=== PATIENT | female | born 1960 | race Caucasian/White ===

== ENCOUNTER 2017-05-04 01:34 | Emergency (ER) | payer BC ==
[2017-05-04 01:55] VITALS: BP 158/101
[2017-05-04] MEDS ORDERED: Ondansetron 4 MG/2 ML SDV IVPUSH ONE (02:07)
[2017-05-04] MEDS ORDERED: methylPREDNISolone Sodium Succinate 125 MG/2 ML SDV IVPUSH ONE (02:07)
--- NOTE | 2017-05-04 02:07 | EDM.PDOC ---
ED HPI GENERAL MEDICAL PROBLEM - General Chief Complaint: Neuro Symptoms/Deficits Stated Complaint: DIZZY/NAUSEATED Time Seen by Provider: 05/04/17 01:59 Source of Information: Reports: Patient, RN Notes Reviewed - History of Present Illness INITIAL COMMENTS - FREE TEXT/NARRATIVE: 56-year-old female comes in private vehicle with vertigo type dizziness. She had been in bed sleeping. She states she rolled from her left side to her right with sudden onset of severe rotational vertigo. She did try to take a couple of nausea meds at home, draw morning but states that hasn't helped much. She's had nausea and vomiting with this. The vertigo is worse with any type of motion. Better to sit or lie still with her eyes closed. She has had some vertigo-type problems in the past. Of note the draw morning that she took an hour or so ago had an expiration date of December 2009. She has no headache with this. She states she does have chronic nasal and sinus congestion but no worse than usual. No recent fever or chills. 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 [Unable to Verify Home Med List] 05/04/17 [History] Past Medical History Cardiovascular History: Reports: Hypertension Social & Family History - Tobacco Use Smoking Status *Q: Current Every Day Smoker Years of Tobacco use: 45 Packs/Tins Daily: 0.5 - Caffeine Use Caffeine Use: Reports: Coffee - Recreational Drug Use Recreational Drug Use: No ED ROS GENERAL - Review of Systems Review Of Systems: See Below Constitutional: Denies: Fever, Chills HEENT: Reports: Vertigo. Denies: Ear Discharge, Ear Pain, Sinus Problem, Vision Change Respiratory: Denies: Shortness of Breath Cardiovascular: Denies: Chest Pain GI/Abdominal: Reports: Nausea, Vomiting. Denies: Abdominal Pain, Diarrhea Musculoskeletal: Reports: No Symptoms Skin: Reports: No Symptoms Neurological: Reports: Dizziness. Denies: Headache, Numbness, Tingling, Trouble Speaking ED EXAM, NEURO - Physical Exam Exam: See Below General Appearance: Alert, Moderate Distress Eye Exam: Bilateral Eye: PERRL Ears: Normal External Exam, Normal Canal, Normal TMs Nose: Normal Inspection Throat/Mouth: Normal Inspection, Normal Oropharynx Head Exam: Atraumatic. No: Facial Swelling Neck: Supple, Full Range of Motion Respiratory/Chest: No Respiratory Distress, Lungs Clear, Normal Breath Sounds Cardiovascular: Regular Rate, Rhythm GI/Abdominal: Non-Tender Neurological: Alert, No Motor/Sensory Deficits Extremities: Normal Inspection. No: Pedal Edema, Leg Pain Skin Exam: Warm, Dry, Normal Color Course - Vital Signs Last Recorded V/S: Last Vital Signs Temp 98.3 F 05/04/17 01:52 Pulse 71 05/04/17 01:52 Resp 18 05/04/17 01:52 BP 158/101 H 05/04/17 01:52 Pulse Ox 95 05/04/17 01:52 - Orders/Labs/Meds Orders: Active Orders 24 hr Category Date Time Status Peripheral IV Care [RC] . DIRECTED Care 05/04/17 02:08 Active Sodium Chloride 0.9% [Saline Flush] Med 05/04/17 02:08 Active 10 ml FLUSH ASDIRECTED PRN Peripheral IV Insertion Adult [OM.PC] Stat Oth 05/04/17 02:07 Ordered Medication Orders Sodium Chloride (Saline Flush) 10 ml FLUSH ASDIRECTED PRN PRN Reason: Keep Vein Open Last Admin: 05/04/17 02:33 Dose: 10 ml Meds: Medications Generic Name Dose Route Start Last Admin Trade Name Freq PRN Reason Stop Dose Admin Sodium Chloride 10 ml 05/04/17 02:08 05/04/17 02:33 Saline Flush FLUSH 10 ml ASDIRECTED PRN Administration Keep Vein Open Discontinued Medications Generic Name Dose Route Start Last Admin Trade Name Freq PRN Reason Stop Dose Admin Diazepam 2 mg 05/04/17 02:08 05/04/17 02:27 Valium IVPUSH 05/04/17 02:09 2 mg ONETIME ONE Administration Sodium Chloride 500 mls @ 999 mls/hr 05/04/17 02:08 05/04/17 02:20 Normal Saline IV 05/04/17 02:38 999 mls/hr .BOLUS ONE Administration Meclizine HCl 12.5 mg 05/04/17 02:38 05/04/17 02:44 Antivert PO 05/04/17 02:39 12.5 mg ONETIME ONE Administration Methylprednisolone Sodium Succinate 125 mg 05/04/17 02:07 05/04/17 02:24 Solu-Medrol IVPUSH 05/04/17 02:08 125 mg ONETIME ONE Administration Ondansetron HCl 4 mg 05/04/17 02:07 05/04/17 02:21 Zofran IVPUSH 05/04/17 02:08 4 mg ONETIME ONE Administration - Re-Assessments/Exams Free Text/Narrative Re-Assessment/Exam: 05/04/17 03:45. Have treated with IV Zofran, Solu-Medrol and Valium 2 mg IV. With that the nausea is much better. She still feels dizzy with motion so will allow her to rest for a while longer until symptoms hopefully get better. 05/04/17 04:52. Feeling much better. She now can move carefully without recurrence of severe vertigo. SHe feels up to going home at this time. Discharge instructions as documented Departure - Departure Time of Disposition: 04:53 Disposition: Home, Self-Care 01 Condition: fair Clinical Impression: Labyrinthitis Qualifiers: Laterality: unspecified laterality Qualified Code(s): H83.09 - Labyrinthitis, unspecified ear - Discharge Information Instructions: Labyrinthitis, [id number] Referrals: Alicia Shaw MD [Primary Care Provider] - Forms: ED Department Discharge Additional Instructions: Rest, moves slowly and carefully, Antivert, meclizine 12.5 mg 2 to 3 times daily for the next 3 days or until sx of vertigo have completely resolved. This is available OTC, you will need to ask your Pharmacist for it. Follow up clinic as needed if symptoms not resolving as expected or return to ED as needed if symptoms worsening in any way. - My Orders Last 24 Hours: My Active Orders 05/04/17 02:07 Peripheral IV Insertion Adult [OM.PC] Stat 05/04/17 02:08 Peripheral IV Care [RC] . DIRECTED Sodium Chloride 0.9% [Saline Flush] 10 ml FLUSH ASDIRECTED PRN - Assessment/Plan Last 24 Hours: My Active Orders 05/04/17 02:07 Peripheral IV Insertion Adult [OM.PC] Stat 05/04/17 02:08 Peripheral IV Care [RC] . DIRECTED Sodium Chloride 0.9% [Saline Flush] 10 ml FLUSH ASDIRECTED PRN
[2017-05-04] MEDS ORDERED: Sodium Chloride 0.9% 500 ML IV ONE (02:08)
[2017-05-04] MEDS ORDERED: Sodium Chloride 0.9% 10 ML Syringe FLUSH PRN (02:08)
[2017-05-04] MEDS ORDERED: Meclizine 12.5 MG Tab PO ONE (02:38)
== END 2017-05-04 04:55 | disposition home or self-care (01) ==
LOC: JD.ED 01:34
DX: H83.09 Labyrinthitis, unspecified ear (principal); F17.210 Nicotine dependence, cigarettes, uncomplicated; I10 Essential (primary) hypertension; Z88.0 Allergy status to penicillin
CPT/HCPCS: 96361; 96374; 96375; 99284; A9270; J2405; J2930; J3360; J7040; J7050

== ENCOUNTER 2018-02-13 07:00 | Day surgery (SDC) | payer BC ==
[~2018-02-13 07:00] MED LIST: Lactated Ringers 1,000 ML IV SCH; Lidocaine 1%/Sod Bicarbonate in NS 8.4% 1 ML Syringe IDERM PRN; Sodium Chloride 0.9% 10 ML Syringe FLUSH PRN
--- NOTE | 2018-02-13 07:31 | PCM.PREANE ---
Preanesthetic Assessment - Procedure Proposed Procedure: dig egd and diag colon - Anesthesia/Transfusion/Family Hx Anesthesia History: Prior Anesthesia Without Reaction Family History of Anesthesia Reaction: No Transfusion History: No Prior Transfusion(s) - Review of Systems General: No Symptoms Pulmonary: No Symptoms Cardiovascular: Palpitations (occasionally depending on stress) Gastrointestinal: No Symptoms Neurological: No Symptoms - Physical Assessment NPO Status Date: 02/12/18 (pills with sip this am) NPO Status Time: 23:15 Pulse: 78 O2 Sat by Pulse Oximetry: 94 Respiratory Rate: 16 Blood Pressure: 129/97 Temperature: 97.5 F Height: 5 ft 6 in Weight: 125.963 kg ASA Class: 2 Mental Status: Alert & Oriented x3 Airway Class: Mallampati = 1 Dentition: Reports: Dentures (partial top) Thyro-Mental Finger Breadths: 3 Mouth Opening Finger Breadths: 3 ROM/Head Extension: Full Lungs: Clear to Auscultation, Normal Respiratory Effort Cardiovascular: Regular Rate, Regular Rhythm - Allergies Allergies/Adverse Reactions: Allergies Allergy/AdvReac Type Severity Reaction Status Date / Time broccoli Allergy Cannot Verified 02/09/18 15:38 Remember Penicillins Allergy Cannot Verified 02/09/18 15:38 Remember - Blood Blood Available: No - Acknowledgements Anesthesia Type Planned: MAC Pt an Appropriate Candidate for the Planned Anesthesia: Yes Alternatives and Risks of Anesthesia Discussed w Pt/Guardian: Yes Pt/Guardian Understands and Agrees with Anesthesia Plan: Yes PreAnesthesia Questionnaire HEENT History: Reports: Impaired Vision, Other (See Below) Other HEENT History: wears glasses, has partial Cardiovascular History: Reports: High Cholesterol, Hypertension Respiratory History: Reports: None Gastrointestinal History: Reports: None Genitourinary History: Reports: None 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 Musculoskeletal History: Reports: Gout, Osteoarthritis Neurological History: Reports: Vertigo, Other (See Below) Other Neuro History: trigeminal neuralgia Psychiatric History: Reports: Other (See Below) Other Psychiatric History: dyslexia, depression Endocrine/Metabolic History: Reports: Obesity/BMI 30+ Hematologic History: Reports: None Immunologic History: Reports: None Oncologic (Cancer) History: Reports: None Dermatologic History: Reports: None - Past Surgical History Head Surgeries/Procedures: Reports: None Cardiovascular Surgical History: Reports: None Respiratory Surgical History: Reports: None GI Surgical History: Reports: None Female Surgical History: Reports: Tubal Ligation, Other (See Below) Other Female Surgeries/Procedures: breast lumpectomy Endocrine Surgical History: Reports: None Neurological Surgical History: Reports: None Musculoskeletal Surgical History: Reports: Arthroscopic Knee Oncologic Surgical History: Reports: None Dermatological Surgical History: Reports: None - SUBSTANCE USE Smoking Status *Q: Current Every Day Smoker Tobacco Use Within Last Twelve Months: Cigarettes Second Hand Smoke Exposure: Yes Days Per Week of Alcohol Use: 1 (very little) Recreational Drug Use History: No - HOME MEDS Home Medications: Home Meds Acetaminophen [Tylenol Arthritis] 1 tab PO QID PRN 02/09/18 [History] Acetaminophen/Chlorpheniramine [Coricidin HBP Cold & Flu] 1 tab PO Q6H PRN 02/09 [History] Acetaminophen/HYDROcodone [[place] 325-5 MG] 1 - 2 tab PO Q6H PRN 02/09/18 [ History] Aspirin 81 mg PO DAILY 02/09/18 [History] Aspirin/Acetaminophen/Caffeine [Migraine Relief Caplet] 1 - 2 tab PO Q6H PRN [History] Benzonatate [Tessalon Perle] 1 - 2 cap PO Q6H PRN 02/09/18 [History] Cyclobenzaprine [Flexeril] 10 mg PO TID PRN 02/09/18 [History] Fish Oil/[place]-3 Fatty Acids [Fish Oil 1,000 MG] 1 gm PO DAILY 02/09/18 [History ] Hydrochlorothiazide [Hydrochlorothiazide] 12.5 mg PO DAILY 02/09/18 [History] Hydrochlorothiazide/Losartan [Hyzaar 50-12.5 MG] 1 tab PO DAILY 02/09/18 [ History] Multivitamin [Flintstones] 1 tab PO DAILY 02/09/18 [History] Naproxen Sodium [Aleve] 1 - 2 tab PO BID PRN 02/09/18 [History] atorvaSTATin [Lipitor] 20 mg PO DAILY 02/09/18 [History] traMADol HCl [Tramadol HCl] 50 mg PO Q6H PRN 02/09/18 [History] - CURRENT (IN HOUSE) MEDS Current Meds: Current Medications Lactated Ringer's (Ringers, Lactated) 1,000 mls @ 125 mls/hr IV ASDIRECTED [facility]ANCHES[facility] Stop: 02/13/18 23:00 Lidocaine/Sodium Bicarbonate (Buffered Lidocaine 1% In Ns 8.4%) 0.25 ml IDERM ONETIME PRN PRN Reason: Prior to IV Start Stop: 02/13/18 18:00 Sodium Chloride (Saline Flush) 10 ml FLUSH ASDIRECTED PRN PRN Reason: Keep Vein Open Stop: 02/13/18 18:00
[2018-02-13] MEDS ORDERED: Lidocaine 1% 4 ML ONE (07:38)
[2018-02-13] MEDS ORDERED: Propofol 200 MG/20 ML SDV ONE (07:38)
[2018-02-13] MEDS ORDERED: fentaNYL 100 MCG/2 ML SDV ONE (07:39)
[2018-02-13] MEDS ORDERED: Midazolam 1 MG/ML 2 ML SDV ONE (07:39)
--- NOTE | 2018-02-13 08:53 | PCM.OPNOTE ---
- General Post-Op/Procedure Note Date of Surgery/Procedure: 02/13/18 Operative Procedure(s): EGD/colonosocopy Pre Op Diagnosis: positive fit test Post-Op Diagnosis: Same Anesthesia Technique: MAC Primary Surgeon: Thomas Augustine EBL in mLs: 0 Complications: None Condition: Good
[2018-02-13 08:58] VITALS: BP 111/91
--- NOTE | 2018-02-13 08:58 | PCM48HPAN ---
Post Anesthesia Note - EVALUATION WITHIN 48HRS OF ANESTHETIC Vital Signs in Normal Range: Yes Patient Participated in Evaluation: Yes Respiratory Function Stable: Yes Airway Patent: Yes Cardiovascular Function Stable: Yes Hydration Status Stable: Yes Pain Control Satisfactory: Yes Nausea and Vomiting Control Satisfactory: Yes Mental Status Recovered: Yes Pulse Rate: 72 SaO2: 92 Resp Rate: 16 Temperature: 97.1 F Blood Pressure: 111/91
--- NOTE | 2018-02-13 11:08 | OR ---
DATE OF OPERATION: 02/13/2018 SURGEON: Thomas Auugstine MD PREOPERATIVE DIAGNOSIS: Positive FIT test. POSTOPERATIVE DIAGNOSIS: Positive FIT test. OPERATION PERFORMED: Esophagogastroduodenoscopy done under IV sedation. FINDINGS: Normal exam outside of a small patch of Jules's that is located just below the cricopharyngeus. DESCRIPTION OF PROCEDURE: The patient was taken to the endoscopy room, placed in a supine position, connected to monitoring equipment, given IV sedation. The patient was placed in left lateral position. Bite block was inserted and video Olympus gastroscope placed in the posterior oropharynx, under direct vision, threaded past the cricopharyngeus, down the esophagus into the stomach. The stomach was insufflated, and the scope passed through the pylorus to the second portion of the duodenum. It was slowly withdrawn showing the normal 2nd portion of the duodenum, duodenal bulb, pyloric channel. Antrum, body, cardia, and fundus of stomach were reviewed. J-maneuver was performed and a small sliding hiatal hernia was noted, otherwise normal. Scope was withdrawn at the GE junction, located at 38 cm, and was normal. Z-line was straight. Rest of the esophagus was viewed, the scope withdrawn and just below the cricopharyngeus, a small patch of Jules's mucosa was noted. The patient tolerated the procedure and IV sedation will be continued for colonoscopy. ANESTHESIA: ESTIMATED BLOOD LOSS: MMODAL /[id number]
--- NOTE | 2018-02-14 06:41 | OR ---
DATE OF OPERATION: 02/13/2018 SURGEON: Thomas Augustine MD PREOPERATIVE DIAGNOSIS: Positive fit test. POSTOPERATIVE DIAGNOSIS: Positive fit test. OPERATION PERFORMED: Colonoscopy to cecum. FINDINGS: Normal study. ANESTHESIA: Done under IV sedation. DESCRIPTION OF PROCEDURE: The patient having been brought to the endoscopy room for upper GI endoscopy, where IV sedation was given and the patient was connected to monitoring equipment. The IV sedation was continued along with the monitoring. She was placed in the left lateral position for a colonoscopy. The perianal area inspected was normal. Rectal exam showed good sphincter tone. A video Olympus colonoscope was then introduced into the rectum and threaded up without problem to the cecum, where the cecal anatomy and the ileocecal valve and appendicular orifice were noted. Prep was excellent throughout the colon, [place] cleansing score grade A and the scope was slowly withdrawn showing the cecum, ascending colon, transverse colon, descending colon, sigmoid colon, and rectum. Retroflexed view was done. Normal study was found. The patient tolerated the procedure and sent to recovery room in a stable condition and will be followed up as needed. ESTIMATED BLOOD LOSS: MMODAL /[id number]
== END 2018-02-13 09:40 | disposition home or self-care (01) ==
LOC: JD.SDS 07:00
PROVIDERS: ATTEND Surgery
DX: K44.9 Diaphragmatic hernia without obstruction or gangrene (principal); I10 Essential (primary) hypertension; F32.9 Major depressive disorder, single episode, unspecified; E66.01 Morbid (severe) obesity due to excess calories; E78.00 Pure hypercholesterolemia, unspecified; Z88.0 Allergy status to penicillin; Z68.41 Body mass index [BMI] 40.0-44.9, adult; Z91.018 Allergy to other foods; Z79.82 Long term (current) use of aspirin; Z79.899 Other long term (current) drug therapy; F17.210 Nicotine dependence, cigarettes, uncomplicated
CPT/HCPCS: 43235; 45378; J2250; J3010; J7120; 00813; J2001; J2704

== ENCOUNTER 2018-05-29 06:01 | Inpatient (IN) | payer BC ==
[~2018-05-29 06:01] MED LIST changes: +Acetaminophen 325 MG Tab PO SCH; +Pregabalin 25 MG Cap PO SCH; +oxyCODONE ER 10 MG TAB.ER PO SCH
[2018-05-29] MEDS ORDERED: Propofol 200 MG/20 ML SDV ONE (06:28)
[2018-05-29] MEDS ORDERED: fentaNYL 100 MCG/2 ML SDV ONE (06:28)
[2018-05-29] MEDS ORDERED: Midazolam 1 MG/ML 2 ML SDV ONE (06:28)
[2018-05-29] MEDS ORDERED: Lidocaine 1% 4 ML ONE (06:34)
[2018-05-29] MEDS ORDERED: Bupivacaine 0.75% 30 ML SDV ONE (06:36)
[2018-05-29] MEDS ORDERED: ceFAZolin 1 GM Vial ONE ×2 (06:36→09:25)
[2018-05-29] MEDS ORDERED: Cyclobenzaprine 10 MG Tab PO PRN (06:36)
[2018-05-29] MEDS ORDERED: Magnesium Hydroxide 400 MG/5 ML Susp 30 ML Cup PO PRN (06:37)
[2018-05-29] MEDS ORDERED: Naloxone 0.4 MG/ML SDV IVPUSH PRN (06:37)
[2018-05-29] MEDS ORDERED: Sennosides 8.6 MG Tab PO PRN (06:37)
[2018-05-29] MEDS ORDERED: Bisacodyl 5 MG Tab PO PRN (06:37)
[2018-05-29] MEDS ORDERED: Morphine 2 MG/ML Syringe IVPUSH PRN (06:37)
[2018-05-29] MEDS ORDERED: Ketamine 500 mg/10 ML MDV ONE (07:56)
[2018-05-29] MEDS: Iodine/Sodium Iodide 2% Tincture 30 ML Bottle ONE ×2 (08:00→08:03)
[2018-05-29] MEDS: ceFAZolin 1 GM Vial ONE ×2 (08:00→08:04)
[2018-05-29] MEDS: Morphine 8 MG, EPINEPHrine 0.3 MG, Cefuroxime 750 MG, Ketorolac 30 MG, Sodium Chloride ... ONE ×10 (08:01→08:11)
[2018-05-29] MEDS: Bupivacaine 0.25% 30 ML SDV ONE ×2 (08:01→08:11)
[2018-05-29] MEDS: Vancomycin 1 GM SDV ONE ×2 (08:02→08:12)
[2018-05-29] MEDS ORDERED: CAFFEINE PO PRN ×2 (08:41→09:45)
[2018-05-29] MEDS ORDERED: ASPIRIN PO PRN ×2 (08:41→09:45)
[2018-05-29] MEDS ORDERED: Benzonatate 100 MG Cap PO PRN (08:41)
[2018-05-29] MEDS ORDERED: ACETAMINOPHEN PO PRN ×3 (08:41→09:45)
[2018-05-29] MEDS ORDERED: Loratadine 10 MG Tab PO PRN (08:41)
[2018-05-29] MEDS ORDERED: CHLORPHENIRAMINE PO PRN (08:41)
[2018-05-29] MEDS ORDERED: Ropivacaine 0.5% 5 MG/ML 30 ML SDV ONE (08:47)
[2018-05-29] MEDS ORDERED: EPINEPHrine 1 MG/ML SDV ONE (08:47)
--- NOTE | 2018-05-29 09:05 | PCM.POSTAN ---
POST ANESTHESIA ASSESSMENT - MENTAL STATUS Mental Status: Alert, Oriented - VITAL SIGNS Pulse Rate: 78 SaO2: 90 Resp Rate: 12 Blood Pressure: 91/61 Temperature: 36.3 C - RESPIRATORY Respiratory Status: Respiratory Rate WNL, Airway Patent, O2 Saturation Stable, Supplemental Oxygen - CARDIOVASCULAR CV Status: Pulse Rate WNL, Blood Pressure Stable - GASTROINTESTINAL GI Status: No Symptoms - PAIN Pain Score: 0 - POST OP HYDRATION Hydration Status: Adequate & Stable
[2018-05-29] MEDS ORDERED: Ondansetron 4 MG/2 ML SDV IVPUSH PRN (09:06)
[2018-05-29] MEDS ORDERED: fentaNYL 100 MCG/2 ML SDV IVPUSH PRN (09:06)
[2018-05-29] MEDS ORDERED: diphenhydrAMINE 50 MG/ML SDV IVPUSH PRN (09:06)
[2018-05-29] MEDS ORDERED: Meperidine PF 50 MG/ML Syringe IVPUSH PRN (09:06)
--- NOTE | 2018-05-29 09:22 | PCM.PREANE ---
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[place], horners syndrome, gout, - Review of Systems General: No Symptoms Pulmonary: No Symptoms Cardiovascular: Other (HTN, hyperlipidemia) Neurological: No Symptoms Other: Reports: None - Physical Assessment NPO Status Date: 05/28/18 NPO Status Time: 20:30 Pulse: 78 O2 Sat by Pulse Oximetry: 90 Respiratory Rate: 12 Blood Pressure: 91/61 Temperature: 36.3 C Vital Signs: Last Vital Signs Temp 36.3 C 05/29/18 09:06 Pulse 78 05/29/18 09:06 Resp 12 05/29/18 09:06 BP 91/61 05/29/18 09:06 Pulse Ox 90 L 05/29/18 09:06 Height: 1.73 m Weight: 125.645 kg ASA Class: 2 Mental Status: Alert & Oriented x3 Airway Class: Mallampati = 1 Dentition: Reports: Missing Tooth/Teeth (multiple missing teeth ) Thyro-Mental Finger Breadths: 3 Mouth Opening Finger Breadths: 3 ROM/Head Extension: Full Lungs: Clear to Auscultation, Normal Respiratory Effort Cardiovascular: Regular Rate, Regular Rhythm - Lab Values: Laboratory Last Values MRSA (PCR) Negative 05/10/18 15:01 - Allergies Allergies/Adverse Reactions: Allergies Allergy/AdvReac Type Severity Reaction Status Date / Time broccoli Allergy Cannot Verified 05/29/18 08:29 Remember Penicillins Allergy Cannot Verified 05/29/18 08:29 Remember - Blood Blood Available: No Product(s) Available: None - Anesthesia Plan Pre-Op Medication Ordered: None - Acknowledgements Anesthesia Type Planned: Spinal, Regional Block (Adductor canal block in PACU) Pt an Appropriate Candidate for the Planned Anesthesia: Yes Alternatives and Risks of Anesthesia Discussed w Pt/Guardian: Yes Pt/Guardian Understands and Agrees with Anesthesia Plan: Yes PreAnesthesia Questionnaire HEENT History: Reports: Impaired Vision, Other (See Below) Other HEENT History: wears glasses, has partial Cardiovascular History: Reports: High Cholesterol, Hypertension Respiratory History: Reports: None Gastrointestinal History: Reports: None Genitourinary History: Reports: None 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 Musculoskeletal History: Reports: Gout, Osteoarthritis Neurological History: Reports: Vertigo, Other (See Below) Other Neuro History: trigeminal neuralgia, aquilino's syndrome Psychiatric History: Reports: Developmental Delay, Other (See Below) Other Psychiatric History: dyslexia, depression Endocrine/Metabolic History: Reports: Obesity/BMI 30+, Osteopenia Hematologic History: Reports: None Immunologic History: Reports: None Oncologic (Cancer) History: Reports: None Dermatologic History: Reports: None - Past Surgical History Head Surgeries/Procedures: Reports: None Cardiovascular Surgical History: Reports: None Respiratory Surgical History: Reports: None GI Surgical History: Reports: Colonoscopy, EGD Female Surgical History: Reports: None, Tubal Ligation, Other (See Below) Other Female Surgeries/Procedures: breast lumpectomy Endocrine Surgical History: Reports: None Neurological Surgical History: Reports: None Musculoskeletal Surgical History: Reports: Arthroscopic Knee Oncologic Surgical History: Reports: None Dermatological Surgical History: Reports: None - SUBSTANCE USE Smoking Status *Q: Current Every Day Smoker (0.5ppd for 40 years) Second Hand Smoke Exposure: No Recreational Drug Use History: No - HOME MEDS Home Medications: Home Meds Acetaminophen [Tylenol Arthritis] 1 tab PO QID PRN 02/09/18 [History] Acetaminophen/Chlorpheniramine [Coricidin HBP Cold & Flu] 1 tab PO Q6H PRN 02/09 [History] Aspirin 81 mg PO DAILY 02/09/18 [History] Aspirin/Acetaminophen/Caffeine [Migraine Relief Caplet] 1 - 2 tab PO Q6H PRN [History] Benzonatate [Tessalon Perle] 1 - 2 cap PO Q6H PRN 02/09/18 [History] Cyclobenzaprine [Flexeril] 10 mg PO TID PRN 02/09/18 [History] Fish Oil/[place]-3 Fatty Acids [Fish Oil 1,000 MG] 2 gm PO DAILY 02/09/18 [History ] Hydrochlorothiazide 12.5 mg PO DAILY 02/09/18 [History] Hydrochlorothiazide/Losartan [Hyzaar 50-12.5 MG] 1 tab PO DAILY 02/09/18 [ History] Multivitamin [Flintstones] 1 tab PO DAILY 02/09/18 [History] Naproxen Sodium [Aleve] 1 - 2 tab PO BID PRN 02/09/18 [History] atorvaSTATin [Lipitor] 20 mg PO DAILY 02/09/18 [History] traMADol HCl [Tramadol HCl] 50 mg PO Q6H PRN 02/09/18 [History] Cetirizine [ZyrTEC] 10 mg PO DAILY PRN 05/26/18 [History] Hydrocort/Neomycin/Polymyxin B [Cortisporin Otic Soln] 4 drop EARBOTH QID [History] Multivitamin W/Iron, Minerals [Life-Pack] 1 dose PO DAILY 05/26/18 [History] - CURRENT (IN HOUSE) MEDS Current Meds: Current Medications Acetaminophen (Tylenol) 975 mg PO ONETIME FR[facility]CHESCA Aspirin (Aspirin) 81 mg PO DAILY [facility] Benzonatate (Tessalon Perles) 100 - 200 mg PO Q6H PRN PRN Reason: Cough Bisacodyl (Dulcolax) 5 mg PO DAILY PRN PRN Reason: Constipation Cyclobenzaprine HCl (Flexeril) 10 mg PO TID PRN PRN Reason: Spasms Diphenhydramine HCl (Benadryl) 25 mg IVPUSH Q6H PRN PRN Reason: Pruritis Stop: 05/29/18 11:00 Docusate Sodium (Colace) 100 mg PO BID [facility] Famotidine (Pepcid) 20 mg PO Q12H [facility] Fentanyl (Sublimaze) 50 mcg IVPUSH Q5M PRN PRN Reason: Pain Stop: 05/29/18 11:00 Hydrochlorothiazide (Hydrochlorothiazide) 12.5 mg PO DAILY [facility] Lactated Ringer's (Ringers, Lactated) 1,000 mls @ 125 mls/hr IV ASDIRECTED [facility] Last Admin: 05/29/18 06:20 Dose: 125 mls/hr Cefazolin Sodium/Dextrose 2 gm (/ Premix) 50 mls @ 100 mls/hr IV Q8H [facility] Stop: 05/30/18 07:29 Cefazolin Sodium/Dextrose 1 gm (/ Premix) 50 mls @ 100 mls/hr IV Q8H [facility] Stop: 05/30/18 07:29 Ketorolac Tromethamine (Toradol) 15 mg IVPUSH Q6H PRN PRN Reason: Pain Lidocaine/Sodium Bicarbonate (Buffered Lidocaine 1% In Ns 8.4%) 0.25 ml IDERM ONETIME PRN PRN Reason: Prior to IV Start Last Admin: 05/29/18 06:19 Dose: 0.25 ml Loratadine (Claritin) 10 mg PO DAILY PRN PRN Reason: Allergies Magnesium Hydroxide (Milk Of Magnesia) 30 ml PO BID PRN PRN Reason: Constipation Meperidine HCl (Demerol) 12.5 mg IVPUSH ONETIME PRN PRN Reason: Shivering Stop: 05/29/18 11:00 Morphine Sulfate (Morphine) 2 mg IVPUSH Q2H PRN PRN Reason: Breakthrough Pain Multivitamins (Thera) 1 each PO DAILY [facility] Naloxone HCl (Narcan) 0.1 mg IVPUSH Q5M PRN PRN Reason: Oversedation Aspirin/Acetaminophen/Caffeine (Migraine Relief) 1 - 2 tab PO Q6H PRN PRN Reason: migraine Ondansetron HCl (Zofran) 4 mg IVPUSH Q6H PRN PRN Reason: Nausea/Vomiting Ondansetron HCl (Zofran) 4 mg IVPUSH ONETIME PRN PRN Reason: Nausea/Vomiting Stop: 05/29/18 11:00 Oxycodone HCl (Oxycontin) 10 mg PO ONETIME [facility] Last Admin: 05/29/18 06:40 Dose: 10 mg Oxycodone/Acetaminophen (Percocet 325-5 Mg) 1 - 2 tab PO Q4H PRN PRN Reason: Pain Acetaminophen/Chlorpheniramine [ Coricidin Hbp Cold & Flu] 0 each PO Q6H PRN PRN Reason: cold symptoms Hydrocort/Neomycin/Polymyxin B Otic Solution 0 each EARBOTH QID [facility] Pregabalin (Lyrica) 50 mg PO ONETIME [facility] Last Admin: 05/29/18 06:40 Dose: 50 mg Rivaroxaban (Xarelto) 10 mg PO DAILY [facility] Senna (Senna) 8.6 mg PO BID PRN PRN Reason: Constipation Simvastatin (Zocor) 20 mg PO BEDTIME [facility] Sodium Chloride (Saline Flush) 10 ml FLUSH ASDIRECTED PRN PRN Reason: Keep Vein Open Discontinued Medications Bupivacaine HCl (Marcaine 0.25%) Confirm Administered Dose 30 ml .ROUTE .STK- MED ONE Stop: 05/29/18 06:10 Last Admin: 05/29/18 08:01 Dose: 30 ml Bupivacaine HCl (Sensorcaine-Mpf 0.75%) Confirm Administered Dose 30 ml .ROUTE .STK-MED ONE Stop: 05/29/18 06:37 Cefazolin Sodium (Ancef) Confirm Administered Dose 2 gm .ROUTE .STK-MED ONE Stop: 05/29/18 06:10 Last Admin: 05/29/18 08:00 Dose: 2 gm Cefazolin Sodium (Ancef) Confirm Administered Dose 2 gm .ROUTE .STK-MED ONE Stop: 05/29/18 06:37 Morphine Sulfate 8 mg/Epinephrine HCl 0.3 mg/Cefuroxime Sodium 750 mg/Ketorolac Tromethamine 30 mg/Sodium Chloride 27.9 ml 0 mg .XX ONETIME ONE Stop: 05/29/18 07:31 Last Admin: 05/29/18 08:01 Dose: 788.3 mg Epinephrine HCl (Adrenalin) Confirm Administered Dose 1 mg .ROUTE .ST-MED ONE Stop: 05/29/18 08:48 Fentanyl (Sublimaze) Confirm Administered Dose 100 mcg .ROUTE .STK-MED ONE Stop: 05/29/18 06:29 Lidocaine HCl (Xylocaine-Mpf 1%) Confirm Administered Dose 4 mls @ as directed .ROUTE .ST-MED ONE Stop: 05/29/18 06:35 Iodine (Iodine 2% Mild Tincture) Confirm Administered Dose 30 ml .ROUTE .STK- MED ONE Stop: 05/29/18 06:10 Last Admin: 05/29/18 08:03 Dose: 18 ml Ketamine HCl (Ketalar) Confirm Administered Dose 500 mg .ROUTE .STK-MED ONE Stop: 05/29/18 07:57 Midazolam HCl (Versed 1 Mg/Ml) Confirm Administered Dose 2 mg .ROUTE .STK-MED ONE Stop: 05/29/18 06:29 Propofol (Diprivan 20 Ml) Confirm Administered Dose 600 mg .ROUTE .STK-MED ONE Stop: 05/29/18 06:29 Ropivacaine (Naropin 0.5%) Confirm Administered Dose 30 ml .ROUTE .STK-MED ONE Stop: 05/29/18 08:48 Tranexamic Acid (Cyklokapron) Confirm Administered Dose 1,000 mg .ROUTE .STK- MED ONE Stop: 05/29/18 06:10 Last Admin: 05/29/18 08:02 Dose: 1,000 mg Vancomycin HCl (Vancomycin) Confirm Administered Dose 1 gm .ROUTE .[facility] ONE Stop: 05/29/18 06:10 Last Admin: 05/29/18 08:02 Dose: 1 gm
[2018-05-29] MEDS ORDERED: Ondansetron 4 MG/2 ML SDV ONE (09:25)
--- NOTE | 2018-05-29 09:31 | CR ---
Right knee: AP and crosstable lateral views of the right knee were obtained. Comparison: No prior knee exam. Knee prosthesis is seen. Components are aligned. Underlying bony structures are intact. Soft tissue air is noted from the surgical procedure. Impression: 1. Satisfactory radiographic appearance of recently placed right knee prosthesis. Diagnostic code #2
--- NOTE | 2018-05-29 09:51 | PCM.CONS ---
H&P History of Present Illness - General Date of Service: 05/29/18 Admit Problem/Dx: Admission Diagnosis/Problem Admission Diagnosis/Problem Osteoarthritis of knee Source of Information: Patient, Old Records, Provider, RN, RN Notes Reviewed History Limitations: Reports: No Limitations - History of Present Illness Initial Comments - Free Text/Narative: Odette Wiggins is a 57 yo female patient of Dr. Dawson who is post-operative day 0 of right TKA. Hospital medicine was consulted for post-operative medical care. At this time she is resting comfortably in bed. Pain is controlled at 0/ 10. She denies any chest pain, shortness of breath, palpitations, nausea, or vomiting. She carries a history of: HTN, HLD, depression, osteopenia, dyslexia, gout, danitza syndorme, obesity, vertigo, and a history of west nile infection. She is a current half pack per day smoker. She is a full code. Her primary care provider is Dr. Dominguez. - Related Data Allergies/Adverse Reactions: Allergies Allergy/AdvReac Type Severity Reaction Status Date / Time broccoli Allergy Cannot Verified 05/29/18 08:29 Remember Penicillins Allergy Cannot Verified 05/29/18 08:29 Remember Home Medications: Home Meds Acetaminophen/Chlorpheniramine [Coricidin HBP Cold & Flu] 1 tab PO Q6H PRN 02/09 [History] Aspirin 81 mg PO DAILY 02/09/18 [History] Aspirin/Acetaminophen/Caffeine [Migraine Relief Caplet] 1 - 2 tab PO Q6H PRN [History] Benzonatate [Tessalon Perle] 1 - 2 cap PO Q6H PRN 02/09/18 [History] Cyclobenzaprine [Flexeril] 10 mg PO TID PRN 02/09/18 [History] Hydrochlorothiazide 12.5 mg PO DAILY 02/09/18 [History] atorvaSTATin [Lipitor] 20 mg PO BEDTIME 02/09/18 [History] traMADol HCl [Tramadol HCl] 50 mg PO Q6H PRN 02/09/18 [History] Cetirizine [ZyrTEC] 10 mg PO DAILY PRN 05/26/18 [History] Acetaminophen [Tylenol Arthritis] 1 tab PO QID PRN #0 05/29/18 [Rx] Acetaminophen/oxyCODONE [Percocet 325-5 MG] 1 - 2 tab PO Q6H PRN #60 tablet 01/15 [Rx] Bisacodyl [Dulcolax] 5 mg PO DAILY PRN tablet 05/29/18 [Rx] Calcium Carbonate/Vitamin D3 [Calcium 600 + Vit D Tablet] 600 mg PO BID [History] Docusate Sodium [Colace] 100 mg PO BID cap 05/29/18 [Rx] Famotidine [Pepcid] 20 mg PO Q12H tablet 05/29/18 [Rx] Losartan/Hydrochlorothiazide [Losartan-HCTZ 50-12.5 MG] 1 tab PO DAILY 05/29/18 [History] Magnesium Hydroxide [Milk of Magnesia] 30 ml PO BID PRN cup 05/29/18 [Rx] Multivitamin [Multi-Day Vitamins] 1 each PO DAILY 05/29/18 [History] Rivaroxaban [Xarelto] 10 mg PO DAILY #40 tablet 05/29/18 [Rx] Sennosides [Senna] 8.6 mg PO BID PRN tablet 05/29/18 [Rx] Past Medical History HEENT History: Reports: Impaired Vision, Other (See Below) Other HEENT History: wears glasses, has partial Cardiovascular History: Reports: High Cholesterol, Hypertension Respiratory History: Reports: None Gastrointestinal History: Reports: None Genitourinary History: Reports: None REAL ESTATE ASSOCIATE History: Reports: None Musculoskeletal History: Reports: Gout, Osteoarthritis Neurological History: Reports: Vertigo, Other (See Below) Other Neuro History: trigeminal neuralgia, danitza's syndrome Psychiatric History: Reports: Developmental Delay, Other (See Below) Other Psychiatric History: dyslexia, depression Endocrine/Metabolic History: Reports: Obesity/BMI 30+, Osteopenia Hematologic History: Reports: None Immunologic History: Reports: None Oncologic (Cancer) History: Reports: None Dermatologic History: Reports: None - Past Surgical History Head Surgeries/Procedures: Reports: None Cardiovascular Surgical History: Reports: None Respiratory Surgical History: Reports: None GI Surgical History: Reports: Colonoscopy, EGD Female Surgical History: Reports: None, Tubal Ligation, Other (See Below) Other Female Surgeries/Procedures: breast lumpectomy Endocrine Surgical History: Reports: None Neurological Surgical History: Reports: None Musculoskeletal Surgical History: Reports: Arthroscopic Knee Oncologic Surgical History: Reports: None Dermatological Surgical History: Reports: None Social & Family History - Tobacco Use Smoking Status *Q: Current Every Day Smoker (0.5ppd for 40 years) Years of Tobacco use: 40 Packs/Tins Daily: 0.5 Used Tobacco, but Quit: No Second Hand Smoke Exposure: No - Caffeine Use Caffeine Use: Reports: Coffee - Recreational Drug Use Recreational Drug Use: No H&P Review of Systems - Review of Systems: Review Of Systems: See Below General: Reports: No Symptoms HEENT: Reports: No Symptoms Pulmonary: Reports: No Symptoms Cardiovascular: Reports: No Symptoms Gastrointestinal: Reports: No Symptoms Genitourinary: Reports: No Symptoms Musculoskeletal: Reports: Leg Pain, Muscle Stiffness (left leg ) Skin: Reports: No Symptoms Psychiatric: Reports: No Symptoms Neurological: Reports: No Symptoms Hematologic/Lymphatic: Reports: No Symptoms Immunologic: Reports: No Symptoms Exam - Exam Exam: See Below - Vital Signs Vital Signs: Last Vital Signs Temp 97.5 F 05/29/18 09:45 Pulse 66 05/29/18 09:45 Resp 13 05/29/18 09:45 BP 113/84 05/29/18 09:45 Pulse Ox 96 05/29/18 09:45 Weight: 277 lb - Exam Quality Assessment: Supplemental Oxygen, Urinary Catheter, DVT Prophylaxis General: Alert, Oriented, Cooperative. No: Mild Distress HEENT: Conjunctiva Clear, EACs Clear, EOMI, Hearing Intact, Mucosa Moist & [place] , PERRLA Neck: Supple, Trachea Midline Lungs: Clear to Auscultation, Normal Respiratory Effort Cardiovascular: Regular Rate, Regular Rhythm GI/Abdominal Exam: Normal Bowel Sounds, Soft, Non-Tender, No Distention (Female) Exam: Deferred Rectal (Female) Exam: Deferred Back Exam: Normal Inspection, Full Range of Motion Extremities: No Pedal Edema, Normal Capillary Refill, Leg Pain, Limited Range of Motion, Other (AUSTEN bandage on right leg. Cooling pack in place. ) Peripheral Pulses: 1+: Posterior Tibial (L), Posterior Tibial (R), Dorsalis Pedis (L), Dorsalis Pedis (R), 2+: Radial (L), Radial (R) Skin: Warm, Dry, Intact Neurological: Cranial Nerves Intact (grossly ) Neuro Extensive - Mental Status: Alert, Oriented x3, Normal Mood/Affect, Normal Cognition Psychiatric: Alert, Normal Affect, Normal Mood Consult PN Assessment/Plan POD#: 0 Procedures: Procedures DIAGNOSTIC COLONOSCOPY (02/13/18) EGD DIAGNOSTIC BRUSH WASH (02/13/18) EMERGENCY DEPT VISIT (05/04/17) HYDRATE IV INFUSION ADD-ON (05/04/17) THER/PROPH/DIAG INJ IV PUSH (05/04/17) TX/PRO/DX INJ NEW DRUG ADDON (05/04/17) (1) S/P total knee arthroplasty SNOMED Code(s): 2005937758580, 865048181, 9997687039487 Code(s): Z96.659 - PRESENCE OF UNSPECIFIED ARTIFICIAL KNEE JOINT Priority: High Current Visit: Yes Qualifiers: Laterality: right Qualified Code(s): Z96.651 - Presence of right artificial knee joint (2) Osteoarthritis SNOMED Code(s): 391103383 Code(s): M19.90 - UNSPECIFIED OSTEOARTHRITIS, UNSPECIFIED SITE Priority: High Current Visit: Yes Qualifiers: Osteoarthritis location: knee Osteoarthritis type: primary Laterality: bilateral Qualified Code(s): M17.0 - Bilateral primary osteoarthritis of knee (3) HTN (hypertension) SNOMED Code(s): 31429789 Code(s): I10 - ESSENTIAL (PRIMARY) HYPERTENSION Priority: Medium Current Visit: No Qualifiers: Hypertension type: unspecified Qualified Code(s): I10 - Essential (primary ) hypertension (4) HLD (hyperlipidemia) SNOMED Code(s): 70100445 Code(s): E78.5 - HYPERLIPIDEMIA, UNSPECIFIED Priority: Low Current Visit : No Qualifiers: Hyperlipidemia type: unspecified Qualified Code(s): E78.5 - Hyperlipidemia , unspecified (5) Danitza's syndrome SNOMED Code(s): 37075314 Code(s): G90.2 - DANITZA'S SYNDROME Priority: Medium Current Visit: No (6) Other specified depressive episodes SNOMED Code(s): 37191873 Code(s): F32.89 - OTHER SPECIFIED DEPRESSIVE EPISODES Priority: Low Current Visit: No (7) Morbid obesity with BMI of 40.0-44.9, adult SNOMED Code(s): 470115968 Code(s): E66.01 - MORBID (SEVERE) OBESITY DUE TO EXCESS CALORIES; Z68.41 - BODY MASS INDEX (BMI) 40.0-44.9, ADULT Priority: Medium Current Visit: Yes (8) History of West Nile virus (WNV) infection SNOMED Code(s): 418452253 Code(s): Z86.19 - PERSONAL HISTORY OF OTHER INFECTIOUS AND PARASITIC DISEASES Priority: Medium Current Visit: No (9) Dyslexia SNOMED Code(s): 51993561 Code(s): R48.0 - DYSLEXIA AND ALEXIA Priority: Low Current Visit: No Problem List Initiated/Reviewed/Updated: Yes Plan: I/P: Acute: S/P right total knee arthroplasty - post-operative day 0 -DVT prophylaxis and pain management per primary care team -PT/OT -IS/RT -Monitor oxygen saturation -Titrate oxygen as needed -Vital signs stable -Monitor labs -Pre-operative Hgb was 14.6 -Pre-operative eGFR was >60 Osteoarthritis of bilateral knees -Pain management per primary care team Chronic: HTN HLD depression osteopenia dyslexia gout danitza syndorme obesity vertigo history of [place] infection Plan: CM for discharge planning GI prophylaxis Home medications as indicated Other orders as listed above Routine AM labs She is a full code. Her PCP is Dr. Dominguez Thank you for allowing us to participate in the care of this patient!! Requesting Provider: Dr. Dawson Date Consult Requested: 05/29/18 Reason for Consult: Post-operative medical care Patient History Reviewed: Yes Admission H&P Reviewed: Yes Time Spent (in minutes): 40
--- NOTE | 2018-05-29 10:04 | PCM.SN ---
- Free Text/Narrative Note: Right selective femoral nerve block at the adductor canal for post-procedure pain control Time Out: 933 Start: 934 End: 941 Chart reviewed. Consent signed. Questions answered. Appropriate monitors applied. Time out performed. Right mid-shaft femur evaluated with ultrasound. Scanning medially femur, I was able to identify the femoral artery in the adductor canal. The saphenous nerve was lateral to the artery. The skin was prepped lateral to the ultrasound probe with chlorahexadine. Skin localized with 3mL of 1% lidocaine. The 21ga 4 insulated block needle was inserted under direct ultrasound guidance into the adductor canal. 20mL of 0.5% ropivacaine with 1:200,000 epinephrine was injected cirmcumferentially about the nerve with intermittent negative aspiration every 5mL. Patient tolerated the procedure well. See pictures on progress note and vital signs on nurses notes. Block completed postoperatively. Reinier Gandara METAL FABRICATING SUPERVISOR
[2018-05-29] MEDS: Ondansetron 4 MG/2 ML SDV IVPUSH PRN (10:06)
[2018-05-29] MEDS: Multivitamins,Therapeutic Tab PO SCH (12:22)
[2018-05-29] MEDS: Hydrochlorothiazide 12.5 MG Cap PO SCH (12:22)
[2018-05-29] MEDS: ceFAZolin 1 GM in Premix Bag 1 BAG IV SCH ×2 (14:17→23:56)
[2018-05-29] MEDS: ceFAZolin 2 GM in Premix Bag 1 BAG IV SCH ×2 (14:17→23:55)
[2018-05-29] MEDS: Acetaminophen/oxyCODONE 325-5 MG Tab PO PRN ×3 (14:22→23:54)
[2018-05-29] MEDS ORDERED: DIMENHYDRINATE 50 MG PO PRN (16:53)
[2018-05-29] MEDS ORDERED: POLYMYXIN B EARBOTH SCH (17:00)
[2018-05-29] MEDS ORDERED: NEOMYCIN EARBOTH SCH (17:00)
[2018-05-29] MEDS ORDERED: HYDROCORTISONE EARBOTH SCH (17:00)
[2018-05-29] MEDS: Ketorolac 15 MG/ML SDV IVPUSH PRN (17:54)
[2018-05-29] MEDS: Docusate Sodium 100 MG Cap PO SCH (20:07)
[2018-05-29] MEDS: Famotidine 20 MG Tab PO SCH (20:08)
[2018-05-29] MEDS ORDERED: Simvastatin 20 MG Tab PO SCH (21:00)
[2018-05-30] MEDS: Acetaminophen/oxyCODONE 325-5 MG Tab PO PRN ×3 (00:43→09:54)
[2018-05-30] MEDS: Ketorolac 15 MG/ML SDV IVPUSH PRN ×2 (00:44→09:55)
[2018-05-30] MEDS: Ondansetron 4 MG/2 ML SDV IVPUSH PRN ×2 (00:49→09:26)
[2018-05-30] MEDS: ceFAZolin 1 GM in Premix Bag 1 BAG IV SCH (06:00)
[2018-05-30] MEDS: ceFAZolin 2 GM in Premix Bag 1 BAG IV SCH (06:01)
[2018-05-30 06:14] VITALS: BP 118/73
--- NOTE | 2018-05-30 06:36 | PCM.CONSN ---
- General Info Date of Service: 05/30/18 Admission Dx/Problem (Free Text): Admission Diagnosis/Problem Admission Diagnosis/Problem Osteoarthritis of knee Subjective Update: In to see Odette. She is lying in bed. She is doing very well. Her HR is WNL. Labs look good. No nursing or patient concerns. Functional Status: Reports: Pain Controlled, Tolerating Diet, Ambulating, Urinating, Incentive Spirometry. Denies: New Symptoms - Review of Systems General: Reports: No Symptoms HEENT: Reports: No Symptoms Pulmonary: Reports: No Symptoms Cardiovascular: Reports: No Symptoms Gastrointestinal: Reports: No Symptoms Genitourinary: Reports: No Symptoms Musculoskeletal: Reports: Leg Pain Skin: Reports: No Symptoms Neurological: Reports: No Symptoms Psychiatric: Reports: No Symptoms - Patient Data Vitals - Most Recent: Last Vital Signs Temp 98.1 F 05/30/18 06:08 Pulse 62 05/30/18 06:08 Resp 18 05/30/18 06:08 BP 118/73 05/30/18 06:08 Pulse Ox 92 L 05/30/18 06:08 Weight - Most Recent: 283 lb 9 oz I&O - Last 24 Hours: Intake & Output 05/29/18 05/29/18 05/30/18 14:59 22:59 06:59 Intake Total 420 1050 600 Output Total 225 150 600 Balance 195 900 0 Med Orders - Current: Current Medications Aspirin (Aspirin) 81 mg PO DAILY [facility] Benzonatate (Tessalon Perles) 100 - 200 mg PO Q6H PRN PRN Reason: Cough Bisacodyl (Dulcolax) 5 mg PO DAILY PRN PRN Reason: Constipation Cyclobenzaprine HCl (Flexeril) 10 mg PO TID PRN PRN Reason: Spasms Last Admin: 05/29/18 15:11 Dose: 2.5 mg Docusate Sodium (Colace) 100 mg PO BID [facility] Last Admin: 05/29/18 20:07 Dose: 100 mg Famotidine (Pepcid) 20 mg PO Q12H [facility] Last Admin: 05/29/18 20:08 Dose: Not Given Hydrochlorothiazide (Hydrochlorothiazide) 12.5 mg PO DAILY [facility] Last Admin: 05/29/18 12:22 Dose: Not Given Cefazolin Sodium/Dextrose 2 gm (/ Premix) 50 mls @ 100 mls/hr IV Q8H [facility] Stop: 05/30/18 07:29 Last Admin: 05/30/18 06:01 Dose: 100 mls/hr Cefazolin Sodium/Dextrose 1 gm (/ Premix) 50 mls @ 100 mls/hr IV Q8H [facility] Stop: 05/30/18 07:29 Last Admin: 05/30/18 06:00 Dose: 100 mls/hr Ketorolac Tromethamine (Toradol) 15 mg IVPUSH Q6H PRN PRN Reason: Pain Last Admin: 05/30/18 00:44 Dose: 15 mg Loratadine (Claritin) 10 mg PO DAILY PRN PRN Reason: Allergies Magnesium Hydroxide (Milk Of Magnesia) 30 ml PO BID PRN PRN Reason: Constipation Morphine Sulfate (Morphine) 2 mg IVPUSH Q2H PRN PRN Reason: Breakthrough Pain Multivitamins (Thera) 1 each PO DAILY [facility] Last Admin: 05/29/18 12:22 Dose: Not Given Naloxone HCl (Narcan) 0.1 mg IVPUSH Q5M PRN PRN Reason: Oversedation Dimenhydrinate 50mg ( Own Med ) 50 mg PO Q4H PRN PRN Reason: Nausea Last Admin: 05/29/18 17:04 Dose: 50 mg Ondansetron HCl (Zofran) 4 mg IVPUSH Q6H PRN PRN Reason: Nausea/Vomiting Last Admin: 05/30/18 00:49 Dose: 4 mg Oxycodone/Acetaminophen (Percocet 325-5 Mg) 1 - 2 tab PO Q4H PRN PRN Reason: Pain Last Admin: 05/30/18 05:59 Dose: 2 tab Acetaminophen/Chlorpheniramine [ Coricidin Hbp Cold & Flu] 0 each PO Q6H PRN PRN Reason: cold symptoms Aspirin/Acetaminophen/Caffeine (Migraine Relief) 1 - 2 each PO Q6H PRN PRN Reason: migraine Rivaroxaban (Xarelto) 10 mg PO DAILY [facility] Senna (Senna) 8.6 mg PO BID PRN PRN Reason: Constipation Simvastatin (Zocor) 20 mg PO BEDTIME [facility] Last Admin: 05/29/18 20:07 Dose: 20 mg Sodium Chloride (Saline Flush) 10 ml FLUSH ASDIRECTED PRN PRN Reason: Keep Vein Open Discontinued Medications Acetaminophen (Tylenol) 975 mg PO ONETIME [facility] Bupivacaine HCl (Marcaine 0.25%) Confirm Administered Dose 30 ml .ROUTE .STK- MED ONE Stop: 05/29/18 06:10 Last Admin: 05/29/18 08:11 Dose: 30 ml Bupivacaine HCl (Sensorcaine-Mpf 0.75%) Confirm Administered Dose 30 ml .ROUTE .STK-MED ONE Stop: 05/29/18 06:37 Cefazolin Sodium (Ancef) Confirm Administered Dose 2 gm .ROUTE .STK-MED ONE Stop: 05/29/18 06:10 Last Admin: 05/29/18 08:04 Dose: 2 gm Cefazolin Sodium (Ancef) Confirm Administered Dose 2 gm .ROUTE .STK-MED ONE Stop: 05/29/18 06:37 Cefazolin Sodium (Ancef) Confirm Administered Dose 1 gm .ROUTE .STK-MED ONE Stop: 05/29/18 09:26 Morphine Sulfate 8 mg/Epinephrine HCl 0.3 mg/Cefuroxime Sodium 750 mg/Ketorolac Tromethamine 30 mg/Sodium Chloride 27.9 ml 0 mg .XX ONETIME ONE Stop: 05/29/18 07:31 Last Admin: 05/29/18 08:11 Dose: 788.3 mg Diphenhydramine HCl (Benadryl) 25 mg IVPUSH Q6H PRN PRN Reason: Pruritis Stop: 05/29/18 11:00 Epinephrine HCl (Adrenalin) Confirm Administered Dose 1 mg .ROUTE .STK-MED ONE Stop: 05/29/18 08:48 Fentanyl (Sublimaze) Confirm Administered Dose 100 mcg .ROUTE .STK-MED ONE Stop: 05/29/18 06:29 Fentanyl (Sublimaze) 50 mcg IVPUSH Q5M PRN PRN Reason: Pain Stop: 05/29/18 11:00 Lactated Ringer's (Ringers, Lactated) 1,000 mls @ 125 mls/hr IV ASDIRECTED [facility] Last Admin: 05/29/18 06:20 Dose: 125 mls/hr Lidocaine HCl (Xylocaine-Mpf 1%) Confirm Administered Dose 4 mls @ as directed .ROUTE .STK-MED ONE Stop: 05/29/18 06:35 Iodine (Iodine 2% Mild Tincture) Confirm Administered Dose 30 ml .ROUTE .STK- MED ONE Stop: 05/29/18 06:10 Last Admin: 05/29/18 08:03 Dose: 18 ml Ketamine HCl (Ketalar) Confirm Administered Dose 500 mg .ROUTE .STK-MED ONE Stop: 05/29/18 07:57 Lidocaine/Sodium Bicarbonate (Buffered Lidocaine 1% In Ns 8.4%) 0.25 ml IDERM ONETIME PRN PRN Reason: Prior to IV Start Last Admin: 05/29/18 06:19 Dose: 0.25 ml Meperidine HCl (Demerol) 12.5 mg IVPUSH ONETIME PRN PRN Reason: Shivering Stop: 05/29/18 11:00 Midazolam HCl (Versed 1 Mg/Ml) Confirm Administered Dose 2 mg .ROUTE .STK-MED ONE Stop: 05/29/18 06:29 Aspirin/Acetaminophen/Caffeine (Migraine Relief) 1 - 2 tab PO Q6H PRN PRN Reason: migraine Non-Formulary Medication (Multivitamins) 1 each PO DAILY [facility] Ondansetron HCl (Zofran) 4 mg IVPUSH ONETIME PRN PRN Reason: Nausea/Vomiting Stop: 05/29/18 11:00 Ondansetron HCl (Zofran) Confirm Administered Dose 4 mg .ROUTE .STK-MED ONE Stop: 05/29/18 09:26 Oxycodone HCl (Oxycontin) 10 mg PO ONETIME [facility] Last Admin: 05/29/18 06:40 Dose: 10 mg Hydrocort/Neomycin/Polymyxin B Otic Solution 0 each EARBOTH QID [facility] Last Admin: 05/29/18 17:02 Dose: Not Given Pregabalin (Lyrica) 50 mg PO ONETIME [facility] Last Admin: 05/29/18 06:40 Dose: 50 mg Propofol (Diprivan 20 Ml) Confirm Administered Dose 600 mg .ROUTE .STK-MED ONE Stop: 05/29/18 06:29 Ropivacaine (Naropin 0.5%) Confirm Administered Dose 30 ml .ROUTE .STK-MED ONE Stop: 05/29/18 08:48 Tranexamic Acid (Cyklokapron) Confirm Administered Dose 1,000 mg .ROUTE .STK- MED ONE Stop: 05/29/18 06:10 Last Admin: 05/29/18 08:19 Dose: 1,000 mg Vancomycin HCl (Vancomycin) Confirm Administered Dose 1 gm .ROUTE .STK-MED ONE Stop: 05/29/18 06:10 Last Admin: 05/29/18 08:12 Dose: 1 gm - Exam Quality Assessment: DVT Prophylaxis General: Alert, Oriented, Cooperative, No Acute Distress HEENT: Pupils Equal, Pupils Reactive, EOMI, Mucous Membr. Moist/[place] Neck: Supple, Trachea Midline, No JVD Lungs: Clear to Auscultation, Normal Respiratory Effort Cardiovascular: Regular Rate, Regular Rhythm GI/Abdominal Exam: Normal Bowel Sounds, Soft, Non-Tender, No Distention (Female) Exam: Deferred Back Exam: Normal Inspection, Full Range of Motion Extremities: No Pedal Edema, Normal Capillary Refill, Leg Pain, Limited Range of Motion, Other (AUSTEN bandage in place on right leg. Cooling pack in place. ) Peripheral Pulses: 2+: Radial (L), Radial (R), Posterior Tibial (L), Posterior Tibial (R), Dorsalis Pedis (L), Dorsalis Pedis (R) Skin: Warm, Dry, Intact Wound/Incisions: Dressing Dry and Intact, No Drainage Neurological: No New Focal Deficit Psy/Mental Status: Alert, Normal Affect, Normal Mood Consult PN Assessment/Plan POD#: 1 Procedures: Procedures DIAGNOSTIC COLONOSCOPY (02/13/18) EGD DIAGNOSTIC BRUSH WASH (02/13/18) EMERGENCY DEPT VISIT (05/04/17) HYDRATE IV INFUSION ADD-ON (05/04/17) THER/PROPH/DIAG INJ IV PUSH (05/04/17) TX/PRO/DX INJ NEW DRUG ADDON (05/04/17) (1) S/P total knee arthroplasty SNOMED Code(s): 0094206415866, 368926723, 4964840233423 Code(s): Z96.659 - PRESENCE OF UNSPECIFIED ARTIFICIAL KNEE JOINT Priority: High Current Visit: Yes Qualifiers: Laterality: right Qualified Code(s): Z96.651 - Presence of right artificial knee joint (2) Osteoarthritis SNOMED Code(s): 751376112 Code(s): M19.90 - UNSPECIFIED OSTEOARTHRITIS, UNSPECIFIED SITE Priority: High Current Visit: Yes Qualifiers: Osteoarthritis location: knee Osteoarthritis type: primary Laterality: bilateral Qualified Code(s): M17.0 - Bilateral primary osteoarthritis of knee (3) HTN (hypertension) SNOMED Code(s): 16661093 Code(s): I10 - ESSENTIAL (PRIMARY) HYPERTENSION Priority: Medium Current Visit: No Qualifiers: Hypertension type: unspecified Qualified Code(s): I10 - Essential (primary ) hypertension (4) HLD (hyperlipidemia) SNOMED Code(s): 89067855 Code(s): E78.5 - HYPERLIPIDEMIA, UNSPECIFIED Priority: Low Current Visit : No Qualifiers: Hyperlipidemia type: unspecified Qualified Code(s): E78.5 - Hyperlipidemia , unspecified (5) Danitza's syndrome SNOMED Code(s): 60052975 Code(s): G90.2 - DANITZA'S SYNDROME Priority: Medium Current Visit: No (6) Other specified depressive episodes SNOMED Code(s): 83197085 Code(s): F32.89 - OTHER SPECIFIED DEPRESSIVE EPISODES Priority: Low Current Visit: No (7) Morbid obesity with BMI of 40.0-44.9, adult SNOMED Code(s): 919438392 Code(s): E66.01 - MORBID (SEVERE) OBESITY DUE TO EXCESS CALORIES; Z68.41 - BODY MASS INDEX (BMI) 40.0-44.9, ADULT Priority: Medium Current Visit: Yes (8) History of West Nile virus (WNV) infection SNOMED Code(s): 287002195 Code(s): Z86.19 - PERSONAL HISTORY OF OTHER INFECTIOUS AND PARASITIC DISEASES Priority: Medium Current Visit: No (9) Dyslexia SNOMED Code(s): 61075096 Code(s): R48.0 - DYSLEXIA AND ALEXIA Priority: Low Current Visit: No Problem List Initiated/Reviewed/Updated: Yes My Orders Last 24 Hours: My Active Orders 05/29/18 15:01 Patient Status [ADT] Routine Cardiac Monitoring [RC] . DIRECTED Plan: I/P: Acute: S/P right total knee arthroplasty - post-operative day 1 -DVT prophylaxis and pain management per primary care team -PT/OT -IS/RT -Monitor oxygen saturation -Titrate oxygen as needed -Vital signs stable -Monitor labs -Pre-operative Hgb was 14.6; Today 12.9 -Pre-operative eGFR was >60; Today >60 Osteoarthritis of bilateral knees -Pain management per primary care team Chronic: HTN HLD depression osteopenia dyslexia gout danitza syndorme obesity vertigo history of west nile infection Plan: CM for discharge planning GI prophylaxis Home medications as indicated Other orders as listed above Routine AM labs She is a full code. Her PCP is Dr. Dominguez From a hospitalist standpoint Odette is doing well. She has been ambulating with nursing and therapies are going to see her shortly. Nursing has no concerns. Labs and vital signs look good. She has urinated. She is cleared for discharge today pending primary team approval. Thank you for allowing us to participate in the care of this patient!!
--- NOTE | 2018-05-30 08:02 | PCM.SURGPN ---
- General Info Date of Service: 05/30/18 POD#: 1 Functional Status: Reports: Pain Controlled, Tolerating Diet, Ambulating, Urinating, Incentive Spirometry - Review of Systems Musculoskeletal: Reports: Other (The pt feels prepared for discharge to home.) - Patient Data Vitals - Most Recent: Last Vital Signs Temp 98.1 F 05/30/18 06:08 Pulse 62 05/30/18 06:08 Resp 18 05/30/18 06:08 BP 118/73 05/30/18 06:08 Pulse Ox 92 L 05/30/18 06:08 Weight - Most Recent: 283 lb 9 oz I&O - Last 24 Hours: Intake & Output 05/29/18 05/30/18 05/30/18 22:59 06:59 14:59 Intake Total 1050 600 Output Total 150 600 Balance 900 0 Lab Results Last 24 Hrs: Laboratory Results - last 24 hr 05/30/18 05/30/18 Range/Units 06:15 06:15 WBC 6.84 (3.98-10.04) K/mm3 RBC 4.31 (3.98-5.22) M/mm3 Hgb 12.9 (11.2-15.7) gm/L Hct 38.7 (34.1-44.9) % MCV 89.8 (79.4-94.8) fl MCH 29.9 (25.6-32.2) pg MCHC 33.3 (32.2-35.5) g/dl RDW Std Deviation 41.9 (36.4-46.3) fL Plt Count 227 (182-369) K/mm3 MPV 9.9 (9.4-12.3) fl Sodium 138 (136-145) mEq/L Potassium 4.1 (3.5-5.1) mEq/L Chloride 103 (98-107) mEq/L Carbon Dioxide 30 (21-32) mEq/L Anion Gap 9.1 (5-15) BUN 17 (7-18) mg/dL Creatinine 0.9 (0.55-1.02) mg/dL Est Cr Clr Drug Dosing 69.57 mL/min Estimated GFR (MDRD) > 60 (>60) mL/min BUN/Creatinine Ratio 18.9 H (14-18) Glucose 107 H (74-106) mg/dL Calcium 8.3 L (8.5-10.1) mg/dL Total Bilirubin 0.9 (0.2-1.0) mg/dL AST 18 (15-37) U/L ALT 25 (14-59) U/L Alkaline Phosphatase 86 (46-116) U/L Total Protein 5.8 L (6.4-8.2) g/dl Albumin 3.0 L (3.4-5.0) g/dl Globulin 2.8 gm/dL Albumin/Globulin Ratio 1.1 (1-2) Med Orders - Current: Current Medications Aspirin (Aspirin) 81 mg PO DAILY [facility] Benzonatate (Tessalon Perles) 100 - 200 mg PO Q6H PRN PRN Reason: Cough Bisacodyl (Dulcolax) 5 mg PO DAILY PRN PRN Reason: Constipation Cyclobenzaprine HCl (Flexeril) 10 mg PO TID PRN PRN Reason: Spasms Last Admin: 05/29/18 15:11 Dose: 2.5 mg Docusate Sodium (Colace) 100 mg PO BID [facility] Last Admin: 05/29/18 20:07 Dose: 100 mg Famotidine (Pepcid) 20 mg PO Q12H [facility] Last Admin: 05/29/18 20:08 Dose: Not Given Hydrochlorothiazide (Hydrochlorothiazide) 12.5 mg PO DAILY [facility] Last Admin: 05/29/18 12:22 Dose: Not Given Ketorolac Tromethamine (Toradol) 15 mg IVPUSH Q6H PRN PRN Reason: Pain Last Admin: 05/30/18 00:44 Dose: 15 mg Loratadine (Claritin) 10 mg PO DAILY PRN PRN Reason: Allergies Magnesium Hydroxide (Milk Of Magnesia) 30 ml PO BID PRN PRN Reason: Constipation Morphine Sulfate (Morphine) 2 mg IVPUSH Q2H PRN PRN Reason: Breakthrough Pain Multivitamins (Thera) 1 each PO DAILY [facility] Last Admin: 05/29/18 12:22 Dose: Not Given Naloxone HCl (Narcan) 0.1 mg IVPUSH Q5M PRN PRN Reason: Oversedation Dimenhydrinate 50mg ( Own Med ) 50 mg PO Q4H PRN PRN Reason: Nausea Last Admin: 05/29/18 17:04 Dose: 50 mg Ondansetron HCl (Zofran) 4 mg IVPUSH Q6H PRN PRN Reason: Nausea/Vomiting Last Admin: 05/30/18 00:49 Dose: 4 mg Oxycodone/Acetaminophen (Percocet 325-5 Mg) 1 - 2 tab PO Q4H PRN PRN Reason: Pain Last Admin: 05/30/18 05:59 Dose: 2 tab Acetaminophen/Chlorpheniramine [ Coricidin Hbp Cold & Flu] 0 each PO Q6H PRN PRN Reason: cold symptoms Aspirin/Acetaminophen/Caffeine (Migraine Relief) 1 - 2 each PO Q6H PRN PRN Reason: migraine Rivaroxaban (Xarelto) 10 mg PO DAILY [facility] Senna (Senna) 8.6 mg PO BID PRN PRN Reason: Constipation Simvastatin (Zocor) 20 mg PO BEDTIME [facility] Last Admin: 05/29/18 20:07 Dose: 20 mg Sodium Chloride (Saline Flush) 10 ml FLUSH ASDIRECTED PRN PRN Reason: Keep Vein Open Discontinued Medications Acetaminophen (Tylenol) 975 mg PO ONETIME [facility] Bupivacaine HCl (Marcaine 0.25%) Confirm Administered Dose 30 ml .ROUTE .STK- MED ONE Stop: 05/29/18 06:10 Last Admin: 05/29/18 08:11 Dose: 30 ml Bupivacaine HCl (Sensorcaine-Mpf 0.75%) Confirm Administered Dose 30 ml .ROUTE .STK-MED ONE Stop: 05/29/18 06:37 Cefazolin Sodium (Ancef) Confirm Administered Dose 2 gm .ROUTE .STK-MED ONE Stop: 05/29/18 06:10 Last Admin: 05/29/18 08:04 Dose: 2 gm Cefazolin Sodium (Ancef) Confirm Administered Dose 2 gm .ROUTE .STK-MED ONE Stop: 05/29/18 06:37 Cefazolin Sodium (Ancef) Confirm Administered Dose 1 gm .ROUTE .STK-MED ONE Stop: 05/29/18 09:26 Morphine Sulfate 8 mg/Epinephrine HCl 0.3 mg/Cefuroxime Sodium 750 mg/Ketorolac Tromethamine 30 mg/Sodium Chloride 27.9 ml 0 mg .XX ONETIME ONE Stop: 05/29/18 07:31 Last Admin: 05/29/18 08:11 Dose: 788.3 mg Diphenhydramine HCl (Benadryl) 25 mg IVPUSH Q6H PRN PRN Reason: Pruritis Stop: 05/29/18 11:00 Epinephrine HCl (Adrenalin) Confirm Administered Dose 1 mg .ROUTE .STK-MED ONE Stop: 05/29/18 08:48 Fentanyl (Sublimaze) Confirm Administered Dose 100 mcg .ROUTE .STK-MED ONE Stop: 05/29/18 06:29 Fentanyl (Sublimaze) 50 mcg IVPUSH Q5M PRN PRN Reason: Pain Stop: 05/29/18 11:00 Lactated Ringer's (Ringers, Lactated) 1,000 mls @ 125 mls/hr IV ASDIRECTED [facility], [facility] Last Admin: 05/29/18 06:20 Dose: 125 mls/hr Lidocaine HCl (Xylocaine-Mpf 1%) Confirm Administered Dose 4 mls @ as directed .ROUTE .STK-MED ONE Stop: 05/29/18 06:35 Cefazolin Sodium/Dextrose 2 gm (/ Premix) 50 mls @ 100 mls/hr IV Q8H [facility] Stop: 05/30/18 07:29 Last Admin: 05/30/18 06:01 Dose: 100 mls/hr Cefazolin Sodium/Dextrose 1 gm (/ Premix) 50 mls @ 100 mls/hr IV Q8H [facility] Stop: 05/30/18 07:29 Last Admin: 05/30/18 06:00 Dose: 100 mls/hr Iodine (Iodine 2% Mild Tincture) Confirm Administered Dose 30 ml .ROUTE .STK- MED ONE Stop: 05/29/18 06:10 Last Admin: 05/29/18 08:03 Dose: 18 ml Ketamine HCl (Ketalar) Confirm Administered Dose 500 mg .ROUTE .STK-MED ONE Stop: 05/29/18 07:57 Lidocaine/Sodium Bicarbonate (Buffered Lidocaine 1% In Ns 8.4%) 0.25 ml IDERM ONETIME PRN PRN Reason: Prior to IV Start Last Admin: 05/29/18 06:19 Dose: 0.25 ml Meperidine HCl (Demerol) 12.5 mg IVPUSH ONETIME PRN PRN Reason: Shivering Stop: 05/29/18 11:00 Midazolam HCl (Versed 1 Mg/Ml) Confirm Administered Dose 2 mg .ROUTE .STK-MED ONE Stop: 05/29/18 06:29 Aspirin/Acetaminophen/Caffeine (Migraine Relief) 1 - 2 tab PO Q6H PRN PRN Reason: migraine Non-Formulary Medication (Multivitamins) 1 each PO DAILY [facility] Ondansetron HCl (Zofran) 4 mg IVPUSH ONETIME PRN PRN Reason: Nausea/Vomiting Stop: 05/29/18 11:00 Ondansetron HCl (Zofran) Confirm Administered Dose 4 mg .ROUTE .STK-MED ONE Stop: 05/29/18 09:26 Oxycodone HCl (Oxycontin) 10 mg PO ONETIME [facility] Last Admin: 05/29/18 06:40 Dose: 10 mg Hydrocort/Neomycin/Polymyxin B Otic Solution 0 each EARBOTH QID [facility], [facility] Last Admin: 05/29/18 17:02 Dose: Not Given Pregabalin (Lyrica) 50 mg PO ONETIME [facility] Last Admin: 05/29/18 06:40 Dose: 50 mg Propofol (Diprivan 20 Ml) Confirm Administered Dose 600 mg .ROUTE .STK-MED ONE Stop: 05/29/18 06:29 Ropivacaine (Naropin 0.5%) Confirm Administered Dose 30 ml .ROUTE .STK-MED ONE Stop: 05/29/18 08:48 Tranexamic Acid (Cyklokapron) Confirm Administered Dose 1,000 mg .ROUTE .STK- MED ONE Stop: 05/29/18 06:10 Last Admin: 05/29/18 08:19 Dose: 1,000 mg Vancomycin HCl (Vancomycin) Confirm Administered Dose 1 gm .ROUTE .STK-MED ONE Stop: 05/29/18 06:10 Last Admin: 05/29/18 08:12 Dose: 1 gm - Exam Wound/Incisions: Dressing Dry and Intact General: Alert, Cooperative, No Acute Distress Lungs: Normal Respiratory Effort Extremities: Other (NVS intact for RLE. Ronn's negative.) - Problem List Review Problem List Initiated/Reviewed/Updated: Yes - My Orders Last 24 Hours: Active Orders 24 hr Category Date Time Status Patient Status [ADT] Routine ADT 05/29/18 15:01 Active Ambulate [RC] ASDIRECTED Care 05/29/18 23:09 Active Cardiac Monitoring [RC] . DIRECTED Care 05/29/18 15:01 Active Notify Provider [RC] 09,21 Care 05/29/18 09:06 Active Ready for Discharge [RC] PER UNIT ROUTINE Care 05/30/18 08:00 Ordered Up to Chair [RC] ASDIRECTED Care 05/29/18 23:09 Active Regular Diet [DIET] Diet 05/29/18 Lunch Active Aspirin Med 05/30/18 09:00 Active 81 mg PO DAILY Benzonatate [Tessalon Perles] Med 05/29/18 08:41 Active 100 - 200 mg PO Q6H PRN Dimenhydrinate Med 05/29/18 16:53 Active 50 mg PO Q4H PRN Docusate Sodium [Colace] Med 05/29/18 21:00 Active 100 mg PO BID Famotidine [Pepcid] Med 05/29/18 21:00 Active 20 mg PO Q12H Hydrochlorothiazide Med 05/29/18 09:00 Active 12.5 mg PO DAILY Loratadine [Claritin] Med 05/29/18 08:41 Active 10 mg PO DAILY PRN Multivitamins,Therapeutic [Thera] Med 05/29/18 09:00 Active 1 each PO DAILY Patient's Own Medication [Ptom] Med 05/29/18 08:41 Active 0 each PO Q6H PRN Patient's Own Medication [Ptom] Med 05/29/18 09:45 Active 1 - 2 each PO Q6H PRN Rivaroxaban [Xarelto] Med 05/30/18 09:00 Pending 10 mg PO DAILY Simvastatin [Zocor] Med 05/29/18 21:00 Active 20 mg PO BEDTIME Medication Orders Aspirin (Aspirin) 81 mg PO DAILY [facility] Benzonatate (Tessalon Perles) 100 - 200 mg PO Q6H PRN PRN Reason: Cough Bisacodyl (Dulcolax) 5 mg PO DAILY PRN PRN Reason: Constipation Cyclobenzaprine HCl (Flexeril) 10 mg PO TID PRN PRN Reason: Spasms Last Admin: 05/29/18 15:11 Dose: 2.5 mg Docusate Sodium (Colace) 100 mg PO BID [facility] Last Admin: 05/29/18 20:07 Dose: 100 mg Famotidine (Pepcid) 20 mg PO Q12H [facility] Last Admin: 05/29/18 20:08 Dose: Not Given Hydrochlorothiazide (Hydrochlorothiazide) 12.5 mg PO DAILY [facility] Last Admin: 05/29/18 12:22 Dose: Ketorolac Tromethamine (Toradol) 15 mg IVPUSH Q6H PRN PRN Reason: Pain Last Admin: 05/30/18 00:44 Dose: 15 mg Admin: 05/29/18 17:54 Dose: 15 mg Loratadine (Claritin) 10 mg PO DAILY PRN PRN Reason: Allergies Magnesium Hydroxide (Milk Of Magnesia) 30 ml PO BID PRN PRN Reason: Constipation Morphine Sulfate (Morphine) 2 mg IVPUSH Q2H PRN PRN Reason: Breakthrough Pain Multivitamins (Thera) 1 each PO DAILY [facility] Last Admin: 05/29/18 12:22 Dose: Naloxone HCl (Narcan) 0.1 mg IVPUSH Q5M PRN PRN Reason: Oversedation Dimenhydrinate 50mg ( Own Med ) 50 mg PO Q4H PRN PRN Reason: Nausea Last Admin: 05/29/18 17:04 Dose: 50 mg Ondansetron HCl (Zofran) 4 mg IVPUSH Q6H PRN PRN Reason: Nausea/Vomiting Last Admin: 05/30/18 00:49 Dose: 4 mg Admin: 05/29/18 10:06 Dose: 4 mg Oxycodone/Acetaminophen (Percocet 325-5 Mg) 1 - 2 tab PO Q4H PRN PRN Reason: Pain Last Admin: 05/30/18 05:59 Dose: 2 tab Admin: 05/30/18 00:43 Dose: 1 tab Admin: 05/29/18 23:54 Dose: 1 tab Admin: 05/29/18 20:07 Dose: 1 tab Admin: 05/29/18 14:22 Dose: 2 tab Acetaminophen/Chlorpheniramine [ Coricidin Hbp Cold & Flu] 0 each PO Q6H PRN PRN Reason: cold symptoms Aspirin/Acetaminophen/Caffeine (Migraine Relief) 1 - 2 each PO Q6H PRN PRN Reason: migraine Rivaroxaban (Xarelto) 10 mg PO DAILY [facility] Senna (Senna) 8.6 mg PO BID PRN PRN Reason: Constipation Simvastatin (Zocor) 20 mg PO BEDTIME [facility] Last Admin: 05/29/18 20:07 Dose: 20 mg Sodium Chloride (Saline Flush) 10 ml FLUSH ASDIRECTED PRN PRN Reason: Keep Vein Open - Assessment Assessment (Free Text/Narrative):: POD#1 - right TKA - Plan Plan (Free Text/Narrative):: 1. Hgb 12.9. 2. Xarelto (family hx VTE), frequent mobility, TEDs. 3. Discharge to home today. 4. Outpatient P.T. The pt's case was discussed with Dr. Dawson.
--- NOTE | 2018-05-30 08:04 | PCM.DCSUM1 ---
Discharge Summary - Hospital Course Brief History: Odette is a 57 yo female who underwent right TKA with Dr. Dawson on 05-28-2018. The procedure was completed under spinal anesthesia. The pt tolerated the procedure well and was admitted to the Medical-Surgical Unit. Medical management was provided by the Hospitalist service. The pt's Hospital course was uneventful. The pt's Hgb on POD#1 was 12.9. On POD#1, Xarelto 10mg PO daily was initiated for VTE prophylaxis. SCDs and TEDs were also ordered. A Mepilex dressing was placed at the incision site at the time of surgery and remained clean and dry. The pt participated in P.T. and O.T. and progressed well. The pt was allowed to WBAT. On POD#1, the pt was deemed appropriate to discharge to home with family and friend. - Discharge Data Discharge Date: 05/30/18 Discharge Disposition: Home, Self-Care 01 Condition: Good - Patient Summary/Data Consults: Consultations 05/29/18 06:36 OT Evaluation and Treatment [CONS] Routine PT Evaluation and Treatment [CONS] Routine 05/29/18 06:37 Consult to Physician [CONS] Routine - Patient Instructions Diet: Usual Diet as Tolerated Activity: Apply Ice, As Tolerated, Elevate Extremity, Full Weight Bearing Driving: Do Not Drive Showering/Bathing: May Shower Wound/Incision Care: Keep Operative Site/Wound Site Clean and Dry, Do NOT Change Dressing Notify Provider of: Fever, Increased Pain, Swelling and Redness, Drainage, Nausea and/or Vomiting Other/Special Instructions: Please get up and moving around every hour while awake. This helps to prevent blood clots. Please use your walker and have help with mobility as needed. Please use the Xarelto blood thinner medication daily. At home, please complete the exercises that you learned during the Hospital stay. Schedule for physical therapy. Use the pain medication as needed. The medication may cause drowsiness and constipation. Contact your primary care provider for instructions if you are constipated. You may use a stool softener like docusate sodium or Colace 100mg twice daily and/or a laxative like Miralax daily for constipation. Increase your water and fiber intake while you are using the pain medication. Please try to WEAN from use of the pain medication as soon as able. Wear the MIKAL hose during the day and you may remove these at night. Elevate the limb to decrease swelling. Place ice to the area often. Place a towel between your skin and the blue pad. Use the incentive spirometer often. Take deep breaths throughout the day. Increase your protein intake while you are healing. Call the Clinic with questions or concerns - [phone]. - Discharge Plan Prescriptions/Med Rec: Acetaminophen/oxyCODONE [Percocet 325-5 MG] 1 - 2 tab PO Q6H PRN #60 tablet PRN Reason: Pain Rivaroxaban [Xarelto] 10 mg PO DAILY #40 tablet Home Medications: Home Meds Acetaminophen/Chlorpheniramine [Coricidin HBP Cold & Flu] 1 tab PO Q6H PRN 02/09 [History] Aspirin 81 mg PO DAILY 02/09/18 [History] Aspirin/Acetaminophen/Caffeine [Migraine Relief Caplet] 1 - 2 tab PO Q6H PRN [History] Benzonatate [Tessalon Perle] 1 - 2 cap PO Q6H PRN 02/09/18 [History] Cyclobenzaprine [Flexeril] 10 mg PO TID PRN 02/09/18 [History] Hydrochlorothiazide 12.5 mg PO DAILY 02/09/18 [History] atorvaSTATin [Lipitor] 20 mg PO BEDTIME 02/09/18 [History] traMADol HCl [Tramadol HCl] 50 mg PO Q6H PRN 02/09/18 [History] Cetirizine [ZyrTEC] 10 mg PO DAILY PRN 05/26/18 [History] Acetaminophen [Tylenol Arthritis] 1 tab PO QID PRN #0 05/29/18 [Rx] Acetaminophen/oxyCODONE [Percocet 325-5 MG] 1 - 2 tab PO Q6H PRN #60 tablet 01/15 [Rx] Bisacodyl [Dulcolax] 5 mg PO DAILY PRN tablet 05/29/18 [Rx] Calcium Carbonate/Vitamin D3 [Calcium 600 + Vit D Tablet] 600 mg PO BID [History] Docusate Sodium [Colace] 100 mg PO BID cap 05/29/18 [Rx] Famotidine [Pepcid] 20 mg PO Q12H tablet 05/29/18 [Rx] Losartan/Hydrochlorothiazide [Losartan-HCTZ 50-12.5 MG] 1 tab PO DAILY 05/29/18 [History] Magnesium Hydroxide [Milk of Magnesia] 30 ml PO BID PRN cup 05/29/18 [Rx] Multivitamin [Multi-Day Vitamins] 1 each PO DAILY 05/29/18 [History] Rivaroxaban [Xarelto] 10 mg PO DAILY #40 tablet 05/29/18 [Rx] Sennosides [Senna] 8.6 mg PO BID PRN tablet 05/29/18 [Rx] Patient Handouts: Steps to Quit Smoking Referrals: Samaria Damian PA-C [Physician Electric Motor Analyst] - - Patient Data Vitals - Most Recent: Last Vital Signs Temp 98.1 F 05/30/18 06:08 Pulse 62 05/30/18 06:08 Resp 18 05/30/18 06:08 BP 118/73 05/30/18 06:08 Pulse Ox 92 L 05/30/18 06:08 Weight - Most Recent: 283 lb 9 oz I&O - Last 24 hours: Intake & Output 05/29/18 05/30/18 05/30/18 22:59 06:59 14:59 Intake Total 1050 600 Output Total 150 600 Balance 900 0 Lab Results - Last 24 hrs: Laboratory Results - last 24 hr 05/30/18 05/30/18 Range/Units 06:15 06:15 WBC 6.84 (3.98-10.04) K/mm3 RBC 4.31 (3.98-5.22) M/mm3 Hgb 12.9 (11.2-15.7) gm/L Hct 38.7 (34.1-44.9) % MCV 89.8 (79.4-94.8) fl MCH 29.9 (25.6-32.2) pg MCHC 33.3 (32.2-35.5) g/dl RDW Std Deviation 41.9 (36.4-46.3) fL Plt Count 227 (182-369) K/mm3 MPV 9.9 (9.4-12.3) fl Sodium 138 (136-145) mEq/L Potassium 4.1 (3.5-5.1) mEq/L Chloride 103 (98-107) mEq/L Carbon Dioxide 30 (21-32) mEq/L Anion Gap 9.1 (5-15) BUN 17 (7-18) mg/dL Creatinine 0.9 (0.55-1.02) mg/dL Est Cr Clr Drug Dosing 69.57 mL/min Estimated GFR (MDRD) > 60 (>60) mL/min BUN/Creatinine Ratio 18.9 H (14-18) Glucose 107 H (74-106) mg/dL Calcium 8.3 L (8.5-10.1) mg/dL Total Bilirubin 0.9 (0.2-1.0) mg/dL AST 18 (15-37) U/L ALT 25 (14-59) U/L Alkaline Phosphatase 86 (46-116) U/L Total Protein 5.8 L (6.4-8.2) g/dl Albumin 3.0 L (3.4-5.0) g/dl Globulin 2.8 gm/dL Albumin/Globulin Ratio 1.1 (1-2) Med Orders - Current: Current Medications Aspirin (Aspirin) 81 mg PO DAILY [facility] Benzonatate (Tessalon Perles) 100 - 200 mg PO Q6H PRN PRN Reason: Cough Bisacodyl (Dulcolax) 5 mg PO DAILY PRN PRN Reason: Constipation Cyclobenzaprine HCl (Flexeril) 10 mg PO TID PRN PRN Reason: Spasms Last Admin: 05/29/18 15:11 Dose: 2.5 mg Docusate Sodium (Colace) 100 mg PO BID [facility] Last Admin: 05/29/18 20:07 Dose: 100 mg Famotidine (Pepcid) 20 mg PO Q12H [facility] Last Admin: 05/29/18 20:08 Dose: Not Given Hydrochlorothiazide (Hydrochlorothiazide) 12.5 mg PO DAILY [facility] Last Admin: 05/29/18 12:22 Dose: Not Given Ketorolac Tromethamine (Toradol) 15 mg IVPUSH Q6H PRN PRN Reason: Pain Last Admin: 05/30/18 00:44 Dose: 15 mg Loratadine (Claritin) 10 mg PO DAILY PRN PRN Reason: Allergies Magnesium Hydroxide (Milk Of Magnesia) 30 ml PO BID PRN PRN Reason: Constipation Morphine Sulfate (Morphine) 2 mg IVPUSH Q2H PRN PRN Reason: Breakthrough Pain Multivitamins (Thera) 1 each PO DAILY [facility] Last Admin: 05/29/18 12:22 Dose: Not Given Naloxone HCl (Narcan) 0.1 mg IVPUSH Q5M PRN PRN Reason: Oversedation Dimenhydrinate 50mg ( Own Med ) 50 mg PO Q4H PRN PRN Reason: Nausea Last Admin: 05/29/18 17:04 Dose: 50 mg Ondansetron HCl (Zofran) 4 mg IVPUSH Q6H PRN PRN Reason: Nausea/Vomiting Last Admin: 05/30/18 00:49 Dose: 4 mg Oxycodone/Acetaminophen (Percocet 325-5 Mg) 1 - 2 tab PO Q4H PRN PRN Reason: Pain Last Admin: 05/30/18 05:59 Dose: 2 tab Acetaminophen/Chlorpheniramine [ Coricidin Hbp Cold & Flu] 0 each PO Q6H PRN PRN Reason: cold symptoms Aspirin/Acetaminophen/Caffeine (Migraine Relief) 1 - 2 each PO Q6H PRN PRN Reason: migraine Rivaroxaban (Xarelto) 10 mg PO DAILY [facility] Senna (Senna) 8.6 mg PO BID PRN PRN Reason: Constipation Simvastatin (Zocor) 20 mg PO BEDTIME [facility] Last Admin: 05/29/18 20:07 Dose: 20 mg Sodium Chloride (Saline Flush) 10 ml FLUSH ASDIRECTED PRN PRN Reason: Keep Vein Open Discontinued Medications Acetaminophen (Tylenol) 975 mg PO ONETIME [facility] Bupivacaine HCl (Marcaine 0.25%) Confirm Administered Dose 30 ml .ROUTE .STK- MED ONE Stop: 05/29/18 06:10 Last Admin: 05/29/18 08:11 Dose: 30 ml Bupivacaine HCl (Sensorcaine-Mpf 0.75%) Confirm Administered Dose 30 ml .ROUTE .STK-MED ONE Stop: 05/29/18 06:37 Cefazolin Sodium (Ancef) Confirm Administered Dose 2 gm .ROUTE .STK-MED ONE Stop: 05/29/18 06:10 Last Admin: 05/29/18 08:04 Dose: 2 gm Cefazolin Sodium (Ancef) Confirm Administered Dose 2 gm .ROUTE .STK-MED ONE Stop: 05/29/18 06:37 Cefazolin Sodium (Ancef) Confirm Administered Dose 1 gm .ROUTE .STK-MED ONE Stop: 05/29/18 09:26 Morphine Sulfate 8 mg/Epinephrine HCl 0.3 mg/Cefuroxime Sodium 750 mg/Ketorolac Tromethamine 30 mg/Sodium Chloride 27.9 ml 0 mg .XX ONETIME ONE Stop: 05/29/18 07:31 Last Admin: 05/29/18 08:11 Dose: 788.3 mg Diphenhydramine HCl (Benadryl) 25 mg IVPUSH Q6H PRN PRN Reason: Pruritis Stop: 05/29/18 11:00 Epinephrine HCl (Adrenalin) Confirm Administered Dose 1 mg .ROUTE .STK-MED ONE Stop: 05/29/18 08:48 Fentanyl (Sublimaze) Confirm Administered Dose 100 mcg .ROUTE .STK-MED ONE Stop: 05/29/18 06:29 Fentanyl (Sublimaze) 50 mcg IVPUSH Q5M PRN PRN Reason: Pain Stop: 05/29/18 11:00 Lactated Ringer's (Ringers, Lactated) 1,000 mls @ 125 mls/hr IV ASDIRECTED [facility] Last Admin: 05/29/18 06:20 Dose: 125 mls/hr Lidocaine HCl (Xylocaine-Mpf 1%) Confirm Administered Dose 4 mls @ as directed .ROUTE .STK-MED ONE Stop: 05/29/18 06:35 Cefazolin Sodium/Dextrose 2 gm (/ Premix) 50 mls @ 100 mls/hr IV Q8H [facility] Stop: 05/30/18 07:29 Last Admin: 05/30/18 06:01 Dose: 100 mls/hr Cefazolin Sodium/Dextrose 1 gm (/ Premix) 50 mls @ 100 mls/hr IV Q8H [facility] Stop: 05/30/18 07:29 Last Admin: 05/30/18 06:00 Dose: 100 mls/hr Iodine (Iodine 2% Mild Tincture) Confirm Administered Dose 30 ml .ROUTE .STK- MED ONE Stop: 05/29/18 06:10 Last Admin: 05/29/18 08:03 Dose: 18 ml Ketamine HCl (Ketalar) Confirm Administered Dose 500 mg .ROUTE .STK-MED ONE Stop: 05/29/18 07:57 Lidocaine/Sodium Bicarbonate (Buffered Lidocaine 1% In Ns 8.4%) 0.25 ml IDERM ONETIME PRN PRN Reason: Prior to IV Start Last Admin: 05/29/18 06:19 Dose: 0.25 ml Meperidine HCl (Demerol) 12.5 mg IVPUSH ONETIME PRN PRN Reason: Shivering Stop: 05/29/18 11:00 Midazolam HCl (Versed 1 Mg/Ml) Confirm Administered Dose 2 mg .ROUTE .STK-MED ONE Stop: 05/29/18 06:29 Aspirin/Acetaminophen/Caffeine (Migraine Relief) 1 - 2 tab PO Q6H PRN PRN Reason: migraine Non-Formulary Medication (Multivitamins) 1 each PO DAILY [facility] Ondansetron HCl (Zofran) 4 mg IVPUSH ONETIME PRN PRN Reason: Nausea/Vomiting Stop: 05/29/18 11:00 Ondansetron HCl (Zofran) Confirm Administered Dose 4 mg .ROUTE .STK-MED ONE Stop: 05/29/18 09:26 Oxycodone HCl (Oxycontin) 10 mg PO ONETIME [facility] Last Admin: 05/29/18 06:40 Dose: 10 mg Hydrocort/Neomycin/Polymyxin B Otic Solution 0 each EARBOTH QID [facility] Last Admin: 05/29/18 17:02 Dose: Not Given Pregabalin (Lyrica) 50 mg PO ONETIME [facility] Last Admin: 05/29/18 06:40 Dose: 50 mg Propofol (Diprivan 20 Ml) Confirm Administered Dose 600 mg .ROUTE .STK-MED ONE Stop: 05/29/18 06:29 Ropivacaine (Naropin 0.5%) Confirm Administered Dose 30 ml .ROUTE .STK-MED ONE Stop: 05/29/18 08:48 Tranexamic Acid (Cyklokapron) Confirm Administered Dose 1,000 mg .ROUTE .STK- MED ONE Stop: 05/29/18 06:10 Last Admin: 05/29/18 08:19 Dose: 1,000 mg Vancomycin HCl (Vancomycin) Confirm Administered Dose 1 gm .ROUTE .STK-MED ONE Stop: 05/29/18 06:10 Last Admin: 05/29/18 08:12 Dose: 1 gm
--- NOTE | 2018-05-30 08:18 | PCM48HPAN ---
Post Anesthesia Note - EVALUATION WITHIN 48HRS OF ANESTHETIC Vital Signs in Normal Range: Yes Patient Participated in Evaluation: Yes Respiratory Function Stable: Yes Airway Patent: Yes Cardiovascular Function Stable: Yes Hydration Status Stable: Yes Pain Control Satisfactory: Yes Nausea and Vomiting Control Satisfactory: Yes Mental Status Recovered: Yes (sitting up in bed with no complains) Pulse Rate: 62 Resp Rate: 18 Temperature: 98.1 F Blood Pressure: 118/73
[2018-05-30] MEDS ORDERED: Aspirin 81 MG Tab.Chew PO SCH (09:00)
[2018-05-30] MEDS ORDERED: Rivaroxaban 10 MG Tab PO SCH (09:00)
[2018-05-30] MEDS ORDERED: MULTIVITAMINS PO SCH (09:00)
[2018-05-30] MEDS: Hydrochlorothiazide 12.5 MG Cap PO SCH (09:55)
[2018-05-30] MEDS: Multivitamins,Therapeutic Tab PO SCH (09:55)
[2018-05-30] MEDS: Famotidine 20 MG Tab PO SCH (09:55)
[2018-05-30] MEDS: Docusate Sodium 100 MG Cap PO SCH (09:55)
--- NOTE | 2018-06-06 09:40 | PCM.OPNOTE ---
- General Post-Op/Procedure Note Date of Surgery/Procedure: 05/29/18 Operative Procedure(s): right total knee arthroplasty Pre Op Diagnosis: right knee osteoarhtrosis Post-Op Diagnosis: Same Anesthesia Technique: Local, MAC, Spinal Primary Surgeon: Sandro Dawson Anesthesia Provider: Reinier Gandara Sailor: Samaria Damian Sailor: Natividad Dickson EBChelle in mLs: 350 Complications: None Condition: Good
--- NOTE | 2018-06-06 10:08 | OR ---
DATE OF OPERATION: 05/29/2018 SURGEON: Sandro Dawson MD OPERATION PERFORMED: Right total knee arthroplasty. PREOPERATIVE DIAGNOSIS: Right knee osteoarthrosis. POSTOPERATIVE DIAGNOSIS: Right knee osteoarthrosis. ANESTHESIA: Local MAC with spinal. ANESTHESIA PROVIDER: Reinier Gandara. JACKSPOOLER: 1. Samaria Damian PA-C. 2. Natividad Dickson LPN. ESTIMATED BLOOD LOSS: 350 mL. COMPLICATIONS: None. CONDITION: Stable. IMPLANTS: 1. Bondurant size 5 press-fit CR femur. 2. Rey size 5 press-fit tibial base plate. 3. Rey size 5, 9 mm CS polyethylene insert. 4. Rey size 32 x 10 mm press-fit patella. DESCRIPTION OF PROCEDURE: The patient was identified in the preop holding area. Proper site was marked and identified by the surgeon. The patient was taken back to the operating theater. After adequate anesthesia, the patient's right lower extremity had a nonsterile tourniquet applied and it was then sterilely prepped and draped in the usual sterile fashion. OR timeout was performed. The patient received 2 g IV Ancef. At this time, right lower extremity was exsanguinated. Tourniquet was insufflated to 300 mmHg. Standard medial parapatellar incision was made. Medial parapatellar arthrotomy was created. Deep fibers of the MCL were raised and anterior fat pad was resected. At this time, attention was turned to the patella. Patella measured 24, it was resected to a 14 for 32 x 10 mm patella and an 8 mm resected off the distal femur. Drill holes were then drilled and found to be in adequate position. The drill was then drilled in the distal femur and the intramedullary distal femoral cutting guide was then placed. 8 mm was resected off the distal femur and was found to be an adequate resection. Sizing guide was placed. It was found to be a size 5 femur that was shown on the implant record at the beginning of this dictation. The drill holes were drilled for the epicondylar axis using Whitesides line and epicondyles as reference. At this time, the 4-in-1 cutting block was placed. An anterior posterior and anterior and posterior chamfer cuts were then completed. The correct size box cut was then placed and the box cut was completed and found to be an adequate resection. Attention was turned to the tibia. The posterior medial lateral retractors were placed. The extramedullary tibial guide was placed. It was placed in the old footprint of the ACL. It was aligned with the center of the ankle and 0 degrees of slope, 9 mm was then resected off the unaffected lateral side. There was found to be an acceptable reduction. At this time, posterior osteophytes were removed along with medial and lateral meniscus. A trial implant was placed with a correct sized tibia that was mentioned at the beginning of the dictation. A size 5, 9 mm trial CS polyethylene was then placed. The patient's knee was brought through range of motion. The patella was tracking centrally and was stable to varus and valgus stress. Alignment was found to be roughly at 0 degrees. The tibia was stamped and drilled in proper rotation. The universal tibial base plate was impacted in place. Next, the size 5 press-fit CR femur was impacted into place and the size 5, 9 mm CS polyethylene was placed. The patient's knee was brought into full extension. The patella was then press-fit in place at this time. Tourniquet was deflated. One liter dilute Betadine solution was irrigated through the knee along with 3 L of pulse lavage irrigation with Ancef. Periarticular injection was then completed. The patient's knee was brought through a range of motion. Knee was found to be stable to varus valgus stress, the patella was tracking centrally with full range of motion. At this time, a #2 barbed suture was used for closure of the medial parapatellar arthrotomy. Topical tranexamic acid was placed. 2-0 Vicryl was used subcutaneously, a running 3-0 Monocryl was used subcuticularly. The patient tolerated the procedure well and was sent to the PACU in stable condition. MMHENNA /[id number] RICHIE
== END 2018-05-30 12:20 | disposition home or self-care (01) | DRG 302 ==
LOC: JD.MS 06:01 → EEVIPCON 06:01 → JD.MS 06:02 → EDSTATUS 07:30
PROVIDERS: ADMIT Orthopaedic Surgery; ATTEND Orthopaedic Surgery
PROC: 0SRC0JA Replacement of Right Knee Joint with Synthetic Substitute, Uncemented, Open Approach (ICD-10-PCS; principal; 2018-05-29)
PROC: 3E0T3BZ Introduction of Anesthetic Agent into Peripheral Nerves and Plexi, Percutaneous Approach (ICD-10-PCS; 2018-05-29)
DX: M17.11 Unilateral primary osteoarthritis, right knee (principal); G90.2 Horner's syndrome; E66.01 Morbid (severe) obesity due to excess calories; Z68.41 Body mass index [BMI] 40.0-44.9, adult; M25.761 Osteophyte, right knee; F17.200 Nicotine dependence, unspecified, uncomplicated; I10 Essential (primary) hypertension; E78.00 Pure hypercholesterolemia, unspecified; F33.41 Major depressive disorder, recurrent, in partial remission; M85.89 Other specified disorders of bone density and structure, multiple sites; E78.5 Hyperlipidemia, unspecified; G50.0 Trigeminal neuralgia; F81.0 Specific reading disorder; R42 Dizziness and giddiness; H54.7 Unspecified visual loss; Z79.82 Long term (current) use of aspirin; Z79.899 Other long term (current) drug therapy; Z88.0 Allergy status to penicillin; Z91.018 Allergy to other foods
CPT/HCPCS: 01402; 36415; 64450; 73560-26-RT; 73560-RT; 80053; 85027; 87641; 94761; 97110-GP; 97116-GP; 97161-GP; 97165-GO; 97530-GP; 97535-GO; A9270-GY; C1776; J0171; J0690; J0697; J1885; J2001; J2250; J2270; J2405; J2704; J2795; J3010; J3370; J3490; J7120

== ENCOUNTER 2019-09-14 21:40 | Emergency (ER) | payer BC ==
[2019-09-14 22:08] VITALS: BP 131/87; PULSE 74
--- NOTE | 2019-09-14 23:47 | EDM.PDOC ---
ED HPI GENERAL MEDICAL PROBLEM - General Chief Complaint: Neurological Problem Stated Complaint: PAIN ON RIGHT SIDE OF FACE Time Seen by Provider: 09/14/19 23:47 - History of Present Illness INITIAL COMMENTS - FREE TEXT/NARRATIVE: 59-year-old female presents emergency room with a flareup of her trigeminal neuralgia on the right side. This started up early in the day but really got worse from 7:00 in the evening. Her flareups are getting more frequent. She's not on any prophylactic treatment for this. She's not had any associated fevers or chills. She uses a muscle relaxant at home but it's very strong it'll knock her out for a couple of days. Right Face/Facial Pain Score (Numeric/FACES): 8 - Related Data Allergies Allergy/AdvReac Type Severity Reaction Status Date / Time broccoli Allergy Cannot Verified 09/14/19 22:09 Remember Penicillins Allergy Cannot Verified 09/14/19 22:09 Remember Home Meds: Home Meds Acetaminophen/Chlorpheniramine [Coricidin HBP Cold & Flu] 1 tab PO Q6H PRN 02/09 [History] Aspirin 81 mg PO DAILY 02/09/18 [History] Aspirin/Acetaminophen/Caffeine [Migraine Relief Caplet] 1 - 2 tab PO Q6H PRN [History] Benzonatate [Tessalon Perle] 1 - 2 cap PO Q6H PRN 02/09/18 [History] Cyclobenzaprine [Flexeril] 10 mg PO TID PRN 02/09/18 [History] atorvaSTATin [Lipitor] 20 mg PO BEDTIME 02/09/18 [History] hydroCHLOROthiazide [Hydrochlorothiazide] 12.5 mg PO DAILY 02/09/18 [History] traMADol HCl [Tramadol HCl] 50 mg PO Q6H PRN 02/09/18 [History] Cetirizine [ZyrTEC] 10 mg PO DAILY PRN 05/26/18 [History] Acetaminophen [Tylenol Arthritis] 1 tab PO QID PRN #0 05/29/18 [Rx] Acetaminophen/oxyCODONE [Percocet 325-5 MG] 1 - 2 tab PO Q6H PRN #60 tablet 01/15 [Rx] Bisacodyl [Dulcolax] 5 mg PO DAILY PRN tablet 05/29/18 [Rx] Calcium Carbonate/Vitamin D3 [Calcium 600 + Vit D Tablet] 600 mg PO BID [History] Docusate Sodium [Colace] 100 mg PO BID cap 05/29/18 [Rx] Famotidine [Pepcid] 20 mg PO Q12H tablet 05/29/18 [Rx] Losartan/Hydrochlorothiazide [Losartan-HCTZ 50-12.5 MG] 1 tab PO DAILY 05/29/18 [History] Magnesium Hydroxide [Milk of Magnesia] 30 ml PO BID PRN cup 05/29/18 [Rx] Multivitamin [Multi-Day Vitamins] 1 each PO DAILY 05/29/18 [History] Rivaroxaban [Xarelto] 10 mg PO DAILY #40 tablet 05/29/18 [Rx] Sennosides [Senna] 8.6 mg PO BID PRN tablet 05/29/18 [Rx] Past Medical History HEENT History: Reports: Impaired Vision, Other (See Below) Other HEENT History: wears glasses, has partial Cardiovascular History: Reports: High Cholesterol, Hypertension Respiratory History: Reports: None Gastrointestinal History: Reports: None Genitourinary History: Reports: None 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 Musculoskeletal History: Reports: Gout, Osteoarthritis Neurological History: Reports: Vertigo, Other (See Below) Other Neuro History: trigeminal neuralgia, aquilino's syndrome Psychiatric History: Reports: Developmental Delay, Other (See Below) Other Psychiatric History: dyslexia, depression Endocrine/Metabolic History: Reports: Obesity/BMI 30+, Osteopenia Hematologic History: Reports: None Immunologic History: Reports: None Oncologic (Cancer) History: Reports: None Dermatologic History: Reports: None - Past Surgical History Head Surgeries/Procedures: Reports: None Cardiovascular Surgical History: Reports: None Respiratory Surgical History: Reports: None GI Surgical History: Reports: Colonoscopy, EGD Female Surgical History: Reports: None, Tubal Ligation, Other (See Below) Other Female Surgeries/Procedures: breast lumpectomy Endocrine Surgical History: Reports: None Neurological Surgical History: Reports: None Musculoskeletal Surgical History: Reports: Arthroscopic Knee Oncologic Surgical History: Reports: None Dermatological Surgical History: Reports: None Social & Family History - Family History Family Medical History: Noncontributory - Tobacco Use Smoking Status *Q: Current Every Day Smoker Years of Tobacco use: 30 Packs/Tins Daily: 0.5 - Caffeine Use Caffeine Use: Reports: Coffee Other Caffeine Use: 2 cups/ day of coffee. 1 cups/day soda - Recreational Drug Use Recreational Drug Use: No ED ROS GENERAL - Review of Systems Review Of Systems: See Below Constitutional: Reports: No Symptoms HEENT: Reports: No Symptoms Respiratory: Reports: No Symptoms Cardiovascular: Reports: No Symptoms Endocrine: Reports: No Symptoms GI/Abdominal: Reports: No Symptoms ED EXAM, GENERAL - Physical Exam Exam: See Below Exam Limited By: Uncooperative General Appearance: No Apparent Distress Eye Exam: Bilateral Eye: Normal Inspection, PERRL Ears: Normal External Exam, Normal Canal, Hearing Grossly Normal, Normal TMs Nose: Normal Inspection, Normal Mucosa, No Blood Throat/Mouth: Normal Inspection, Normal Lips, Normal Teeth, Normal Gums, Normal Oropharynx, Normal Voice, No Airway Compromise Head: Atraumatic, Normocephalic, Other (He has tenderness over the distribution of the trigeminal nerve especially along the right side of the nose and right cheek seems to be the worst at this point) Neck: Normal Inspection, Supple, Non-Tender, Full Range of Motion. No: Lymphadenopathy (L), Lymphadenopathy (R) Respiratory/Chest: No Respiratory Distress, Lungs Clear, Normal Breath Sounds Cardiovascular: Normal Peripheral Pulses, Regular Rate, Rhythm, No Edema Course - Vital Signs Last Recorded V/S: Last Vital Signs Temp 36.0 C 09/14/19 22:03 Pulse 74 09/14/19 22:03 Resp 16 09/14/19 22:03 BP 131/87 09/14/19 22:03 Pulse Ox 94 L 09/14/19 22:03 - Re-Assessments/Exams Free Text/Narrative Re-Assessment/Exam: 09/15/19 00:03 She does not appear to be on any prophylactic type treatment for this is might be some to consider such as carbamazepine, as is been the most studied we'll go with a short course of Percocet at this point #20 from the machine in the waiting room one or 2 every 6 hours Departure - Departure Time of Disposition: 00:04 Disposition: Home, Self-Care 01 Clinical Impression: Trigeminal neuralgia of right side of face - Discharge Information Referrals: Alicia Shaw MD [Primary Care Provider] - Forms: ED Department Discharge Additional Instructions: Return to the emergency room with any questions problems worsening symptoms. Follow-up with your regular doctor and discuss potential long-term treatment medications. Use the medication the got from the machine in the waiting room. This is a pain pill called Percocet take one or 2 every 6 hours as needed for pain. Allow 12 hours after using this medication before driving or returning to work. This medication can cause constipation so taking a stool softener with it is not necessarily a bad idea. Do not take this medication in combination with your muscle relaxants at home
== END 2019-09-15 00:25 | disposition home or self-care (01) ==
LOC: JD.ED 21:40
DX: G50.0 Trigeminal neuralgia (principal); I10 Essential (primary) hypertension; E66.9 Obesity, unspecified; Z68.41 Body mass index [BMI] 40.0-44.9, adult; M19.90 Unspecified osteoarthritis, unspecified site; E78.00 Pure hypercholesterolemia, unspecified; F17.210 Nicotine dependence, cigarettes, uncomplicated; Z88.0 Allergy status to penicillin; Z91.018 Allergy to other foods; Z79.82 Long term (current) use of aspirin; Z79.899 Other long term (current) drug therapy; Z79.01 Long term (current) use of anticoagulants
CPT/HCPCS: 99283

== ENCOUNTER 2019-10-26 17:33 | Inpatient (IN) | payer BC ==
[2019-10-26] MEDS ORDERED: Metoclopramide 10 MG/2 ML SDV IVPUSH ONE (17:51)
--- NOTE | 2019-10-26 17:52 | EDM.PDOC ---
<Kamran Ambriz - Last Filed: 10/26/19 22:58> ED HPI GENERAL MEDICAL PROBLEM - General Chief Complaint: Gastrointestinal Problem Stated Complaint: DRY HEAVES X 2 DAYS Time Seen by Provider: 10/26/19 17:52 - Related Data Allergies Allergy/AdvReac Type Severity Reaction Status Date / Time broccoli Allergy Cannot Verified 10/26/19 18:09 Remember Penicillins Allergy Cannot Verified 10/26/19 18:09 Remember Home Meds: Home Meds Acetaminophen/Chlorpheniramine [Coricidin HBP Cold & Flu] 1 tab PO Q6H PRN 02/09 [History] Aspirin 81 mg PO DAILY 02/09/18 [History] Aspirin/Acetaminophen/Caffeine [Migraine Relief Caplet] 1 - 2 tab PO Q6H PRN [History] Cyclobenzaprine [Flexeril] 10 mg PO TID PRN 02/09/18 [History] atorvaSTATin [Lipitor] 20 mg PO BEDTIME 02/09/18 [History] hydroCHLOROthiazide [Hydrochlorothiazide] 12.5 mg PO DAILY 02/09/18 [History] traMADol HCl [Tramadol HCl] 50 mg PO Q6H PRN 02/09/18 [History] Cetirizine [ZyrTEC] 10 mg PO DAILY PRN 05/26/18 [History] Bisacodyl [Dulcolax] 5 mg PO DAILY PRN tablet 05/29/18 [Rx] Calcium Carbonate/Vitamin D3 [Calcium 600 + Vit D Tablet] 600 mg PO BID [History] Docusate Sodium [Colace] 100 mg PO BID cap 05/29/18 [Rx] Losartan/Hydrochlorothiazide [Losartan-HCTZ 50-12.5 MG] 1 tab PO DAILY 05/29/18 [History] Multivitamin [Multi-Day Vitamins] 1 each PO DAILY 05/29/18 [History] Rivaroxaban [Xarelto] 10 mg PO DAILY #40 tablet 05/29/18 [Rx] Sennosides [Senna] 8.6 mg PO BID PRN tablet 05/29/18 [Rx] Escitalopram [Lexapro] 10 mg PO DAILY 10/26/19 [History] Gabapentin [Neurontin] 300 mg PO DAILY 10/26/19 [History] Hydrocodone/Acetaminophen [Hydrocodon-Acetaminophen 5-325] 5 - 325 mg PO Q6HR PRN 10/26/19 [History] carBAMazepine [Carbamazepine] 200 mg PO DAILY 10/26/19 [History] Course - Vital Signs Last Recorded V/S: Last Vital Signs Temp 37.4 C 10/26/19 23:56 Pulse 102 H 10/26/19 23:56 Resp 16 10/26/19 23:56 BP 136/95 H 10/26/19 23:56 Pulse Ox 95 10/26/19 23:56 Orthostatic Blood Pressure [ 131/82 Standing] Orthostatic Blood Pressure [ 120/79 Supine] - Orders/Labs/Meds Orders: Active Orders 24 hr Category Date Time Status Patient Status [ADT] Routine ADT 10/26/19 23:10 Active EKG Documentation Completion [RC] ASDIRECTED Care 10/26/19 22:56 Active Ketorolac [Toradol] Med 10/26/19 18:30 Active 30 mg IVPUSH ONETIME EKG 12 Lead [EK] Stat Ther 10/26/19 22:56 Ordered Medication Orders Hydromorphone HCl (Dilaudid) 0.5 mg IVPUSH Q2H PRN PRN Reason: Pain Last Admin: 10/27/19 06:10 Dose: 0.5 mg Admin: 10/27/19 04:09 Dose: 0.5 mg Lactated Ringer's (Ringers, Lactated) 1,000 mls @ 100 mls/hr IV ASDIRECTED FRANCHESCA Last Admin: 10/27/19 01:03 Dose: 100 mls/hr Ketorolac Tromethamine (Toradol) 30 mg IVPUSH ONETIME FRANCHESCA Last Admin: 10/26/19 18:35 Dose: 30 mg Ondansetron HCl (Zofran) 4 mg IVPUSH Q6HR PRN PRN Reason: Nausea/Vomiting Last Admin: 10/27/19 00:58 Dose: 4 mg Labs: Laboratory Tests 10/26/19 10/26/19 10/26/19 Range/Units 18:36 18:36 18:36 WBC 9.05 (3.98-10.04) K/mm3 RBC 4.87 (3.98-5.22) M/mm3 Hgb 14.4 D (11.2-15.7) gm/dl Hct 42.5 (34.1-44.9) % MCV 87.3 (79.4-94.8) fl MCH 29.6 (25.6-32.2) pg MCHC 33.9 (32.2-35.5) g/dl RDW Std Deviation 40.8 (36.4-46.3) fL Plt Count 168 L (182-369) K/mm3 MPV 9.2 L (9.4-12.3) fl Neut % (Auto) 83.9 H (34.0-71.1) % Lymph % (Auto) 5.5 L (19.3-51.7) % [place] % (Auto) 8.6 (4.7-12.5) % Eos % (Auto) 1.4 (0.7-5.8) Baso % (Auto) 0.4 (0.1-1.2) % Neut # (Auto) 7.58 H (1.56-6.13) K/mm3 Lymph # (Auto) 0.50 L (1.18-3.74) K/mm3 [place] # (Auto) 0.78 H (0.24-0.36) K/mm3 Eos # (Auto) 0.13 (0.04-0.36) K/mm3 Baso # (Auto) 0.04 (0.01-0.08) K/mm3 Manual Slide Review Abnormal smear PT 11.0 (9.7-12.0) SECONDS INR 1.01 APTT 27 (22-31) SECONDS Sodium (136-145) mEq/L Potassium (3.5-5.1) mEq/L Chloride (98-107) mEq/L Carbon Dioxide (21-32) mEq/L Anion Gap (5-15) BUN (7-18) mg/dL Creatinine (0.55-1.02) mg/dL Est Cr Clr Drug Dosing mL/min Estimated GFR (MDRD) (>60) mL/min BUN/Creatinine Ratio (14-18) Glucose (74-106) mg/dL Calcium (8.5-10.1) mg/dL Total Bilirubin (0.2-1.0) mg/dL GGT 1758 H (5-55) U/L AST (15-37) U/L ALT (14-59) U/L Alkaline Phosphatase (46-116) U/L C-Reactive Protein 11.5 H* (<1.0) mg/dL Total Protein (6.4-8.2) g/dl Albumin (3.4-5.0) g/dl Globulin gm/dL Albumin/Globulin Ratio (1-2) Lipase (73-393) U/L Carbamazepine (4.0-12.0) ug/mL 10/26/19 Range/Units 18:56 WBC (3.98-10.04) K/mm3 RBC (3.98-5.22) M/mm3 Hgb (11.2-15.7) gm/dl Hct (34.1-44.9) % MCV (79.4-94.8) fl MCH (25.6-32.2) pg MCHC (32.2-35.5) g/dl RDW Std Deviation (36.4-46.3) fL Plt Count (182-369) K/mm3 MPV (9.4-12.3) fl Neut % (Auto) (34.0-71.1) % Lymph % (Auto) (19.3-51.7) % [place] % (Auto) (4.7-12.5) % Eos % (Auto) (0.7-5.8) Baso % (Auto) (0.1-1.2) % Neut # (Auto) (1.56-6.13) K/mm3 Lymph # (Auto) (1.18-3.74) K/mm3 [place] # (Auto) (0.24-0.36) K/mm3 Eos # (Auto) (0.04-0.36) K/mm3 Baso # (Auto) (0.01-0.08) K/mm3 Manual Slide Review PT (9.7-12.0) SECONDS INR APTT (22-31) SECONDS Sodium 135 L (136-145) mEq/L Potassium 3.7 (3.5-5.1) mEq/L Chloride 100 (98-107) mEq/L Carbon Dioxide 26 (21-32) mEq/L Anion Gap 12.7 (5-15) BUN 15 (7-18) mg/dL Creatinine 0.9 (0.55-1.02) mg/dL Est Cr Clr Drug Dosing 63.01 mL/min Estimated GFR (MDRD) > 60 (>60) mL/min BUN/Creatinine Ratio 16.7 (14-18) Glucose 134 H (74-106) mg/dL Calcium 9.3 (8.5-10.1) mg/dL Total Bilirubin 1.6 H (0.2-1.0) mg/dL GGT (5-55) U/L AST 222 H (15-37) U/L ALT 556 H (14-59) U/L Alkaline Phosphatase 502 H (46-116) U/L C-Reactive Protein (<1.0) mg/dL Total Protein 7.2 (6.4-8.2) g/dl Albumin 3.6 (3.4-5.0) g/dl Globulin 3.6 gm/dL Albumin/Globulin Ratio 1.0 (1-2) Lipase 824 H (73-393) U/L Carbamazepine 3.8 L (4.0-12.0) ug/mL Meds: Medications Generic Name Dose Route Start Last Admin Trade Name Freq PRN Reason Stop Dose Admin Hydromorphone HCl 0.5 mg 10/27/19 03:53 10/27/19 06:10 Dilaudid IVPUSH 0.5 mg Q2H PRN Administration Pain Lactated Ringer's 1,000 mls @ 100 mls/hr 10/26/19 23:45 10/27/19 01:03 Ringers, Lactated IV 100 mls/hr ASDIRECTED FRANCHESCA Administration Ketorolac Tromethamine 30 mg 10/26/19 18:30 10/26/19 18:35 Toradol IVPUSH 30 mg ONETIME FRANCHESCA Administration Ondansetron HCl 4 mg 10/26/19 23:59 10/27/19 00:58 Zofran IVPUSH 4 mg Q6HR PRN Administration Nausea/Vomiting Discontinued Medications Generic Name Dose Route Start Last Admin Trade Name Freq PRN Reason Stop Dose Admin Hydromorphone HCl 0.5 mg 10/26/19 18:28 10/26/19 18:36 Dilaudid IVPUSH 10/26/19 18:29 0.5 mg ONETIME ONE Administration Hydromorphone HCl 0.5 mg 10/26/19 20:23 10/26/19 20:47 Dilaudid IVPUSH 10/26/19 20:24 0.5 mg ONETIME ONE Administration Hydromorphone HCl 1 mg 10/26/19 22:12 10/26/19 23:00 Dilaudid IVPUSH 10/26/19 22:13 1 mg ONETIME ONE Administration Hydromorphone HCl 0.5 mg 10/26/19 23:59 10/27/19 00:51 Dilaudid IVPUSH 0.5 mg Q4H PRN Administration Pain Dextrose/Lactated Ringer's 1,000 mls @ 999 mls/hr 10/26/19 18:00 10/26/19 18: 36 Dextrose 5%-Lactated Ringers IV 999 mls/hr ASDIRECTED FRANCHESCA Administration Meclizine HCl 25 mg 10/26/19 22:36 10/26/19 23:02 Antivert PO 10/26/19 22:37 25 mg ONETIME ONE Administration Metoclopramide HCl 7.5 mg 10/26/19 17:51 10/26/19 18:34 Reglan IVPUSH 10/26/19 17:52 7.5 mg ONETIME ONE Administration Ondansetron HCl 4 mg 10/26/19 22:31 10/26/19 22:57 Zofran IVPUSH 10/26/19 22:32 4 mg ONETIME ONE Administration - Re-Assessments/Exams Free Text/Narrative Re-Assessment/Exam: 10/26/19 22:[address] Virk. The patient's liver enzymes are elevated along with her GGT and lipase. She may have bile duct obstruction. I ordered an US and it shows cyst within the right lobe of the liver. Multiple gallstones measuring 1cm or slightly greater in size. No gallbladder wall thickening or biliary ductal dilatation is seen. No additional abnormality is seen on right upper quadrant abdominal US exam. She has more pain and nausea and vomiting. I ordered more dilaudid and zofran. She has has some vertigo. I gave her some antiver. I called Dr Augustine and he wanted her admitted and he will talk to her tomorrow about surgery. He wanted the xarelto held. I asked the patient why she is on it and she thinks it was after surgery last year and it was for irregular heart rhythm. I looked through old records here and I do not see if she a reason for he xarelto. I will get an EKG. 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) Intractability: not intractable Qualified Code(s): G44.099 - Other trigeminal autonomic cephalgias ( TAC), not intractable Nausea and vomiting Qualifiers: Vomiting type: unspecified Vomiting Intractability: non-intractable Qualified Code(s): R11.2 - Nausea with vomiting, unspecified Abdominal pain Qualifiers: Abdominal location: upper abdomen, unspecified Qualified Code(s): R10.10 - Upper abdominal pain, unspecified Cholelithiasis Qualifiers: Cholelithiasis location: gallbladder Cholecystitis presence: without cholecystitis Biliary obstruction: without biliary obstruction Qualified Code(s) : K80.20 - Calculus of gallbladder without cholecystitis without obstruction Pancreatitis Qualifiers: Chronicity: acute Pancreatitis type: other Acute pancreatitis complication: no infection or necrosis Qualified Code(s): K85.80 - Other acute pancreatitis without necrosis or infection - Discharge Information - My Orders Last 24 Hours: My Active Orders 10/26/19 18:30 Ketorolac [Toradol] 30 mg IVPUSH ONETIME - Assessment/Plan Last 24 Hours: My Active Orders 10/26/19 18:30 Ketorolac [Toradol] 30 mg IVPUSH ONETIME <Chin Virk - Last Filed: 10/27/19 07:06> ED HPI GENERAL MEDICAL PROBLEM - General Source of Information: Reports: Patient History Limitations: Reports: No Limitations - History of Present Illness INITIAL COMMENTS - FREE TEXT/NARRATIVE: 59-year-old female presents to the ED with severe right hemifacial pain secondary to trigeminal neuralgia. She reports dry heaves nausea and vomiting for the last 3 days. She is volume depleted. She recently restarted back on Tegretol in the dosage was increased from the first week to the second week. She is on multiple other medications including hydrocodone 5/325 mg which cause dryness of her mouth and she believes some of the nausea. She is scheduled to see neurology services in [place] 23 of November. She has associated vertigo motion sickness for many months. Can tell me that she's losing her hearing per se in the right ear which would be more suggestive of an acoustic neuroma. She is coming in with her eyes closed as she is very photophobic. Moist wet cloth on her right forehead and mateo-face. She is also on gabapentin 100 mg twice a day Onset: Other (Has been having off-and-on trigeminal neuralgia symptoms for many months.) Duration: Week(s):, Chronic Location: Reports: Head (Right mateo-face particularly the right forehead towards the right nose underneath her right eye and down along her right mandible in the distribution of the trigeminal nerve all 3 limbs of the nerve seemed to be involved), Face, Neck. Denies: Chest, Abdomen, Back, Pelvis, Upper Extremity, Left, Upper Extremity, Right, Lower Extremity, Left, Lower Extremity, Right, Generalized, Radiates to, Other Quality: Reports: Other Severity: Severe Improves with: Reports: None Worsens with: Reports: Other Context: Denies: Activity (Movement touch and bright light.), Exercise, Sick Contact, Trauma, Other Associated Symptoms: Reports: Headaches, Loss of Appetite, Malaise, Rash ( Vertigo), Other. 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: Reports: Other (see below) Past Medical History HEENT History: Reports: Impaired Vision, Other (See Below) Other HEENT History: wears glasses, has partial Cardiovascular History: Reports: High Cholesterol, Hypertension Respiratory History: Reports: None Gastrointestinal History: Reports: None Genitourinary History: Reports: None CLINICAL PROGRAMMER History: Reports: None Musculoskeletal History: Reports: Gout, Osteoarthritis Neurological History: Reports: Vertigo, Other (See Below) Other Neuro History: trigeminal neuralgia, aquilino's syndrome Psychiatric History: Reports: Developmental Delay, Other (See Below) Other Psychiatric History: dyslexia, depression Endocrine/Metabolic History: Reports: Obesity/BMI 30+, Osteopenia Hematologic History: Reports: None Immunologic History: Reports: None Oncologic (Cancer) History: Reports: None Dermatologic History: Reports: None - Past Surgical History Head Surgeries/Procedures: Reports: None Cardiovascular Surgical History: Reports: None Respiratory Surgical History: Reports: None GI Surgical History: Reports: Colonoscopy, EGD Female Surgical History: Reports: None, Tubal Ligation, Other (See Below) Other Female Surgeries/Procedures: breast lumpectomy Endocrine Surgical History: Reports: None Neurological Surgical History: Reports: None Musculoskeletal Surgical History: Reports: Arthroscopic Knee Oncologic Surgical History: Reports: None Dermatological Surgical History: Reports: None Social & Family History - Family History Family Medical History: Noncontributory - Caffeine Use Caffeine Use: Reports: Coffee Other Caffeine Use: 2 cups/ day of coffee. 1 cups/day soda - Living Situation & Occupation Living situation: Reports: Single Occupation: Unemployed ED ROS GENERAL - Review of Systems Review Of Systems: See Below Constitutional: Reports: Malaise, Weakness, Fatigue. Denies: Fever, Chills HEENT: Reports: Ear Pain (Right side), Vertigo. Denies: Contact Lenses, Dental Pain, Ear Discharge, Eye Discharge, Eye Pain, Glasses, Hearing Loss, Nosebleed, Nose Pain, Rhinitis, Sinus Problem, Throat Pain, Throat Swelling Respiratory: Reports: No Symptoms Cardiovascular: Reports: No Symptoms Endocrine: Reports: Fatigue GI/Abdominal: Reports: Decreased Appetite, Nausea, Vomiting (Mostly in the form of dry heaves.) : Reports: Frequency Musculoskeletal: Reports: No Symptoms, Back Pain, Joint Pain (Chronic low back pain) Skin: Reports: Other (Reports a rash on her right forehead.) Neurological: Reports: Other (Shooting lancinating pain in the distribution trigeminal nerve right side of her face. For many months) Psychiatric: Reports: Depression Hematologic/Lymphatic: Reports: No Symptoms Immunologic: Reports: No Symptoms ED EXAM, GI/ABD - Physical Exam Exam: See Below Exam Limited By: No Limitations General Appearance: Alert, WD/WN, Moderate Distress (Has a: Regular left face and covering her eyes as she is light sensitive) Eyes: Bilateral: Normal Appearance, Proptosis (Patient is photophobic.) Ears: Normal External Exam, Normal TMs Nose: Normal Inspection Throat/Mouth: Normal Inspection, Normal Oropharynx Head: Atraumatic, Normocephalic, Facial Tenderness. No: Facial Swelling Neck: Normal Inspection (Facial tenderness in the distribution of trigeminal nerve right side of the face) Respiratory/Chest: No Respiratory Distress, Lungs Clear, Normal Breath Sounds, No Accessory Muscle Use Cardiovascular: Normal Peripheral Pulses, Regular Rate, Rhythm, No Edema, No Gallop, No Murmur, No Rub GI/Abdominal Exam: Normal Bowel Sounds, Soft, Non-Tender, No Organomegaly, No Abnormal Bruit, No Mass, Pelvis Stable Extremities: Normal Inspection, Normal Range of Motion, Non-Tender, No Pedal Edema Neurological: Alert, Oriented, CN II-XII Intact, Normal Cognition Psychiatric: Normal Affect, Normal Mood, Anxious, Other Skin Exam: Warm, Dry (In pain), Intact, Normal Color Course - Vital Signs Last Recorded V/S: Last Vital Signs Temp 37.4 C 10/26/19 23:56 Pulse 102 H 10/26/19 23:56 Resp 16 10/26/19 23:56 BP 136/95 H 10/26/19 23:56 Pulse Ox 95 10/26/19 23:56 Orthostatic Blood Pressure [ 131/82 Standing] Orthostatic Blood Pressure [ 120/79 Supine] - Orders/Labs/Meds Labs: Laboratory Tests 10/26/19 10/26/19 10/26/19 Range/Units 18:36 18:36 18:36 WBC 9.05 (3.98-10.04) K/mm3 RBC 4.87 (3.98-5.22) M/mm3 Hgb 14.4 D (11.2-15.7) gm/dl Hct 42.5 (34.1-44.9) % MCV 87.3 (79.4-94.8) fl MCH 29.6 (25.6-32.2) pg MCHC 33.9 (32.2-35.5) g/dl RDW Std Deviation 40.8 (36.4-46.3) fL Plt Count 168 L (182-369) K/mm3 MPV 9.2 L (9.4-12.3) fl Neut % (Auto) 83.9 H (34.0-71.1) % Lymph % (Auto) 5.5 L (19.3-51.7) % [place] % (Auto) 8.6 (4.7-12.5) % Eos % (Auto) 1.4 (0.7-5.8) Baso % (Auto) 0.4 (0.1-1.2) % Neut # (Auto) 7.58 H (1.56-6.13) K/mm3 Lymph # (Auto) 0.50 L (1.18-3.74) K/mm3 [place] # (Auto) 0.78 H (0.24-0.36) K/mm3 Eos # (Auto) 0.13 (0.04-0.36) K/mm3 Baso # (Auto) 0.04 (0.01-0.08) K/mm3 Manual Slide Review Abnormal smear PT 11.0 (9.7-12.0) SECONDS INR 1.01 APTT 27 (22-31) SECONDS Sodium (136-145) mEq/L Potassium (3.5-5.1) mEq/L Chloride (98-107) mEq/L Carbon Dioxide (21-32) mEq/L Anion Gap (5-15) BUN (7-18) mg/dL Creatinine (0.55-1.02) mg/dL Est Cr Clr Drug Dosing mL/min Estimated GFR (MDRD) (>60) mL/min BUN/Creatinine Ratio (14-18) Glucose (74-106) mg/dL Calcium (8.5-10.1) mg/dL Total Bilirubin (0.2-1.0) mg/dL GGT 1758 H (5-55) U/L AST (15-37) U/L ALT (14-59) U/L Alkaline Phosphatase (46-116) U/L C-Reactive Protein 11.5 H* (<1.0) mg/dL Total Protein (6.4-8.2) g/dl Albumin (3.4-5.0) g/dl Globulin gm/dL Albumin/Globulin Ratio (1-2) Lipase (73-393) U/L Carbamazepine (4.0-12.0) ug/mL 10/26/19 Range/Units 18:56 WBC (3.98-10.04) K/mm3 RBC (3.98-5.22) M/mm3 Hgb (11.2-15.7) gm/dl Hct (34.1-44.9) % MCV (79.4-94.8) fl MCH (25.6-32.2) pg MCHC (32.2-35.5) g/dl RDW Std Deviation (36.4-46.3) fL Plt Count (182-369) K/mm3 MPV (9.4-12.3) fl Neut % (Auto) (34.0-71.1) % Lymph % (Auto) (19.3-51.7) % [place] % (Auto) (4.7-12.5) % Eos % (Auto) (0.7-5.8) Baso % (Auto) (0.1-1.2) % Neut # (Auto) (1.56-6.13) K/mm3 Lymph # (Auto) (1.18-3.74) K/mm3 [place] # (Auto) (0.24-0.36) K/mm3 Eos # (Auto) (0.04-0.36) K/mm3 Baso # (Auto) (0.01-0.08) K/mm3 Manual Slide Review PT (9.7-12.0) SECONDS INR APTT (22-31) SECONDS Sodium 135 L (136-145) mEq/L Potassium 3.7 (3.5-5.1) mEq/L Chloride 100 (98-107) mEq/L Carbon Dioxide 26 (21-32) mEq/L Anion Gap 12.7 (5-15) BUN 15 (7-18) mg/dL Creatinine 0.9 (0.55-1.02) mg/dL Est Cr Clr Drug Dosing 63.01 mL/min Estimated GFR (MDRD) > 60 (>60) mL/min BUN/Creatinine Ratio 16.7 (14-18) Glucose 134 H (74-106) mg/dL Calcium 9.3 (8.5-10.1) mg/dL Total Bilirubin 1.6 H (0.2-1.0) mg/dL GGT (5-55) U/L AST 222 H (15-37) U/L ALT 556 H (14-59) U/L Alkaline Phosphatase 502 H (46-116) U/L C-Reactive Protein (<1.0) mg/dL Total Protein 7.2 (6.4-8.2) g/dl Albumin 3.6 (3.4-5.0) g/dl Globulin 3.6 gm/dL Albumin/Globulin Ratio 1.0 (1-2) Lipase 824 H (73-393) U/L Carbamazepine 3.8 L (4.0-12.0) ug/mL Meds: Medications Generic Name Dose Route Start Last Admin Trade Name Freq PRN Reason Stop Dose Admin Hydromorphone HCl 0.5 mg 10/27/19 03:53 10/27/19 06:10 Dilaudid IVPUSH 0.5 mg Q2H PRN Administration Pain Lactated Ringer's 1,000 mls @ 100 mls/hr 10/26/19 23:45 10/27/19 01:03 Ringers, Lactated IV 100 mls/hr ASDIRECTED FRANCHESCA Administration Ketorolac Tromethamine 30 mg 10/26/19 18:30 10/26/19 18:35 Toradol IVPUSH 30 mg ONETIME FRANCHESCA Administration Ondansetron HCl 4 mg 10/26/19 23:59 10/27/19 00:58 Zofran IVPUSH 4 mg Q6HR PRN Administration Nausea/Vomiting Discontinued Medications Generic Name Dose Route Start Last Admin Trade Name Freq PRN Reason Stop Dose Admin Hydromorphone HCl 0.5 mg 10/26/19 18:28 10/26/19 18:36 Dilaudid IVPUSH 10/26/19 18:29 0.5 mg ONETIME ONE Administration Hydromorphone HCl 0.5 mg 10/26/19 20:23 10/26/19 20:47 Dilaudid IVPUSH 10/26/19 20:24 0.5 mg ONETIME ONE Administration Hydromorphone HCl 1 mg 10/26/19 22:12 10/26/19 23:00 Dilaudid IVPUSH 10/26/19 22:13 1 mg ONETIME ONE Administration Hydromorphone HCl 0.5 mg 10/26/19 23:59 10/27/19 00:51 Dilaudid IVPUSH 0.5 mg Q4H PRN Administration Pain Dextrose/Lactated Ringer's 1,000 mls @ 999 mls/hr 10/26/19 18:00 10/26/19 18: 36 Dextrose 5%-Lactated Ringers IV 999 mls/hr ASDIRECTED FRANCHESCA Administration Meclizine HCl 25 mg 10/26/19 22:36 10/26/19 23:02 Antivert PO 10/26/19 22:37 25 mg ONETIME ONE Administration Metoclopramide HCl 7.5 mg 10/26/19 17:51 10/26/19 18:34 Reglan IVPUSH 10/26/19 17:52 7.5 mg ONETIME ONE Administration Ondansetron HCl 4 mg 10/26/19 22:31 10/26/19 22:57 Zokobi IVPUSH 10/26/19 22:32 4 mg ONETIME ONE Administration - Radiology Interpretation Free Text/Narrative:: 59-year-old female presents the ED primarily due to recurrent nausea vomiting mostly in the 4 dry heaves last 3 days. She is able to keep down small quantities of water and small amount of crackers and perhaps other liquids but no solids. She has a severe flareup of her right-sided trigeminal neuralgia over the last 10-14 days. She's been started on Tegretol once again and dosages been increased incrementally every week. She's been taking more hydrocodone 5/ 325 mg tablets as well for pain relief. To follow-up of her trigeminal neuralgia. For it may be that her nausea vomiting secondary medication use. Tall plus gabapentin plus other medications might also be causing elevated liver enzymes. At present she appears to be moderately dehydrated. We'll proceed with IV fluids D5 LR at open. Given Dilaudid 0.5 mg IV for pain relief and Reglan 7.5 mg for nausea relief. Routine labs and CRP to be obtained. - Re-Assessments/Exams Free Text/Narrative Re-Assessment/Exam: 10/26/19 19:39 Labs reveal a white count of 9.05 auto differential shows 84% neutrophils. Hemoglobin is 14.4 and hematocrit of 42.5. Platelet count 168,000. Slight reveals a few talks ache appearing granulomatous cells and 1% bands. PT is 11.0 with an INR of 1.01. PTT is 27. Sodium 135 with a potassium of 3.7 chloride 100 with a bicarbonate of 26. And a gap is 12.7 BUN is 15. Creatinine is 0.9 EGFR is greater than 60. Glucose 134 with a calcium of 9.3 total bilirubin is elevated at 1.6 AST elevated at 222 ALT elevated at 556 alkaline phosphatase is elevated at 502. Protein is 7.2 with an albumin fraction of 3.6 lipase is elevated at 824. Serum Tegretol level is 3.8. Care will be turned over to Dr Ambriz as it is change os shift. It appears she is developing a biliary tree obstruction. Serumm GGT will be ordered. I will leave it up to Dr Ambriz to decide on what imaging needs to be pursued.
[2019-10-26] MEDS ORDERED: Dextrose 5%-Lactated Ringers 1,000 ML IV SCH (18:00)
[2019-10-26] MEDS ORDERED: HYDROmorphone 0.5 MG/0.5 ML Syringe IVPUSH ONE ×2 (18:28→20:23)
[2019-10-26] MEDS ORDERED: Ketorolac 30 MG/ML SDV IVPUSH SCH (18:30)
--- NOTE | 2019-10-26 21:40 | US ---
Limited abdominal ultrasound: Multiple real-time images of the upper right abdomen were obtained. Comparison: No prior abdominal ultrasound is available. Findings: Cyst is noted within the right lobe measuring 3.5 x 2.9 x 2.1 cm. No additional abnormality is seen within the liver. Numerous gallstones are seen without gallbladder wall thickening or biliary duct dilatation. Gallstones measure 1 cm or slightly greater in size. Right kidney shows no hydronephrosis or mass. Right kidney length is 10.6 cm. Visualized portions of the pancreas are within normal limits. Portal vein shows normal hepatopedal flow. Impression: 1. Cyst within the right lobe of liver with measurements as normal. 2. Multiple gallstones measuring 1 cm or slightly greater in size. No gallbladder wall thickening or biliary ductal dilatation is seen. 3. No additional abnormality is seen on right upper quadrant abdominal ultrasound exam. Diagnostic code #3 This report was dictated in [place] Standard Time
[2019-10-26] MEDS ORDERED: HYDROmorphone 1 MG/ML Syringe IVPUSH ONE (22:12)
[2019-10-26] MEDS ORDERED: Ondansetron 4 MG/2 ML SDV IVPUSH ONE (22:31)
[2019-10-26] MEDS ORDERED: Lactated Ringers 1,000 ML IV SCH (23:45)
[2019-10-26] MEDS ORDERED: HYDROmorphone 0.5 MG/0.5 ML Syringe IVPUSH PRN (23:59)
[2019-10-27] MEDS: Ondansetron 4 MG/2 ML SDV IVPUSH PRN ×3 (00:58→20:18)
[2019-10-27] MEDS: HYDROmorphone 0.5 MG/0.5 ML Syringe IVPUSH PRN ×5 (04:09→20:08)
--- NOTE | 2019-10-27 08:38 | PCM.SURGPN ---
- General Info Date of Service: 10/27/19 - Patient Data Vitals - Most Recent: Last Vital Signs Temp 99.1 F 10/27/19 07:50 Pulse 91 10/27/19 08:00 Resp 20 10/27/19 07:50 BP 134/81 10/27/19 07:50 Pulse Ox 90 L 10/27/19 08:00 Orthostatic Blood Pressure [ 131/82 Standing] Orthostatic Blood Pressure [ 120/79 Supine] Weight - Most Recent: 136.713 kg I&O - Last 24 Hours: Intake & Output 10/26/19 10/27/19 10/27/19 23:59 07:59 15:59 Output Total 200 Balance -200 Lab Results Last 24 Hrs: Laboratory Results - last 24 hr 10/26/19 10/26/19 10/26/19 Range/Units 18:36 18:36 18:36 WBC 9.05 (3.98-10.04) K/mm3 RBC 4.87 (3.98-5.22) M/mm3 Hgb 14.4 D (11.2-15.7) gm/dl Hct 42.5 (34.1-44.9) % MCV 87.3 (79.4-94.8) fl MCH 29.6 (25.6-32.2) pg MCHC 33.9 (32.2-35.5) g/dl RDW Std Deviation 40.8 (36.4-46.3) fL Plt Count 168 L (182-369) K/mm3 MPV 9.2 L (9.4-12.3) fl Neut % (Auto) 83.9 H (34.0-71.1) % Lymph % (Auto) 5.5 L (19.3-51.7) % [place] % (Auto) 8.6 (4.7-12.5) % Eos % (Auto) 1.4 (0.7-5.8) Baso % (Auto) 0.4 (0.1-1.2) % Neut # (Auto) 7.58 H (1.56-6.13) K/mm3 Lymph # (Auto) 0.50 L (1.18-3.74) K/mm3 [place] # (Auto) 0.78 H (0.24-0.36) K/mm3 Eos # (Auto) 0.13 (0.04-0.36) K/mm3 Baso # (Auto) 0.04 (0.01-0.08) K/mm3 Manual Slide Review Abnormal smear PT 11.0 (9.7-12.0) SECONDS INR 1.01 APTT 27 (22-31) SECONDS Sodium (136-145) mEq/L Potassium (3.5-5.1) mEq/L Chloride (98-107) mEq/L Carbon Dioxide (21-32) mEq/L Anion Gap (5-15) BUN (7-18) mg/dL Creatinine (0.55-1.02) mg/dL Est Cr Clr Drug Dosing mL/min Estimated GFR (MDRD) (>60) mL/min BUN/Creatinine Ratio (14-18) Glucose (74-106) mg/dL Calcium (8.5-10.1) mg/dL Total Bilirubin (0.2-1.0) mg/dL GGT 1758 H (5-55) U/L AST (15-37) U/L ALT (14-59) U/L Alkaline Phosphatase (46-116) U/L C-Reactive Protein 11.5 H* (<1.0) mg/dL Total Protein (6.4-8.2) g/dl Albumin (3.4-5.0) g/dl Globulin gm/dL Albumin/Globulin Ratio (1-2) Lipase (73-393) U/L Carbamazepine (4.0-12.0) ug/mL 10/26/19 10/27/19 10/27/19 Range/Units 18:56 05:20 05:20 WBC 9.06 (3.98-10.04) K/mm3 RBC 4.52 (3.98-5.22) M/mm3 Hgb 13.2 (11.2-15.7) gm/dl Hct 40.1 (34.1-44.9) % MCV 88.7 (79.4-94.8) fl MCH 29.2 (25.6-32.2) pg MCHC 32.9 (32.2-35.5) g/dl RDW Std Deviation 42.3 (36.4-46.3) fL Plt Count 170 L (182-369) K/mm3 MPV 9.5 (9.4-12.3) fl Neut % (Auto) (34.0-71.1) % Lymph % (Auto) (19.3-51.7) % [place] % (Auto) (4.7-12.5) % Eos % (Auto) (0.7-5.8) Baso % (Auto) (0.1-1.2) % Neut # (Auto) (1.56-6.13) K/mm3 Lymph # (Auto) (1.18-3.74) K/mm3 [place] # (Auto) (0.24-0.36) K/mm3 Eos # (Auto) (0.04-0.36) K/mm3 Baso # (Auto) (0.01-0.08) K/mm3 Manual Slide Review PT (9.7-12.0) SECONDS INR APTT (22-31) SECONDS Sodium 135 L 135 L (136-145) mEq/L Potassium 3.7 3.7 (3.5-5.1) mEq/L Chloride 100 99 (98-107) mEq/L Carbon Dioxide 26 28 (21-32) mEq/L Anion Gap 12.7 11.7 (5-15) BUN 15 13 (7-18) mg/dL Creatinine 0.9 0.8 (0.55-1.02) mg/dL Est Cr Clr Drug Dosing 63.01 70.88 mL/min Estimated GFR (MDRD) > 60 > 60 (>60) mL/min BUN/Creatinine Ratio 16.7 16.3 (14-18) Glucose 134 H 123 H (74-106) mg/dL Calcium 9.3 8.6 (8.5-10.1) mg/dL Total Bilirubin 1.6 H 1.2 H (0.2-1.0) mg/dL GGT (5-55) U/L AST 222 H 127 H (15-37) U/L ALT 556 H 416 H (14-59) U/L Alkaline Phosphatase 502 H 419 H (46-116) U/L C-Reactive Protein (<1.0) mg/dL Total Protein 7.2 6.7 (6.4-8.2) g/dl Albumin 3.6 3.1 L (3.4-5.0) g/dl Globulin 3.6 3.6 gm/dL Albumin/Globulin Ratio 1.0 0.9 L (1-2) Lipase 824 H 953 H (73-393) U/L Carbamazepine 3.8 L (4.0-12.0) ug/mL Med Orders - Current: Current Medications Hydromorphone HCl (Dilaudid) 0.5 mg IVPUSH Q2H PRN PRN Reason: Pain Last Admin: 10/27/19 06:10 Dose: 0.5 mg Lactated Ringer's (Ringers, Lactated) 1,000 mls @ 100 mls/hr IV ASDIRECTED [facility] Last Admin: 10/27/19 01:03 Dose: 100 mls/hr Ketorolac Tromethamine (Toradol) 30 mg IVPUSH ONETIME [facility] Last Admin: 10/26/19 18:35 Dose: 30 mg Ondansetron HCl (Zofran) 4 mg IVPUSH Q6HR PRN PRN Reason: Nausea/Vomiting Last Admin: 10/27/19 00:58 Dose: 4 mg Discontinued Medications Hydromorphone HCl (Dilaudid) 0.5 mg IVPUSH ONETIME ONE Stop: 10/26/19 18:29 Last Admin: 10/26/19 18:36 Dose: 0.5 mg Hydromorphone HCl (Dilaudid) 0.5 mg IVPUSH ONETIME ONE Stop: 10/26/19 20:24 Last Admin: 10/26/19 20:47 Dose: 0.5 mg Hydromorphone HCl (Dilaudid) 1 mg IVPUSH ONETIME ONE Stop: 10/26/19 22:13 Last Admin: 10/26/19 23:00 Dose: 1 mg Hydromorphone HCl (Dilaudid) 0.5 mg IVPUSH Q4H PRN PRN Reason: Pain Last Admin: 10/27/19 00:51 Dose: 0.5 mg Dextrose/Lactated Ringer's (Dextrose 5%-Lactated Ringers) 1,000 mls @ 999 mls/ hr IV ASDIRECTED [facility] Last Admin: 10/26/19 18:36 Dose: 999 mls/hr Meclizine HCl (Antivert) 25 mg PO ONETIME ONE Stop: 10/26/19 22:37 Last Admin: 10/26/19 23:02 Dose: 25 mg Metoclopramide HCl (Reglan) 7.5 mg IVPUSH ONETIME ONE Stop: 10/26/19 17:52 Last Admin: 10/26/19 18:34 Dose: 7.5 mg Ondansetron HCl (Zofran) 4 mg IVPUSH ONETIME ONE Stop: 10/26/19 22:32 Last Admin: 10/26/19 22:57 Dose: 4 mg - Problem List Review Problem List Initiated/Reviewed/Updated: Yes - My Orders Last 24 Hours: Active Orders 24 hr Category Date Time Status Patient Status [ADT] Routine ADT 10/26/19 23:10 Active Bedrest Bathroom Privileges [RC] ASDIRECTED Care 10/26/19 23:58 Active Communication Order [RC] QSHIFT Care 10/27/19 09:00 Active Communication Order [RC] QSAZFT Care 10/27/19 09:00 Active EKG Documentation Completion [RC] ASDIRECTED Care 10/26/19 22:56 Active NPO Now [Nothing per Oral Now Diet] [DIET] Diet 10/27/19 Breakfast Active HYDROmorphone [Dilaudid] Med 10/27/19 03:53 Active 0.5 mg IVPUSH Q2H PRN Ketorolac [Toradol] Med 10/26/19 18:30 Active 30 mg IVPUSH ONETIME Lactated Ringers [Ringers, Lactated] 1,000 ml Med 10/26/19 23:45 Active IV ASDIRECTED Ondansetron [Zofran] Med 10/26/19 23:59 Active 4 mg IVPUSH Q6HR PRN Code Status [Resuscitation Status] Routine Resus Stat 10/26/19 23:57 Ordered EKG 12 Lead [EK] Stat Ther 10/26/19 22:56 Ordered Medication Orders Hydromorphone HCl (Dilaudid) 0.5 mg IVPUSH Q2H PRN PRN Reason: Pain Last Admin: 10/27/19 06:10 Dose: 0.5 mg Admin: 10/27/19 04:09 Dose: 0.5 mg Lactated Ringer's (Ringers, Lactated) 1,000 mls @ 100 mls/hr IV ASDIRECTED [facility] Last Admin: 10/27/19 01:03 Dose: 100 mls/hr Ketorolac Tromethamine (Toradol) 30 mg IVPUSH ONETIME [facility] Last Admin: 10/26/19 18:35 Dose: 30 mg Ondansetron HCl (Zofran) 4 mg IVPUSH Q6HR PRN PRN Reason: Nausea/Vomiting Last Admin: 10/27/19 00:58 Dose: 4 mg - Plan Plan (Free Text/Narrative):: H&P dictated LEONCIO
--- NOTE | 2019-10-27 08:59 | PCM.PREANE ---
Preanesthetic Assessment - Procedure Proposed Procedure: Laparoscopic Cholecystectomy - Anesthesia/Transfusion/Family Hx Anesthesia History: Prior Anesthesia Without Reaction Family History of Anesthesia Reaction: No Transfusion History: No Prior Transfusion(s) Anesthesia/Transfusion Comment: No previous problems with anesthesia or with intubation per patient - Review of Systems General: No Symptoms Pulmonary: No Symptoms Cardiovascular: No Symptoms, Other (HTN well-controlled) Gastrointestinal: No Symptoms Neurological: Other (trigeminal neuralgia) Other: Reports: Depression - Physical Assessment NPO Status Date: 10/27/19 NPO Status Time: 20:00 Vital Signs: Last Vital Signs Temp 37.3 C 10/27/19 07:50 Pulse 91 10/27/19 08:00 Resp 20 10/27/19 07:50 BP 134/81 10/27/19 07:50 Pulse Ox 90 L 10/27/19 08:00 Orthostatic Blood Pressure [ 131/82 Standing] Orthostatic Blood Pressure [ 120/79 Supine] Height: 5 ft 6 in Weight: 136.713 kg ASA Class: 2E Mental Status: Alert & Oriented x3 Airway Class: Mallampati = 3 Dentition: Reports: Normal Dentition ROM/Head Extension: Full Lungs: Normal Respiratory Effort Cardiovascular: Regular Rate - Lab Values: Laboratory Last Values WBC 9.06 K/mm3 (3.98-10.04) 10/27/19 05:20 RBC 4.52 M/mm3 (3.98-5.22) 10/27/19 05:20 Hgb 13.2 gm/dl (11.2-15.7) 10/27/19 05:20 Hct 40.1 % (34.1-44.9) 10/27/19 05:20 MCV 88.7 fl (79.4-94.8) 10/27/19 05:20 MCH 29.2 pg (25.6-32.2) 10/27/19 05:20 MCHC 32.9 g/dl (32.2-35.5) 10/27/19 05:20 RDW Std Deviation 42.3 fL (36.4-46.3) 10/27/19 05:20 Plt Count 170 K/mm3 (182-369) L 10/27/19 05:20 MPV 9.5 fl (9.4-12.3) 10/27/19 05:20 Neut % (Auto) 83.9 % (34.0-71.1) H 10/26/19 18:36 Lymph % (Auto) 5.5 % (19.3-51.7) L 10/26/19 18:36 [place] % (Auto) 8.6 % (4.7-12.5) 10/26/19 18:36 Eos % (Auto) 1.4 (0.7-5.8) 10/26/19 18:36 Baso % (Auto) 0.4 % (0.1-1.2) 10/26/19 18:36 Neut # (Auto) 7.58 K/mm3 (1.56-6.13) H 10/26/19 18:36 Lymph # (Auto) 0.50 K/mm3 (1.18-3.74) L 10/26/19 18:36 [place] # (Auto) 0.78 K/mm3 (0.24-0.36) H 10/26/19 18:36 Eos # (Auto) 0.13 K/mm3 (0.04-0.36) 10/26/19 18:36 Baso # (Auto) 0.04 K/mm3 (0.01-0.08) 10/26/19 18:36 Manual Slide Review Abnormal smear 10/26/19 18:36 PT 11.0 SECONDS (9.7-12.0) 10/26/19 18:36 INR 1.01 10/26/19 18:36 APTT 27 SECONDS (22-31) 10/26/19 18:36 Sodium 135 mEq/L (136-145) L 10/27/19 05:20 Potassium 3.7 mEq/L (3.5-5.1) 10/27/19 05:20 Chloride 99 mEq/L (98-107) 10/27/19 05:20 Carbon Dioxide 28 mEq/L (21-32) 10/27/19 05:20 Anion Gap 11.7 (5-15) 10/27/19 05:20 BUN 13 mg/dL (7-18) 10/27/19 05:20 Creatinine 0.8 mg/dL (0.55-1.02) 10/27/19 05:20 Est Cr Clr Drug Dosing 70.88 mL/min 10/27/19 05:20 Estimated GFR (MDRD) > 60 mL/min (>60) 10/27/19 05:20 BUN/Creatinine Ratio 16.3 (14-18) 10/27/19 05:20 Glucose 123 mg/dL (74-106) H 10/27/19 05:20 Calcium 8.6 mg/dL (8.5-10.1) 10/27/19 05:20 Total Bilirubin 1.2 mg/dL (0.2-1.0) H 10/27/19 05:20 GGT 1758 U/L (5-55) H 10/26/19 18:36 AST 127 U/L (15-37) H 10/27/19 05:20 ALT 416 U/L (14-59) H 10/27/19 05:20 Alkaline Phosphatase 419 U/L (46-116) H 10/27/19 05:20 C-Reactive Protein 11.5 mg/dL (<1.0) H* 10/26/19 18:36 Total Protein 6.7 g/dl (6.4-8.2) 10/27/19 05:20 Albumin 3.1 g/dl (3.4-5.0) L 10/27/19 05:20 Globulin 3.6 gm/dL 10/27/19 05:20 Albumin/Globulin Ratio 0.9 (1-2) L 10/27/19 05:20 Lipase 953 U/L (73-393) H 10/27/19 05:20 Carbamazepine 3.8 ug/mL (4.0-12.0) L 10/26/19 18:56 - Allergies Allergies/Adverse Reactions: Allergies Allergy/AdvReac Type Severity Reaction Status Date / Time broccoli Allergy Cannot Verified 10/26/19 18:09 Remember Penicillins Allergy Cannot Verified 10/26/19 18:09 Remember PreAnesthesia Questionnaire HEENT History: Reports: Impaired Vision, Other (See Below) Other HEENT History: wears glasses, has partial Cardiovascular History: Reports: High Cholesterol, Hypertension Respiratory History: Reports: None Gastrointestinal History: Reports: None Genitourinary History: Reports: None PLATE SENSITIZER History: Reports: None Musculoskeletal History: Reports: Gout, Osteoarthritis Neurological History: Reports: Vertigo, Other (See Below) Other Neuro History: trigeminal neuralgia, aquilino's syndrome Psychiatric History: Reports: Developmental Delay, Other (See Below) Other Psychiatric History: dyslexia, depression Endocrine/Metabolic History: Reports: Obesity/BMI 30+, Osteopenia Hematologic History: Reports: None Immunologic History: Reports: None Oncologic (Cancer) History: Reports: None Dermatologic History: Reports: None - Infectious Disease History Infectious Disease History: Reports: Chicken Pox - Past Surgical History Head Surgeries/Procedures: Reports: None Cardiovascular Surgical History: Reports: None Respiratory Surgical History: Reports: None GI Surgical History: Reports: Colonoscopy, EGD Female Surgical History: Reports: None, Tubal Ligation, Other (See Below) Other Female Surgeries/Procedures: breast lumpectomy Endocrine Surgical History: Reports: None Neurological Surgical History: Reports: None Musculoskeletal Surgical History: Reports: Arthroscopic Knee Oncologic Surgical History: Reports: None Dermatological Surgical History: Reports: None - SUBSTANCE USE Smoking Status *Q: Former Smoker Tobacco Use Within Last Twelve Months: Cigarettes Second Hand Smoke Exposure: Yes Recreational Drug Use History: No - HOME MEDS Home Medications: Home Meds Acetaminophen/Chlorpheniramine [Coricidin HBP Cold & Flu] 1 tab PO Q6H PRN 02/09 [History] Aspirin 81 mg PO DAILY 02/09/18 [History] Aspirin/Acetaminophen/Caffeine [Migraine Relief Caplet] 1 - 2 tab PO Q6H PRN [History] Cyclobenzaprine [Flexeril] 10 mg PO TID PRN 02/09/18 [History] atorvaSTATin [Lipitor] 20 mg PO BEDTIME 02/09/18 [History] hydroCHLOROthiazide [Hydrochlorothiazide] 12.5 mg PO DAILY 02/09/18 [History] traMADol HCl [Tramadol HCl] 50 mg PO Q6H PRN 02/09/18 [History] Cetirizine [ZyrTEC] 10 mg PO DAILY PRN 05/26/18 [History] Bisacodyl [Dulcolax] 5 mg PO DAILY PRN tablet 05/29/18 [Rx] Calcium Carbonate/Vitamin D3 [Calcium 600 + Vit D Tablet] 600 mg PO BID [History] Docusate Sodium [Colace] 100 mg PO BID cap 05/29/18 [Rx] Losartan/Hydrochlorothiazide [Losartan-HCTZ 50-12.5 MG] 1 tab PO DAILY 05/29/18 [History] Multivitamin [Multi-Day Vitamins] 1 each PO DAILY 05/29/18 [History] Rivaroxaban [Xarelto] 10 mg PO DAILY #40 tablet 05/29/18 [Rx] Sennosides [Senna] 8.6 mg PO BID PRN tablet 05/29/18 [Rx] Escitalopram [Lexapro] 10 mg PO DAILY 10/26/19 [History] Gabapentin [Neurontin] 300 mg PO DAILY 10/26/19 [History] Hydrocodone/Acetaminophen [Hydrocodon-Acetaminophen 5-325] 5 - 325 mg PO Q6HR PRN 10/26/19 [History] carBAMazepine [Carbamazepine] 200 mg PO DAILY 10/26/19 [History] - CURRENT (IN HOUSE) MEDS Current Meds: Current Medications Hydromorphone HCl (Dilaudid) 0.5 mg IVPUSH Q2H PRN PRN Reason: Pain Last Admin: 10/27/19 06:10 Dose: 0.5 mg Lactated Ringer's (Ringers, Lactated) 1,000 mls @ 100 mls/hr IV ASDIRECTED [facility] Last Admin: 10/27/19 01:03 Dose: 100 mls/hr Ketorolac Tromethamine (Toradol) 30 mg IVPUSH ONETIME [facility] Last Admin: 10/26/19 18:35 Dose: 30 mg Ondansetron HCl (Zofran) 4 mg IVPUSH Q6HR PRN PRN Reason: Nausea/Vomiting Last Admin: 10/27/19 00:58 Dose: 4 mg Discontinued Medications Hydromorphone HCl (Dilaudid) 0.5 mg IVPUSH ONETIME ONE Stop: 10/26/19 18:29 Last Admin: 10/26/19 18:36 Dose: 0.5 mg Hydromorphone HCl (Dilaudid) 0.5 mg IVPUSH ONETIME ONE Stop: 10/26/19 20:24 Last Admin: 10/26/19 20:47 Dose: 0.5 mg Hydromorphone HCl (Dilaudid) 1 mg IVPUSH ONETIME ONE Stop: 10/26/19 22:13 Last Admin: 10/26/19 23:00 Dose: 1 mg Hydromorphone HCl (Dilaudid) 0.5 mg IVPUSH Q4H PRN PRN Reason: Pain Last Admin: 10/27/19 00:51 Dose: 0.5 mg Dextrose/Lactated Ringer's (Dextrose 5%-Lactated Ringers) 1,000 mls @ 999 mls/ hr IV ASDIRECTED [facility] Last Admin: 10/26/19 18:36 Dose: 999 mls/hr Meclizine HCl (Antivert) 25 mg PO ONETIME ONE Stop: 10/26/19 22:37 Last Admin: 10/26/19 23:02 Dose: 25 mg Metoclopramide HCl (Reglan) 7.5 mg IVPUSH ONETIME ONE Stop: 10/26/19 17:52 Last Admin: 10/26/19 18:34 Dose: 7.5 mg Ondansetron HCl (Zofran) 4 mg IVPUSH ONETIME ONE Stop: 10/26/19 22:32 Last Admin: 10/26/19 22:57 Dose: 4 mg
[2019-10-27] MEDS ORDERED: Rocuronium 50 MG/5 ML Vial ONE ×2 (09:08→11:05)
[2019-10-27] MEDS ORDERED: fentaNYL 250 MCG/5 ML SDV ONE (09:08)
[2019-10-27] MEDS ORDERED: Lidocaine 1% 4 ML ONE (09:08)
[2019-10-27] MEDS ORDERED: Propofol 200 MG/20 ML SDV ONE ×2 (09:08→13:26)
[2019-10-27] MEDS ORDERED: ceFAZolin 1 GM Vial ONE (10:38)
[2019-10-27] MEDS ORDERED: ePHEDrine/Normal Saline 25 MG/5 ML Syringe ONE (10:49)
[2019-10-27] MEDS ORDERED: Esmolol 100 MG/10 ML SDV ONE (10:59)
[2019-10-27] MEDS ORDERED: Ondansetron 4 MG/2 ML SDV ONE (11:00)
[2019-10-27] MEDS ORDERED: Iopamidol 612 MG/ML 50 ML SDV ONE (11:00)
[2019-10-27] MEDS ORDERED: Bupivacaine 0.5% 30 ML SDV ONE (11:00)
[2019-10-27] MEDS ORDERED: Sodium Chloride 0.9% 50 ML SDV ONE (11:00)
[2019-10-27] MEDS ORDERED: Dexamethasone 4 MG/ML 5 ML MDV ONE (11:01)
[2019-10-27] MEDS ORDERED: Morphine 10 MG/ML SDV ONE (11:36)
[2019-10-27] MEDS ORDERED: Neostigmine Methylsulfate 1 MG/ML 5 ML Syringe ONE (11:50)
[2019-10-27] MEDS ORDERED: fentaNYL 100 MCG/2 ML SDV ONE ×2 (12:24→13:26)
--- NOTE | 2019-10-27 13:49 | PCM.OPNOTE ---
- General Post-Op/Procedure Note Date of Surgery/Procedure: 10/27/19 Operative Procedure(s): lap lucille with IOC Pre Op Diagnosis: cholelithiasis Post-Op Diagnosis: Same Anesthesia Technique: General ET Tube Primary Surgeon: Thomas Augustine EBL in mLs: 100 Complications: None Condition: Good Free Text/Narrative:: Intake & Output 10/26/19 10/27/19 10/27/19 23:59 07:59 15:59 Output Total 200 Balance -200
--- NOTE | 2019-10-27 13:58 | PCM.POSTAN ---
POST ANESTHESIA ASSESSMENT - MENTAL STATUS Mental Status: Alert, Oriented - VITAL SIGNS Vital Signs: Last Vital Signs Temp 37.3 C 10/27/19 07:50 Pulse 91 10/27/19 08:00 Resp 20 10/27/19 07:50 BP 134/81 10/27/19 07:50 Pulse Ox 90 L 10/27/19 08:00 Orthostatic Blood Pressure [ 131/82 Standing] Orthostatic Blood Pressure [ 120/79 Supine] - RESPIRATORY Respiratory Status: Respiratory Rate WNL, Airway Patent, O2 Saturation Stable, Supplemental Oxygen - CARDIOVASCULAR CV Status: Pulse Rate WNL, Blood Pressure Stable - GASTROINTESTINAL GI Status: No Symptoms - PAIN Pain Score: 0 Free Text/Narrative:: Patient reporting that she is pain free at this time and that she is "on a hiatus" meaning that she's not having pain. She's also stated that's the best she's slept in months.
[2019-10-27] MEDS ORDERED: Acetaminophen/HYDROcodone 325-5 MG Tab PO PRN (14:54)
[2019-10-27] MEDS: Lactated Ringers 1,000 ML IV SCH (15:28)
[2019-10-27] MEDS: Simvastatin 20 MG Tab PO SCH (20:21)
[2019-10-27] MEDS: Acetaminophen/oxyCODONE 325-5 MG Tab PO PRN (21:25)
[2019-10-28] MEDS: HYDROmorphone 0.5 MG/0.5 ML Syringe IVPUSH PRN (01:11)
[2019-10-28] MEDS: Lactated Ringers 1,000 ML IV SCH ×2 (01:19→11:33)
[2019-10-28] MEDS: Acetaminophen/oxyCODONE 325-5 MG Tab PO PRN ×3 (03:21→12:53)
[2019-10-28] MEDS: Losartan 25 MG Tab PO SCH (08:10)
[2019-10-28] MEDS: Gabapentin 300 MG Cap PO SCH (08:10)
[2019-10-28] MEDS: Citalopram 20 MG Tab PO SCH (08:10)
[2019-10-28] MEDS: Hydrochlorothiazide 12.5 MG Cap PO SCH (08:10)
[2019-10-28] MEDS: carBAMazepine 200 MG Tab PO SCH (08:10)
[2019-10-28] MEDS ORDERED: Non-Formulary Medication 1 Each (Hydrochlorothiazide/Losartan 1 TAB) PO SCH (09:00)
[2019-10-28] MEDS ORDERED: Polyethylene Glycol 3350 Powder 17 GM Packet PO ONE (13:24)
--- NOTE | 2019-10-28 13:25 | PCM.SURGPN ---
- General Info Date of Service: 10/28/19 POD#: 1 - Review of Systems General: Reports: No Symptoms Pulmonary: Reports: No Symptoms Cardiovascular: Reports: No Symptoms Neurological: Reports: Other (trigeminal neuroalgia ) - Patient Data Vitals - Most Recent: Last Vital Signs Temp 100.2 F 10/28/19 12:34 Pulse 79 10/28/19 12:34 Resp 20 10/28/19 12:34 BP 113/74 10/28/19 12:34 Pulse Ox 95 10/28/19 12:34 Orthostatic Blood Pressure [ 131/82 Standing] Orthostatic Blood Pressure [ 120/79 Supine] Weight - Most Recent: 138.346 kg I&O - Last 24 Hours: Intake & Output 10/27/19 10/28/19 10/28/19 23:59 07:59 15:59 Intake Total 60 500 Output Total 200 1160 Balance -140 -660 Lab Results Last 24 Hrs: Laboratory Results - last 24 hr 10/28/19 10/28/19 Range/Units 05:19 05:19 WBC 8.88 (3.98-10.04) K/mm3 RBC 3.99 (3.98-5.22) M/mm3 Hgb 11.7 D (11.2-15.7) gm/dl Hct 36.1 (34.1-44.9) % MCV 90.5 (79.4-94.8) fl MCH 29.3 (25.6-32.2) pg MCHC 32.4 (32.2-35.5) g/dl RDW Std Deviation 43.2 (36.4-46.3) fL Plt Count 184 (182-369) K/mm3 MPV 9.4 (9.4-12.3) fl Neut % (Auto) 84.9 H (34.0-71.1) % Lymph % (Auto) 5.3 L (19.3-51.7) % Teller % (Auto) 8.6 (4.7-12.5) % Eos % (Auto) 0.7 (0.7-5.8) Baso % (Auto) 0.3 (0.1-1.2) % Neut # (Auto) 7.54 H (1.56-6.13) K/mm3 Lymph # (Auto) 0.47 L (1.18-3.74) K/mm3 Teller # (Auto) 0.76 H (0.24-0.36) K/mm3 Eos # (Auto) 0.06 (0.04-0.36) K/mm3 Baso # (Auto) 0.03 (0.01-0.08) K/mm3 Manual Slide Review Abnormal smear Sodium 135 L (136-145) mEq/L Potassium 3.8 (3.5-5.1) mEq/L Chloride 100 (98-107) mEq/L Carbon Dioxide 29 (21-32) mEq/L Anion Gap 9.8 (5-15) BUN 14 (7-18) mg/dL Creatinine 0.8 (0.55-1.02) mg/dL Est Cr Clr Drug Dosing 70.88 mL/min Estimated GFR (MDRD) > 60 (>60) mL/min BUN/Creatinine Ratio 17.5 (14-18) Glucose 122 H (74-106) mg/dL Calcium 8.5 (8.5-10.1) mg/dL Total Bilirubin 0.9 (0.2-1.0) mg/dL AST 122 H (15-37) U/L ALT 307 H (14-59) U/L Alkaline Phosphatase 363 H (46-116) U/L Total Protein 6.1 L (6.4-8.2) g/dl Albumin 2.7 L (3.4-5.0) g/dl Globulin 3.4 gm/dL Albumin/Globulin Ratio 0.8 L (1-2) Lipase 1052 H (73-393) U/L Med Orders - Current: Current Medications Carbamazepine (Tegretol Tab) 200 mg PO DAILY [facility] Last Admin: 10/28/19 08:10 Dose: 200 mg Citalopram Hydrobromide (Celexa) 20 mg PO DAILY [facility] Last Admin: 10/28/19 08:10 Dose: 20 mg Gabapentin (Neurontin) 300 mg PO DAILY [facility] Last Admin: 10/28/19 08:10 Dose: 300 mg Hydrochlorothiazide (Hydrochlorothiazide) 12.5 mg PO DAILY [facility] Last Admin: 10/28/19 08:10 Dose: 12.5 mg Hydromorphone HCl (Dilaudid) 0.5 mg IVPUSH Q2H PRN PRN Reason: Pain Last Admin: 10/28/19 01:11 Dose: 0.5 mg Lactated Ringer's (Ringers, Lactated) 1,000 mls @ 100 mls/hr IV ASDIRECTED [facility] Last Admin: 10/28/19 11:33 Dose: 100 mls/hr Ketorolac Tromethamine (Toradol) 30 mg IVPUSH ONETIME [facility] Last Admin: 10/26/19 18:35 Dose: 30 mg Losartan Potassium (Cozaar) 50 mg PO DAILY [facility] Last Admin: 10/28/19 08:10 Dose: 50 mg Ondansetron HCl (Zofran) 4 mg IVPUSH Q6HR PRN PRN Reason: Nausea/Vomiting Last Admin: 10/27/19 20:18 Dose: 4 mg Oxycodone/Acetaminophen (Percocet 325-5 Mg) 1 tab PO Q4H PRN PRN Reason: Pain (moderate 4-6) Last Admin: 10/28/19 12:53 Dose: 1 tab Simvastatin (Zocor) 20 mg PO BEDTIME [facility] Last Admin: 10/27/19 20:21 Dose: 20 mg Discontinued Medications Hydrocodone Bitart/Acetaminophen ([place] 325-5 Mg) 1 tab PO Q6H PRN PRN Reason: Pain Last Admin: 10/27/19 17:58 Dose: 1 tab Cefazolin Sodium (Ancef) Confirm Administered Dose 3 gm .ROUTE .STK-MED ONE Stop: 10/27/19 10:39 Dexamethasone (Dexamethasone) Confirm Administered Dose 20 mg .ROUTE .STK-MED ONE Stop: 10/27/19 11:02 Ephedrine Sulfate (Ephedrine In Ns) Confirm Administered Dose 25 mg .ROUTE .STK- MED ONE Stop: 10/27/19 10:50 Esmolol HCl (Esmolol) Confirm Administered Dose 100 mg .ROUTE .STK-MED ONE Stop: 10/27/19 11:00 Fentanyl (Sublimaze) Confirm Administered Dose 250 mcg .ROUTE .STK-MED ONE Stop: 10/27/19 09:09 Fentanyl (Sublimaze) Confirm Administered Dose 100 mcg .ROUTE .STK-MED ONE Stop: 10/27/19 12:25 Fentanyl (Sublimaze) Confirm Administered Dose 100 mcg .ROUTE .STK-MED ONE Stop: 10/27/19 13:27 Glycopyrrolate () Confirm Administered Dose 1 mg .ROUTE .STK-MED ONE Stop: 10/27/19 11:01 Hydromorphone HCl (Dilaudid) 0.5 mg IVPUSH ONETIME ONE Stop: 10/26/19 18:29 Last Admin: 10/26/19 18:36 Dose: 0.5 mg Hydromorphone HCl (Dilaudid) 0.5 mg IVPUSH ONETIME ONE Stop: 10/26/19 20:24 Last Admin: 10/26/19 20:47 Dose: 0.5 mg Hydromorphone HCl (Dilaudid) 1 mg IVPUSH ONETIME ONE Stop: 10/26/19 22:13 Last Admin: 10/26/19 23:00 Dose: 1 mg Hydromorphone HCl (Dilaudid) 0.5 mg IVPUSH Q4H PRN PRN Reason: Pain Last Admin: 10/27/19 00:51 Dose: 0.5 mg Dextrose/Lactated Ringer's (Dextrose 5%-Lactated Ringers) 1,000 mls @ 999 mls/ hr IV ASDIRECTED [facility] Last Admin: 10/26/19 18:36 Dose: 999 mls/hr Lactated Ringer's (Ringers, Lactated) 1,000 mls @ 100 mls/hr IV ASDIRECTED [facility] Last Admin: 10/27/19 01:03 Dose: 100 mls/hr Lidocaine HCl (Xylocaine-Mpf 1%) Confirm Administered Dose 4 mls @ as directed .ROUTE .STK-MED ONE Stop: 10/27/19 09:09 Meclizine HCl (Antivert) 25 mg PO ONETIME ONE Stop: 10/26/19 22:37 Last Admin: 10/26/19 23:02 Dose: 25 mg Metoclopramide HCl (Reglan) 7.5 mg IVPUSH ONETIME ONE Stop: 10/26/19 17:52 Last Admin: 10/26/19 18:34 Dose: 7.5 mg Morphine Sulfate (Morphine) Confirm Administered Dose 10 mg .ROUTE .STK-MED ONE Stop: 10/27/19 11:37 Neostigmine Methylsulfate (Neostigmine) Confirm Administered Dose 5 mg .ROUTE .STK-MED ONE Stop: 10/27/19 11:51 Ondansetron HCl (Zofran) 4 mg IVPUSH ONETIME ONE Stop: 10/26/19 22:32 Last Admin: 10/26/19 22:57 Dose: 4 mg Ondansetron HCl (Zofran) Confirm Administered Dose 4 mg .ROUTE .STK-MED ONE Stop: 10/27/19 11:01 Propofol (Diprivan 20 Ml) Confirm Administered Dose 200 mg .ROUTE .STK-MED ONE Stop: 10/27/19 09:09 Propofol (Diprivan 20 Ml) Confirm Administered Dose 200 mg .ROUTE .STK-MED ONE Stop: 10/27/19 13:27 Rocuronium [place] (Zemuron) Confirm Administered Dose 50 mg .ROUTE .STK-MED ONE Stop: 10/27/19 09:09 Rocuronium [place] (Zemuron) Confirm Administered Dose 50 mg .ROUTE .STK-MED ONE Stop: 10/27/19 11:06 - Exam General: Alert, Oriented Neck: Supple Lungs: Clear to Auscultation, Normal Respiratory Effort Cardiovascular: Regular Rate, Regular Rhythm GI/Abdominal Exam: Normal Bowel Sounds, Soft, Non-Tender, No Organomegaly, No Distention, No Abnormal Bruit, No Mass, Pelvis Stable - Problem List Review Problem List Initiated/Reviewed/Updated: Yes - My Orders Last 24 Hours: Active Orders 24 hr Category Date Time Status Patient Status [ADT] Routine ADT 10/28/19 12:15 Active IS (RT) [RT Incentive Spirometry] [RC] Q1HWA Care 10/27/19 14:01 Active Turn, Cough, Deep Breathe [RC] .PRN Care 10/27/19 14:47 Active Clear Liquid Diet [DIET] Diet 10/27/19 Dinner Active Regular Diet [DIET] Diet 10/28/19 Dinner Ordered Acetaminophen/oxyCODONE [Percocet 325-5 MG] Med 10/27/19 19:50 Active 1 tab PO Q4H PRN Citalopram [Celexa] Med 10/28/19 09:00 Active 20 mg PO DAILY Gabapentin [Neurontin] Med 10/28/19 09:00 Active 300 mg PO DAILY Lactated Ringers [Ringers, Lactated] 1,000 ml Med 10/27/19 14:47 Active IV ASDIRECTED Losartan [Cozaar] Med 10/28/19 09:00 Active 50 mg PO DAILY Simvastatin [Zocor] Med 10/27/19 21:00 Active 20 mg PO BEDTIME carBAMazepine [TEGretol Tab] Med 10/28/19 09:00 Active 200 mg PO DAILY hydroCHLOROthiazide Med 10/28/19 09:00 Active 12.5 mg PO DAILY Medication Orders Carbamazepine (Tegretol Tab) 200 mg PO DAILY [facility] Last Admin: 10/28/19 08:10 Dose: 200 mg Citalopram Hydrobromide (Celexa) 20 mg PO DAILY [facility] Last Admin: 10/28/19 08:10 Dose: 20 mg Gabapentin (Neurontin) 300 mg PO DAILY [facility] Last Admin: 10/28/19 08:10 Dose: 300 mg Hydrochlorothiazide (Hydrochlorothiazide) 12.5 mg PO DAILY [facility] Last Admin: 10/28/19 08:10 Dose: 12.5 mg Hydromorphone HCl (Dilaudid) 0.5 mg IVPUSH Q2H PRN PRN Reason: Pain Last Admin: 10/28/19 01:11 Dose: 0.5 mg Admin: 10/27/19 20:08 Dose: 0.5 mg Admin: 10/27/19 17:59 Dose: 0.5 mg Admin: 10/27/19 09:05 Dose: 0.5 mg Admin: 10/27/19 06:10 Dose: 0.5 mg Admin: 10/27/19 04:09 Dose: 0.5 mg Lactated Ringer's (Ringers, Lactated) 1,000 mls @ 100 mls/hr IV ASDIRECTED [facility] Last Admin: 10/28/19 11:33 Dose: 100 mls/hr Infusion: 10/28/19 11:19 Dose: 100 mls/hr Admin: 10/28/19 01:19 Dose: 100 mls/hr Infusion: 10/28/19 01:19 Dose: 100 mls/hr Admin: 10/27/19 15:28 Dose: 100 mls/hr Ketorolac Tromethamine (Toradol) 30 mg IVPUSH ONETIME [facility] Last Admin: 10/26/19 18:35 Dose: 30 mg Losartan Potassium (Cozaar) 50 mg PO DAILY [facility] Last Admin: 10/28/19 08:10 Dose: 50 mg Ondansetron HCl (Zofran) 4 mg IVPUSH Q6HR PRN PRN Reason: Nausea/Vomiting Last Admin: 10/27/19 20:18 Dose: 4 mg Admin: 10/27/19 09:06 Dose: 4 mg Admin: 10/27/19 00:58 Dose: 4 mg Oxycodone/Acetaminophen (Percocet 325-5 Mg) 1 tab PO Q4H PRN PRN Reason: Pain (moderate 4-6) Last Admin: 10/28/19 12:53 Dose: 1 tab Admin: 10/28/19 07:55 Dose: 1 tab Admin: 10/28/19 03:21 Dose: 1 tab Admin: 10/27/19 21:25 Dose: 1 tab Simvastatin (Zocor) 20 mg PO BEDTIME [facility] Last Admin: 10/27/19 20:21 Dose: 20 mg - Plan Plan (Free Text/Narrative):: pt having significant pain from her trigeminal neuralgia that is not controlled and need for O@ plan consult hospitalist and ambulate pt and use of incentive spirometer and scd start anticoagulation tomorrow am
[2019-10-28] MEDS ORDERED: Morphine 2 MG/ML Syringe IVPUSH PRN (13:57)
[2019-10-28] MEDS ORDERED: Acetaminophen 325 MG/10.15 ML ML PO PRN (14:01)
[2019-10-28 14:20] LABS: HEMOGLOBIN A1C 6.5 % (4.50-6.20)
[2019-10-28] MEDS: Acetaminophen/HYDROcodone 325-5 MG Tab PO PRN (16:46)
[2019-10-28] MEDS: Simvastatin 20 MG Tab PO SCH ×2 (19:57→21:14)
--- NOTE | 2019-10-28 20:09 | PCM48HPAN ---
Post Anesthesia Note - EVALUATION WITHIN 48HRS OF ANESTHETIC Vital Signs in Normal Range: Yes Patient Participated in Evaluation: Yes Respiratory Function Stable: Yes (patient requiring low flows of NC O2) Airway Patent: Yes Cardiovascular Function Stable: Yes Hydration Status Stable: Yes Pain Control Satisfactory: Yes Nausea and Vomiting Control Satisfactory: Yes Mental Status Recovered: Yes Vital Signs: Last Vital Signs Temp 36.8 C 10/28/19 16:03 Pulse 86 10/28/19 18:58 Resp 20 10/28/19 16:03 BP 122/53 L 10/28/19 16:03 Pulse Ox 94 L 10/28/19 18:58 Orthostatic Blood Pressure [ 131/82 Standing] Orthostatic Blood Pressure [ 120/79 Supine] - COMMENTS/OBSERVATIONS Free Text/Narrative:: Recommended to nursing and to patient to be more aggressive with ambulation and IS. Patient verbalizes understanding.
[2019-10-28] MEDS: Acetaminophen 325 MG Tab PO PRN (22:16)
[2019-10-29] MEDS: Acetaminophen/HYDROcodone 325-5 MG Tab PO PRN ×3 (01:34→13:00)
[2019-10-29] MEDS: Acetaminophen 325 MG Tab PO PRN ×2 (04:09→15:16)
[2019-10-29] MEDS: Gabapentin 300 MG Cap PO SCH (08:02)
[2019-10-29] MEDS: Hydrochlorothiazide 12.5 MG Cap PO SCH (08:02)
[2019-10-29] MEDS: Losartan 25 MG Tab PO SCH (08:02)
[2019-10-29] MEDS: carBAMazepine 200 MG Tab PO SCH (08:02)
[2019-10-29] MEDS: Citalopram 20 MG Tab PO SCH (08:02)
[2019-10-29 08:03] VITALS: BP 120/73
[2019-10-29] MEDS ORDERED: Rivaroxaban 10 MG Tab PO SCH (09:00)
--- NOTE | 2019-10-29 10:09 | PCM.CONS ---
H&P History of Present Illness - General Date of Service: 10/29/19 Admit Problem/Dx: Admission Diagnosis/Problem Admission Diagnosis/Problem Cholelithiasis - History of Present Illness Initial Comments - Free Text/Narative: 59-year-old female presents the ED primarily due to recurrent nausea vomiting mostly in the 4 dry heaves last 3 days. She is able to keep down small quantities of water and small amount of crackers and perhaps other liquids but no solids. She has a severe flareup of her right-sided trigeminal neuralgia over the last 10-14 days. She's been started on Tegretol once again and dosages been increased incrementally every week. She's been taking more hydrocodone 5/ 325 mg tablets as well for pain relief. To follow-up of her trigeminal neuralgia. For it may be that her nausea vomiting secondary medication use. Tall plus gabapentin plus other medications might also be causing elevated liver enzymes. At present she appears to be moderately dehydrated. We'll proceed with IV fluids D5 LR at open. Given Dilaudid 0.5 mg IV for pain relief and Reglan 7.5 mg for nausea relief. Routine labs and CRP to be obtained. Headache Pain Score (Numeric/FACES): 7 - Related Data Allergies/Adverse Reactions: Allergies Allergy/AdvReac Type Severity Reaction Status Date / Time broccoli Allergy Cannot Verified 10/26/19 18:09 Remember Penicillins Allergy Cannot Verified 10/26/19 18:09 Remember Home Medications: Home Meds Acetaminophen/Chlorpheniramine [Coricidin HBP Cold & Flu] 1 tab PO Q6H PRN 02/09 [History] Aspirin 81 mg PO DAILY 02/09/18 [History] Aspirin/Acetaminophen/Caffeine [Migraine Relief Caplet] 1 - 2 tab PO Q6H PRN [History] atorvaSTATin [Lipitor] 20 mg PO BEDTIME 02/09/18 [History] hydroCHLOROthiazide [Hydrochlorothiazide] 12.5 mg PO DAILY 02/09/18 [History] traMADol HCl [Tramadol HCl] 50 mg PO Q6H PRN 02/09/18 [History] Cetirizine [ZyrTEC] 10 mg PO DAILY PRN 05/26/18 [History] Bisacodyl [Dulcolax] 5 mg PO DAILY PRN tablet 05/29/18 [Rx] Calcium Carbonate/Vitamin D3 [Calcium 600 + Vit D Tablet] 600 mg PO BID [History] Docusate Sodium [Colace] 100 mg PO BID cap 05/29/18 [Rx] Losartan/Hydrochlorothiazide [Losartan-HCTZ 50-12.5 MG] 1 tab PO DAILY 05/29/18 [History] Multivitamin [Multi-Day Vitamins] 1 each PO DAILY 05/29/18 [History] Rivaroxaban [Xarelto] 10 mg PO DAILY #40 tablet 05/29/18 [Rx] Sennosides [Senna] 8.6 mg PO BID PRN tablet 05/29/18 [Rx] Escitalopram [Lexapro] 10 mg PO DAILY 10/26/19 [History] Gabapentin [Neurontin] 300 mg PO DAILY 10/26/19 [History] Hydrocodone/Acetaminophen [Hydrocodon-Acetaminophen 5-325] 5 - 325 mg PO Q6HR PRN 10/26/19 [History] carBAMazepine [Carbamazepine] 200 mg PO DAILY 10/26/19 [History] Acetaminophen/HYDROcodone [[place] 325-5 MG] 1 tab PO Q4H PRN #30 tablet 10/29/19 [Rx] Ondansetron [Zofran ODT] 4 mg PO TID PRN #30 tab.dis 10/29/19 [Rx] Past Medical History HEENT History: Reports: Impaired Vision, Other (See Below) Other HEENT History: wears glasses, has partial Cardiovascular History: Reports: High Cholesterol, Hypertension Respiratory History: Reports: None Gastrointestinal History: Reports: None Genitourinary History: Reports: None CUPOLA TENDER History: Reports: None Musculoskeletal History: Reports: Gout, Osteoarthritis Neurological History: Reports: Vertigo, Other (See Below) Other Neuro History: trigeminal neuralgia, aquilino's syndrome Psychiatric History: Reports: Developmental Delay, Other (See Below) Other Psychiatric History: dyslexia, depression Endocrine/Metabolic History: Reports: Obesity/BMI 30+, Osteopenia Hematologic History: Reports: None Immunologic History: Reports: None Oncologic (Cancer) History: Reports: None Dermatologic History: Reports: None - Infectious Disease History Infectious Disease History: Reports: Chicken Pox - Past Surgical History Head Surgeries/Procedures: Reports: None Cardiovascular Surgical History: Reports: None Respiratory Surgical History: Reports: None GI Surgical History: Reports: Colonoscopy, EGD Female Surgical History: Reports: None, Tubal Ligation, Other (See Below) Other Female Surgeries/Procedures: breast lumpectomy Endocrine Surgical History: Reports: None Neurological Surgical History: Reports: None Musculoskeletal Surgical History: Reports: Arthroscopic Knee Oncologic Surgical History: Reports: None Dermatological Surgical History: Reports: None Social & Family History - Family History Family Medical History: Noncontributory - Tobacco Use Smoking Status *Q: Former Smoker Years of Tobacco use: 50 Packs/Tins Daily: 0.5 Used Tobacco, but Quit: Yes Month/Year Tobacco Last Used: 09/2019 Second Hand Smoke Exposure: Yes - Caffeine Use Caffeine Use: Reports: Coffee Other Caffeine Use: 2 cups/ day of coffee. 1 cups/day soda - Recreational Drug Use Recreational Drug Use: No - Living Situation & Occupation Living situation: Reports: Single Occupation: Unemployed H&P Review of Systems - Review of Systems: Review Of Systems: See Below Free Text/Narrative: Constitutional: Reports: Malaise, Weakness, Fatigue. Denies: Fever, Chills HEENT: Reports: Ear Pain (Right side), Vertigo. Denies: Contact Lenses, Dental Pain, Ear Discharge, Eye Discharge, Eye Pain, Glasses, Hearing Loss, Nosebleed, Nose Pain, Rhinitis, Sinus Problem, Throat Pain, Throat Swelling Respiratory: Reports: No Symptoms Cardiovascular: Reports: No Symptoms Endocrine: Reports: Fatigue GI/Abdominal: Reports: Decreased Appetite, Nausea, Vomiting (Mostly in the form of dry heaves.) : Reports: Frequency Musculoskeletal: Reports: No Symptoms, Back Pain, Joint Pain (Chronic low back pain) Skin: Reports: Other (Reports a rash on her right forehead.) Neurological: Reports: Other (Shooting lancinating pain in the distribution trigeminal nerve right side of her face. For many months) Psychiatric: Reports: Depression Hematologic/Lymphatic: Reports: No Symptoms Immunologic: Reports: No Symptoms Exam - Exam Exam: See Below - Vital Signs Vital Signs: Last Vital Signs Temp 99.9 F 10/29/19 04:02 Pulse 83 10/29/19 04:02 Resp 13 10/29/19 04:02 BP 120/73 10/29/19 08:02 Pulse Ox 90 L 10/29/19 07:59 Orthostatic Blood Pressure [ 131/82 Standing] Orthostatic Blood Pressure [ 120/79 Supine] Weight: 138.074 kg - Exam Physical Exam Comments:: Exam Limited By: No Limitations General Appearance: Alert, WD/WN, Moderate Distress (Has a: Regular left face and covering her eyes as she is light sensitive) Eyes: Bilateral: Normal Appearance, Proptosis (Patient is photophobic.) Ears: Normal External Exam, Normal TMs Nose: Normal Inspection Throat/Mouth: Normal Inspection, Normal Oropharynx Head: Atraumatic, Normocephalic, Facial Tenderness. No: Facial Swelling Neck: Normal Inspection (Facial tenderness in the distribution of trigeminal nerve right side of the face) Respiratory/Chest: No Respiratory Distress, Lungs Clear, Normal Breath Sounds, No Accessory Muscle Use Cardiovascular: Normal Peripheral Pulses, Regular Rate, Rhythm, No Edema, No Gallop, No Murmur, No Rub GI/Abdominal Exam: Normal Bowel Sounds, Soft, Non-Tender, No Organomegaly, No Abnormal Bruit, No Mass, Pelvis Stable Extremities: Normal Inspection, Normal Range of Motion, Non-Tender, No Pedal Edema Neurological: Alert, Oriented, CN II-XII Intact, Normal Cognition Psychiatric: Normal Affect, Normal Mood, Anxious, Other Skin Exam: Warm, Dry (In pain), Intact, Normal Color - Patient Data Lab Results Last 24 hrs: Laboratory Results - last 24 hr 10/28/19 Range/Units 05:19 Hemoglobin A1c 6.50 H (4.50-6.20) % Result Diagrams: 10/29/19 09:53 10/29/19 09:53 Consult PN Assessment/Plan POD#: 2 Procedures: Procedures DIAGNOSTIC COLONOSCOPY (02/13/18) EGD DIAGNOSTIC BRUSH WASH (02/13/18) EMERGENCY DEPT VISIT (09/14/19) EMERGENCY DEPT VISIT (05/04/17) GAIT TRAINING THERAPY (06/23/18) HYDRATE IV INFUSION ADD-ON (05/04/17) NEUROMUSCULAR REEDUCATION (07/25/18) PT EVAL MOD COMPLEX 30 MIN (06/23/18) THER/PROPH/DIAG INJ IV PUSH (05/04/17) THERAPEUTIC ACTIVITIES (07/25/18) THERAPEUTIC EXERCISES (07/25/18) TX/PRO/DX INJ NEW DRUG ADDON (05/04/17) (1) Hyponatremia SNOMED Code(s): 31521688 Code(s): E87.1 - HYPO-OSMOLALITY AND HYPONATREMIA Current Visit: Yes (2) Hypokalemia SNOMED Code(s): 85483841 Code(s): E87.6 - HYPOKALEMIA Current Visit: Yes (3) Hyperbilirubinemia SNOMED Code(s): 38910200 Code(s): E80.6 - OTHER DISORDERS OF BILIRUBIN METABOLISM Current Visit: Yes (4) Hypoproteinemia SNOMED Code(s): 5498879 Code(s): E77.8 - OTHER DISORDERS OF GLYCOPROTEIN METABOLISM Current Visit: Yes (5) Hypoalbuminemia SNOMED Code(s): 902650887 Code(s): E88.09 - OTH DISORDERS OF PLASMA-PROTEIN METABOLISM, NEC Current Visit: Yes (6) Abdominal pain SNOMED Code(s): 66363167 Code(s): R10.9 - UNSPECIFIED ABDOMINAL PAIN Current Visit: Yes Qualifiers: Abdominal location: upper abdomen, unspecified Qualified Code(s): R10.10 - Upper abdominal pain, unspecified (7) Cholelithiasis SNOMED Code(s): 981581353 Code(s): K80.20 - CALCULUS OF GALLBLADDER W/O CHOLECYSTITIS W/O OBSTRUCTION Current Visit: Yes Qualifiers: Cholelithiasis location: gallbladder Cholecystitis presence: without cholecystitis Biliary obstruction: without biliary obstruction Qualified Code(s): K80.20 - Calculus of gallbladder without cholecystitis without obstruction (8) Elevated liver enzymes SNOMED Code(s): 843220144 Code(s): R74.8 - ABNORMAL LEVELS OF OTHER SERUM ENZYMES Current Visit: Yes (9) Headache SNOMED Code(s): 21721620 Code(s): R51 - HEADACHE Current Visit: Yes Qualifiers: Headache type: other trigeminal autonomic cephalgia (TAC) Intractability: not intractable Qualified Code(s): G44.099 - Other trigeminal autonomic cephalgias (TAC), not intractable (10) Nausea and vomiting SNOMED Code(s): 72523595 Code(s): R11.2 - NAUSEA WITH VOMITING, UNSPECIFIED Current Visit: Yes Qualifiers: Vomiting type: unspecified Vomiting Intractability: non-intractable Qualified Code(s): R11.2 - Nausea with vomiting, unspecified (11) Pancreatitis SNOMED Code(s): 27457141 Code(s): K85.90 - ACUTE PANCREATITIS WITHOUT NECROSIS OR INFECTION, UNSP Current Visit: Yes Qualifiers: Chronicity: acute Pancreatitis type: other Acute pancreatitis complication: no infection or necrosis Qualified Code(s): K85.80 - Other acute pancreatitis without necrosis or infection (12) Trigeminal neuralgia of right side of face SNOMED Code(s): 40784406 Code(s): G50.0 - TRIGEMINAL NEURALGIA Current Visit: Yes (13) HTN (hypertension) SNOMED Code(s): 52553757 Code(s): I10 - ESSENTIAL (PRIMARY) HYPERTENSION Priority: Medium Current Visit: No Qualifiers: Hypertension type: unspecified Qualified Code(s): I10 - Essential (primary ) hypertension (14) Morbid obesity with BMI of 40.0-44.9, adult SNOMED Code(s): 560139402, 57890904833064 Code(s): E66.01 - MORBID (SEVERE) OBESITY DUE TO EXCESS CALORIES; Z68.41 - BODY MASS INDEX (BMI) 40.0-44.9, ADULT Priority: Medium Current Visit: No Problem List Initiated/Reviewed/Updated: Yes Plan: Abdominal pain 2/2 calculus cholecystitis Pancreatitis Elevated LFT's + Hyperbilirubinemia Nausea and vomiting Tolerating diet Pain controlled PLAN - F/U surgery recommendations - Pain control - Incentive spirometry Trigeminal neuralgia of right side of face Chronic problem PLAN - Pain control Hypertension, controlled BP trend 112-144/50-95 PLAN - Continue home meds Morbid obesity with BMI of 40.0-44.9, adult Increased caloric intake PLAN - Dietary consult - F/U with PCP PROPHYLAXIS DVT- SCDs GI- not indicated CODE STATUS: FULL CODE DISPOSITION: Patient admitted by surgery for cholecystectomy, no perioperative complications. Tolerating diet, ambulating and had a BM.
[2019-10-29] MEDS: Ondansetron 4 MG/2 ML SDV IVPUSH PRN (11:51)
--- NOTE | 2019-10-29 12:26 | PCM.SURGPN ---
- General Info Date of Service: 10/29/19 - Patient Data Vitals - Most Recent: Last Vital Signs Temp 99.9 F 10/29/19 04:02 Pulse 83 10/29/19 04:02 Resp 13 10/29/19 04:02 BP 120/73 10/29/19 08:02 Pulse Ox 90 L 10/29/19 07:59 Orthostatic Blood Pressure [ 131/82 Standing] Orthostatic Blood Pressure [ 120/79 Supine] Weight - Most Recent: 138.074 kg I&O - Last 24 Hours: Intake & Output 10/28/19 10/29/19 10/29/19 23:59 07:59 15:59 Intake Total 1120 750 0 Output Total 900 1600 Balance 220 -850 0 Lab Results Last 24 Hrs: Laboratory Results - last 24 hr 10/28/19 10/29/19 10/29/19 Range/Units 05:19 09:53 09:53 WBC 9.24 (3.98-10.04) K/mm3 RBC 3.92 L (3.98-5.22) M/mm3 Hgb 11.5 (11.2-15.7) gm/dl Hct 35.1 (34.1-44.9) % MCV 89.5 (79.4-94.8) fl MCH 29.3 (25.6-32.2) pg MCHC 32.8 (32.2-35.5) g/dl RDW Std Deviation 42.1 (36.4-46.3) fL Plt Count 208 (182-369) K/mm3 MPV 8.8 L (9.4-12.3) fl Neut % (Auto) 84.3 H (34.0-71.1) % Lymph % (Auto) 7.3 L (19.3-51.7) % [place] % (Auto) 7.1 (4.7-12.5) % Eos % (Auto) 0.5 L (0.7-5.8) Baso % (Auto) 0.3 (0.1-1.2) % Neut # (Auto) 7.78 H (1.56-6.13) K/mm3 Lymph # (Auto) 0.67 L (1.18-3.74) K/mm3 [place] # (Auto) 0.66 H (0.24-0.36) K/mm3 Eos # (Auto) 0.05 (0.04-0.36) K/mm3 Baso # (Auto) 0.03 (0.01-0.08) K/mm3 Manual Slide Review Abnormal smear Sodium 134 L (136-145) mEq/L Potassium 3.4 L (3.5-5.1) mEq/L Chloride 99 (98-107) mEq/L Carbon Dioxide 31 (21-32) mEq/L Anion Gap 7.4 (5-15) BUN 13 (7-18) mg/dL Creatinine 0.8 (0.55-1.02) mg/dL Est Cr Clr Drug Dosing 70.88 mL/min Estimated GFR (MDRD) > 60 (>60) mL/min BUN/Creatinine Ratio 16.3 (14-18) Glucose 152 H (74-106) mg/dL Hemoglobin A1c 6.50 H (4.50-6.20) % Calcium 8.8 (8.5-10.1) mg/dL Total Bilirubin 1.3 H (0.2-1.0) mg/dL AST 114 H (15-37) U/L ALT 257 H (14-59) U/L Alkaline Phosphatase 428 H (46-116) U/L Total Protein 6.1 L (6.4-8.2) g/dl Albumin 2.4 L (3.4-5.0) g/dl Globulin 3.7 gm/dL Albumin/Globulin Ratio 0.7 L (1-2) Lipase 426 H (73-393) U/L Med Orders - Current: Current Medications Acetaminophen (Tylenol) 650 mg PO Q6HR PRN PRN Reason: mild pain Last Admin: 10/29/19 04:09 Dose: 650 mg Hydrocodone Bitart/Acetaminophen ([place] 325-5 Mg) 1 tab PO Q4HR PRN PRN Reason: moderate pain Last Admin: 10/29/19 05:38 Dose: 1 tab Carbamazepine (Tegretol Tab) 200 mg PO DAILY [facility] Last Admin: 10/29/19 08:02 Dose: 200 mg Citalopram Hydrobromide (Celexa) 20 mg PO DAILY [facility] Last Admin: 10/29/19 08:02 Dose: 20 mg Gabapentin (Neurontin) 300 mg PO DAILY [facility] Last Admin: 10/29/19 08:02 Dose: 300 mg Hydrochlorothiazide (Hydrochlorothiazide) 12.5 mg PO DAILY [facility] Last Admin: 10/29/19 08:02 Dose: 12.5 mg Losartan Potassium (Cozaar) 50 mg PO DAILY [facility] Last Admin: 10/29/19 08:02 Dose: 50 mg Morphine Sulfate (Morphine) 2 mg IVPUSH Q4HR PRN PRN Reason: severe pain Ondansetron HCl (Zofran) 4 mg IVPUSH Q6HR PRN PRN Reason: Nausea/Vomiting Last Admin: 10/29/19 11:51 Dose: 4 mg Rivaroxaban (Xarelto) 10 mg PO DAILY [facility] Last Admin: 10/29/19 08:02 Dose: 10 mg Simvastatin (Zocor) 20 mg PO BEDTIME [facility] Last Admin: 10/28/19 21:14 Dose: Not Given Discontinued Medications Acetaminophen (Tylenol) 650 mg PO Q6HR PRN PRN Reason: mild pain Hydrocodone Bitart/Acetaminophen ([place] 325-5 Mg) 1 tab PO Q6H PRN PRN Reason: Pain Last Admin: 10/27/19 17:58 Dose: 1 tab Cefazolin Sodium (Ancef) Confirm Administered Dose 3 gm .ROUTE .STK-MED ONE Stop: 10/27/19 10:39 Dexamethasone (Dexamethasone) Confirm Administered Dose 20 mg .ROUTE .STK-MED ONE Stop: 10/27/19 11:02 Ephedrine Sulfate (Ephedrine In Ns) Confirm Administered Dose 25 mg .ROUTE .STK- MED ONE Stop: 10/27/19 10:50 Esmolol HCl (Esmolol) Confirm Administered Dose 100 mg .ROUTE .STK-MED ONE Stop: 10/27/19 11:00 Fentanyl (Sublimaze) Confirm Administered Dose 250 mcg .ROUTE .STK-MED ONE Stop: 10/27/19 09:09 Fentanyl (Sublimaze) Confirm Administered Dose 100 mcg .ROUTE .STK-MED ONE Stop: 10/27/19 12:25 Fentanyl (Sublimaze) Confirm Administered Dose 100 mcg .ROUTE .STK-MED ONE Stop: 10/27/19 13:27 Glycopyrrolate () Confirm Administered Dose 1 mg .ROUTE .STK-MED ONE Stop: 10/27/19 11:01 Hydromorphone HCl (Dilaudid) 0.5 mg IVPUSH ONETIME ONE Stop: 10/26/19 18:29 Last Admin: 10/26/19 18:36 Dose: 0.5 mg Hydromorphone HCl (Dilaudid) 0.5 mg IVPUSH ONETIME ONE Stop: 10/26/19 20:24 Last Admin: 10/26/19 20:47 Dose: 0.5 mg Hydromorphone HCl (Dilaudid) 1 mg IVPUSH ONETIME ONE Stop: 10/26/19 22:13 Last Admin: 10/26/19 23:00 Dose: 1 mg Hydromorphone HCl (Dilaudid) 0.5 mg IVPUSH Q4H PRN PRN Reason: Pain Last Admin: 10/27/19 00:51 Dose: 0.5 mg Hydromorphone HCl (Dilaudid) 0.5 mg IVPUSH Q2H PRN PRN Reason: Pain Last Admin: 10/28/19 01:11 Dose: 0.5 mg Dextrose/Lactated Ringer's (Dextrose 5%-Lactated Ringers) 1,000 mls @ 999 mls/ hr IV ASDIRECTED [facility] Last Admin: 10/26/19 18:36 Dose: 999 mls/hr Lactated Ringer's (Ringers, Lactated) 1,000 mls @ 100 mls/hr IV ASDIRECTED [facility] Last Admin: 10/27/19 01:03 Dose: 100 mls/hr Lidocaine HCl (Xylocaine-Mpf 1%) Confirm Administered Dose 4 mls @ as directed .ROUTE .STK-MED ONE Stop: 10/27/19 09:09 Lactated Ringer's (Ringers, Lactated) 1,000 mls @ 100 mls/hr IV ASDIRECTED [facility] Last Admin: 10/28/19 11:33 Dose: 100 mls/hr Ketorolac Tromethamine (Toradol) 30 mg IVPUSH ONETIME [facility] Last Admin: 10/26/19 18:35 Dose: 30 mg Meclizine HCl (Antivert) 25 mg PO ONETIME ONE Stop: 10/26/19 22:37 Last Admin: 10/26/19 23:02 Dose: 25 mg Metoclopramide HCl (Reglan) 7.5 mg IVPUSH ONETIME ONE Stop: 10/26/19 17:52 Last Admin: 10/26/19 18:34 Dose: 7.5 mg Morphine Sulfate (Morphine) Confirm Administered Dose 10 mg .ROUTE .STK-MED ONE Stop: 10/27/19 11:37 Neostigmine Methylsulfate (Neostigmine) Confirm Administered Dose 5 mg .ROUTE .STK-MED ONE Stop: 10/27/19 11:51 Ondansetron HCl (Zofran) 4 mg IVPUSH ONETIME ONE Stop: 10/26/19 22:32 Last Admin: 10/26/19 22:57 Dose: 4 mg Ondansetron HCl (Zofran) Confirm Administered Dose 4 mg .ROUTE .STK-MED ONE Stop: 10/27/19 11:01 Oxycodone/Acetaminophen (Percocet 325-5 Mg) 1 tab PO Q4H PRN PRN Reason: Pain (moderate 4-6) Last Admin: 10/28/19 12:53 Dose: 1 tab Polyethylene Glycol (Miralax) 17 gm PO ONETIME ONE Stop: 10/28/19 13:25 Last Admin: 10/28/19 15:00 Dose: 17 gm Propofol (Diprivan 20 Ml) Confirm Administered Dose 200 mg .ROUTE .STK-MED ONE Stop: 10/27/19 09:09 Propofol (Diprivan 20 Ml) Confirm Administered Dose 200 mg .ROUTE .STK-MED ONE Stop: 10/27/19 13:27 Rocuronium [place] (Zemuron) Confirm Administered Dose 50 mg .ROUTE .STK-MED ONE Stop: 10/27/19 09:09 Rocuronium [place] (Zemuron) Confirm Administered Dose 50 mg .ROUTE .STK-MED ONE Stop: 10/27/19 11:06 - Problem List Review Problem List Initiated/Reviewed/Updated: Yes - My Orders Last 24 Hours: Active Orders 24 hr Category Date Time Status Patient Status [ADT] Routine ADT 10/28/19 12:15 Active Antiembolic Devices [RC] PER UNIT ROUTINE Care 10/29/19 09:54 Active Notify Provider Consults [RC] ASDIRECTED Care 10/28/19 13:27 Active Ready for Discharge [RC] PER UNIT ROUTINE Care 10/29/19 12:23 Ordered Consult to Physician [CONS] Routine Cons 10/28/19 13:25 Active Regular Diet [DIET] Diet 10/28/19 Dinner Active Acetaminophen [Tylenol] Med 10/28/19 14:12 Active 650 mg PO Q6HR PRN Acetaminophen/HYDROcodone [Temple 325-5 MG] Med 10/28/19 13:59 Active 1 tab PO Q4HR PRN Morphine Med 10/28/19 13:57 Active 2 mg IVPUSH Q4HR PRN Rivaroxaban [Xarelto] Med 10/29/19 09:00 Active 10 mg PO DAILY SCD [Sequential Compression Device] [OM.PC] Routine Oth 10/29/19 09:54 Ordered Medication Orders Acetaminophen (Tylenol) 650 mg PO Q6HR PRN PRN Reason: mild pain Last Admin: 10/29/19 04:09 Dose: 650 mg Admin: 10/28/19 22:16 Dose: 650 mg Hydrocodone Bitart/Acetaminophen ([place] 325-5 Mg) 1 tab PO Q4HR PRN PRN Reason: moderate pain Last Admin: 10/29/19 05:38 Dose: 1 tab Admin: 10/29/19 01:34 Dose: 1 tab Admin: 10/28/19 16:46 Dose: 1 tab Carbamazepine (Tegretol Tab) 200 mg PO DAILY [facility] Last Admin: 10/29/19 08:02 Dose: 200 mg Admin: 10/28/19 08:10 Dose: 200 mg Citalopram Hydrobromide (Celexa) 20 mg PO DAILY [facility] Last Admin: 10/29/19 08:02 Dose: 20 mg Admin: 10/28/19 08:10 Dose: 20 mg Gabapentin (Neurontin) 300 mg PO DAILY [facility] Last Admin: 10/29/19 08:02 Dose: 300 mg Admin: 10/28/19 08:10 Dose: 300 mg Hydrochlorothiazide (Hydrochlorothiazide) 12.5 mg PO DAILY [facility] Last Admin: 10/29/19 08:02 Dose: 12.5 mg Admin: 10/28/19 08:10 Dose: 12.5 mg Losartan Potassium (Cozaar) 50 mg PO DAILY [facility] Last Admin: 10/29/19 08:02 Dose: 50 mg Admin: 10/28/19 08:10 Dose: 50 mg Morphine Sulfate (Morphine) 2 mg IVPUSH Q4HR PRN PRN Reason: severe pain Ondansetron HCl (Zofran) 4 mg IVPUSH Q6HR PRN PRN Reason: Nausea/Vomiting Last Admin: 10/29/19 11:51 Dose: 4 mg Admin: 10/27/19 20:18 Dose: 4 mg Admin: 10/27/19 09:06 Dose: 4 mg Admin: 10/27/19 00:58 Dose: 4 mg Rivaroxaban (Xarelto) 10 mg PO DAILY [facility] Last Admin: 10/29/19 08:02 Dose: 10 mg Simvastatin (Zocor) 20 mg PO BEDTIME [facility] Last Admin: 10/28/19 21:14 Dose: Admin: 10/28/19 19:57 Dose: 20 mg Admin: 10/27/19 20:21 Dose: 20 mg - Plan Plan (Free Text/Narrative):: discharge dictated LEONCIO
--- NOTE | 2019-10-29 13:40 | OR ---
DATE OF OPERATION: 10/27/2019 SURGEON: Thomas Augustine MD PREOPERATIVE DIAGNOSIS: Cholelithiasis. POSTOPERATIVE DIAGNOSIS: Cholelithiasis. FINDINGS: Multiple stones in the gallbladder, lot of encasement of the gallbladder and fat, free flow of dye into the duodenum without dilatation of the common duct, right and left hepatic ducts were seen. OPERATION PERFORMED: Laparoscopic cholecystectomy and intraoperative cholangiogram. ANESTHESIA: General anesthetic. ESTIMATED BLOOD LOSS: 100 mL. DESCRIPTION OF PROCEDURE: The patient was taken to the operating room, placed in supine position, given a general anesthetic and intubated. SCDs were placed, antibiotics were given, and the abdomen was prepped with chlorhexidine and alcohol prep and draped off in a sterile fashion. An incision was made just above the umbilicus. Using a 5 mm Opti port and a 5 mm 0-degree camera, the abdominal cavity was entered and pneumoperitoneum established. Abdominal cavity was scanned showing gallbladder, right upper quadrants, and a lot of fat around Calot triangle. A 10 mm trocar was placed in the epigastric position and a 5 mm trocar was placed in right upper quadrant and 1 in the right lower quadrant. The patient placed in reverse Trendelenburg with leftward tilt. The fundus of the gallbladder retracted in its caudal position and the Reese pouch encased with fat was slowly dissected out. This was then carried down to its junction with the cystic duct and this was dissected out. The cystic artery at this point was noted ramifying on the undersurface of the gallbladder near the cystic duct. The cystic plate was identified. A clip was placed proximal to the cystic duct and Reese pouch junction and the cholangiogram was then obtained using contrast material diluted with equal parts of saline and the C-arm demonstrated the above findings. A clip was placed on the distal portion of the cystic duct and the cystic duct was cut and Reese pouch and cystic duct were lifted up but was unable to dissect out the cystic artery, the gallbladder was pretty adherent at this point. At this point, the gallbladder was entered and the stones were removed crushing them and this allowed more flexibility in the gallbladder and was able to then see the plane and the cystic artery, which was then dissected out, secured proximal and distal with a clip and cut and then the remaining portion of the gallbladder was removed. There was some separation of the peritoneum at the junction of the gallbladder, getting into the liver. This caused some bleeding and was treated with electrocautery and Surgicel. There was also some bleeding along the mesentery of the omentum from retraction and this was treated by first putting another port to get access to this source of bleeding and securing them with clips. The area was irrigated out thoroughly due to all the smaller particles of stone and the gallbladder itself was placed in the endobag and removed through the epigastric port. After watching for a period of time, excellent hemostasis was secured and this completed the procedure. The ports and pneumoperitoneum were removed and skin of each port was closed with subdermal 4-0 Dexon suture, Steri-Strips, and sterile dressing. The patient tolerated the procedure and sent to recovery room in a stable condition. PEDRO /[id number]
--- NOTE | 2019-10-29 13:40 | HP ---
DATE OF ADMISSION: 10/26/2019 HISTORY OF PRESENT ILLNESS: This is a 59-year-old, who for the last 3 days has been having increasing pain in her right hemiface secondary to trigeminal neuralgia associated with nausea and some vomiting. She was a little bit volume depleted when she came in according to the emergency room notes. She has been scheduled to see a neurologist in October. She also has some motion sickness. She also has had increased her doses of Tegretol, gabapentin 100 mg twice a day. Her evaluation here in the emergency room demonstrated elevation of her liver enzymes with AST 222, ALT 556, and alkaline phosphatase 502 with a bilirubin slightly elevated at 1.6 and her lipase at 824 units/L. Ultrasound was done showing multiple gallstones, no thickening of the gallbladder wall or dilatation of the common duct. The patient was called and was admitted as pancreatitis secondary to gallstones and trigeminal neuralgia. MEDICAL PROBLEMS: Hypertension, trigeminal neuralgia, and elevated cholesterol, and has irregular heartbeat, is on Xarelto. EKG was ordered. REVIEW OF SYSTEMS: No chest pain, shortness of breath, cough, hoarseness, wheezing, fainting, weakness, numbness, or convulsions. Minimal abdominal pain. No back pain. Upper and lower extremities are having no problems. Does have some nausea and vomiting and pain in her face. SOCIAL HISTORY: No smoking history. No use of street drugs. FAMILY HISTORY: Noncontributory. ALLERGIES: PHYSICAL EXAMINATION: GENERAL: Reveals alert, cooperative female, in acute distress related to her trigeminal neuralgia. VITAL SIGNS: Temperature , pulse 102, respirations 16, blood pressure 136/95. HEENT: Eyes: Unremarkable. Sclerae white. Oral cavity: Healthy. NECK: Supple. No nodes. No thyromegaly. LUNGS: Clear. No rales, rhonchi, fremitus, dullness. HEART: Tones, regular rate. No S3, S4, jugular venous distention or murmurs. ABDOMEN: Soft. No tenderness, guarding, rebound in upper and lower extremities. No angulation deformities. GENERAL BODY HABITUS: Alert. NEUROLOGIC: Alert and oriented. Moves all 4 extremities. PSYCHIATRIC: Normal. SKIN: Warm and dry. ASSESSMENT: Trigeminal neuralgia, severe pain, pancreatitis with elevated lipase, elevated liver functions, and multiple stones in the gallbladder. Discussed this with the patient. Recommend we proceed with laparoscopic cholecystectomy with intraoperative cholangiogram. Risk of finding a stone, need to transport to [place] was discussed for an ERCP. Risk of bleeding, risk of infection discussed, duct injury, need for open, and note that I informed the patient that the pain and her trigeminal neuralgia probably will not be changed by this operation. Also, possibility of shoulder pain can cause nausea and diarrhea. The patient understands and has consented to surgery. MMODAL /[id number]
[2019-10-29 16:16] VITALS: PULSE 86
--- NOTE | 2019-10-30 07:07 | DISCH ---
ADMISSION DATE: 10/26/2019 DISCHARGE DATE: 10/29/2019 This is a 59-year-old female, who came in to the emergency room on 10/26/2019. The patient's reason for coming in is severe trigeminal pain from her trigeminal neuralgia. This led to laboratory data showing elevation of her enzymes, slight elevation of the bilirubin and lipase, and ultrasound was then performed showing cholelithiasis. Surgical consultation was obtained. PAST MEDICAL HISTORY: Hypertension, high cholesterol, gout, osteoarthritis, the trigeminal neuralgia. Her BMI was greater than 30. PHYSICAL EXAMINATION: GENERAL: At that time demonstrated an alert and cooperative female. She was obese. HEENT: Eyes are unremarkable. NECK: Supple. LUNGS: Clear. HEART: Tones regular rate. ABDOMEN: Soft. No tenderness, guarding, or rebound. EXTREMITIES: Upper and lower extremities, no angulation deformities. SKIN: Warm and dry. DATA: Assessment at that time was that of elevated lipase indicating pancreatitis with cholelithiasis and trigeminal neuralgia and elevated liver enzymes. It was elected to proceed with laparoscopic cholecystectomy that day. This was done without incident. Cholangiogram was normal. There are multiple stones in the gallbladder. HOSPITAL COURSE: Was marked by continued pain from trigeminal neuralgia and Hospitalist consult was obtained to help with that. She was given more pain medication. Her enzymes remained elevated postoperatively with a lipase going from 824 up to 1000, and then at the time of her discharge was coming down to 429. Her liver enzymes remained and began to slowly decrease with bilirubin going down from 1.6 to 0.9 to 1.3. Her white count remained stable, and her hemoglobin was 14 and drifted down to 11.9. Her preoperative Xarelto had been stopped 24 hours and was started the day of her discharge. The patient's Tegretol was tested and was 3.8, range of 4 to 12 was considered good range. The patient's surgical site was healing without problem. She was up and ambulating and eating, did have some nausea. She had reached maximum hospital benefit, would be discharged for followup in the clinic to follow her liver enzymes. Continue with the Tegretol at its present dose, and continue her Xarelto, and I gave Vicodin 5/325, 1 p.o. q.i.d. p.r.n. pain; her gabapentin, Lexapro, and her other preoperative medications. The patient has reached maximum hospital benefit. DISCHARGE DIAGNOSES: 1. Cholelithiasis, status post laparoscopic cholecystectomy. 2. Pancreatitis secondary to gallstones. 3. Elevated liver enzymes, stabilized. 4. Problems with trigeminal neuralgia, stable, continues to be a problem. CONDITION ON DISCHARGE: Stabilized and improved. DIET: Regular. ACTIVITY: None. No work. DISCHARGE MEDICATIONS: Per medication reconciliation form. CONDITION ON DISCHARGE: Improved. FOLLOW-UP: PEDRO /[id number]
--- NOTE | 2019-10-30 10:19 | CR ---
Operative cholangiogram: Multiple fluoroscopic spot views were obtained utilizing C-arm device in the operating room. Findings: No discrete filling defects are seen within the CHD or CBD to indicate retained stone. Contrast is noted within the duodenum. Impression: 1. Nothing is seen to indicate retained stone. Diagnostic code #1 This report was dictated in [place] Standard Time
== END 2019-10-29 16:33 | disposition home or self-care (01) | DRG 263 ==
LOC: JD.ED 17:33 → JD.MS 23:14
PROVIDERS: ADMIT Surgery; ATTEND Surgery
PROC: BF131ZZ Fluoroscopy of Gallbladder and Bile Ducts using Low Osmolar Contrast (ICD-10-PCS; principal; 2019-10-27)
PROC: 0FT44ZZ Resection of Gallbladder, Percutaneous Endoscopic Approach (ICD-10-PCS; 2019-10-27)
DX: K80.20 Calculus of gallbladder without cholecystitis without obstruction (principal); K85.80 Other acute pancreatitis without necrosis or infection; I10 Essential (primary) hypertension; M19.90 Unspecified osteoarthritis, unspecified site; H54.7 Unspecified visual loss; M10.9 Gout, unspecified; R62.50 Unspecified lack of expected normal physiological development in childhood; F32.9 Major depressive disorder, single episode, unspecified; M85.80 Other specified disorders of bone density and structure, unspecified site; R48.0 Dyslexia and alexia; Z98.51 Tubal ligation status; Z87.891 Personal history of nicotine dependence; E87.1 Hypo-osmolality and hyponatremia; E87.6 Hypokalemia; E80.6 Other disorders of bilirubin metabolism; E77.8 Other disorders of glycoprotein metabolism; E88.09 Other disorders of plasma-protein metabolism, not elsewhere classified; G44.099 Other trigeminal autonomic cephalgias (TAC), not intractable; G50.0 Trigeminal neuralgia; E66.01 Morbid (severe) obesity due to excess calories; Z68.41 Body mass index [BMI] 40.0-44.9, adult; Z88.0 Allergy status to penicillin; Z91.018 Allergy to other foods; Z79.82 Long term (current) use of aspirin; Z79.899 Other long term (current) drug therapy
CPT/HCPCS: 00790; 36415; 76000; 76000-26; 76705; 76705-26; 80053; 80156; 82977; 83036; 83690; 85025; 85027; 85610; 85730; 86140; 93005; 96361; 96374; 96375; 96376; 99285; 99285-25; A9270-GY; J0690; J1100; J1170; J1885; J2001; J2270; J2405; J2704; J2710; J2765; J3010; J3490; J7042; J7050; J7120; Q9967

== ENCOUNTER 2019-10-31 09:22 | Inpatient (IN) | payer BC ==
[2019-10-31] MEDS ORDERED: Furosemide 40 MG/4 ML VIAL IVPUSH ONE ×2 (09:49→13:00)
[2019-10-31] MEDS ORDERED: Sodium Chloride 0.9% 10 ML Syringe FLUSH PRN (09:49)
--- NOTE | 2019-10-31 09:52 | EDM.PDOC ---
ED HPI GENERAL MEDICAL PROBLEM - General Chief Complaint: Respiratory Problem Stated Complaint: CHEST PAIN Time Seen by Provider: 10/31/19 09:45 Source of Information: Reports: Patient History Limitations: Reports: No Limitations - History of Present Illness INITIAL COMMENTS - FREE TEXT/NARRATIVE: 59-year-old female presents the clinic at the request of her primary care physician Dr. Alicia Villareal. She was at the clinic today due to increased dyspnea and shortness of breath on minimal exertion since discharge from the hospital. Patient was omitted to the hospital on TuesdayOctober 27 with an acute cholecystitis and had laparoscopic cholecystectomy carried out by Dr. Chin Flanagan. She recovered well from this surgery and was discharged home the following day to my knowledge. Patient came in with severe right-sided trigeminal neuralgia and she reports this is somewhat better after having her gallbladder removed. She reports sitting up on 3 different pillows last night to sleep. Denies cough or sputum production. O2 sats were reported to be as low as 73% on arrival in our ED and 74% at the clinic. She has some discomfort behind her knees bilaterally. No obvious swelling of either lower extremity. Has no history of DVT. Denies any pleuritic chest pain. Placed on 4 L of oxygen by nasal cannula to maintain O2 sats of 94%. Has no known history of congestive heart failure. Onset: Gradual Onset Date: 10/29/19 (Gradually increased dyspnea over the last 3 days.) Duration: Day(s):, Getting Worse Location: Reports: Chest (Shortness of breath on minimal exertion even at rest.) Quality: Reports: Other (Dyspnea.) Severity: Moderate (At rest) Improves with: Reports: Rest Worsens with: Reports: Other Context: Reports: Other (She is 5 days post laparoscopic cholecystectomy.). Denies: Activity (Walking or exertion.), Exercise, Lifting, Sick Contact, Trauma Associated Symptoms: Reports: Malaise, Shortness of Breath, Weakness (Due to dyspnea.), Other. Denies: Headaches (Perhaps some chills at times. 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 Back Pain Score (Numeric/FACES): 2 Bilateral Hip Pain Score (Numeric/FACES): 9 - Related Data Allergies Allergy/AdvReac Type Severity Reaction Status Date / Time broccoli Allergy Cannot Verified 10/31/19 09:34 Remember Penicillins Allergy Cannot Verified 10/31/19 09:34 Remember Home Meds: Home Meds Aspirin 81 mg PO BEDTIME 02/09/18 [History] atorvaSTATin [Lipitor] 20 mg PO BEDTIME 02/09/18 [History] hydroCHLOROthiazide [Hydrochlorothiazide] 12.5 mg PO BEDTIME 02/09/18 [History] traMADol HCl [Tramadol HCl] 50 mg PO Q6H PRN 02/09/18 [History] Cetirizine [ZyrTEC] 10 mg PO BEDTIME 05/26/18 [History] Bisacodyl [Dulcolax] 5 mg PO DAILY PRN tablet 05/29/18 [Rx] Calcium Carbonate/Vitamin D3 [Calcium 600 + Vit D Tablet] 600 mg PO BID [History] Losartan/Hydrochlorothiazide [Losartan-HCTZ 50-12.5 MG] 1 tab PO DAILY 05/29/18 [History] Multivitamin [Multi-Day Vitamins] 1 each PO BEDTIME 05/29/18 [History] Sennosides [Senna] 8.6 mg PO BID PRN tablet 05/29/18 [Rx] Escitalopram [Lexapro] 10 mg PO BEDTIME 10/26/19 [History] Gabapentin [Neurontin] 300 mg PO DAILY 10/26/19 [History] carBAMazepine [Carbamazepine] 200 mg PO BEDTIME 10/26/19 [History] Ondansetron [Zofran ODT] 4 mg PO TID PRN #30 tab.dis 10/29/19 [Rx] Docusate Sodium [Colace] 100 mg PO BID PRN 10/31/19 [History] Rivaroxaban [Xarelto] 10 mg PO BEDTIME 10/31/19 [History] Past Medical History HEENT History: Reports: Impaired Vision, Other (See Below) Other HEENT History: wears glasses, has partial Cardiovascular History: Reports: High Cholesterol, Hypertension Respiratory History: Reports: None Gastrointestinal History: Reports: None Genitourinary History: Reports: None [employer]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 Musculoskeletal History: Reports: Gout, Osteoarthritis Neurological History: Reports: Vertigo, Other (See Below) Other Neuro History: trigeminal neuralgia, aquilino's syndrome Psychiatric History: Reports: Developmental Delay, Other (See Below) Other Psychiatric History: dyslexia, depression Endocrine/Metabolic History: Reports: Obesity/BMI 30+, Osteopenia Hematologic History: Reports: None Immunologic History: Reports: None Oncologic (Cancer) History: Reports: None Dermatologic History: Reports: None - Infectious Disease History Infectious Disease History: Reports: Chicken Pox - Past Surgical History Head Surgeries/Procedures: Reports: None Cardiovascular Surgical History: Reports: None Respiratory Surgical History: Reports: None GI Surgical History: Reports: Colonoscopy, EGD Female Surgical History: Reports: None, Tubal Ligation, Other (See Below) Other Female Surgeries/Procedures: breast lumpectomy Endocrine Surgical History: Reports: None Neurological Surgical History: Reports: None Musculoskeletal Surgical History: Reports: Arthroscopic Knee Oncologic Surgical History: Reports: None Dermatological Surgical History: Reports: None Social & Family History - Family History Family Medical History: Noncontributory - Tobacco Use Smoking Status *Q: Former Smoker Years of Tobacco use: 45 Packs/Tins Daily: 0.5 Used Tobacco, but Quit: Yes Month/Year Tobacco Last Used: 2 weeks ago - Caffeine Use Caffeine Use: Reports: Coffee Other Caffeine Use: 2 cups/ day of coffee. 1 cups/day soda - Recreational Drug Use Recreational Drug Use: No - Living Situation & Occupation Living situation: Reports: Single Occupation: Unemployed ED ROS GENERAL - Review of Systems Review Of Systems: See Below Constitutional: Reports: Chills, Malaise, Weakness, Fatigue, Decreased Appetite. Denies: Fever HEENT: Reports: Glasses Respiratory: Reports: Shortness of Breath. Denies: Wheezing, Pleuritic Chest Pain, Cough, Sputum Cardiovascular: Reports: Blood Pressure Problem, Dyspnea on Exertion, Lightheadedness. Denies: Chest Pain, Claudication, Edema, Orthopnea, Palpitations Endocrine: Reports: Fatigue GI/Abdominal: Reports: Abdominal Pain (Just at the sites of her recent laparoscopic wounds.), Decreased Appetite. Denies: Constipation ( She states these are minor discomforts.), Diarrhea, Difficulty Swallowing, Distension, Flatus, Hematemesis, Hematochezia, Melena, Mucous in Stool, Nausea, Stool Incontinence, Vomiting : Reports: No Symptoms Musculoskeletal: Reports: Back Pain Skin: Reports: No Symptoms Neurological: Reports: Other (Had severe trigeminal neuralgia right mateo-face last week better since having surgery. She was started on Tegretol preoperatively.) Psychiatric: Reports: Anxiety, Depression Hematologic/Lymphatic: Reports: No Symptoms Immunologic: Reports: No Symptoms ED EXAM, GENERAL - Physical Exam Exam: See Below Exam Limited By: Respiratory Distress General Appearance: Alert, WD/WN, Moderate Distress, Other (Temperature 37.2. Heart rate 134 at the bedside. Respiratory rate is 28 with O2 sats of 73% on room air. BP is 127/86.) Eye Exam: Bilateral Eye: Normal Inspection (No scleral icterus.) Ear Exam: Right Ear: Swelling ( No peripheral pallor.) Throat/Mouth: Other Head: Atraumatic, Normocephalic (Tongue is moist) Neck: Normal Inspection, Supple, Non-Tender, Full Range of Motion. No: Carotid Bruit, Lymphadenopathy (L), Lymphadenopathy (R) Respiratory/Chest: No Accessory Muscle Use (to both lower lung scruggs. ), Chest Non-Tender, Respiratory Distress (Tachypnea at rest with hypoxia.), Decreased Breath Sounds ( approximate 10%), Rales (Both lower lung scruggs). No: Lungs Clear, Normal Breath Sounds Cardiovascular: Normal Peripheral Pulses, Regular Rate, Rhythm, No Edema, No Murmur, No Rub Peripheral Pulses: 2+: Posterior Tibial (L), Posterior Tibial (R), Dorsalis Pedis (L), Dorsalis Pedis (R) GI/Abdominal: Normal Bowel Sounds, Soft, Tender (She is tender around her laparoscopic wounds. There is a normal amount of postoperative bruising no signs of infection.), Other (Abdominal girth limits ability to palpate solid organs. No peritoneal signs.). No: Guarding, Rigid, Rebound Back Exam: Normal Inspection, Full Range of Motion. No: CVA Tenderness (L), CVA Tenderness (R) Extremities: Normal Inspection, Normal Range of Motion, Non-Tender, Other Neurological: Alert (No clinical evidence of DVT in either leg on exam.), Oriented, CN II-XII Intact, Normal Cognition Psychiatric: Normal Affect, Normal Mood Skin Exam: Warm, Intact, Normal Color, No Rash EKG INTERPRETATION EKG Date: 10/31/19 Time: 10:00 Rhythm: Other (Sinus tachycardia) Rate (Beats/Min): 107 [place]: LAD-Left [place] Deviation (Mild left axis deviation of -14) P-Wave: Present QRS: Other (There are Q waves V1 and V2 consider old anteroseptal myocardial infarction. Also Q waves leads 3 and aVF consider old inferior wall myocardial infarction. There is decreased voltage in the precordial leads.) ST-T: Other (T-wave flattening in aVL nonspecific finding diffuse early repolarization pattern.) QT: Prolonged (Mildly prolonged) EKG Interpretation Comments: Abnormal ECG Course - Vital Signs Last Recorded V/S: Last Vital Signs Temp 36.4 C 11/03/19 07:55 Pulse 101 H 11/03/19 07:55 Resp 20 11/03/19 07:55 BP 108/62 11/03/19 07:55 Pulse Ox 97 11/03/19 08:29 - Orders/Labs/Meds Orders: Medication Orders Acetaminophen (Tylenol) 650 mg PO Q4H PRN PRN Reason: Pain (Mild 1-3)/fever Last Admin: 11/02/19 15:07 Dose: 650 mg Admin: 11/02/19 01:42 Dose: 650 mg Admin: 11/01/19 18:14 Dose: 650 mg Hydrocodone Bitart/Acetaminophen (Haiku 325-5 Mg) 1 tab PO Q4H PRN PRN Reason: Pain Last Admin: 11/03/19 08:57 Dose: 1 tab Admin: 11/03/19 02:32 Dose: 1 tab Admin: 11/02/19 22:12 Dose: 1 tab Admin: 11/02/19 08:10 Dose: 1 tab Admin: 11/01/19 08:22 Dose: 1 tab Admin: 11/01/19 04:04 Dose: 1 tab Admin: 10/31/19 21:16 Dose: 1 tab Albuterol/Ipratropium (Duoneb 3.0-0.5 Mg/3 Ml) 3 ml NEB Q6HRRT [facility] Last Admin: 11/03/19 08:27 Dose: 3 ml Admin: 11/03/19 03:06 Dose: 3 ml Admin: 11/02/19 20:39 Dose: 3 ml Admin: 11/02/19 14:31 Dose: 3 ml Aspirin (Aspirin) 81 mg PO BEDTIME [facility] Last Admin: 11/02/19 22:15 Dose: 81 mg Admin: 11/01/19 20:25 Dose: 81 mg Admin: 10/31/19 21:17 Dose: 81 mg Bisacodyl (Dulcolax) 5 mg PO DAILY PRN PRN Reason: Constipation Last Admin: 11/03/19 03:43 Dose: 5 mg Admin: 11/01/19 04:11 Dose: 5 mg Calcium Carbonate (Calcium Carbonate/Vitamin D 600 Mg-200 Unit) 1 tab PO BID [facility] Last Admin: 11/03/19 08:54 Dose: 1 tab Admin: 11/02/19 22:15 Dose: 1 tab Admin: 11/02/19 08:24 Dose: 1 tab Admin: 11/01/19 20:25 Dose: 1 tab Admin: 11/01/19 08:22 Dose: 1 tab Admin: 10/31/19 21:16 Dose: 1 tab Carbamazepine (Tegretol Tab) 200 mg PO BEDTIME [facility] Last Admin: 11/02/19 22:14 Dose: 200 mg Admin: 11/01/19 20:25 Dose: 200 mg Admin: 10/31/19 21:16 Dose: 200 mg Citalopram Hydrobromide (Celexa) 20 mg PO BEDTIME [facility] Last Admin: 11/02/19 22:14 Dose: 20 mg Admin: 11/01/19 20:25 Dose: 20 mg Admin: 10/31/19 21:16 Dose: 20 mg Docusate Sodium (Colace) 100 mg PO BID PRN PRN Reason: constipation Last Admin: 11/02/19 12:04 Dose: 100 mg Furosemide (Lasix) 40 mg IVPUSH DAILY [facility] Last Admin: 11/03/19 08:52 Dose: 40 mg Gabapentin (Neurontin) 300 mg PO DAILY [facility] Last Admin: 11/03/19 08:57 Dose: 300 mg Admin: 11/02/19 08:24 Dose: 300 mg Admin: 11/01/19 08:24 Dose: 300 mg Ceftriaxone Sodium 2 gm/ (Sodium Chloride) 100 mls @ 200 mls/hr IV Q24H [facility] Last Admin: 11/02/19 12:03 Dose: 200 mls/hr Metronidazole 500 mg/ Premix 100 mls @ 100 mls/hr IV Q8H [facility] Last Admin: 11/03/19 03:43 Dose: 100 mls/hr Infusion: 11/02/19 23:11 Dose: 100 mls/hr Admin: 11/02/19 22:11 Dose: 100 mls/hr Infusion: 11/02/19 13:40 Dose: 100 mls/hr Admin: 11/02/19 12:40 Dose: 100 mls/hr Loratadine (Claritin) 10 mg PO BEDTIME [facility] Last Admin: 11/02/19 22:15 Dose: 10 mg Admin: 11/01/19 20:25 Dose: 10 mg Admin: 10/31/19 21:16 Dose: 10 mg Ondansetron HCl (Zofran) 4 mg IV Q6H PRN PRN Reason: Nausea/Vomiting Potassium Chloride (Klor-Con M20) 40 meq PO BID [facility] Last Admin: 11/03/19 08:54 Dose: 40 meq Admin: 11/02/19 22:14 Dose: 40 meq Rivaroxaban (Xarelto) 10 mg PO BEDTIME [facility] Last Admin: 11/02/19 22:12 Dose: 10 mg Admin: 11/01/19 20:25 Dose: 10 mg Admin: 10/31/19 21:17 Dose: 10 mg Senna (Senna) 8.6 mg PO BID PRN PRN Reason: Constipation Last Admin: 11/03/19 03:43 Dose: 8.6 mg Admin: 11/01/19 15:32 Dose: 8.6 mg Simvastatin (Zocor) 20 mg PO BEDTIME [facility] Last Admin: 11/02/19 22:15 Dose: 20 mg Admin: 11/01/19 20:25 Dose: 20 mg Admin: 10/31/19 21:16 Dose: 20 mg Sodium Chloride (Saline Flush) 10 ml FLUSH ASDIRECTED PRN PRN Reason: Keep Vein Open Last Admin: 10/31/19 09:58 Dose: 10 ml Tramadol HCl (Ultram) 50 mg PO Q6H PRN PRN Reason: Pain Last Admin: 10/31/19 18:52 Dose: 50 mg Labs: Laboratory Tests 10/31/19 10/31/19 10/31/19 Range/Units 09:35 09:35 09:35 WBC 14.09 H (3.98-10.04) K/mm3 RBC 4.14 (3.98-5.22) M/mm3 Hgb 12.3 (11.2-15.7) gm/dl Hct 35.9 (34.1-44.9) % MCV 86.7 (79.4-94.8) fl MCH 29.7 (25.6-32.2) pg MCHC 34.3 (32.2-35.5) g/dl RDW Std Deviation 40.0 (36.4-46.3) fL Plt Count 311 D (182-369) K/mm3 MPV 9.3 L (9.4-12.3) fl Neutrophils % (Manual) 86 H (40-60) % Band Neutrophils % 0 (0-10) % Lymphocytes % (Manual) 8 L (20-40) % Atypical Lymphs % 0 % Monocytes % (Manual) 5 (2-10) % Eosinophils % (Manual) 1 (0.7-5.8) % Basophils % (Manual) 0 L (0.1-1.2) Platelet Estimate Adequate RBC Morph Comment Normal PT 11.9 (9.7-12.0) SECONDS INR 1.10 APTT 30 D (22-31) SECONDS D-Dimer, Quantitative (0.19-0.50) mg/L Puncture Site ABG pH (7.35-7.45) ABG pCO2 (35.0-45.0) mmHg ABG pO2 (80.0-100.0) mmHg ABG HCO3 (22.0-26.0) meq/L ABG O2 Saturation (96.0-97.0) % ABG Base Excess (-2-2.0) Kurt Test O2 Delivery Device Oxygen Flow Rate FiO2 (21.00-100.00) % Sodium 134 L (136-145) mEq/L Potassium 2.8 L (3.5-5.1) mEq/L Chloride 95 L (98-107) mEq/L Carbon Dioxide 31 (21-32) mEq/L Anion Gap 10.8 (5-15) BUN 15 (7-18) mg/dL Creatinine 1.0 (0.55-1.02) mg/dL Est Cr Clr Drug Dosing 61.10 mL/min Estimated GFR (MDRD) 57 (>60) mL/min BUN/Creatinine Ratio 15.0 (14-18) Glucose 127 H (74-106) mg/dL Lactic Acid (0.4-2.0) mmol/L Calcium 9.1 (8.5-10.1) mg/dL Magnesium 2.1 (1.8-2.4) mg/dl Total Bilirubin 1.3 H (0.2-1.0) mg/dL AST 64 H (15-37) U/L ALT 178 H (14-59) U/L Alkaline Phosphatase 438 H (46-116) U/L CK-MB (CK-2) 0.6 (0-3.6) ng/ml Troponin I 0.034 (0.00-0.056) ng/mL C-Reactive Protein 27.0 H* (<1.0) mg/dL NT-Pro-B Natriuret Pep (0-125) pg/mL Total Protein 6.5 (6.4-8.2) g/dl Albumin 2.5 L (3.4-5.0) g/dl Globulin 4.0 gm/dL Albumin/Globulin Ratio 0.6 L (1-2) Lipase (73-393) U/L Carbamazepine (4.0-12.0) ug/mL 10/31/19 10/31/19 10/31/19 Range/Units 09:35 09:35 09:35 WBC (3.98-10.04) K/mm3 RBC (3.98-5.22) M/mm3 Hgb (11.2-15.7) gm/dl Hct (34.1-44.9) % MCV (79.4-94.8) fl MCH (25.6-32.2) pg MCHC (32.2-35.5) g/dl RDW Std Deviation (36.4-46.3) fL Plt Count (182-369) K/mm3 MPV (9.4-12.3) fl Neutrophils % (Manual) (40-60) % Band Neutrophils % (0-10) % Lymphocytes % (Manual) (20-40) % Atypical Lymphs % % Monocytes % (Manual) (2-10) % Eosinophils % (Manual) (0.7-5.8) % Basophils % (Manual) (0.1-1.2) Platelet Estimate RBC Morph Comment PT (9.7-12.0) SECONDS INR APTT (22-31) SECONDS D-Dimer, Quantitative (0.19-0.50) mg/L Puncture Site ABG pH (7.35-7.45) ABG pCO2 (35.0-45.0) mmHg ABG pO2 (80.0-100.0) mmHg ABG HCO3 (22.0-26.0) meq/L ABG O2 Saturation (96.0-97.0) % ABG Base Excess (-2-2.0) Kurt Test O2 Delivery Device Oxygen Flow Rate FiO2 (21.00-100.00) % Sodium (136-145) mEq/L Potassium (3.5-5.1) mEq/L Chloride (98-107) mEq/L Carbon Dioxide (21-32) mEq/L Anion Gap (5-15) BUN (7-18) mg/dL Creatinine (0.55-1.02) mg/dL Est Cr Clr Drug Dosing mL/min Estimated GFR (MDRD) (>60) mL/min BUN/Creatinine Ratio (14-18) Glucose (74-106) mg/dL Lactic Acid 1.3 (0.4-2.0) mmol/L Calcium (8.5-10.1) mg/dL Magnesium (1.8-2.4) mg/dl Total Bilirubin (0.2-1.0) mg/dL AST (15-37) U/L ALT (14-59) U/L Alkaline Phosphatase (46-116) U/L CK-MB (CK-2) (0-3.6) ng/ml Troponin I (0.00-0.056) ng/mL C-Reactive Protein (<1.0) mg/dL NT-Pro-B Natriuret Pep 82015 H (0-125) pg/mL Total Protein (6.4-8.2) g/dl Albumin (3.4-5.0) g/dl Globulin gm/dL Albumin/Globulin Ratio (1-2) Lipase (73-393) U/L Carbamazepine 4.5 (4.0-12.0) ug/mL 10/31/19 10/31/19 10/31/19 Range/Units 09:35 09:45 09:47 WBC (3.98-10.04) K/mm3 RBC (3.98-5.22) M/mm3 Hgb (11.2-15.7) gm/dl Hct (34.1-44.9) % MCV (79.4-94.8) fl MCH (25.6-32.2) pg MCHC (32.2-35.5) g/dl RDW Std Deviation (36.4-46.3) fL Plt Count (182-369) K/mm3 MPV (9.4-12.3) fl Neutrophils % (Manual) (40-60) % Band Neutrophils % (0-10) % Lymphocytes % (Manual) (20-40) % Atypical Lymphs % % Monocytes % (Manual) (2-10) % Eosinophils % (Manual) (0.7-5.8) % Basophils % (Manual) (0.1-1.2) Platelet Estimate RBC Morph Comment PT (9.7-12.0) SECONDS INR APTT (22-31) SECONDS D-Dimer, Quantitative 2.06 H (0.19-0.50) mg/L Puncture Site Rt radial ABG pH 7.50 H (7.35-7.45) ABG pCO2 39.4 (35.0-45.0) mmHg ABG pO2 71.0 L (80.0-100.0) mmHg ABG HCO3 30.1 H (22.0-26.0) meq/L ABG O2 Saturation 94.4 L (96.0-97.0) % ABG Base Excess 6.6 H (-2-2.0) Kurt Test Positive O2 Delivery Device Nasal cannula Oxygen Flow Rate 4.0 FiO2 0.00 L (21.00-100.00) % Sodium (136-145) mEq/L Potassium (3.5-5.1) mEq/L Chloride (98-107) mEq/L Carbon Dioxide (21-32) mEq/L Anion Gap (5-15) BUN (7-18) mg/dL Creatinine (0.55-1.02) mg/dL Est Cr Clr Drug Dosing mL/min Estimated GFR (MDRD) (>60) mL/min BUN/Creatinine Ratio (14-18) Glucose (74-106) mg/dL Lactic Acid (0.4-2.0) mmol/L Calcium (8.5-10.1) mg/dL Magnesium (1.8-2.4) mg/dl Total Bilirubin (0.2-1.0) mg/dL AST (15-37) U/L ALT (14-59) U/L Alkaline Phosphatase (46-116) U/L CK-MB (CK-2) (0-3.6) ng/ml Troponin I (0.00-0.056) ng/mL C-Reactive Protein (<1.0) mg/dL NT-Pro-B Natriuret Pep (0-125) pg/mL Total Protein (6.4-8.2) g/dl Albumin (3.4-5.0) g/dl Globulin gm/dL Albumin/Globulin Ratio (1-2) Lipase 251 (73-393) U/L Carbamazepine (4.0-12.0) ug/mL Meds: Medications Generic Name Dose Route Start Last Admin Trade Name Freq PRN Reason Stop Dose Admin Acetaminophen 650 mg 10/31/19 15:59 11/02/19 15:07 Tylenol PO 650 mg Q4H PRN Administration Pain (Mild 1-3)/fever Hydrocodone Bitart/Acetaminophen 1 tab 10/31/19 16:48 11/03/19 08:57 Haiku 325-5 Mg PO 1 tab Q4H PRN Administration Pain Albuterol/Ipratropium 3 ml 11/02/19 15:00 11/03/19 08:27 Duoneb 3.0-0.5 Mg/3 Ml NEB 3 ml Q6HRRT [facility] Administration Aspirin 81 mg 10/31/19 21:00 11/02/19 22:15 Aspirin PO 81 mg BEDTIME [facility] Administration Bisacodyl 5 mg 10/31/19 16:48 11/03/19 03:43 Dulcolax PO 5 mg DAILY PRN Administration Constipation Calcium Carbonate 1 tab 10/31/19 21:00 11/03/19 08:54 Calcium Carbonate/Vitamin D 600 Mg-200 Unit PO 1 tab BID [facility] Administration Carbamazepine 200 mg 10/31/19 21:00 11/02/19 22:14 Tegretol Tab PO 200 mg BEDTIME [facility] Administration Citalopram Hydrobromide 20 mg 10/31/19 21:00 11/02/19 22:14 Celexa PO 20 mg BEDTIME [facility] Administration Docusate Sodium 100 mg 10/31/19 16:48 11/02/19 12:04 Colace PO 100 mg BID PRN Administration constipation Furosemide 40 mg 11/03/19 09:00 11/03/19 08:52 Lasix IVPUSH 40 mg DAILY [facility] Administration Gabapentin 300 mg 11/01/19 09:00 11/03/19 08:57 Neurontin PO 300 mg DAILY [facility] Administration Ceftriaxone Sodium 2 gm/ 100 mls @ 200 mls/hr 11/02/19 12:00 11/02/19 12:03 Sodium Chloride IV 200 mls/hr Q24H [facility] Administration Metronidazole 500 mg/ Premix 100 mls @ 100 mls/hr 11/02/19 12:00 11/03/19 03: 43 IV 100 mls/hr Q8H [facility] Administration Loratadine 10 mg 10/31/19 21:00 11/02/19 22:15 Claritin PO 10 mg BEDTIME [facility] Administration Ondansetron HCl 4 mg 10/31/19 15:59 Zofran IV Q6H PRN Nausea/Vomiting Potassium Chloride 40 meq 11/02/19 21:00 11/03/19 08:54 Klor-Con M20 PO 40 meq BID [facility] Administration Rivaroxaban 10 mg 10/31/19 21:00 11/02/19 22:12 Xarelto PO 10 mg BEDTIME [facility] Administration Senna 8.6 mg 10/31/19 16:48 11/03/19 03:43 Senna PO 8.6 mg BID PRN Administration Constipation Simvastatin 20 mg 10/31/19 21:00 11/02/19 22:15 Zocor PO 20 mg BEDTIME [facility] Administration Sodium Chloride 10 ml 10/31/19 09:49 10/31/19 09:58 Saline Flush FLUSH 10 ml ASDIRECTED PRN Administration Keep Vein Open Tramadol HCl 50 mg 10/31/19 16:48 10/31/19 18:52 Ultram PO 50 mg Q6H PRN Administration Pain Discontinued Medications Generic Name Dose Route Start Last Admin Trade Name Poolq PRN Reason Stop Dose Admin Albuterol/Ipratropium 3 ml 11/02/19 11:28 Duoneb 3.0-0.5 Mg/3 Ml NEB Q6H PRN SOB/wheezing Albuterol/Ipratropium 3 ml 11/02/19 13:30 11/02/19 14:46 Duoneb 3.0-0.5 Mg/3 Ml NEB Not Given Q6H [facility] Furosemide 40 mg 10/31/19 09:49 10/31/19 09:58 Lasix IVPUSH 10/31/19 09:50 40 mg NOW ONE Administration Furosemide 40 mg 10/31/19 13:00 10/31/19 13:56 Lasix IVPUSH 10/31/19 13:01 40 mg NOW ONE Administration Furosemide 40 mg 11/01/19 06:00 11/02/19 06:16 Lasix IVPUSH 40 mg BIDDIURETIC [facility] Administration Potassium Chloride 10 meq/ 100 mls @ 100 mls/hr 10/31/19 12:30 10/31/19 21:22 Premix IV 10/31/19 16:29 100 mls/hr Q1H [facility] Administration Sodium Chloride 1,000 mls @ 50 mls/hr 10/31/19 12:30 10/31/19 14:07 Normal Saline IV 50 mls/hr ASDIRECTED [facility] Administration Potassium Chloride 10 meq/ 100 mls @ 100 mls/hr 11/01/19 07:45 Premix IV 11/01/19 11:44 Q1H [facility] Iopamidol 100 ml 10/31/19 11:06 10/31/19 16:10 Isovue Multipack-370 (76%) IVPUSH 10/31/19 11:07 Not Given ONETIME ONE Iopamidol 100 ml 10/31/19 11:26 10/31/19 11:27 Isovue-370 (76%) IVPUSH 10/31/19 11:27 100 ml ONETIME ONE Administration Potassium Chloride 40 meq 11/01/19 09:00 11/02/19 08:24 Klor-Con M20 PO 40 meq TID [facility] Administration Sodium Chloride 10 ml 10/31/19 11:10 10/31/19 16:10 Saline Flush FLUSH 10/31/19 11:11 Not Given ONETIME ONE - Radiology Interpretation Free Text/Narrative:: 59-year-old female presents the ED with gradually worsening shortness of breath since discharge from the hospital 3 days ago post laparoscopic cholecystectomy. Apparently the surgery went well. She is on a host of medications but has no history of congestive failure. O2 sats on arrival in the ED were only 73%. She was on 4 L/m by nasal cannula. She has rales in both lung bases clinically. She also has mild JVD. Plan saline lock. Lasix 40 mg IV. One view chest x-ray to be obtained with routine labs to include a BNP and cardiac markers. She complaining of some chills and has a temperature 37.2. Splinting as if she would have a subhepatic abscess etc. - Re-Assessments/Exams Free Text/Narrative Re-Assessment/Exam: 10/31/19 10:25 chest x-ray reveals mild cardiomegaly. There is a diffuse vascular congestion pattern with increased haziness both lower lobes. No definitive pleural effusion evident. 10/31/19 10:57 White count shows a slightly elevated white count of 14.09. 86% neutrophils no bands cells reported. Hemoglobin 12.3 with hematocrit of 35.9. MCV is 86.7. Platelet count 311,000. PT is 11.9 with an INR 1.10 slightly elevated. PTT is 30 d-dimer is elevated at 2.06. Of note the patient is 5 days postop.. ABGs revealed a pH of 7.50 with PCO2 of 39.4 and a PaO2 of 71.0. Bicarbonate is 30.1 saturations 94.4% on 4 L. Sodium slightly low at 134 potassium low at 2.8. Chloride is 95 with a bicarbonate of 31. Anion gap is 10.8. BUN is 15 with a creatinine of 1.0. GFR is 57. Glucose is 127. Lactic acid is 1.3. Calcium is 9.1. Magnesium is 2.1. Bilirubin is slightly elevated at 1.3. AST is 64 with an ALT of 178 phosphatase elevated at 438. CK-MB fraction is 0.6 troponin I is 0.034. C-reactive protein is elevated at 27.0 BNP is 11,746. Total protein is 6.5 with an albumin fraction of 2.5. Serum Tegretol level is 4.5 which is therapeutic. We'll proceed with CT pulmonary angiogram of her chest to rule out PE although I think this is highly unlikely. For acute cardiac decompensation is unclear. It appears that she likely has underlying ischemic cardiomyopathy. She is voiding well since she received Lasix 40 mg IV. O2 sats remained 95% on 4 L. 10/31/19 12:16 discussed the case with Dr. Santamaria who is on-call still for hospitalist care. We'll see the patient in the ED. After heart up the phone with her the CT of the chest done per PE protocol report has returned from Dr. Kaminski. He agrees with minimal right-sided pleural effusion mild atelectasis noted posteriorly within both lungs. No findings of pulmonary embolism. Incidental cyst within the right lobe of the liver. 10/31/19 12:31 I noted from her last admission that she had an elevated serum lipase. I will therefore repeat this. She will need potassium supplementation and I wrote a order for 10 mEq of potassium intravenously every hourly 4. Departure - Departure Time of Disposition: 15:30 Disposition: Admitted As Inpatient 66 Condition: Fair Clinical Impression: Acute exacerbation of congestive heart failure, Hypoxia, Hyponatremia, Hypokalemia - Discharge Information *PRESCRIPTION DRUG MONITORING PROGRAM REVIEWED*: Not Applicable *COPY OF PRESCRIPTION DRUG MONITORING REPORT IN PATIENT REJI: Not Applicable
[2019-10-31] MEDS ORDERED: Iopamidol 755 MG/ML 500 ML Multipack Bottle IVPUSH ONE (11:06)
[2019-10-31] MEDS ORDERED: Sodium Chloride 0.9% 10 ML Syringe FLUSH ONE (11:10)
[2019-10-31] MEDS ORDERED: Iopamidol 755 Mg/ML 100 ML Bottle IVPUSH ONE (11:26)
--- NOTE | 2019-10-31 12:14 | CT ---
CT chest Technique: Multiple axial sections were obtained from above the lung apices inferiorly through the lung bases. Intravenous contrast was utilized. Study performed as a pulmonary angiogram protocol. Findings: Pulmonary arteries are fairly well-opacified. No filling defects are seen to indicate pulmonary embolism. Very minimal right-sided pleural effusion is seen. Aorta shows no aneurysm. No mediastinal adenopathy or mass is seen. Minimal coronary artery calcification is noted. No pericardial thickening is seen. Cyst is noted within the right lobe of the liver measuring approximately 3.5 cm. Mild bibasilar atelectasis is seen posteriorly. No acute parenchymal change is appreciated. Impression: 1. Minimal right-sided pleural effusion. Mild atelectasis is noted posteriorly within both lung bases. 2. No findings of pulmonary embolism. 3. Incidental cyst within the right lobe of the liver. 4. Other incidental findings. Nothing acute is appreciated. Diagnostic code #2 This report was dictated in [place] Standard Time
[2019-10-31] MEDS ORDERED: Sodium Chloride 0.9% 1,000 ML IV SCH (12:30)
--- NOTE | 2019-10-31 13:27 | PCM.HP.2 ---
H&P History of Present Illness - General Date of Service: 10/31/19 Source of Information: Patient, Old Records, Provider, RN, RN Notes Reviewed History Limitations: Reports: No Limitations - History of Present Illness Initial Comments - Free Text/Narative: Odette Wiggins is a 59yo female who presents to our ED on 10/31/19 with shortness of breath. She was sent over to the ED after being seen in the clinic by her primary care provider, Dr. Dominguez. She had been hospitalized from 10/26-10/29/19 with acute cholecystitis. She had a laparoscopic cholecystectomy performed by Dr. Flanagan, general surgeon. During that hospital edition she also suffers from severe right sided trigeminal neuralgia. Patient reports since then this is greatly improved. Since discharge she reports needing up to 3 pillows to sleep due to orthopnea. Denies cough or sputum production. O2 saturations were 73% on arrival to the ED and noted to be 74% of the clinic. Reports bilateral knee pain but no signs of swelling to lower extremities. No history of DVT. She's to 4 L oxygen via nasal cannula which brought her saturations above 94%. Denies any known history of heart failure. In the ED twelve-lead EKG was obtained showing sinus tachycardia 107 with left axis deviation. Q waves are noted in V1 and V2 along with 3 and aVF. QT is mildly prolonged. She is afebrile. Labs are obtained and FVC is elevated at 14.09. This may be due to her recent surgery. Sodium is low 134, potassium was very low at 2.8, chloride low at 95, EGFR is 57, creatinine 1.0. Bilirubin is elevated at 1.3. AST is 64, ALT 178, alkaline phosphatase 438. Troponin 0.034. CRP is high at 27.0. Lactic acid is 1.3. ProBNP is very high at 11, 746. Temazepam pain is on the low end of normal at 4.5. D-dimer is high at 2.06. ABGs obtained the right radial showing a pH of 7.50, PCO2 39.4, PO2 of 71.0, bicarbonate of 30.1, O2 saturation 94.4. This is obtained while on 4 L. Due to the elevated d-dimer CT is performed showing "1. Minimal right-sided pleural effusion. Mild atelectasis is noted posteriorly within both lung bases. 2. No findings of pulmonary embolism. 3. Incidental cysts within the right lobe of the liver. 4. Other incidental findings. Nothing acute is appreciated." Chest x-ray is obtained showing minimal bright basilar atelectasis and nothing acute. She was given 40 mg IV push Lasix along with 40 mg and of IV potassium 4 doses. She carries a history of impaired vision, HLD, hypertension, gout, osteoarthritis, vertigo, trigeminal neuralgia, Danitza's syndrome, developmental delay, dyslexia, depression, obesity, osteopenia. She is a former smoker. Her PCP is Dr. Villareal. She subsequent admitted to the floor for suspected CHF workup. Back Pain Score (Numeric/FACES): 2 Bilateral Hip Pain Score (Numeric/FACES): 9 - Related Data Allergies/Adverse Reactions: Allergies Allergy/AdvReac Type Severity Reaction Status Date / Time broccoli Allergy Cannot Verified 10/31/19 09:34 Remember Penicillins Allergy Cannot Verified 10/31/19 09:34 Remember Home Medications: Home Meds Aspirin 81 mg PO BEDTIME 02/09/18 [History] atorvaSTATin [Lipitor] 20 mg PO BEDTIME 02/09/18 [History] hydroCHLOROthiazide [Hydrochlorothiazide] 12.5 mg PO BEDTIME 02/09/18 [History] traMADol HCl [Tramadol HCl] 50 mg PO Q6H PRN 02/09/18 [History] Cetirizine [ZyrTEC] 10 mg PO BEDTIME 05/26/18 [History] Bisacodyl [Dulcolax] 5 mg PO DAILY PRN tablet 05/29/18 [Rx] Calcium Carbonate/Vitamin D3 [Calcium 600 + Vit D Tablet] 600 mg PO BID [History] Losartan/Hydrochlorothiazide [Losartan-HCTZ 50-12.5 MG] 1 tab PO DAILY 05/29/18 [History] Multivitamin [Multi-Day Vitamins] 1 each PO BEDTIME 05/29/18 [History] Sennosides [Senna] 8.6 mg PO BID PRN tablet 05/29/18 [Rx] Escitalopram [Lexapro] 10 mg PO BEDTIME 10/26/19 [History] Gabapentin [Neurontin] 300 mg PO DAILY 10/26/19 [History] carBAMazepine [Carbamazepine] 200 mg PO BEDTIME 10/26/19 [History] Ondansetron [Zofran ODT] 4 mg PO TID PRN #30 tab.dis 10/29/19 [Rx] Docusate Sodium [Colace] 100 mg PO BID PRN 10/31/19 [History] Rivaroxaban [Xarelto] 10 mg PO BEDTIME 10/31/19 [History] Past Medical History HEENT History: Reports: Impaired Vision, Other (See Below) Other HEENT History: wears glasses, has partial Cardiovascular History: Reports: High Cholesterol, Hypertension Respiratory History: Reports: None Gastrointestinal History: Reports: None Genitourinary History: Reports: None 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 Musculoskeletal History: Reports: Gout, Osteoarthritis Neurological History: Reports: Vertigo, Other (See Below) Other Neuro History: trigeminal neuralgia, danitza's syndrome Psychiatric History: Reports: Developmental Delay, Other (See Below) Other Psychiatric History: dyslexia, depression Endocrine/Metabolic History: Reports: Obesity/BMI 30+, Osteopenia Hematologic History: Reports: None Immunologic History: Reports: None Oncologic (Cancer) History: Reports: None Dermatologic History: Reports: None - Infectious Disease History Infectious Disease History: Reports: Chicken Pox - Past Surgical History Head Surgeries/Procedures: Reports: None Cardiovascular Surgical History: Reports: None Respiratory Surgical History: Reports: None GI Surgical History: Reports: Colonoscopy, EGD Female Surgical History: Reports: None, Tubal Ligation, Other (See Below) Other Female Surgeries/Procedures: breast lumpectomy Endocrine Surgical History: Reports: None Neurological Surgical History: Reports: None Musculoskeletal Surgical History: Reports: Arthroscopic Knee Oncologic Surgical History: Reports: None Dermatological Surgical History: Reports: None Social & Family History - Family History Family Medical History: Noncontributory - Tobacco Use Smoking Status *Q: Former Smoker Years of Tobacco use: 45 Packs/Tins Daily: 0.5 Used Tobacco, but Quit: Yes Month/Year Tobacco Last Used: 2 weeks ago - Caffeine Use Caffeine Use: Reports: Coffee Other Caffeine Use: 2 cups/ day of coffee. 1 cups/day soda - Recreational Drug Use Recreational Drug Use: No - Living Situation & Occupation Living situation: Reports: Single Occupation: Unemployed H&P Review of Systems - Review of Systems: Review Of Systems: See Below General: Reports: Chills, Malaise, Weakness, Fatigue. Denies: Fever, Night Sweats HEENT: Reports: Headaches. Denies: Sore Throat Pulmonary: Reports: Shortness of Breath. Denies: Wheezing, Pleuritic Chest Pain , Cough, Sputum Cardiovascular: Reports: Orthopnea. Denies: Chest Pain, Palpitations, Edema, Blood Pressure Problem Gastrointestinal: Reports: Abdominal Pain (2/2 laproscopy wounds ). Denies: Constipation, Diarrhea, Nausea, Vomiting Genitourinary: Reports: No Symptoms Musculoskeletal: Reports: Back Pain (chronic ) Skin: Reports: No Symptoms. Denies: Cyanosis Psychiatric: Reports: No Symptoms. Denies: Confusion Exam - Exam Exam: See Below - Vital Signs Vital Signs: Last Vital Signs Temp 99.0 F 10/31/19 09:34 Pulse 134 H 10/31/19 09:34 Resp 28 H 10/31/19 09:34 BP 127/86 10/31/19 09:34 Pulse Ox 73 L 10/31/19 09:34 Weight: 304 lb - Exam Quality Assessment: Supplemental Oxygen (4L), DVT Prophylaxis General: Alert, Oriented, Cooperative. No: Mild Distress HEENT: Conjunctiva Clear, EACs Clear, Hearing Intact, Mucosa Moist & [place], Nares Patent, Posterior Pharynx Clear, PERRLA Neck: Supple, Trachea Midline Lungs: Normal Respiratory Effort, Decreased Breath Sounds, Rales. No: Wheezing Cardiovascular: Regular Rate, Regular Rhythm GI/Abdominal Exam: Normal Bowel Sounds, Soft, No Distention, No Abnormal Bruit, No Mass, Tender (At incison sites ) (Female) Exam: Deferred Rectal (Female) Exam: Deferred Back Exam: Normal Inspection, Full Range of Motion Extremities: Normal Inspection, Normal Range of Motion, Non-Tender, No Pedal Edema, Normal Capillary Refill Skin: Warm, Dry, Intact Neurological: Cranial Nerves Intact (Grossly ) Neuro Extensive - Mental Status: Alert, Oriented x3, Normal Mood/Affect - Patient Data Lab Results Last 24 hrs: Laboratory Results - last 24 hr 10/31/19 10/31/19 10/31/19 Range/Units 09:35 09:35 09:35 WBC 14.09 H (3.98-10.04) K/mm3 RBC 4.14 (3.98-5.22) M/mm3 Hgb 12.3 (11.2-15.7) gm/dl Hct 35.9 (34.1-44.9) % MCV 86.7 (79.4-94.8) fl MCH 29.7 (25.6-32.2) pg MCHC 34.3 (32.2-35.5) g/dl RDW Std Deviation 40.0 (36.4-46.3) fL Plt Count 311 D (182-369) K/mm3 MPV 9.3 L (9.4-12.3) fl Neutrophils % (Manual) 86 H (40-60) % Band Neutrophils % 0 (0-10) % Lymphocytes % (Manual) 8 L (20-40) % Atypical Lymphs % 0 % Monocytes % (Manual) 5 (2-10) % Eosinophils % (Manual) 1 (0.7-5.8) % Basophils % (Manual) 0 L (0.1-1.2) Platelet Estimate Adequate RBC Morph Comment Normal PT 11.9 (9.7-12.0) SECONDS INR 1.10 APTT 30 D (22-31) SECONDS D-Dimer, Quantitative (0.19-0.50) mg/L Puncture Site ABG pH (7.35-7.45) ABG pCO2 (35.0-45.0) mmHg ABG pO2 (80.0-100.0) mmHg ABG HCO3 (22.0-26.0) meq/L ABG O2 Saturation (96.0-97.0) % ABG Base Excess (-2-2.0) Kurt Test O2 Delivery Device Oxygen Flow Rate FiO2 (21.00-100.00) % Sodium 134 L (136-145) mEq/L Potassium 2.8 L (3.5-5.1) mEq/L Chloride 95 L (98-107) mEq/L Carbon Dioxide 31 (21-32) mEq/L Anion Gap 10.8 (5-15) BUN 15 (7-18) mg/dL Creatinine 1.0 (0.55-1.02) mg/dL Est Cr Clr Drug Dosing 61.10 mL/min Estimated GFR (MDRD) 57 (>60) mL/min BUN/Creatinine Ratio 15.0 (14-18) Glucose 127 H (74-106) mg/dL Lactic Acid (0.4-2.0) mmol/L Calcium 9.1 (8.5-10.1) mg/dL Magnesium 2.1 (1.8-2.4) mg/dl Total Bilirubin 1.3 H (0.2-1.0) mg/dL AST 64 H (15-37) U/L ALT 178 H (14-59) U/L Alkaline Phosphatase 438 H (46-116) U/L CK-MB (CK-2) 0.6 (0-3.6) ng/ml Troponin I 0.034 (0.00-0.056) ng/mL C-Reactive Protein 27.0 H* (<1.0) mg/dL NT-Pro-B Natriuret Pep (0-125) pg/mL Total Protein 6.5 (6.4-8.2) g/dl Albumin 2.5 L (3.4-5.0) g/dl Globulin 4.0 gm/dL Albumin/Globulin Ratio 0.6 L (1-2) Lipase (73-393) U/L Carbamazepine (4.0-12.0) ug/mL 10/31/19 10/31/19 10/31/19 Range/Units 09:35 09:35 09:35 WBC (3.98-10.04) K/mm3 RBC (3.98-5.22) M/mm3 Hgb (11.2-15.7) gm/dl Hct (34.1-44.9) % MCV (79.4-94.8) fl MCH (25.6-32.2) pg MCHC (32.2-35.5) g/dl RDW Std Deviation (36.4-46.3) fL Plt Count (182-369) K/mm3 MPV (9.4-12.3) fl Neutrophils % (Manual) (40-60) % Band Neutrophils % (0-10) % Lymphocytes % (Manual) (20-40) % Atypical Lymphs % % Monocytes % (Manual) (2-10) % Eosinophils % (Manual) (0.7-5.8) % Basophils % (Manual) (0.1-1.2) Platelet Estimate RBC Morph Comment PT (9.7-12.0) SECONDS INR APTT (22-31) SECONDS D-Dimer, Quantitative (0.19-0.50) mg/L Puncture Site ABG pH (7.35-7.45) ABG pCO2 (35.0-45.0) mmHg ABG pO2 (80.0-100.0) mmHg ABG HCO3 (22.0-26.0) meq/L ABG O2 Saturation (96.0-97.0) % ABG Base Excess (-2-2.0) Kurt Test O2 Delivery Device Oxygen Flow Rate FiO2 (21.00-100.00) % Sodium (136-145) mEq/L Potassium (3.5-5.1) mEq/L Chloride (98-107) mEq/L Carbon Dioxide (21-32) mEq/L Anion Gap (5-15) BUN (7-18) mg/dL Creatinine (0.55-1.02) mg/dL Est Cr Clr Drug Dosing mL/min Estimated GFR (MDRD) (>60) mL/min BUN/Creatinine Ratio (14-18) Glucose (74-106) mg/dL Lactic Acid 1.3 (0.4-2.0) mmol/L Calcium (8.5-10.1) mg/dL Magnesium (1.8-2.4) mg/dl Total Bilirubin (0.2-1.0) mg/dL AST (15-37) U/L ALT (14-59) U/L Alkaline Phosphatase (46-116) U/L CK-MB (CK-2) (0-3.6) ng/ml Troponin I (0.00-0.056) ng/mL C-Reactive Protein (<1.0) mg/dL NT-Pro-B Natriuret Pep 20070 H (0-125) pg/mL Total Protein (6.4-8.2) g/dl Albumin (3.4-5.0) g/dl Globulin gm/dL Albumin/Globulin Ratio (1-2) Lipase (73-393) U/L Carbamazepine 4.5 (4.0-12.0) ug/mL 10/31/19 10/31/19 10/31/19 Range/Units 09:35 09:45 09:47 WBC (3.98-10.04) K/mm3 RBC (3.98-5.22) M/mm3 Hgb (11.2-15.7) gm/dl Hct (34.1-44.9) % MCV (79.4-94.8) fl MCH (25.6-32.2) pg MCHC (32.2-35.5) g/dl RDW Std Deviation (36.4-46.3) fL Plt Count (182-369) K/mm3 MPV (9.4-12.3) fl Neutrophils % (Manual) (40-60) % Band Neutrophils % (0-10) % Lymphocytes % (Manual) (20-40) % Atypical Lymphs % % Monocytes % (Manual) (2-10) % Eosinophils % (Manual) (0.7-5.8) % Basophils % (Manual) (0.1-1.2) Platelet Estimate RBC Morph Comment PT (9.7-12.0) SECONDS INR APTT (22-31) SECONDS D-Dimer, Quantitative 2.06 H (0.19-0.50) mg/L Puncture Site Rt radial ABG pH 7.50 H (7.35-7.45) ABG pCO2 39.4 (35.0-45.0) mmHg ABG pO2 71.0 L (80.0-100.0) mmHg ABG HCO3 30.1 H (22.0-26.0) meq/L ABG O2 Saturation 94.4 L (96.0-97.0) % ABG Base Excess 6.6 H (-2-2.0) Kurt Test Positive O2 Delivery Device Nasal cannula Oxygen Flow Rate 4.0 FiO2 0.00 L (21.00-100.00) % Sodium (136-145) mEq/L Potassium (3.5-5.1) mEq/L Chloride (98-107) mEq/L Carbon Dioxide (21-32) mEq/L Anion Gap (5-15) BUN (7-18) mg/dL Creatinine (0.55-1.02) mg/dL Est Cr Clr Drug Dosing mL/min Estimated GFR (MDRD) (>60) mL/min BUN/Creatinine Ratio (14-18) Glucose (74-106) mg/dL Lactic Acid (0.4-2.0) mmol/L Calcium (8.5-10.1) mg/dL Magnesium (1.8-2.4) mg/dl Total Bilirubin (0.2-1.0) mg/dL AST (15-37) U/L ALT (14-59) U/L Alkaline Phosphatase (46-116) U/L CK-MB (CK-2) (0-3.6) ng/ml Troponin I (0.00-0.056) ng/mL C-Reactive Protein (<1.0) mg/dL NT-Pro-B Natriuret Pep (0-125) pg/mL Total Protein (6.4-8.2) g/dl Albumin (3.4-5.0) g/dl Globulin gm/dL Albumin/Globulin Ratio (1-2) Lipase 251 (73-393) U/L Carbamazepine (4.0-12.0) ug/mL Result Diagrams: 11/01/19 05:40 11/01/19 14:04 - Problem List (1) Acute exacerbation of congestive heart failure SNOMED Code(s): 633660545, 53842085075839 ICD Code: I50.9 - HEART FAILURE, UNSPECIFIED Status: Acute Current Visit : Yes Qualifiers: Heart failure type: unspecified Qualified Code(s): I50.9 - Heart failure, unspecified (2) Hypokalemia SNOMED Code(s): 13692229 ICD Code: E87.6 - HYPOKALEMIA Status: Acute Current Visit: Yes (3) Hyponatremia SNOMED Code(s): 75292030 ICD Code: E87.1 - HYPO-OSMOLALITY AND HYPONATREMIA Status: Acute Current Visit: Yes (4) Hypoxia SNOMED Code(s): 564085093 ICD Code: R09.02 - HYPOXEMIA Status: Acute Current Visit: Yes (5) Abdominal pain SNOMED Code(s): 19273418 ICD Code: R10.9 - UNSPECIFIED ABDOMINAL PAIN Status: Acute Current Visit : No Qualifiers: Abdominal location: upper abdomen, unspecified Qualified Code(s): R10.10 - Upper abdominal pain, unspecified (6) HLD (hyperlipidemia) SNOMED Code(s): 55668100 ICD Code: E78.5 - HYPERLIPIDEMIA, UNSPECIFIED Status: Acute Priority: Low Current Visit: No Qualifiers: Hyperlipidemia type: unspecified Qualified Code(s): E78.5 - Hyperlipidemia , unspecified (7) HTN (hypertension) SNOMED Code(s): 00799474 ICD Code: I10 - ESSENTIAL (PRIMARY) HYPERTENSION Status: Acute Priority: Medium Current Visit: No Qualifiers: Hypertension type: unspecified Qualified Code(s): I10 - Essential (primary ) hypertension (8) History of West Nile virus (WNV) infection SNOMED Code(s): 554999492 ICD Code: Z86.19 - PERSONAL HISTORY OF OTHER INFECTIOUS AND PARASITIC DISEASES Status: Acute Priority: Medium Current Visit: No (9) Danitza's syndrome SNOMED Code(s): 82966151 ICD Code: G90.2 - DANITZA'S SYNDROME Status: Acute Priority: Medium Current Visit: No (10) Morbid obesity with BMI of 40.0-44.9, adult SNOMED Code(s): 223693987, 87386392449760 ICD Code: E66.01 - MORBID (SEVERE) OBESITY DUE TO EXCESS CALORIES; Z68.41 - BODY MASS INDEX (BMI) 40.0-44.9, ADULT Status: Acute Priority: Medium Current Visit: No (11) Trigeminal neuralgia of right side of face SNOMED Code(s): 38042163 ICD Code: G50.0 - TRIGEMINAL NEURALGIA Status: Chronic Priority: Medium Current Visit: No (12) Transaminitis SNOMED Code(s): 884261799, 913769420 ICD Code: R74.0 - NONSPEC ELEV OF LEVELS OF TRANSAMNS & LACTIC ACID DEHYDRGNSE Status: Acute Priority: High Current Visit: Yes (13) Elevated d-dimer SNOMED Code(s): 956880480 ICD Code: R79.89 - OTHER SPECIFIED ABNORMAL FINDINGS OF BLOOD CHEMISTRY Status: Acute Priority: High Current Visit: Yes (14) Acute renal injury SNOMED Code(s): 34211945, 11855403 ICD Code: N17.9 - ACUTE KIDNEY FAILURE, UNSPECIFIED Status: Acute Priority: High Current Visit: Yes (15) Hyperbilirubinemia SNOMED Code(s): 87474342 ICD Code: E80.6 - OTHER DISORDERS OF BILIRUBIN METABOLISM Status: Chronic Priority: High Current Visit: Yes Problem List Initiated/Reviewed/Updated: Yes Orders Last 24hrs: Active Orders 24 hr Category Date Time Status EKG Documentation Completion [RC] STAT Care 10/31/19 09:46 Active Oxygen Therapy [RC] ASDIRECTED Care 10/31/19 09:46 Active Peripheral IV Care [RC] . DIRECTED Care 10/31/19 09:49 Active Chest 1V Frontal [CR] Stat Exams 10/31/19 09:46 Taken CULTURE BLOOD [BC] Stat Lab 10/31/19 10:10 Received CULTURE BLOOD [BC] Stat Lab 10/31/19 10:15 Received URINALYSIS W/MICROSCOPIC [UA W/MICROSCOPIC] [URIN] Stat Lab 10/31/19 08:50 Received Potassium Chloride [KCl 10 MEQ in Water 100 ML] 10 meq Med 10/31/19 12:30 Active Premix Bag 1 bag IV Q1H Sodium Chloride 0.9% [Normal Saline] 1,000 ml Med 10/31/19 12:30 Active IV ASDIRECTED Sodium Chloride 0.9% [Saline Flush] Med 10/31/19 09:49 Active 10 ml FLUSH ASDIRECTED PRN Blood Culture x2 Reflex Set [OM.PC] Stat Oth 10/31/19 09:47 Ordered Peripheral IV Insertion Adult [OM.PC] Stat Oth 10/31/19 09:49 Ordered Medication Orders Potassium Chloride 10 meq/ (Premix) 100 mls @ 100 mls/hr IV Q1H FRANCHESCA Stop: 10/31/19 16:29 Sodium Chloride (Normal Saline) 1,000 mls @ 50 mls/hr IV ASDIRECTED FRANCHESCA Sodium Chloride (Saline Flush) 10 ml FLUSH ASDIRECTED PRN PRN Reason: Keep Vein Open Last Admin: 10/31/19 09:58 Dose: 10 ml Assessment/Plan Comment:: I/P: Acute: Suspected CHF exacerbation -No known history of CHF -Shortness of breath and orthopnea since hospital discharge on 10/29 -Denies cough or sputum, edema -12-lead in ED shows Sinus Tachycardia at 107 BPM with Q-waves in V1-V2 and II and aVF. Prolonged QTc. -D-dimer 2.06 -Pro-BNP 15500 -CXR shows Bibasilar atelectasis and nothing acute -CTA shows minimal right pleural effusion and bilateral atelectasis. No signs of PE. Incidental cyst in right lobe of liver -Lasix given in ED - Continue BID -RT/IS -Sodium/Fluid restriction -Monitor daily weights, I&Os -BiPAP at night -O2 as needed -[employer]ide [employer]er consult Leukocytosis -WBC 14.09 -Likely stress reaction from prior surgery -Blood cultures obtained and pending -UA ordered -Denies any infectious symptoms Hyponatremia -Sodium 134-135 -Chronic Hypokalemia -Potassium 2.8 -Supplemented in ED -Will be exacerbated by diuresis -Supplement Transaminitis -AST 64 -ALT 178 -Alk Phos 438 -Chronic -Monitor Hyperbilirubinemia -Bilirubin 1.3 -Chronic -Monitor Chronic: impaired vision HLD hypertension gout osteoarthritis vertigo trigeminal neuralgia Danitza's syndrome developmental delay dyslexia depression obesity osteopenia Plan: Admit to medical floor on telemetry Routine AM labs Other orders as indicated above PT/OT CM/SW for discharge planning Home medications as ordered DVT prophylaxis: Home Xarelto; MIKAL hose per patient request Code status: Full Code; PCP: Dr. Dominguez - Mortality Measure Prognosis:: Good
[2019-10-31] MEDS: Potassium Chloride 10 MEQ in Premix Bag 1 BAG IV SCH ×4 (14:08→21:22)
--- NOTE | 2019-10-31 15:44 | CR ---
Chest: Portable view of the chest was obtained. Comparison: No previous chest x-ray. Heart size and mediastinum are normal. Minimal atelectasis within both lung bases. Lungs otherwise are clear. Bony structures are grossly intact. Impression: 1. Minimal bibasilar atelectasis. 2. Nothing acute is appreciated on portable chest x-ray. Diagnostic code #2 This report was dictated in [place] Standard Time
[2019-10-31] MEDS ORDERED: Ondansetron 4 MG/2 ML SDV IV PRN (15:59)
[2019-10-31] MEDS: traMADol 50 MG Tab PO PRN (18:52)
[2019-10-31] MEDS: Citalopram 20 MG Tab PO SCH (21:16)
[2019-10-31] MEDS: Calcium Carbonate/Vitamin D3 600 MG-200 Units Tab PO SCH (21:16)
[2019-10-31] MEDS: carBAMazepine 200 MG Tab PO SCH (21:16)
[2019-10-31] MEDS: Simvastatin 20 MG Tab PO SCH (21:16)
[2019-10-31] MEDS: Loratadine 10 MG Tab PO SCH (21:16)
[2019-10-31] MEDS: Acetaminophen/HYDROcodone 325-5 MG Tab PO PRN (21:16)
[2019-10-31] MEDS: Rivaroxaban 10 MG Tab PO SCH (21:17)
[2019-10-31] MEDS: Aspirin 81 MG Tab.Chew PO SCH (21:17)
[2019-11-01] MEDS: Acetaminophen/HYDROcodone 325-5 MG Tab PO PRN ×2 (04:04→08:22)
[2019-11-01] MEDS: Bisacodyl 5 MG Tab PO PRN (04:11)
[2019-11-01] MEDS: Furosemide 40 MG/4 ML VIAL IVPUSH SCH ×2 (05:55→14:25)
--- NOTE | 2019-11-01 07:32 | PCM.PN ---
- General Info Date of Service: 11/01/19 Subjective Update: Odette reports she feels about the same Will add PT/OT for evaluation and encourage ambulation Functional Status: Reports: Pain Controlled, Tolerating Diet, Ambulating, Urinating, Incentive Spirometry. Denies: New Symptoms - Review of Systems General: Reports: No Symptoms. Denies: Fever, Weakness, Fatigue, Malaise, Chills HEENT: Reports: No Symptoms. Denies: Headaches, Sore Throat Pulmonary: Reports: Shortness of Breath. Denies: Pleuritic Chest Pain, Cough, Sputum, Wheezing Cardiovascular: Reports: No Symptoms. Denies: Chest Pain, Palpitations, Dyspnea on Exertion, Edema Gastrointestinal: Reports: No Symptoms. Denies: Abdominal Pain, Constipation, Diarrhea, Nausea, Vomiting Genitourinary: Reports: No Symptoms. Denies: Pain Musculoskeletal: Reports: No Symptoms Skin: Reports: No Symptoms. Denies: Cyanosis Neurological: Reports: No Symptoms. Denies: Confusion Psychiatric: Reports: No Symptoms - Patient Data Vitals - Most Recent: Last Vital Signs Temp 99.1 F 11/01/19 04:04 Pulse 95 11/01/19 04:04 Resp 20 11/01/19 04:04 BP 123/60 11/01/19 04:04 Pulse Ox 90 L 11/01/19 04:04 Weight - Most Recent: 294 lb 4.8 oz I&O - Last 24 Hours: Intake & Output 10/31/19 11/01/19 11/01/19 22:59 06:59 14:59 Intake Total 400 300 Output Total 1720 Balance 400 -1420 Lab Results Last 24 Hours: Laboratory Results - last 24 hr 10/31/19 10/31/19 10/31/19 Range/Units 09:35 09:35 09:35 WBC 14.09 H (3.98-10.04) K/mm3 RBC 4.14 (3.98-5.22) M/mm3 Hgb 12.3 (11.2-15.7) gm/dl Hct 35.9 (34.1-44.9) % MCV 86.7 (79.4-94.8) fl MCH 29.7 (25.6-32.2) pg MCHC 34.3 (32.2-35.5) g/dl RDW Std Deviation 40.0 (36.4-46.3) fL Plt Count 311 D (182-369) K/mm3 MPV 9.3 L (9.4-12.3) fl Neut % (Auto) (34.0-71.1) % Lymph % (Auto) (19.3-51.7) % [place] % (Auto) (4.7-12.5) % Eos % (Auto) (0.7-5.8) Baso % (Auto) (0.1-1.2) % Neut # (Auto) (1.56-6.13) K/mm3 Lymph # (Auto) (1.18-3.74) K/mm3 [place] # (Auto) (0.24-0.36) K/mm3 Eos # (Auto) (0.04-0.36) K/mm3 Baso # (Auto) (0.01-0.08) K/mm3 Neutrophils % (Manual) 86 H (40-60) % Band Neutrophils % 0 (0-10) % Lymphocytes % (Manual) 8 L (20-40) % Atypical Lymphs % 0 % Monocytes % (Manual) 5 (2-10) % Eosinophils % (Manual) 1 (0.7-5.8) % Basophils % (Manual) 0 L (0.1-1.2) Manual Slide Review Platelet Estimate Adequate RBC Morph Comment Normal PT 11.9 (9.7-12.0) SECONDS INR 1.10 APTT 30 D (22-31) SECONDS D-Dimer, Quantitative (0.19-0.50) mg/L Puncture Site ABG pH (7.35-7.45) ABG pCO2 (35.0-45.0) mmHg ABG pO2 (80.0-100.0) mmHg ABG HCO3 (22.0-26.0) meq/L ABG O2 Saturation (96.0-97.0) % ABG Base Excess (-2-2.0) Kurt Test O2 Delivery Device Oxygen Flow Rate FiO2 (21.00-100.00) % Sodium 134 L (136-145) mEq/L Potassium 2.8 L (3.5-5.1) mEq/L Chloride 95 L (98-107) mEq/L Carbon Dioxide 31 (21-32) mEq/L Anion Gap 10.8 (5-15) BUN 15 (7-18) mg/dL Creatinine 1.0 (0.55-1.02) mg/dL Est Cr Clr Drug Dosing 61.10 mL/min Estimated GFR (MDRD) 57 (>60) mL/min BUN/Creatinine Ratio 15.0 (14-18) Glucose 127 H (74-106) mg/dL Lactic Acid (0.4-2.0) mmol/L Calcium 9.1 (8.5-10.1) mg/dL Magnesium 2.1 (1.8-2.4) mg/dl Total Bilirubin 1.3 H (0.2-1.0) mg/dL AST 64 H (15-37) U/L ALT 178 H (14-59) U/L Alkaline Phosphatase 438 H (46-116) U/L CK-MB (CK-2) 0.6 (0-3.6) ng/ml Troponin I 0.034 (0.00-0.056) ng/mL C-Reactive Protein 27.0 H* (<1.0) mg/dL NT-Pro-B Natriuret Pep (0-125) pg/mL Total Protein 6.5 (6.4-8.2) g/dl Albumin 2.5 L (3.4-5.0) g/dl Globulin 4.0 gm/dL Albumin/Globulin Ratio 0.6 L (1-2) Lipase (73-393) U/L Urine Color (Yellow) Urine Appearance (Clear) Urine pH (5.0-8.0) Ur Specific [place] (1.005-1.030) Urine Protein (Negative) Urine Glucose (UA) (Negative) Urine Ketones (Negative) Urine Occult Blood (Negative) Urine Nitrite (Negative) Urine Bilirubin (Negative) Urine Urobilinogen (0.2-1.0) Ur Leukocyte Esterase (Negative) Urine RBC (0-5) /hpf Urine WBC (0-5) /hpf Ur Squamous Epith Cells (0-5) /hpf Amorphous Sediment (NOT SEEN) /hpf Urine Bacteria (FEW) /hpf Hyaline Casts (0-5) /lpf Urine Mucus (FEW) /hpf Carbamazepine (4.0-12.0) ug/mL 10/31/19 10/31/19 10/31/19 Range/Units 09:35 09:35 09:35 WBC (3.98-10.04) K/mm3 RBC (3.98-5.22) M/mm3 Hgb (11.2-15.7) gm/dl Hct (34.1-44.9) % MCV (79.4-94.8) fl MCH (25.6-32.2) pg MCHC (32.2-35.5) g/dl RDW Std Deviation (36.4-46.3) fL Plt Count (182-369) K/mm3 MPV (9.4-12.3) fl Neut % (Auto) (34.0-71.1) % Lymph % (Auto) (19.3-51.7) % Stark % (Auto) (4.7-12.5) % Eos % (Auto) (0.7-5.8) Baso % (Auto) (0.1-1.2) % Neut # (Auto) (1.56-6.13) K/mm3 Lymph # (Auto) (1.18-3.74) K/mm3 [place] # (Auto) (0.24-0.36) K/mm3 Eos # (Auto) (0.04-0.36) K/mm3 Baso # (Auto) (0.01-0.08) K/mm3 Neutrophils % (Manual) (40-60) % Band Neutrophils % (0-10) % Lymphocytes % (Manual) (20-40) % Atypical Lymphs % % Monocytes % (Manual) (2-10) % Eosinophils % (Manual) (0.7-5.8) % Basophils % (Manual) (0.1-1.2) Manual Slide Review Platelet Estimate RBC Morph Comment PT (9.7-12.0) SECONDS INR APTT (22-31) SECONDS D-Dimer, Quantitative (0.19-0.50) mg/L Puncture Site ABG pH (7.35-7.45) ABG pCO2 (35.0-45.0) mmHg ABG pO2 (80.0-100.0) mmHg ABG HCO3 (22.0-26.0) meq/L ABG O2 Saturation (96.0-97.0) % ABG Base Excess (-2-2.0) Kurt Test O2 Delivery Device Oxygen Flow Rate FiO2 (21.00-100.00) % Sodium (136-145) mEq/L Potassium (3.5-5.1) mEq/L Chloride (98-107) mEq/L Carbon Dioxide (21-32) mEq/L Anion Gap (5-15) BUN (7-18) mg/dL Creatinine (0.55-1.02) mg/dL Est Cr Clr Drug Dosing mL/min Estimated GFR (MDRD) (>60) mL/min BUN/Creatinine Ratio (14-18) Glucose (74-106) mg/dL Lactic Acid 1.3 (0.4-2.0) mmol/L Calcium (8.5-10.1) mg/dL Magnesium (1.8-2.4) mg/dl Total Bilirubin (0.2-1.0) mg/dL AST (15-37) U/L ALT (14-59) U/L Alkaline Phosphatase (46-116) U/L CK-MB (CK-2) (0-3.6) ng/ml Troponin I (0.00-0.056) ng/mL C-Reactive Protein (<1.0) mg/dL NT-Pro-B Natriuret Pep 70729 H (0-125) pg/mL Total Protein (6.4-8.2) g/dl Albumin (3.4-5.0) g/dl Globulin gm/dL Albumin/Globulin Ratio (1-2) Lipase (73-393) U/L Urine Color (Yellow) Urine Appearance (Clear) Urine pH (5.0-8.0) Ur Specific [place] (1.005-1.030) Urine Protein (Negative) Urine Glucose (UA) (Negative) Urine Ketones (Negative) Urine Occult Blood (Negative) Urine Nitrite (Negative) Urine Bilirubin (Negative) Urine Urobilinogen (0.2-1.0) Ur Leukocyte Esterase (Negative) Urine RBC (0-5) /hpf Urine WBC (0-5) /hpf Ur Squamous Epith Cells (0-5) /hpf Amorphous Sediment (NOT SEEN) /hpf Urine Bacteria (FEW) /hpf Hyaline Casts (0-5) /lpf Urine Mucus (FEW) /hpf Carbamazepine 4.5 (4.0-12.0) ug/mL 10/31/19 10/31/19 10/31/19 Range/Units 09:35 09:45 09:47 WBC (3.98-10.04) K/mm3 RBC (3.98-5.22) M/mm3 Hgb (11.2-15.7) gm/dl Hct (34.1-44.9) % MCV (79.4-94.8) fl MCH (25.6-32.2) pg MCHC (32.2-35.5) g/dl RDW Std Deviation (36.4-46.3) fL Plt Count (182-369) K/mm3 MPV (9.4-12.3) fl Neut % (Auto) (34.0-71.1) % Lymph % (Auto) (19.3-51.7) % Stark % (Auto) (4.7-12.5) % Eos % (Auto) (0.7-5.8) Baso % (Auto) (0.1-1.2) % Neut # (Auto) (1.56-6.13) K/mm3 Lymph # (Auto) (1.18-3.74) K/mm3 [place] # (Auto) (0.24-0.36) K/mm3 Eos # (Auto) (0.04-0.36) K/mm3 Baso # (Auto) (0.01-0.08) K/mm3 Neutrophils % (Manual) (40-60) % Band Neutrophils % (0-10) % Lymphocytes % (Manual) (20-40) % Atypical Lymphs % % Monocytes % (Manual) (2-10) % Eosinophils % (Manual) (0.7-5.8) % Basophils % (Manual) (0.1-1.2) Manual Slide Review Platelet Estimate RBC Morph Comment PT (9.7-12.0) SECONDS INR APTT (22-31) SECONDS D-Dimer, Quantitative 2.06 H (0.19-0.50) mg/L Puncture Site Rt radial ABG pH 7.50 H (7.35-7.45) ABG pCO2 39.4 (35.0-45.0) mmHg ABG pO2 71.0 L (80.0-100.0) mmHg ABG HCO3 30.1 H (22.0-26.0) meq/L ABG O2 Saturation 94.4 L (96.0-97.0) % ABG Base Excess 6.6 H (-2-2.0) Kurt Test Positive O2 Delivery Device Nasal cannula Oxygen Flow Rate 4.0 FiO2 0.00 L (21.00-100.00) % Sodium (136-145) mEq/L Potassium (3.5-5.1) mEq/L Chloride (98-107) mEq/L Carbon Dioxide (21-32) mEq/L Anion Gap (5-15) BUN (7-18) mg/dL Creatinine (0.55-1.02) mg/dL Est Cr Clr Drug Dosing mL/min Estimated GFR (MDRD) (>60) mL/min BUN/Creatinine Ratio (14-18) Glucose (74-106) mg/dL Lactic Acid (0.4-2.0) mmol/L Calcium (8.5-10.1) mg/dL Magnesium (1.8-2.4) mg/dl Total Bilirubin (0.2-1.0) mg/dL AST (15-37) U/L ALT (14-59) U/L Alkaline Phosphatase (46-116) U/L CK-MB (CK-2) (0-3.6) ng/ml Troponin I (0.00-0.056) ng/mL C-Reactive Protein (<1.0) mg/dL NT-Pro-B Natriuret Pep (0-125) pg/mL Total Protein (6.4-8.2) g/dl Albumin (3.4-5.0) g/dl Globulin gm/dL Albumin/Globulin Ratio (1-2) Lipase 251 (73-393) U/L Urine Color (Yellow) Urine Appearance (Clear) Urine pH (5.0-8.0) Ur Specific [place] (1.005-1.030) Urine Protein (Negative) Urine Glucose (UA) (Negative) Urine Ketones (Negative) Urine Occult Blood (Negative) Urine Nitrite (Negative) Urine Bilirubin (Negative) Urine Urobilinogen (0.2-1.0) Ur Leukocyte Esterase (Negative) Urine RBC (0-5) /hpf Urine WBC (0-5) /hpf Ur Squamous Epith Cells (0-5) /hpf Amorphous Sediment (NOT SEEN) /hpf Urine Bacteria (FEW) /hpf Hyaline Casts (0-5) /lpf Urine Mucus (FEW) /hpf Carbamazepine (4.0-12.0) ug/mL 10/31/19 11/01/19 Range/Units 16:40 05:40 WBC 12.67 H (3.98-10.04) K/mm3 RBC 3.95 L (3.98-5.22) M/mm3 Hgb 11.8 (11.2-15.7) gm/dl Hct 34.7 (34.1-44.9) % MCV 87.8 (79.4-94.8) fl MCH 29.9 (25.6-32.2) pg MCHC 34.0 (32.2-35.5) g/dl RDW Std Deviation 40.5 (36.4-46.3) fL Plt Count 281 (182-369) K/mm3 MPV 9.6 (9.4-12.3) fl Neut % (Auto) 85.4 H (34.0-71.1) % Lymph % (Auto) 5.1 L (19.3-51.7) % Stark % (Auto) 7.3 (4.7-12.5) % Eos % (Auto) 2.0 (0.7-5.8) Baso % (Auto) 0.2 (0.1-1.2) % Neut # (Auto) 10.82 H (1.56-6.13) K/mm3 Lymph # (Auto) 0.64 L (1.18-3.74) K/mm3 Stark # (Auto) 0.93 H (0.24-0.36) K/mm3 Eos # (Auto) 0.25 (0.04-0.36) K/mm3 Baso # (Auto) 0.03 (0.01-0.08) K/mm3 Neutrophils % (Manual) (40-60) % Band Neutrophils % (0-10) % Lymphocytes % (Manual) (20-40) % Atypical Lymphs % % Monocytes % (Manual) (2-10) % Eosinophils % (Manual) (0.7-5.8) % Basophils % (Manual) (0.1-1.2) Manual Slide Review Abnormal smear Platelet Estimate RBC Morph Comment PT (9.7-12.0) SECONDS INR APTT (22-31) SECONDS D-Dimer, Quantitative (0.19-0.50) mg/L Puncture Site ABG pH (7.35-7.45) ABG pCO2 (35.0-45.0) mmHg ABG pO2 (80.0-100.0) mmHg ABG HCO3 (22.0-26.0) meq/L ABG O2 Saturation (96.0-97.0) % ABG Base Excess (-2-2.0) Kurt Test O2 Delivery Device Oxygen Flow Rate FiO2 (21.00-100.00) % Sodium (136-145) mEq/L Potassium (3.5-5.1) mEq/L Chloride (98-107) mEq/L Carbon Dioxide (21-32) mEq/L Anion Gap (5-15) BUN (7-18) mg/dL Creatinine (0.55-1.02) mg/dL Est Cr Clr Drug Dosing mL/min Estimated GFR (MDRD) (>60) mL/min BUN/Creatinine Ratio (14-18) Glucose (74-106) mg/dL Lactic Acid (0.4-2.0) mmol/L Calcium (8.5-10.1) mg/dL Magnesium (1.8-2.4) mg/dl Total Bilirubin (0.2-1.0) mg/dL AST (15-37) U/L ALT (14-59) U/L Alkaline Phosphatase (46-116) U/L CK-MB (CK-2) (0-3.6) ng/ml Troponin I (0.00-0.056) ng/mL C-Reactive Protein (<1.0) mg/dL NT-Pro-B Natriuret Pep (0-125) pg/mL Total Protein (6.4-8.2) g/dl Albumin (3.4-5.0) g/dl Globulin gm/dL Albumin/Globulin Ratio (1-2) Lipase (73-393) U/L Urine Color Yellow (Yellow) Urine Appearance Clear (Clear) Urine pH 6.0 (5.0-8.0) Ur Specific [place] 1.015 (1.005-1.030) Urine Protein Negative (Negative) Urine Glucose (UA) Negative (Negative) Urine Ketones Negative (Negative) Urine Occult Blood Trace-lysed H (Negative) Urine Nitrite Negative (Negative) Urine Bilirubin Negative (Negative) Urine Urobilinogen 0.2 (0.2-1.0) Ur Leukocyte Esterase Negative (Negative) Urine RBC 0-5 (0-5) /hpf Urine WBC 0-5 (0-5) /hpf Ur Squamous Epith Cells 5-10 H (0-5) /hpf Amorphous Sediment Few H (NOT SEEN) /hpf Urine Bacteria Few (FEW) /hpf Hyaline Casts 0-5 (0-5) /lpf Urine Mucus Few (FEW) /hpf Carbamazepine (4.0-12.0) ug/mL Med Orders - Current: Current Medications Acetaminophen (Tylenol) 650 mg PO Q4H PRN PRN Reason: Pain (Mild 1-3)/fever Hydrocodone Bitart/Acetaminophen ([place] 325-5 Mg) 1 tab PO Q4H PRN PRN Reason: Pain Last Admin: 11/01/19 04:04 Dose: 1 tab Aspirin (Aspirin) 81 mg PO BEDTIME [facility] Last Admin: 10/31/19 21:17 Dose: 81 mg Bisacodyl (Dulcolax) 5 mg PO DAILY PRN PRN Reason: Constipation Last Admin: 11/01/19 04:11 Dose: 5 mg Calcium Carbonate (Calcium Carbonate/Vitamin D 600 Mg-200 Unit) 1 tab PO BID [facility] Last Admin: 10/31/19 21:16 Dose: 1 tab Carbamazepine (Tegretol Tab) 200 mg PO BEDTIME [facility] Last Admin: 10/31/19 21:16 Dose: 200 mg Citalopram Hydrobromide (Celexa) 20 mg PO BEDTIME [facility] Last Admin: 10/31/19 21:16 Dose: 20 mg Docusate Sodium (Colace) 100 mg PO BID PRN PRN Reason: constipation Furosemide (Lasix) 40 mg IVPUSH BIDDIURETIC [facility] Last Admin: 11/01/19 05:55 Dose: 40 mg Gabapentin (Neurontin) 300 mg PO DAILY [facility] Sodium Chloride (Normal Saline) 1,000 mls @ 50 mls/hr IV ASDIRECTED [facility] Last Admin: 10/31/19 14:07 Dose: 50 mls/hr Loratadine (Claritin) 10 mg PO BEDTIME [facility] Last Admin: 10/31/19 21:16 Dose: 10 mg Ondansetron HCl (Zofran) 4 mg IV Q6H PRN PRN Reason: Nausea/Vomiting Rivaroxaban (Xarelto) 10 mg PO BEDTIME [facility] Last Admin: 10/31/19 21:17 Dose: 10 mg Senna (Senna) 8.6 mg PO BID PRN PRN Reason: Constipation Simvastatin (Zocor) 20 mg PO BEDTIME [facility] Last Admin: 10/31/19 21:16 Dose: 20 mg Sodium Chloride (Saline Flush) 10 ml FLUSH ASDIRECTED PRN PRN Reason: Keep Vein Open Last Admin: 10/31/19 09:58 Dose: 10 ml Tramadol HCl (Ultram) 50 mg PO Q6H PRN PRN Reason: Pain Last Admin: 10/31/19 18:52 Dose: 50 mg Discontinued Medications Furosemide (Lasix) 40 mg IVPUSH NOW ONE Stop: 10/31/19 09:50 Last Admin: 10/31/19 09:58 Dose: 40 mg Furosemide (Lasix) 40 mg IVPUSH NOW ONE Stop: 10/31/19 13:01 Last Admin: 10/31/19 13:56 Dose: 40 mg Potassium Chloride 10 meq/ (Premix) 100 mls @ 100 mls/hr IV Q1H [facility] Stop: 10/31/19 16:29 Last Admin: 10/31/19 21:22 Dose: 100 mls/hr Iopamidol (Isovue Multipack-370 (76%)) 100 ml IVPUSH ONETIME ONE Stop: 10/31/19 11:07 Last Admin: 10/31/19 16:10 Dose: Not Given Iopamidol (Isovue-370 (76%)) 100 ml IVPUSH ONETIME ONE Stop: 10/31/19 11:27 Last Admin: 10/31/19 11:27 Dose: 100 ml Sodium Chloride (Saline Flush) 10 ml FLUSH ONETIME ONE Stop: 10/31/19 11:11 Last Admin: 10/31/19 16:10 Dose: Not Given - Exam Quality Assessment: Supplemental Oxygen, DVT Prophylaxis General: Alert, Oriented, Cooperative, No Acute Distress HEENT: Pupils Equal, Pupils Reactive, Mucous Membr. Moist/[place] Neck: Supple, Trachea Midline Lungs: Normal Respiratory Effort, Decreased Breath Sounds Cardiovascular: Regular Rate, Regular Rhythm GI/Abdominal Exam: Normal Bowel Sounds, Soft, Non-Tender, No Distention, No Abnormal Bruit (Female) Exam: Deferred Back Exam: Normal Inspection, Full Range of Motion Extremities: Normal Inspection, Normal Range of Motion, Non-Tender, No Pedal Edema, Normal Capillary Refill Skin: Warm, Dry, Intact Wound/Incisions: Healing Well Neurological: No New Focal Deficit Psy/Mental Status: Alert, Normal Affect, Normal Mood - Problem List & Annotations (1) Acute exacerbation of congestive heart failure SNOMED Code(s): 420141316, 96342354144093 Code(s): I50.9 - HEART FAILURE, UNSPECIFIED Status: Suspected Priority: High Current Visit: Yes Qualifiers: Heart failure type: unspecified Qualified Code(s): I50.9 - Heart failure, unspecified (2) Acute renal injury SNOMED Code(s): 93341470, 03494556 Code(s): N17.9 - ACUTE KIDNEY FAILURE, UNSPECIFIED Status: Acute Priority : High Current Visit: Yes (3) Elevated d-dimer SNOMED Code(s): 174369596 Code(s): R79.89 - OTHER SPECIFIED ABNORMAL FINDINGS OF BLOOD CHEMISTRY Status: Acute Priority: High Current Visit: Yes (4) Hypokalemia SNOMED Code(s): 87710838 Code(s): E87.6 - HYPOKALEMIA Status: Acute Priority: High Current Visit : Yes (5) Hyponatremia SNOMED Code(s): 26810980 Code(s): E87.1 - HYPO-OSMOLALITY AND HYPONATREMIA Status: Acute Priority : High Current Visit: Yes (6) Hypoxia SNOMED Code(s): 800610454 Code(s): R09.02 - HYPOXEMIA Status: Acute Priority: High Current Visit : Yes (7) Transaminitis SNOMED Code(s): 767054026, 479180603 Code(s): R74.0 - NONSPEC ELEV OF LEVELS OF TRANSAMNS & LACTIC ACID DEHYDRGNSE Status: Acute Priority: High Current Visit: Yes (8) Hyperbilirubinemia SNOMED Code(s): 09822537 Code(s): E80.6 - OTHER DISORDERS OF BILIRUBIN METABOLISM Status: Chronic Priority: High Current Visit: Yes (9) HLD (hyperlipidemia) SNOMED Code(s): 59301835 Code(s): E78.5 - HYPERLIPIDEMIA, UNSPECIFIED Status: Acute Priority: Low Current Visit: No Qualifiers: Hyperlipidemia type: unspecified Qualified Code(s): E78.5 - Hyperlipidemia , unspecified (10) HTN (hypertension) SNOMED Code(s): 46630476 Code(s): I10 - ESSENTIAL (PRIMARY) HYPERTENSION Status: Acute Priority: Medium Current Visit: No Qualifiers: Hypertension type: unspecified Qualified Code(s): I10 - Essential (primary ) hypertension (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 SNOMED Code(s): 458340654 Code(s): Z86.19 - PERSONAL HISTORY OF OTHER INFECTIOUS AND PARASITIC DISEASES Status: Acute Priority: Medium Current Visit: No (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 Code(s): G90.2 - DANITZA'S SYNDROME Status: Acute Priority: Medium Current Visit: No (13) Morbid obesity with BMI of 40.0-44.9, adult SNOMED Code(s): 435518156, 31030849236559 Code(s): E66.01 - MORBID (SEVERE) OBESITY DUE TO EXCESS CALORIES; Z68.41 - BODY MASS INDEX (BMI) 40.0-44.9, ADULT Status: Acute Priority: Medium Current Visit: No - Problem List Review Problem List Initiated/Reviewed/Updated: Yes - My Orders Last 24 Hours: My Active Orders 10/31/19 15:59 Height and Weight [RC] 04 Intake and Output [RC] 04,16 Up With Assistance [RC] ASDIRECTED VTE/DVT Education [RC] PER UNIT ROUTINE Vital Signs [RC] Q4HR Consult to Repairer Pump [CONS] Routine Consult to Spiritual Care [CONS] Routine Acetaminophen [Tylenol] 650 mg PO Q4H PRN Ondansetron [Zofran] 4 mg IV Q6H PRN Resuscitation Status Routine 10/31/19 16:48 Acetaminophen/HYDROcodone [[place] 325-5 MG] 1 tab PO Q4H PRN Bisacodyl [Dulcolax] 5 mg PO DAILY PRN Docusate Sodium [Colace] 100 mg PO BID PRN Sennosides [Senna] 8.6 mg PO BID PRN traMADol [Ultram] 50 mg PO Q6H PRN 10/31/19 16:57 RT Incentive Spirometry [RC] ASDIRECTED 10/31/19 17:24 BIPAP [RT BiPAP/CPAP] [RC] ASDIRECTED Consult to Respiratory Therapy [Respiratory Care Assess and Treatment] [CONS] Routine 10/31/19 21:00 Aspirin 81 mg PO BEDTIME Calcium Carbonate/Vitamin D3 [Calcium Carbonate/Vitamin D 600 MG-200 Unit] 1 tab PO BID Citalopram [Celexa] 20 mg PO BEDTIME Loratadine [Claritin] 10 mg PO BEDTIME Rivaroxaban [Xarelto] 10 mg PO BEDTIME Simvastatin [Zocor] 20 mg PO BEDTIME carBAMazepine [TEGretol Tab] 200 mg PO BEDTIME 10/31/19 Dinner 2 Gram Sodium Diet [DIET] Fluid Restriction [DIET] 11/01/19 05:40 CMP [COMPREHENSIVE METABOLIC PN,CMP] [CHEM] AM MAGNESIUM [CHEM] AM PHOSPHORUS [CHEM] AM 11/01/19 06:00 Furosemide [Lasix] 40 mg IVPUSH BIDDIURETIC 11/01/19 07:00 Echo Comp wo Cont [US] Routine 11/01/19 07:15 ABG [BLOOD GAS ARTERIAL] [BG] Urgent 11/01/19 09:00 Gabapentin [Neurontin] 300 mg PO DAILY - Plan Plan:: I/P: Acute: Suspected CHF exacerbation -No known history of CHF -Shortness of breath and orthopnea since hospital discharge on 10/29 -Denies cough or sputum, edema -12-lead in ED shows Sinus Tachycardia at 107 BPM with Q-waves in V1-V2 and II and aVF. Prolonged QTc. -D-dimer 2.06 -Pro-BNP 41517 -CXR shows Bibasilar atelectasis and nothing acute -CTA shows minimal right pleural effusion and bilateral atelectasis. No signs of PE. Incidental cyst in right lobe of liver -Lasix given in ED - Continue BID -RT/IS -Sodium/Fluid restriction -Monitor daily weights, I&Os -BiPAP at night -O2 as needed -Repairer Pump consult -Echo obtained and pending Leukocytosis, Improving -WBC 14.09-->12.67 -Likely stress reaction from prior surgery -Blood cultures negative -UA negative -Denies any infectious symptoms, no fevers Hyponatremia -Sodium 134-135 -Chronic Hypokalemia, improving -Potassium 2.8-->2.5-->3.0 -Supplemented in ED -Will be exacerbated by diuresis -Supplement Transaminitis, improving -AST 64-->62 -ALT 178-->132 -Alk Phos 438-->394 -Chronic -Monitor Hyperbilirubinemia, improving -Bilirubin 1.3-->1.1 -Chronic -Monitor Chronic: impaired vision HLD hypertension gout osteoarthritis vertigo trigeminal neuralgia Danitza's syndrome developmental delay dyslexia depression obesity osteopenia Plan: Admit to medical floor on telemetry Routine AM labs Other orders as indicated above PT/OT CM/SW for discharge planning Home medications as ordered DVT prophylaxis: Home Xarelto; MIKAL junior per patient request Code status: Full Code; PCP: Dr. Dominguez
[2019-11-01] MEDS ORDERED: Potassium Chloride 10 MEQ in Premix Bag 1 BAG IV SCH (07:45)
[2019-11-01] MEDS: Calcium Carbonate/Vitamin D3 600 MG-200 Units Tab PO SCH ×2 (08:22→20:25)
[2019-11-01] MEDS: Gabapentin 300 MG Cap PO SCH (08:24)
[2019-11-01] MEDS: Potassium Chloride 20 MEQ Tab.ER PO SCH ×3 (08:24→20:24)
[2019-11-01] MEDS: Sennosides 8.6 MG Tab PO PRN (15:32)
[2019-11-01] MEDS: Acetaminophen 325 MG Tab PO PRN (18:14)
[2019-11-01] MEDS: Loratadine 10 MG Tab PO SCH (20:25)
[2019-11-01] MEDS: Citalopram 20 MG Tab PO SCH (20:25)
[2019-11-01] MEDS: Aspirin 81 MG Tab.Chew PO SCH (20:25)
[2019-11-01] MEDS: Simvastatin 20 MG Tab PO SCH (20:25)
[2019-11-01] MEDS: carBAMazepine 200 MG Tab PO SCH (20:25)
[2019-11-01] MEDS: Rivaroxaban 10 MG Tab PO SCH (20:25)
[2019-11-02] MEDS: Acetaminophen 325 MG Tab PO PRN ×2 (01:42→15:07)
[2019-11-02] MEDS: Furosemide 40 MG/4 ML VIAL IVPUSH SCH (06:16)
[2019-11-02] MEDS: Acetaminophen/HYDROcodone 325-5 MG Tab PO PRN ×2 (08:10→22:12)
[2019-11-02] MEDS: Calcium Carbonate/Vitamin D3 600 MG-200 Units Tab PO SCH ×2 (08:24→22:15)
[2019-11-02] MEDS: Gabapentin 300 MG Cap PO SCH (08:24)
[2019-11-02] MEDS: Potassium Chloride 20 MEQ Tab.ER PO SCH ×2 (08:24→22:14)
--- NOTE | 2019-11-02 08:57 | PCM.PN ---
- General Info Date of Service: 11/02/19 Subjective Update: Odette reports she feels worse CXR today shows density in RLL Will start ABX and Duonebs. Functional Status: Reports: Pain Controlled, Tolerating Diet, Ambulating, Urinating, New Symptoms (Worsening SOB, Weakness ), Incentive Spirometry - Review of Systems General: Reports: No Symptoms, Weakness, Fatigue. Denies: Fever, Malaise, Chills HEENT: Reports: No Symptoms. Denies: Headaches, Sore Throat Pulmonary: Reports: No Symptoms, Shortness of Breath. Denies: Pleuritic Chest Pain, Cough, Sputum, Wheezing Cardiovascular: Reports: Dyspnea on Exertion. Denies: Chest Pain, Palpitations , Edema Gastrointestinal: Reports: No Symptoms. Denies: Abdominal Pain, Constipation, Diarrhea, Nausea, Vomiting Genitourinary: Reports: No Symptoms. Denies: Pain Musculoskeletal: Reports: No Symptoms Skin: Reports: No Symptoms. Denies: Cyanosis Neurological: Reports: No Symptoms. Denies: Confusion Psychiatric: Reports: No Symptoms - Patient Data Vitals - Most Recent: Last Vital Signs Temp 97.3 F 11/02/19 07:38 Pulse 101 H 11/02/19 08:21 Resp 20 11/02/19 07:38 BP 117/65 11/02/19 07:38 Pulse Ox 95 11/02/19 08:21 Weight - Most Recent: 293 lb 4.8 oz I&O - Last 24 Hours: Intake & Output 11/01/19 11/02/19 11/02/19 22:59 06:59 14:59 Intake Total 520 400 Output Total 1850 700 Balance -1330 -300 Lab Results Last 24 Hours: Laboratory Results - last 24 hr 11/01/19 Range/Units 14:04 Sodium 135 L (136-145) mEq/L Potassium 3.0 L (3.5-5.1) mEq/L Chloride 95 L (98-107) mEq/L Carbon Dioxide 35 H (21-32) mEq/L Anion Gap 8.0 (5-15) BUN 19 H (7-18) mg/dL Creatinine 1.2 H (0.55-1.02) mg/dL Est Cr Clr Drug Dosing 50.92 mL/min Estimated GFR (MDRD) 46 (>60) mL/min BUN/Creatinine Ratio 15.8 (14-18) Glucose 144 H (74-106) mg/dL Calcium 8.7 (8.5-10.1) mg/dL Corky Results Last 24 Hours: Microbiology 10/31/19 10:15 Aerobic Blood Culture - Preliminary Blood - Venous - Lab Draw NO GROWTH AFTER 1 DAY Anaerobic Blood Culture - Preliminary NO GROWTH AFTER 1 DAY 10/31/19 10:10 Aerobic Blood Culture - Preliminary Blood - Venous NO GROWTH AFTER 1 DAY Anaerobic Blood Culture - Preliminary NO GROWTH AFTER 1 DAY Med Orders - Current: Current Medications Acetaminophen (Tylenol) 650 mg PO Q4H PRN PRN Reason: Pain (Mild 1-3)/fever Last Admin: 11/02/19 01:42 Dose: 650 mg Hydrocodone Bitart/Acetaminophen ([place] 325-5 Mg) 1 tab PO Q4H PRN PRN Reason: Pain Last Admin: 11/02/19 08:10 Dose: 1 tab Aspirin (Aspirin) 81 mg PO BEDTIME [facility] Last Admin: 11/01/19 20:25 Dose: 81 mg Bisacodyl (Dulcolax) 5 mg PO DAILY PRN PRN Reason: Constipation Last Admin: 11/01/19 04:11 Dose: 5 mg Calcium Carbonate (Calcium Carbonate/Vitamin D 600 Mg-200 Unit) 1 tab PO BID [facility] Last Admin: 11/02/19 08:24 Dose: 1 tab Carbamazepine (Tegretol Tab) 200 mg PO BEDTIME [facility] Last Admin: 11/01/19 20:25 Dose: 200 mg Citalopram Hydrobromide (Celexa) 20 mg PO BEDTIME [facility] Last Admin: 11/01/19 20:25 Dose: 20 mg Docusate Sodium (Colace) 100 mg PO BID PRN PRN Reason: constipation Furosemide (Lasix) 40 mg IVPUSH BIDDIURETIC [facility] Last Admin: 11/02/19 06:16 Dose: 40 mg Gabapentin (Neurontin) 300 mg PO DAILY [facility] Last Admin: 11/02/19 08:24 Dose: 300 mg Loratadine (Claritin) 10 mg PO BEDTIME [facility] Last Admin: 11/01/19 20:25 Dose: 10 mg Ondansetron HCl (Zofran) 4 mg IV Q6H PRN PRN Reason: Nausea/Vomiting Potassium Chloride (Klor-Con M20) 40 meq PO TID [facility] Last Admin: 11/02/19 08:24 Dose: 40 meq Rivaroxaban (Xarelto) 10 mg PO BEDTIME [facility] Last Admin: 11/01/19 20:25 Dose: 10 mg Senna (Senna) 8.6 mg PO BID PRN PRN Reason: Constipation Last Admin: 11/01/19 15:32 Dose: 8.6 mg Simvastatin (Zocor) 20 mg PO BEDTIME [facility] Last Admin: 11/01/19 20:25 Dose: 20 mg Sodium Chloride (Saline Flush) 10 ml FLUSH ASDIRECTED PRN PRN Reason: Keep Vein Open Last Admin: 10/31/19 09:58 Dose: 10 ml Tramadol HCl (Ultram) 50 mg PO Q6H PRN PRN Reason: Pain Last Admin: 10/31/19 18:52 Dose: 50 mg Discontinued Medications Furosemide (Lasix) 40 mg IVPUSH NOW ONE Stop: 10/31/19 09:50 Last Admin: 10/31/19 09:58 Dose: 40 mg Furosemide (Lasix) 40 mg IVPUSH NOW ONE Stop: 10/31/19 13:01 Last Admin: 10/31/19 13:56 Dose: 40 mg Potassium Chloride 10 meq/ (Premix) 100 mls @ 100 mls/hr IV Q1H [facility] Stop: 10/31/19 16:29 Last Admin: 10/31/19 21:22 Dose: 100 mls/hr Sodium Chloride (Normal Saline) 1,000 mls @ 50 mls/hr IV ASDIRECTED [facility] Last Admin: 10/31/19 14:07 Dose: 50 mls/hr Potassium Chloride 10 meq/ (Premix) 100 mls @ 100 mls/hr IV Q1H [facility] Stop: 11/01/19 11:44 Iopamidol (Isovue Multipack-370 (76%)) 100 ml IVPUSH ONETIME ONE Stop: 10/31/19 11:07 Last Admin: 10/31/19 16:10 Dose: Not Given Iopamidol (Isovue-370 (76%)) 100 ml IVPUSH ONETIME ONE Stop: 10/31/19 11:27 Last Admin: 10/31/19 11:27 Dose: 100 ml Sodium Chloride (Saline Flush) 10 ml FLUSH ONETIME ONE Stop: 10/31/19 11:11 Last Admin: 10/31/19 16:10 Dose: Not Given - Exam Quality Assessment: Supplemental Oxygen, DVT Prophylaxis General: Alert, Oriented, Cooperative, No Acute Distress HEENT: Pupils Equal, Pupils Reactive, Mucous Membr. Moist/[place] Neck: Supple, Trachea Midline Lungs: Normal Respiratory Effort, Decreased Breath Sounds, Rales. No: Wheezing Cardiovascular: Regular Rate, Regular Rhythm GI/Abdominal Exam: Normal Bowel Sounds, Soft, Non-Tender, No Distention, No Abnormal Bruit (Female) Exam: Deferred Back Exam: Normal Inspection, Full Range of Motion Extremities: Normal Inspection, Normal Range of Motion, Non-Tender, No Pedal Edema, Normal Capillary Refill Peripheral Pulses: 2+: Radial (L), Radial (R), Dorsalis Pedis (L), Dorsalis Pedis (R) Skin: Warm, Dry, Intact Neurological: No New Focal Deficit Psy/Mental Status: Alert, Normal Affect, Normal Mood - Problem List & Annotations (1) Acute exacerbation of congestive heart failure SNOMED Code(s): 531105379, 20627819335180 Code(s): I50.9 - HEART FAILURE, UNSPECIFIED Status: Suspected Priority: High Current Visit: Yes Qualifiers: Heart failure type: unspecified Qualified Code(s): I50.9 - Heart failure, unspecified (2) Acute renal injury SNOMED Code(s): 27085323, 50677515 Code(s): N17.9 - ACUTE KIDNEY FAILURE, UNSPECIFIED Status: Acute Priority : High Current Visit: Yes (3) Elevated d-dimer SNOMED Code(s): 521445337 Code(s): R79.89 - OTHER SPECIFIED ABNORMAL FINDINGS OF BLOOD CHEMISTRY Status: Acute Priority: High Current Visit: Yes (4) Hypokalemia SNOMED Code(s): 68183463 Code(s): E87.6 - HYPOKALEMIA Status: Acute Priority: High Current Visit : Yes (5) Hyponatremia SNOMED Code(s): 77255823 Code(s): E87.1 - HYPO-OSMOLALITY AND HYPONATREMIA Status: Acute Priority : High Current Visit: Yes (6) Hypoxia SNOMED Code(s): 148649026 Code(s): R09.02 - HYPOXEMIA Status: Acute Priority: High Current Visit : Yes (7) Transaminitis SNOMED Code(s): 363997252, 215006317 Code(s): R74.0 - NONSPEC ELEV OF LEVELS OF TRANSAMNS & LACTIC ACID DEHYDRGNSE Status: Acute Priority: High Current Visit: Yes (8) Hyperbilirubinemia SNOMED Code(s): 86372608 Code(s): E80.6 - OTHER DISORDERS OF BILIRUBIN METABOLISM Status: Chronic Priority: High Current Visit: Yes (9) HLD (hyperlipidemia) SNOMED Code(s): 95429425 Code(s): E78.5 - HYPERLIPIDEMIA, UNSPECIFIED Status: Acute Priority: Low Current Visit: No Qualifiers: Hyperlipidemia type: unspecified Qualified Code(s): E78.5 - Hyperlipidemia , unspecified (10) HTN (hypertension) SNOMED Code(s): 50931398 Code(s): I10 - ESSENTIAL (PRIMARY) HYPERTENSION Status: Acute Priority: Medium Current Visit: No Qualifiers: Hypertension type: unspecified Qualified Code(s): I10 - Essential (primary ) hypertension (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 SNOMED Code(s): 953518222 Code(s): Z86.19 - PERSONAL HISTORY OF OTHER INFECTIOUS AND PARASITIC DISEASES Status: Acute Priority: Medium Current Visit: No (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 Code(s): G90.2 - DANITZA'S SYNDROME Status: Acute Priority: Medium Current Visit: No (13) Morbid obesity with BMI of 40.0-44.9, adult SNOMED Code(s): 352421717, 74779198497074 Code(s): E66.01 - MORBID (SEVERE) OBESITY DUE TO EXCESS CALORIES; Z68.41 - BODY MASS INDEX (BMI) 40.0-44.9, ADULT Status: Acute Priority: Medium Current Visit: No - Problem List Review Problem List Initiated/Reviewed/Updated: Yes - My Orders Last 24 Hours: My Active Orders 11/01/19 09:00 Gabapentin [Neurontin] 300 mg PO DAILY Potassium Chloride [Klor-Con M20] 40 meq PO TID 11/01/19 15:43 Consult to Physical Therapy [PT Evaluation and Treatment] [CONS] Routine 11/01/19 15:44 Consult to Occupational Therapy [OT Evaluation and Treatment] [CONS] Routine 11/02/19 07:38 BASIC METABOLIC PANEL,BMP [CHEM] Routine CBC WITH AUTO DIFF [HEME] Routine MAGNESIUM [CHEM] Routine 11/02/19 08:00 CXR [Chest 2V] [CR] Routine - Plan Plan:: I/P: Acute: Suspected CHF exacerbation -No known history of CHF -Shortness of breath and orthopnea since hospital discharge on 10/29 -Denies cough or sputum, edema -12-lead in ED shows Sinus Tachycardia at 107 BPM with Q-waves in V1-V2 and II and aVF. Prolonged QTc. -D-dimer 2.06 -Pro-BNP 54964 -CXR shows Bibasilar atelectasis and nothing acute -CTA shows minimal right pleural effusion and bilateral atelectasis. No signs of PE. Incidental cyst in right lobe of liver -Lasix given in ED - Continue BID-> decrease to once daily -RT/IS -Sodium/Fluid restriction -Monitor daily weights, I&Os -BiPAP at night -O2 as needed -Medical Accounts Receivable Specialist consult -Echo obtained and pending PNA, questionable aspiration -WBC 14.09-->12.67-->14.34 -Elevated WBC and CRP thought to be from prior surgery on admission -Blood cultures negative -Denies any infectious symptoms, no fevers -Reports malaise, weakness, worsening SOB -Repeat CXR shows right lower lobe infiltrate possible aspiration -PCN allergy - Will start rocephin 2gm Q24 and Metronidazole Q8 -IS/RT -Duoneb as needed -Droplet isolation Hyponatremia -Sodium 134-135 -Chronic Hypokalemia, improving -Potassium 2.8-->2.5-->3.0-->3.2 -Supplemented in ED -Will be exacerbated by diuresis -Supplement Transaminitis, improving -AST 64-->62 -ALT 178-->132 -Alk Phos 438-->394 -Chronic -Monitor Hyperbilirubinemia, improving -Bilirubin 1.3-->1.1 -Chronic -Monitor Chronic: impaired vision HLD hypertension gout osteoarthritis vertigo trigeminal neuralgia Danitza's syndrome developmental delay dyslexia depression obesity osteopenia Plan: Admit to medical floor on telemetry Routine AM labs Other orders as indicated above PT/OT CM/SW for discharge planning Home medications as ordered DVT prophylaxis: Home Xarelto; MIKAL hose per patient request Code status: Full Code; PCP: Dr. Dominguez
--- NOTE | 2019-11-02 09:41 | CR ---
Chest: Two views of the chest were obtained. Comparison: Prior chest x-ray of 10/31/19. Findings: Heart size and mediastinum are normal. Slight parenchymal density noted within the left lung base. Findings are fairly stable from prior chest x-ray. Areas of increased density seen within the right lateral costophrenic angle which are an interval change from prior chest x-ray. Lungs are otherwise clear. Heart size and mediastinum are normal. Mild degenerative change scattered within the spine. Impression: 1. Increased density within the right base which is an interval change from prior exam. Uncertain if findings represent change from aspiration or worsening pneumonia. 2. Stable change within the left base. 3. Nothing acute is otherwise seen. Diagnostic code #3 This report was dictated in [place] Standard Time
[2019-11-02] MEDS ORDERED: Albuterol/Ipratropium 3.0-0.5 MG/3 ML Neb Soln NEB PRN (11:28)
[2019-11-02] MEDS: cefTRIAXone 2 GM in Sodium Chloride 0.9% 100 ML IV SCH (12:03)
[2019-11-02] MEDS: Docusate Sodium 100 MG Cap PO PRN (12:04)
[2019-11-02] MEDS: metroNIDAZOLE/Normal Saline 500 MG in Premix Bag 1 BAG IV SCH ×2 (12:40→22:11)
[2019-11-02] MEDS ORDERED: Albuterol/Ipratropium 3.0-0.5 MG/3 ML Neb Soln NEB SCH (13:30)
[2019-11-02] MEDS: Albuterol/Ipratropium 3.0-0.5 MG/3 ML Neb Soln NEB SCH ×2 (14:31→20:39)
[2019-11-02] MEDS: Rivaroxaban 10 MG Tab PO SCH (22:12)
[2019-11-02] MEDS: Citalopram 20 MG Tab PO SCH (22:14)
[2019-11-02] MEDS: carBAMazepine 200 MG Tab PO SCH (22:14)
[2019-11-02] MEDS: Loratadine 10 MG Tab PO SCH (22:15)
[2019-11-02] MEDS: Aspirin 81 MG Tab.Chew PO SCH (22:15)
[2019-11-02] MEDS: Simvastatin 20 MG Tab PO SCH (22:15)
[2019-11-03] MEDS: Acetaminophen/HYDROcodone 325-5 MG Tab PO PRN ×3 (02:32→16:46)
[2019-11-03] MEDS: Albuterol/Ipratropium 3.0-0.5 MG/3 ML Neb Soln NEB SCH ×4 (03:06→20:36)
[2019-11-03] MEDS: Sennosides 8.6 MG Tab PO PRN (03:43)
[2019-11-03] MEDS: Bisacodyl 5 MG Tab PO PRN (03:43)
[2019-11-03] MEDS: metroNIDAZOLE/Normal Saline 500 MG in Premix Bag 1 BAG IV SCH ×3 (03:43→20:57)
[2019-11-03] MEDS: Calcium Carbonate/Vitamin D3 600 MG-200 Units Tab PO SCH ×2 (08:54→21:02)
[2019-11-03] MEDS: Potassium Chloride 20 MEQ Tab.ER PO SCH (08:54)
[2019-11-03] MEDS: Gabapentin 300 MG Cap PO SCH (08:57)
[2019-11-03] MEDS ORDERED: Furosemide 40 MG/4 ML VIAL IVPUSH SCH (09:00)
[2019-11-03] MEDS: Acetaminophen 325 MG Tab PO PRN ×2 (10:18→18:53)
[2019-11-03] MEDS ORDERED: Sodium Chloride 0.65% Nasal Spray 45 ML Bottle NAS PRN (11:31)
[2019-11-03] MEDS ORDERED: Magnesium Hydroxide 400 MG/5 ML Susp 30 ML Cup PO ONE (11:35)
[2019-11-03] MEDS ORDERED: Potassium Chloride 20 MEQ Tab.ER PO ONE ×2 (11:35→21:00)
[2019-11-03] MEDS: cefTRIAXone 2 GM in Sodium Chloride 0.9% 100 ML IV SCH (12:07)
[2019-11-03] MEDS ORDERED: Furosemide 20 MG/2 ML VIAL IVPUSH ONE (15:00)
--- NOTE | 2019-11-03 15:27 | PCM.PN ---
- General Info Date of Service: 11/03/19 Subjective Update: Odette reports she is improving, but still having bilateral hip pain. CXR today shows density in RLL Functional Status: Denies: Pain Controlled - Review of Systems General: Denies: Fever HEENT: Reports: No Symptoms Pulmonary: Reports: Shortness of Breath Cardiovascular: Reports: No Symptoms Gastrointestinal: Reports: No Symptoms Musculoskeletal: Reports: Leg Pain - Patient Data Vitals - Most Recent: Last Vital Signs Temp 98.4 F 11/03/19 11:31 Pulse 92 11/03/19 11:32 Resp 16 11/03/19 11:31 BP 99/73 11/03/19 11:32 Pulse Ox 96 11/03/19 14:29 Weight - Most Recent: 294 lb 14.4 oz I&O - Last 24 Hours: Intake & Output 11/03/19 11/03/19 11/03/19 06:59 14:59 22:59 Intake Total 600 180 Output Total 1250 Balance -650 180 Lab Results Last 24 Hours: Laboratory Results - last 24 hr 11/03/19 11/03/19 Range/Units 05:25 05:25 WBC 13.66 H (3.98-10.04) K/mm3 RBC 3.78 L (3.98-5.22) M/mm3 Hgb 11.0 L (11.2-15.7) gm/dl Hct 33.7 L (34.1-44.9) % MCV 89.2 (79.4-94.8) fl MCH 29.1 (25.6-32.2) pg MCHC 32.6 (32.2-35.5) g/dl RDW Std Deviation 42.0 (36.4-46.3) fL Plt Count 324 (182-369) K/mm3 MPV 9.6 (9.4-12.3) fl Neut % (Auto) 83.6 H (34.0-71.1) % Lymph % (Auto) 6.0 L (19.3-51.7) % [place] % (Auto) 7.7 (4.7-12.5) % Eos % (Auto) 2.2 (0.7-5.8) Baso % (Auto) 0.2 (0.1-1.2) % Neut # (Auto) 11.42 H (1.56-6.13) K/mm3 Lymph # (Auto) 0.82 L (1.18-3.74) K/mm3 [place] # (Auto) 1.05 H (0.24-0.36) K/mm3 Eos # (Auto) 0.30 (0.04-0.36) K/mm3 Baso # (Auto) 0.03 (0.01-0.08) K/mm3 Manual Slide Review Abnormal smear Sodium 135 L (136-145) mEq/L Potassium 3.2 L (3.5-5.1) mEq/L Chloride 97 L (98-107) mEq/L Carbon Dioxide 29 (21-32) mEq/L Anion Gap 12.2 (5-15) BUN 30 H (7-18) mg/dL Creatinine 1.4 H (0.55-1.02) mg/dL Est Cr Clr Drug Dosing 43.65 mL/min Estimated GFR (MDRD) 38 (>60) mL/min BUN/Creatinine Ratio 21.4 H (14-18) Glucose 138 H (74-106) mg/dL Calcium 8.7 (8.5-10.1) mg/dL Magnesium 1.8 (1.8-2.4) mg/dl Corky Results Last 24 Hours: Microbiology 10/31/19 10:15 Aerobic Blood Culture - Preliminary Blood - Venous - Lab Draw NO GROWTH AFTER 3 DAYS Anaerobic Blood Culture - Preliminary NO GROWTH AFTER 3 DAYS 10/31/19 10:10 Aerobic Blood Culture - Preliminary Blood - Venous NO GROWTH AFTER 3 DAYS Anaerobic Blood Culture - Preliminary NO GROWTH AFTER 3 DAYS Med Orders - Current: Current Medications Acetaminophen (Tylenol) 650 mg PO Q4H PRN PRN Reason: Pain (Mild 1-3)/fever Last Admin: 11/03/19 10:18 Dose: 650 mg Hydrocodone Bitart/Acetaminophen ([place] 325-5 Mg) 1 tab PO Q4H PRN PRN Reason: Pain Last Admin: 11/03/19 08:57 Dose: 1 tab Albuterol/Ipratropium (Duoneb 3.0-0.5 Mg/3 Ml) 3 ml NEB Q6HRRT [facility] Last Admin: 11/03/19 14:28 Dose: 3 ml Aspirin (Aspirin) 81 mg PO BEDTIME [facility] Last Admin: 11/02/19 22:15 Dose: 81 mg Bisacodyl (Dulcolax) 5 mg PO DAILY PRN PRN Reason: Constipation Last Admin: 11/03/19 03:43 Dose: 5 mg Calcium Carbonate (Calcium Carbonate/Vitamin D 600 Mg-200 Unit) 1 tab PO BID [facility] Last Admin: 11/03/19 08:54 Dose: 1 tab Carbamazepine (Tegretol Tab) 200 mg PO BEDTIME [facility] Last Admin: 11/02/19 22:14 Dose: 200 mg Citalopram Hydrobromide (Celexa) 20 mg PO BEDTIME [facility] Last Admin: 11/02/19 22:14 Dose: 20 mg Docusate Sodium (Colace) 100 mg PO BID PRN PRN Reason: constipation Last Admin: 11/02/19 12:04 Dose: 100 mg Furosemide (Lasix) 40 mg IVPUSH DAILY [facility] Last Admin: 11/03/19 08:52 Dose: 40 mg Gabapentin (Neurontin) 300 mg PO DAILY [facility] Last Admin: 11/03/19 08:57 Dose: 300 mg Ceftriaxone Sodium 2 gm/ (Sodium Chloride) 100 mls @ 200 mls/hr IV Q24H [facility] Last Admin: 11/03/19 12:07 Dose: 200 mls/hr Metronidazole 500 mg/ Premix 100 mls @ 100 mls/hr IV Q8H [facility] Last Admin: 11/03/19 12:44 Dose: 100 mls/hr Loratadine (Claritin) 10 mg PO BEDTIME [facility] Last Admin: 11/02/19 22:15 Dose: 10 mg Ondansetron HCl (Zofran) 4 mg IV Q6H PRN PRN Reason: Nausea/Vomiting Polyethylene Glycol (Miralax) 17 gm PO BEDTIME [facility] Potassium Chloride (Klor-Con M20) 40 meq PO BID [facility] Last Admin: 11/03/19 08:54 Dose: 40 meq Rivaroxaban (Xarelto) 10 mg PO BEDTIME [facility] Last Admin: 11/02/19 22:12 Dose: 10 mg Senna (Senna) 8.6 mg PO BID PRN PRN Reason: Constipation Last Admin: 11/03/19 03:43 Dose: 8.6 mg Simvastatin (Zocor) 20 mg PO BEDTIME [facility] Last Admin: 11/02/19 22:15 Dose: 20 mg Sodium Chloride (Saline Flush) 10 ml FLUSH ASDIRECTED PRN PRN Reason: Keep Vein Open Last Admin: 10/31/19 09:58 Dose: 10 ml Sodium Chloride (Walker Nasal [place]) 0 ml WILMAN Q2H PRN PRN Reason: Other Tramadol HCl (Ultram) 50 mg PO Q6H PRN PRN Reason: Pain Last Admin: 10/31/19 18:52 Dose: 50 mg Discontinued Medications Albuterol/Ipratropium (Duoneb 3.0-0.5 Mg/3 Ml) 3 ml NEB Q6H PRN PRN Reason: SOB/wheezing Albuterol/Ipratropium (Duoneb 3.0-0.5 Mg/3 Ml) 3 ml NEB Q6H [facility] Last Admin: 11/02/19 14:46 Dose: Not Given Furosemide (Lasix) 40 mg IVPUSH NOW ONE Stop: 10/31/19 09:50 Last Admin: 10/31/19 09:58 Dose: 40 mg Furosemide (Lasix) 40 mg IVPUSH NOW ONE Stop: 10/31/19 13:01 Last Admin: 10/31/19 13:56 Dose: 40 mg Furosemide (Lasix) 40 mg IVPUSH BIDDIURETIC [facility] Last Admin: 11/02/19 06:16 Dose: 40 mg Furosemide (Lasix) 20 mg IVPUSH ONETIME ONE Stop: 11/03/19 15:01 Potassium Chloride 10 meq/ (Premix) 100 mls @ 100 mls/hr IV Q1H [facility] Stop: 10/31/19 16:29 Last Admin: 10/31/19 21:22 Dose: 100 mls/hr Sodium Chloride (Normal Saline) 1,000 mls @ 50 mls/hr IV ASDIRECTED [facility] Last Admin: 10/31/19 14:07 Dose: 50 mls/hr Potassium Chloride 10 meq/ (Premix) 100 mls @ 100 mls/hr IV Q1H [facility] Stop: 11/01/19 11:44 Iopamidol (Isovue Multipack-370 (76%)) 100 ml IVPUSH ONETIME ONE Stop: 10/31/19 11:07 Last Admin: 10/31/19 16:10 Dose: Not Given Iopamidol (Isovue-370 (76%)) 100 ml IVPUSH ONETIME ONE Stop: 10/31/19 11:27 Last Admin: 10/31/19 11:27 Dose: 100 ml Magnesium Hydroxide (Milk Of Magnesia) 30 ml PO ONETIME ONE Stop: 11/03/19 11:36 Last Admin: 11/03/19 12:06 Dose: 30 ml Potassium Chloride (Klor-Con M20) 40 meq PO TID [facility] Last Admin: 11/02/19 08:24 Dose: 40 meq Potassium Chloride (Klor-Con M20) 40 meq PO ONETIME ONE Stop: 11/03/19 11:36 Last Admin: 11/03/19 12:06 Dose: 40 meq Sodium Chloride (Saline Flush) 10 ml FLUSH ONETIME ONE Stop: 10/31/19 11:11 Last Admin: 10/31/19 16:10 Dose: Not Given - Exam Quality Assessment: Supplemental Oxygen General: Alert HEENT: Pupils Equal Neck: Supple Lungs: Clear to Auscultation, Normal Respiratory Effort Cardiovascular: Regular Rate, Regular Rhythm GI/Abdominal Exam: Normal Bowel Sounds, Soft Extremities: Normal Inspection, No Pedal Edema Skin: Warm Psy/Mental Status: Alert, Normal Affect, Normal Mood - Problem List Review Problem List Initiated/Reviewed/Updated: Yes - My Orders Last 24 Hours: My Active Orders 11/03/19 11:31 Sodium Chloride 0.65% [Walker Nasal [place]] 0 ml WILMAN Q2H PRN 11/03/19 11:41 Consult to Physician [CONS] Routine 11/03/19 11:43 Notify Provider Consults [RC] ASDIRECTED 11/03/19 21:00 Polyethylene Glycol 3350 [MiraLAX] 17 gm PO BEDTIME - Plan Plan:: I/P: Acute: Suspected CHF exacerbation -No known history of CHF -Shortness of breath and orthopnea since hospital discharge on 10/29 -Denies cough or sputum, edema -12-lead in ED shows Sinus Tachycardia at 107 BPM with Q-waves in V1-V2 and II and aVF. Prolonged QTc. -D-dimer 2.06 -Pro-BNP 72262 -CTA shows minimal right pleural effusion and bilateral atelectasis. No signs of PE. Incidental cyst in right lobe of liver -Lasix 40 mg IV this am and 20 this afternoon. -RT/IS -Sodium/Fluid restriction -Monitor daily weights, I&Os -BiPAP at night -O2 as needed -Transformer Assembly Supervisor consult -Echo obtained and pending PNA, questionable aspiration -WBC 14.09-->12.67-->14.34-->13.66 -Elevated WBC and CRP thought to be from prior surgery on admission -Blood cultures negative -Denies any infectious symptoms, no fevers -Reports malaise, weakness, worsening SOB -Repeat CXR shows right lower lobe infiltrate possible aspiration -PCN allergy - Will start rocephin 2gm Q24 and Metronidazole Q8 -IS/RT -Duoneb as needed -Droplet isolation Hyponatremia -Sodium 134-135 -Chronic Hypokalemia, improving -Potassium 2.8-->2.5-->3.0-->3.2-->3.2 -Will be exacerbated by diuresis -Supplement Transaminitis, improving -AST 64-->62 -ALT 178-->132 -Alk Phos 438-->394 -Chronic -Monitor Hyperbilirubinemia, improving -Bilirubin 1.3-->1.1 -Chronic -Monitor Chronic: impaired vision HLD hypertension gout osteoarthritis vertigo trigeminal neuralgia Madeline's syndrome developmental delay dyslexia depression obesity osteopenia Plan: Admit to medical floor on telemetry Routine AM labs Other orders as indicated above PT/OT CM/SW for discharge planning Home medications as ordered DVT prophylaxis: Home Xarelto; MIKAL hose per patient request Code status: Full Code; PCP: Dr. Dominguez
[2019-11-03] MEDS: carBAMazepine 200 MG Tab PO SCH (20:58)
[2019-11-03] MEDS: Aspirin 81 MG Tab.Chew PO SCH (20:58)
[2019-11-03] MEDS: Citalopram 20 MG Tab PO SCH (20:58)
[2019-11-03] MEDS: Simvastatin 20 MG Tab PO SCH (21:01)
[2019-11-03] MEDS: Rivaroxaban 10 MG Tab PO SCH (21:01)
[2019-11-03] MEDS: Loratadine 10 MG Tab PO SCH (21:02)
[2019-11-03] MEDS: Polyethylene Glycol 3350 Powder 17 GM Packet PO SCH (21:03)
[2019-11-03] MEDS: QUEtiapine 25 MG Tab PO SCH (21:03)
[2019-11-04] MEDS: Acetaminophen/HYDROcodone 325-5 MG Tab PO PRN ×3 (01:54→15:03)
[2019-11-04] MEDS: Acetaminophen 325 MG Tab PO PRN ×2 (03:02→08:41)
[2019-11-04] MEDS: metroNIDAZOLE/Normal Saline 500 MG in Premix Bag 1 BAG IV SCH ×3 (03:03→20:07)
[2019-11-04] MEDS: Albuterol/Ipratropium 3.0-0.5 MG/3 ML Neb Soln NEB SCH ×4 (03:14→20:16)
[2019-11-04] MEDS: Calcium Carbonate/Vitamin D3 600 MG-200 Units Tab PO SCH ×2 (08:42→20:05)
[2019-11-04] MEDS: Gabapentin 300 MG Cap PO SCH (08:42)
--- NOTE | 2019-11-04 09:57 | PCM.PN ---
- General Info Date of Service: 11/04/19 Subjective Update: Odette states that she is feeling better. She feels she can get up and move around more today and use her incentive spirometry more. She states she is not using her BiPAP at night. Functional Status: Reports: Pain Controlled - Review of Systems General: Reports: No Symptoms HEENT: Reports: No Symptoms Pulmonary: Reports: No Symptoms Cardiovascular: Reports: No Symptoms Gastrointestinal: Reports: No Symptoms - Patient Data Vitals - Most Recent: Last Vital Signs Temp 98.4 F 11/04/19 07:38 Pulse 91 11/04/19 07:38 Resp 16 11/04/19 07:38 BP 120/69 11/04/19 07:38 Pulse Ox 93 L 11/04/19 08:25 Weight - Most Recent: 294 lb 9.6 oz I&O - Last 24 Hours: Intake & Output 11/03/19 11/04/19 11/04/19 22:59 06:59 14:59 Intake Total 1260 700 Output Total 1400 950 Balance -140 -250 Imaging Impressions - Last 24 Hours: CXR stable. no changes from 11/02/2019 Lab Results Last 24 Hours: Laboratory Results - last 24 hr 11/04/19 11/04/19 Range/Units 05:40 05:40 WBC 13.74 H (3.98-10.04) K/mm3 RBC 3.70 L (3.98-5.22) M/mm3 Hgb 10.7 L (11.2-15.7) gm/dl Hct 33.4 L (34.1-44.9) % MCV 90.3 (79.4-94.8) fl MCH 28.9 (25.6-32.2) pg MCHC 32.0 L (32.2-35.5) g/dl RDW Std Deviation 42.7 (36.4-46.3) fL Plt Count 320 (182-369) K/mm3 MPV 9.4 (9.4-12.3) fl Neut % (Auto) 82.6 H (34.0-71.1) % Lymph % (Auto) 5.8 L (19.3-51.7) % [place] % (Auto) 8.2 (4.7-12.5) % Eos % (Auto) 2.8 (0.7-5.8) Baso % (Auto) 0.2 (0.1-1.2) % Neut # (Auto) 11.35 H (1.56-6.13) K/mm3 Lymph # (Auto) 0.80 L (1.18-3.74) K/mm3 [place] # (Auto) 1.13 H (0.24-0.36) K/mm3 Eos # (Auto) 0.38 H (0.04-0.36) K/mm3 Baso # (Auto) 0.03 (0.01-0.08) K/mm3 Manual Slide Review Abnormal smear Sodium 137 (136-145) mEq/L Potassium 4.2 (3.5-5.1) mEq/L Chloride 99 (98-107) mEq/L Carbon Dioxide 28 (21-32) mEq/L Anion Gap 14.2 (5-15) BUN 28 H (7-18) mg/dL Creatinine 1.7 H (0.55-1.02) mg/dL Est Cr Clr Drug Dosing 35.94 mL/min Estimated GFR (MDRD) 31 (>60) mL/min BUN/Creatinine Ratio 16.5 (14-18) Glucose 134 H (74-106) mg/dL Calcium 8.8 (8.5-10.1) mg/dL Magnesium 2.0 (1.8-2.4) mg/dl Corky Results Last 24 Hours: Microbiology 10/31/19 10:10 Aerobic Blood Culture - Preliminary Blood - Venous NO GROWTH AFTER 3 DAYS Anaerobic Blood Culture - Preliminary NO GROWTH AFTER 3 DAYS 10/31/19 10:15 Aerobic Blood Culture - Preliminary Blood - Venous - Lab Draw NO GROWTH AFTER 3 DAYS Anaerobic Blood Culture - Preliminary NO GROWTH AFTER 3 DAYS Med Orders - Current: Current Medications Acetaminophen (Tylenol) 650 mg PO Q4H PRN PRN Reason: Pain (Mild 1-3)/fever Last Admin: 11/04/19 08:41 Dose: 650 mg Hydrocodone Bitart/Acetaminophen ([place] 325-5 Mg) 1 tab PO Q4H PRN PRN Reason: Pain Last Admin: 11/04/19 07:36 Dose: 1 tab Albuterol/Ipratropium (Duoneb 3.0-0.5 Mg/3 Ml) 3 ml NEB Q6HRRT [facility]ANCH[facility] Last Admin: 11/04/19 08:24 Dose: 3 ml Aspirin (Aspirin) 81 mg PO BEDTIME [facility] Last Admin: 11/03/19 20:58 Dose: 81 mg Bisacodyl (Dulcolax) 5 mg PO DAILY PRN PRN Reason: Constipation Last Admin: 11/03/19 03:43 Dose: 5 mg Calcium Carbonate (Calcium Carbonate/Vitamin D 600 Mg-200 Unit) 1 tab PO BID [facility] Last Admin: 11/04/19 08:42 Dose: 1 tab Carbamazepine (Tegretol Tab) 200 mg PO BEDTIME [facility] Last Admin: 11/03/19 20:58 Dose: 200 mg Citalopram Hydrobromide (Celexa) 20 mg PO BEDTIME [facility] Last Admin: 11/03/19 20:58 Dose: 20 mg Docusate Sodium (Colace) 100 mg PO BID PRN PRN Reason: constipation Last Admin: 11/02/19 12:04 Dose: 100 mg Gabapentin (Neurontin) 300 mg PO DAILY [facility] Last Admin: 11/04/19 08:42 Dose: 300 mg Ceftriaxone Sodium 2 gm/ (Sodium Chloride) 100 mls @ 200 mls/hr IV Q24H [facility] Last Admin: 11/03/19 12:07 Dose: 200 mls/hr Metronidazole 500 mg/ Premix 100 mls @ 100 mls/hr IV Q8H [facility] Last Admin: 11/04/19 03:03 Dose: 100 mls/hr Loratadine (Claritin) 10 mg PO BEDTIME [facility] Last Admin: 11/03/19 21:02 Dose: 10 mg Ondansetron HCl (Zofran) 4 mg IV Q6H PRN PRN Reason: Nausea/Vomiting Polyethylene Glycol (Miralax) 17 gm PO BEDTIME [facility] Last Admin: 11/03/19 21:03 Dose: 17 gm Quetiapine Fumarate (Seroquel) 25 mg PO BEDTIME [facility] Last Admin: 11/03/19 21:03 Dose: 25 mg Rivaroxaban (Xarelto) 10 mg PO BEDTIME [facility] Last Admin: 11/03/19 21:01 Dose: 10 mg Senna (Senna) 8.6 mg PO BID PRN PRN Reason: Constipation Last Admin: 11/03/19 03:43 Dose: 8.6 mg Simvastatin (Zocor) 20 mg PO BEDTIME [facility] Last Admin: 11/03/19 21:01 Dose: 20 mg Sodium Chloride (Saline Flush) 10 ml FLUSH ASDIRECTED PRN PRN Reason: Keep Vein Open Last Admin: 10/31/19 09:58 Dose: 10 ml Sodium Chloride ([place] Nasal [place]) 0 ml WILMAN Q2H PRN PRN Reason: Other Last Admin: 11/03/19 18:03 Dose: 1 spray Tramadol HCl (Ultram) 50 mg PO Q6H PRN PRN Reason: Pain Last Admin: 10/31/19 18:52 Dose: 50 mg Discontinued Medications Albuterol/Ipratropium (Duoneb 3.0-0.5 Mg/3 Ml) 3 ml NEB Q6H PRN PRN Reason: SOB/wheezing Albuterol/Ipratropium (Duoneb 3.0-0.5 Mg/3 Ml) 3 ml NEB Q6H [facility] Last Admin: 11/02/19 14:46 Dose: Not Given Furosemide (Lasix) 40 mg IVPUSH NOW ONE Stop: 10/31/19 09:50 Last Admin: 10/31/19 09:58 Dose: 40 mg Furosemide (Lasix) 40 mg IVPUSH NOW ONE Stop: 10/31/19 13:01 Last Admin: 10/31/19 13:56 Dose: 40 mg Furosemide (Lasix) 40 mg IVPUSH BIDDIURETIC [facility]ES[facility] Last Admin: 11/02/19 06:16 Dose: 40 mg Furosemide (Lasix) 40 mg IVPUSH DAILY [facility] Last Admin: 11/03/19 08:52 Dose: 40 mg Furosemide (Lasix) 20 mg IVPUSH ONETIME ONE Stop: 11/03/19 15:01 Last Admin: 11/03/19 15:23 Dose: 20 mg Potassium Chloride 10 meq/ (Premix) 100 mls @ 100 mls/hr IV Q1H [facility] Stop: 10/31/19 16:29 Last Admin: 10/31/19 21:22 Dose: 100 mls/hr Sodium Chloride (Normal Saline) 1,000 mls @ 50 mls/hr IV ASDIRECTED [facility] Last Admin: 10/31/19 14:07 Dose: 50 mls/hr Potassium Chloride 10 meq/ (Premix) 100 mls @ 100 mls/hr IV Q1H [facility] Stop: 11/01/19 11:44 Iopamidol (Isovue Multipack-370 (76%)) 100 ml IVPUSH ONETIME ONE Stop: 10/31/19 11:07 Last Admin: 10/31/19 16:10 Dose: Not Given Iopamidol (Isovue-370 (76%)) 100 ml IVPUSH ONETIME ONE Stop: 10/31/19 11:27 Last Admin: 10/31/19 11:27 Dose: 100 ml Magnesium Hydroxide (Milk Of Magnesia) 30 ml PO ONETIME ONE Stop: 11/03/19 11:36 Last Admin: 11/03/19 12:06 Dose: 30 ml Potassium Chloride (Klor-Con M20) 40 meq PO TID [facility] Last Admin: 11/02/19 08:24 Dose: 40 meq Potassium Chloride (Klor-Con M20) 40 meq PO BID [facility] Last Admin: 11/03/19 08:54 Dose: 40 meq Potassium Chloride (Klor-Con M20) 40 meq PO ONETIME ONE Stop: 11/03/19 11:36 Last Admin: 11/03/19 12:06 Dose: 40 meq Potassium Chloride (Klor-Con M20) 40 meq PO ONETIME ONE Stop: 11/03/19 21:01 Last Admin: 11/03/19 20:59 Dose: 40 meq Sodium Chloride (Saline Flush) 10 ml FLUSH ONETIME ONE Stop: 10/31/19 11:11 Last Admin: 10/31/19 16:10 Dose: Not Given - Exam Quality Assessment: Supplemental Oxygen (2 L nasal cannula) General: Alert, Oriented HEENT: Pupils Equal, Pupils Reactive, Mucous Membr. Moist/[place] Neck: Supple Lungs: Normal Respiratory Effort, Crackles (Bibasilar) Cardiovascular: Regular Rate, Regular Rhythm GI/Abdominal Exam: Normal Bowel Sounds, Soft, Non-Tender, No Distention Back Exam: Normal Inspection Extremities: Normal Inspection, Normal Range of Motion, Non-Tender, Pedal Edema (1+ bilateral pitting edema) Skin: Warm, Dry, Intact Psy/Mental Status: Alert, Normal Affect, Normal Mood - Problem List Review Problem List Initiated/Reviewed/Updated: Yes - My Orders Last 24 Hours: My Active Orders 11/03/19 11:31 Sodium Chloride 0.65% [[place] Nasal [place]] 0 ml WILMAN Q2H PRN 11/03/19 11:41 Consult to Physician [CONS] Routine 11/03/19 11:43 Notify Provider Consults [RC] ASDIRECTED 11/03/19 21:00 Polyethylene Glycol 3350 [MiraLAX] 17 gm PO BEDTIME 11/04/19 09:44 CXR [Chest 2V] [CR] Routine - Plan Plan:: I/P: Acute: Suspected CHF exacerbation -No known history of CHF -Shortness of breath and orthopnea since hospital discharge on 10/29 -Denies cough or sputum, edema -Extra Lasix doesn't seem to be helping oxygenation, but worsening renal function -12-lead in ED shows Sinus Tachycardia at 107 BPM with Q-waves in V1-V2 and II and aVF. Prolonged QTc. -D-dimer 2.06 -Pro-BNP 07834 -CTA shows minimal right pleural effusion and bilateral atelectasis. No signs of PE. Incidental cyst in right lobe of liver -Hold Lasix 40 mg IV this am 2/2 increasing creatinine and BUN -RT/IS -Sodium/Fluid restriction -Monitor daily weights, I&Os -Encourage her to use BiPAP at night -O2 as needed -Risk Management Consultant consult -Echo obtained and pending PNA, questionable aspiration -WBC 14.09-->12.67-->14.34-->13.66-->13.7 -Elevated WBC and CRP thought to be from prior surgery on admission -Blood cultures negative -Denies any infectious symptoms, no fevers -Improved malaise, weakness, worsening SOB -Repeat CXR shows right lower lobe infiltrate possible aspiration -PCN allergy - Will start rocephin 2gm Q24 and Metronidazole Q8 -IS/RT -Duoneb as needed -Droplet isolation Hyponatremia - resolved -Sodium 134-135-137 -Chronic Hypokalemia, improving -Potassium 2.8-->2.5-->3.0-->3.2-->3.2-->4.2 -Will be exacerbated by diuresis -Supplement Transaminitis, improving -AST 64-->62 -ALT 178-->132 -Alk Phos 438-->394 -Chronic -Monitor Hyperbilirubinemia, improving -Bilirubin 1.3-->1.1 -Chronic -Monitor Chronic: impaired vision HLD hypertension gout osteoarthritis vertigo trigeminal neuralgia Madeline's syndrome developmental delay dyslexia depression obesity osteopenia Plan: Admit to medical floor on telemetry Routine AM labs Other orders as indicated above PT/OT CM/SW for discharge planning Home medications as ordered DVT prophylaxis: Home Xarelto; MIKAL junior per patient request Code status: Full Code; PCP: Dr. Dominguez
[2019-11-04] MEDS ORDERED: Bisacodyl 10 MG Supp RECTAL ONE (10:02)
--- NOTE | 2019-11-04 10:26 | CR ---
Chest: 2 views of the chest were obtained. Comparison: Prior chest x-ray 11/02/19. Increased density within both lung bases which appear stable. Lung markings are diffusely increased which are also stable. No new parenchymal change is seen from prior chest x-ray. Heart size and mediastinum are stable. Mild degenerative change is scattered within the spine which is also stable. Impression: 1. Findings as noted above. 2. No significant change from previous chest x-ray. Diagnostic code #3 This report was dictated in [place] Standard Time
[2019-11-04] MEDS: cefTRIAXone 2 GM in Sodium Chloride 0.9% 100 ML IV SCH (11:39)
[2019-11-04] MEDS: traMADol 50 MG Tab PO PRN (14:11)
[2019-11-04] MEDS ORDERED: busPIRone 5 MG Tab PO ONE (15:53)
--- NOTE | 2019-11-04 15:56 | PCM.SN ---
- Free Text/Narrative Note: By nursing because patient appears to be anxious. She has sinus tachycardia, but otherwise her vitals are stable. She just generally appears uncomfortable and restless. She denies any worsening shortness of breath. Unfortunately, we were unable to get the medication recommended by Dr. Maldonado and psychiatry because it is not formulary. I will try her on BuSpar 5 mg 3 times daily first dose now.
[2019-11-04] MEDS: carBAMazepine 200 MG Tab PO SCH (20:04)
[2019-11-04] MEDS: Simvastatin 20 MG Tab PO SCH (20:04)
[2019-11-04] MEDS: Rivaroxaban 10 MG Tab PO SCH (20:04)
[2019-11-04] MEDS: Citalopram 20 MG Tab PO SCH (20:04)
[2019-11-04] MEDS: Aspirin 81 MG Tab.Chew PO SCH (20:04)
[2019-11-04] MEDS: busPIRone 5 MG Tab PO SCH (20:04)
[2019-11-04] MEDS: Loratadine 10 MG Tab PO SCH (20:05)
[2019-11-04] MEDS: QUEtiapine 25 MG Tab PO SCH (20:05)
[2019-11-04] MEDS: Polyethylene Glycol 3350 Powder 17 GM Packet PO SCH (20:15)
[2019-11-05] MEDS: Acetaminophen 325 MG Tab PO PRN (01:19)
[2019-11-05] MEDS: Albuterol/Ipratropium 3.0-0.5 MG/3 ML Neb Soln NEB SCH ×4 (02:37→20:16)
[2019-11-05] MEDS: metroNIDAZOLE/Normal Saline 500 MG in Premix Bag 1 BAG IV SCH ×3 (05:31→21:17)
[2019-11-05] MEDS: Acetaminophen/HYDROcodone 325-5 MG Tab PO PRN ×2 (05:32→21:11)
[2019-11-05] MEDS: Gabapentin 300 MG Cap PO SCH (08:29)
[2019-11-05] MEDS: Calcium Carbonate/Vitamin D3 600 MG-200 Units Tab PO SCH ×2 (08:29→21:13)
[2019-11-05] MEDS: busPIRone 5 MG Tab PO SCH ×3 (08:29→21:13)
[2019-11-05] MEDS: Docusate Sodium 100 MG Cap PO PRN (08:37)
--- NOTE | 2019-11-05 08:52 | PCM.PN ---
- General Info Date of Service: 11/05/19 Subjective Update: Odette states that she is feeling better even today and is off of oxygen. We discussed plan of care and need for continued treatment. Likely discharge tomorrow pending continued improvement. Functional Status: Reports: Pain Controlled, Tolerating Diet, Ambulating, Urinating, Incentive Spirometry. Denies: New Symptoms - Review of Systems General: Reports: No Symptoms. Denies: Fever, Weakness, Fatigue, Malaise, Chills HEENT: Reports: No Symptoms. Denies: Headaches, Sore Throat Pulmonary: Reports: Shortness of Breath (improved ). Denies: Pleuritic Chest Pain, Cough, Sputum, Wheezing Cardiovascular: Reports: Dyspnea on Exertion (improved ), Edema. Denies: Chest Pain, Palpitations Gastrointestinal: Reports: No Symptoms. Denies: Abdominal Pain, Constipation, Diarrhea, Nausea, Vomiting Genitourinary: Reports: No Symptoms. Denies: Pain Musculoskeletal: Reports: No Symptoms Skin: Reports: No Symptoms. Denies: Cyanosis Neurological: Reports: No Symptoms Psychiatric: Reports: No Symptoms - Patient Data Vitals - Most Recent: Last Vital Signs Temp 98.1 F 11/05/19 02:59 Pulse 105 H 11/05/19 02:59 Resp 13 11/05/19 02:59 BP 108/64 11/05/19 02:59 Pulse Ox 92 L 11/05/19 02:59 Weight - Most Recent: 296 lb 1.6 oz I&O - Last 24 Hours: Intake & Output 11/04/19 11/05/19 11/05/19 22:59 06:59 14:59 Intake Total 1200 1000 Output Total 800 1275 Balance 400 -275 Lab Results Last 24 Hours: Laboratory Results - last 24 hr 11/05/19 11/05/19 Range/Units 05:20 05:20 WBC 14.70 H (3.98-10.04) K/mm3 RBC 3.80 L (3.98-5.22) M/mm3 Hgb 10.9 L (11.2-15.7) gm/dl Hct 34.3 (34.1-44.9) % MCV 90.3 (79.4-94.8) fl MCH 28.7 (25.6-32.2) pg MCHC 31.8 L (32.2-35.5) g/dl RDW Std Deviation 42.9 (36.4-46.3) fL Plt Count 349 (182-369) K/mm3 MPV 9.6 (9.4-12.3) fl Neut % (Auto) 80.9 H (34.0-71.1) % Lymph % (Auto) 6.8 L (19.3-51.7) % [place] % (Auto) 8.5 (4.7-12.5) % Eos % (Auto) 3.1 (0.7-5.8) Baso % (Auto) 0.2 (0.1-1.2) % Neut # (Auto) 11.89 H (1.56-6.13) K/mm3 Lymph # (Auto) 1.00 L (1.18-3.74) K/mm3 [place] # (Auto) 1.25 H (0.24-0.36) K/mm3 Eos # (Auto) 0.45 H (0.04-0.36) K/mm3 Baso # (Auto) 0.03 (0.01-0.08) K/mm3 Manual Slide Review Abnormal smear Sodium 136 (136-145) mEq/L Potassium 4.5 (3.5-5.1) mEq/L Chloride 100 (98-107) mEq/L Carbon Dioxide 26 (21-32) mEq/L Anion Gap 14.5 (5-15) BUN 22 H (7-18) mg/dL Creatinine 1.6 H (0.55-1.02) mg/dL Est Cr Clr Drug Dosing 38.19 mL/min Estimated GFR (MDRD) 33 (>60) mL/min BUN/Creatinine Ratio 13.8 L (14-18) Glucose 131 H (74-106) mg/dL Calcium 9.1 (8.5-10.1) mg/dL Magnesium 2.0 (1.8-2.4) mg/dl Total Bilirubin 0.6 (0.2-1.0) mg/dL AST 38 H (15-37) U/L ALT 69 H (14-59) U/L Alkaline Phosphatase 280 H (46-116) U/L Total Protein 5.8 L (6.4-8.2) g/dl Albumin 2.2 L (3.4-5.0) g/dl Globulin 3.6 gm/dL Albumin/Globulin Ratio 0.6 L (1-2) Corky Results Last 24 Hours: Microbiology 10/31/19 10:15 Aerobic Blood Culture - Preliminary Blood - Venous - Lab Draw NO GROWTH AFTER 4 DAYS Anaerobic Blood Culture - Preliminary NO GROWTH AFTER 4 DAYS 10/31/19 10:10 Aerobic Blood Culture - Preliminary Blood - Venous NO GROWTH AFTER 4 DAYS Anaerobic Blood Culture - Preliminary NO GROWTH AFTER 4 DAYS Med Orders - Current: Current Medications Acetaminophen (Tylenol) 650 mg PO Q4H PRN PRN Reason: Pain (Mild 1-3)/fever Last Admin: 11/05/19 01:19 Dose: 650 mg Hydrocodone Bitart/Acetaminophen (Alma 325-5 Mg) 1 tab PO Q4H PRN PRN Reason: Pain Last Admin: 11/05/19 05:32 Dose: 1 tab Albuterol/Ipratropium (Duoneb 3.0-0.5 Mg/3 Ml) 3 ml NEB Q6HRRT [facility] Last Admin: 11/05/19 08:43 Dose: 3 ml Aspirin (Aspirin) 81 mg PO BEDTIME [facility] Last Admin: 11/04/19 20:04 Dose: 81 mg Bisacodyl (Dulcolax) 5 mg PO DAILY PRN PRN Reason: Constipation Last Admin: 11/03/19 03:43 Dose: 5 mg Buspirone HCl (Buspar) 5 mg PO TID [facility] Last Admin: 11/05/19 08:29 Dose: 5 mg Calcium Carbonate (Calcium Carbonate/Vitamin D 600 Mg-200 Unit) 1 tab PO BID [facility] Last Admin: 11/05/19 08:29 Dose: 1 tab Carbamazepine (Tegretol Tab) 200 mg PO BEDTIME [facility] Last Admin: 11/04/19 20:04 Dose: 200 mg Citalopram Hydrobromide (Celexa) 20 mg PO BEDTIME [facility] Last Admin: 11/04/19 20:04 Dose: 20 mg Docusate Sodium (Colace) 100 mg PO BID PRN PRN Reason: constipation Last Admin: 11/05/19 08:37 Dose: 100 mg Gabapentin (Neurontin) 300 mg PO DAILY [facility] Last Admin: 11/05/19 08:29 Dose: 300 mg Ceftriaxone Sodium 2 gm/ (Sodium Chloride) 100 mls @ 200 mls/hr IV Q24H [facility] Last Admin: 11/04/19 11:39 Dose: 200 mls/hr Metronidazole 500 mg/ Premix 100 mls @ 100 mls/hr IV Q8H [facility] Last Admin: 11/05/19 05:31 Dose: 100 mls/hr Loratadine (Claritin) 10 mg PO BEDTIME [facility] Last Admin: 11/04/19 20:05 Dose: 10 mg Ondansetron HCl (Zofran) 4 mg IV Q6H PRN PRN Reason: Nausea/Vomiting Polyethylene Glycol (Miralax) 17 gm PO BEDTIME [facility] Last Admin: 11/04/19 20:15 Dose: Not Given Quetiapine Fumarate (Seroquel) 25 mg PO BEDTIME [facility] Last Admin: 11/04/19 20:05 Dose: 25 mg Rivaroxaban (Xarelto) 10 mg PO BEDTIME [facility] Last Admin: 11/04/19 20:04 Dose: 10 mg Senna (Senna) 8.6 mg PO BID PRN PRN Reason: Constipation Last Admin: 11/03/19 03:43 Dose: 8.6 mg Simvastatin (Zocor) 20 mg PO BEDTIME [facility] Last Admin: 11/04/19 20:04 Dose: 20 mg Sodium Chloride (Saline Flush) 10 ml FLUSH ASDIRECTED PRN PRN Reason: Keep Vein Open Last Admin: 10/31/19 09:58 Dose: 10 ml Sodium Chloride (Barry Nasal Ferguson) 0 ml WILMAN Q2H PRN PRN Reason: Other Last Admin: 11/03/19 18:03 Dose: 1 spray Tramadol HCl (Ultram) 50 mg PO Q6H PRN PRN Reason: Pain Last Admin: 11/04/19 14:11 Dose: 50 mg Discontinued Medications Albuterol/Ipratropium (Duoneb 3.0-0.5 Mg/3 Ml) 3 ml NEB Q6H PRN PRN Reason: SOB/wheezing Albuterol/Ipratropium (Duoneb 3.0-0.5 Mg/3 Ml) 3 ml NEB Q6H [facility] Last Admin: 11/02/19 14:46 Dose: Not Given Bisacodyl (Dulcolax) 10 mg RECTAL ONETIME ONE Stop: 11/04/19 10:03 Last Admin: 11/04/19 10:32 Dose: Not Given Buspirone HCl (Buspar) 5 mg PO ONETIME ONE Stop: 11/04/19 15:54 Last Admin: 11/04/19 16:52 Dose: 5 mg Furosemide (Lasix) 40 mg IVPUSH NOW ONE Stop: 10/31/19 09:50 Last Admin: 10/31/19 09:58 Dose: 40 mg Furosemide (Lasix) 40 mg IVPUSH NOW ONE Stop: 10/31/19 13:01 Last Admin: 10/31/19 13:56 Dose: 40 mg Furosemide (Lasix) 40 mg IVPUSH BIDDIURETIC [facility] Last Admin: 11/02/19 06:16 Dose: 40 mg Furosemide (Lasix) 40 mg IVPUSH DAILY [facility] Last Admin: 11/03/19 08:52 Dose: 40 mg Furosemide (Lasix) 20 mg IVPUSH ONETIME ONE Stop: 11/03/19 15:01 Last Admin: 11/03/19 15:23 Dose: 20 mg Potassium Chloride 10 meq/ (Premix) 100 mls @ 100 mls/hr IV Q1H [facility] Stop: 10/31/19 16:29 Last Admin: 10/31/19 21:22 Dose: 100 mls/hr Sodium Chloride (Normal Saline) 1,000 mls @ 50 mls/hr IV ASDIRECTED [facility] Last Admin: 10/31/19 14:07 Dose: 50 mls/hr Potassium Chloride 10 meq/ (Premix) 100 mls @ 100 mls/hr IV Q1H [facility] Stop: 11/01/19 11:44 Iopamidol (Isovue Multipack-370 (76%)) 100 ml IVPUSH ONETIME ONE Stop: 10/31/19 11:07 Last Admin: 10/31/19 16:10 Dose: Not Given Iopamidol (Isovue-370 (76%)) 100 ml IVPUSH ONETIME ONE Stop: 10/31/19 11:27 Last Admin: 10/31/19 11:27 Dose: 100 ml Magnesium Hydroxide (Milk Of Magnesia) 30 ml PO ONETIME ONE Stop: 11/03/19 11:36 Last Admin: 11/03/19 12:06 Dose: 30 ml Potassium Chloride (Klor-Con M20) 40 meq PO TID [facility] Last Admin: 11/02/19 08:24 Dose: 40 meq Potassium Chloride (Klor-Con M20) 40 meq PO BID [facility] Last Admin: 11/03/19 08:54 Dose: 40 meq Potassium Chloride (Klor-Con M20) 40 meq PO ONETIME ONE Stop: 11/03/19 11:36 Last Admin: 11/03/19 12:06 Dose: 40 meq Potassium Chloride (Klor-Con M20) 40 meq PO ONETIME ONE Stop: 11/03/19 21:01 Last Admin: 11/03/19 20:59 Dose: 40 meq Sodium Chloride (Saline Flush) 10 ml FLUSH ONETIME ONE Stop: 10/31/19 11:11 Last Admin: 10/31/19 16:10 Dose: Not Given - Exam Quality Assessment: DVT Prophylaxis General: Alert, Oriented, Cooperative, No Acute Distress HEENT: Pupils Equal, Pupils Reactive, Mucous Membr. Moist/[place]ellow [place]: Supple, Trachea Midline Lungs: Normal Respiratory Effort, Decreased Breath Sounds, Crackles (improved bilateral ) Cardiovascular: Regular Rate, Regular Rhythm GI/Abdominal Exam: Normal Bowel Sounds, Soft, Non-Tender, No Distention, No Abnormal Bruit (Female) Exam: Deferred Back Exam: Normal Inspection, Full Range of Motion Extremities: Normal Inspection, Normal Range of Motion, Non-Tender, Normal Capillary Refill, Pedal Edema (trace - 1+) Peripheral Pulses: 2+: Radial (L), Radial (R), Dorsalis Pedis (L), Dorsalis Pedis (R) Skin: Warm, Dry, Intact Neurological: No New Focal Deficit Psy/Mental Status: Alert - Problem List & Annotations (1) Acute exacerbation of congestive heart failure SNOMED Code(s): 526754166, 02289197578409 Code(s): I50.9 - HEART FAILURE, UNSPECIFIED Status: Suspected Priority: High Current Visit: Yes Qualifiers: Heart failure type: unspecified Qualified Code(s): I50.9 - Heart failure, unspecified (2) Acute renal injury SNOMED Code(s): 86748838, 80796843 Code(s): N17.9 - ACUTE KIDNEY FAILURE, UNSPECIFIED Status: Acute Priority : High Current Visit: Yes (3) Elevated d-dimer SNOMED Code(s): 671422645 Code(s): R79.89 - OTHER SPECIFIED ABNORMAL FINDINGS OF BLOOD CHEMISTRY Status: Acute Priority: High Current Visit: Yes (4) Hypokalemia SNOMED Code(s): 04973549 Code(s): E87.6 - HYPOKALEMIA Status: Acute Priority: High Current Visit : Yes (5) Hyponatremia SNOMED Code(s): 89758955 Code(s): E87.1 - HYPO-OSMOLALITY AND HYPONATREMIA Status: Acute Priority : High Current Visit: Yes (6) Hypoxia SNOMED Code(s): 502700415 Code(s): R09.02 - HYPOXEMIA Status: Acute Priority: High Current Visit : Yes (7) Transaminitis SNOMED Code(s): 003910167, 732535948 Code(s): R74.0 - NONSPEC ELEV OF LEVELS OF TRANSAMNS & LACTIC ACID DEHYDRGNSE Status: Acute Priority: High Current Visit: Yes (8) Hyperbilirubinemia SNOMED Code(s): 72872953 Code(s): E80.6 - OTHER DISORDERS OF BILIRUBIN METABOLISM Status: Chronic Priority: High Current Visit: Yes (9) HLD (hyperlipidemia) SNOMED Code(s): 53411775 Code(s): E78.5 - HYPERLIPIDEMIA, UNSPECIFIED Status: Acute Priority: Low Current Visit: No Qualifiers: Hyperlipidemia type: unspecified Qualified Code(s): E78.5 - Hyperlipidemia , unspecified (10) HTN (hypertension) SNOMED Code(s): 37390784 Code(s): I10 - ESSENTIAL (PRIMARY) HYPERTENSION Status: Acute Priority: Medium Current Visit: No Qualifiers: Hypertension type: unspecified Qualified Code(s): I10 - Essential (primary ) hypertension (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 SNOMED Code(s): 566703313 Code(s): Z86.19 - PERSONAL HISTORY OF OTHER INFECTIOUS AND PARASITIC DISEASES Status: Acute Priority: Medium Current Visit: No (12) Danitza's syndrome SNOMED Code(s): 96616226 Code(s): G90.2 - DANITZA'S SYNDROME Status: Acute Priority: Medium Current Visit: No (13) Morbid obesity with BMI of 40.0-44.9, adult SNOMED Code(s): 676170185, 88535820798248 Code(s): E66.01 - MORBID (SEVERE) OBESITY DUE TO EXCESS CALORIES; Z68.41 - BODY MASS INDEX (BMI) 40.0-44.9, ADULT Status: Acute Priority: Medium Current Visit: No - Problem List Review Problem List Initiated/Reviewed/Updated: Yes - My Orders Last 24 Hours: My Active Orders 11/06/19 05:11 CBC WITH AUTO DIFF [HEME] AM MAGNESIUM [CHEM] AM - Plan Plan:: I/P: Acute: Suspected CHF exacerbation -No known history of CHF -Shortness of breath and orthopnea since hospital discharge on 10/29 -Denies cough or sputum, edema -Extra Lasix doesn't seem to be helping oxygenation, but worsening renal function -12-lead in ED shows Sinus Tachycardia at 107 BPM with Q-waves in V1-V2 and II and aVF. Prolonged QTc. -D-dimer 2.06 -Pro-BNP 26635 -CTA shows minimal right pleural effusion and bilateral atelectasis. No signs of PE. Incidental cyst in right lobe of liver -Hold Lasix 40 mg IV this am 12/30 increasing creatinine and BUN -RT/IS -Sodium/Fluid restriction -> stop fluid restriction -Monitor daily weights, I&Os -Encourage her to use BiPAP at night -O2 as needed -Fabrication Technician consult -Echo obtained PNA, questionable aspiration -WBC 14.09-->12.67-->14.34-->13.66-->13.74-->14.74 -Elevated WBC and CRP thought to be from prior surgery on admission -Blood cultures negative -Denies any infectious symptoms, no fevers -Improved malaise, weakness, worsening SOB -Repeat CXR shows right lower lobe infiltrate possible aspiration -PCN allergy - Will start rocephin 2gm Q24 and Metronidazole Q8 -IS/RT -Duoneb as needed -Droplet isolation Hyponatremia - resolved -Sodium 134-135-137 -Chronic Hypokalemia, resolved -Potassium 2.8-->2.5-->3.0-->3.2-->3.2-->4.2 -Will be exacerbated by diuresis -Supplement Transaminitis, improving -AST 64-->62-->38 -ALT 178-->132-->69 -Alk Phos 438-->394-->280 -Chronic -Monitor Hyperbilirubinemia, improving -Bilirubin 1.3-->1.1 -Chronic -Monitor Chronic: impaired vision HLD hypertension gout osteoarthritis vertigo trigeminal neuralgia Danitza's syndrome developmental delay dyslexia depression obesity osteopenia Plan: Admit to medical floor on telemetry Routine AM labs Other orders as indicated above PT/OT CM/SW for discharge planning Home medications as ordered DVT prophylaxis: Home Xarelto; MIKAL hose per patient request Code status: Full Code; PCP: Dr. Dominguez
[2019-11-05] MEDS: cefTRIAXone 2 GM in Sodium Chloride 0.9% 100 ML IV SCH (12:24)
[2019-11-05] MEDS: Rivaroxaban 10 MG Tab PO SCH (21:12)
[2019-11-05] MEDS: Simvastatin 20 MG Tab PO SCH (21:12)
[2019-11-05] MEDS: QUEtiapine 25 MG Tab PO SCH (21:13)
[2019-11-05] MEDS: carBAMazepine 200 MG Tab PO SCH (21:13)
[2019-11-05] MEDS: Aspirin 81 MG Tab.Chew PO SCH (21:13)
[2019-11-05] MEDS: Citalopram 20 MG Tab PO SCH (21:13)
[2019-11-05] MEDS: Loratadine 10 MG Tab PO SCH (21:13)
[2019-11-06] MEDS: Albuterol/Ipratropium 3.0-0.5 MG/3 ML Neb Soln NEB SCH ×2 (03:09→08:28)
[2019-11-06] MEDS: Acetaminophen 325 MG Tab PO PRN ×2 (03:47→09:13)
[2019-11-06] MEDS: metroNIDAZOLE/Normal Saline 500 MG in Premix Bag 1 BAG IV SCH ×2 (03:48→12:02)
[2019-11-06] MEDS: Polyethylene Glycol 3350 Powder 17 GM Packet PO SCH (03:49)
[2019-11-06] MEDS: busPIRone 5 MG Tab PO SCH ×2 (09:11→15:11)
[2019-11-06] MEDS: Gabapentin 300 MG Cap PO SCH (09:11)
[2019-11-06] MEDS: Calcium Carbonate/Vitamin D3 600 MG-200 Units Tab PO SCH (09:11)
[2019-11-06] MEDS: Acetaminophen/HYDROcodone 325-5 MG Tab PO PRN (09:12)
--- NOTE | 2019-11-06 11:25 | PCM.DCSUM1 ---
Discharge Summary - Hospital Course HPI Initial Comments: Odette Wiggins is a 59yo female who presents to our ED on 10/31/19 with shortness of breath. She was sent over to the ED after being seen in the clinic by her primary care provider, Dr. Dominguez. She had been hospitalized from 10/26-10/29/19 with acute cholecystitis. She had a laparoscopic cholecystectomy performed by Dr. Flanagan, general surgeon. During that hospital edition she also suffers from severe right sided trigeminal neuralgia. Patient reports since then this is greatly improved. Since discharge she reports needing up to 3 pillows to sleep due to orthopnea. Denies cough or sputum production. O2 saturations were 73% on arrival to the ED and noted to be 74% of the clinic. Reports bilateral knee pain but no signs of swelling to lower extremities. No history of DVT. She's to 4 L oxygen via nasal cannula which brought her saturations above 94%. Denies any known history of heart failure. In the ED twelve-lead EKG was obtained showing sinus tachycardia 107 with left axis deviation. Q waves are noted in V1 and V2 along with 3 and aVF. QT is mildly prolonged. She is afebrile. Labs are obtained and FVC is elevated at 14.09. This may be due to her recent surgery. Sodium is low 134, potassium was very low at 2.8, chloride low at 95, EGFR is 57, creatinine 1.0. Bilirubin is elevated at 1.3. AST is 64, ALT 178, alkaline phosphatase 438. Troponin 0.034. CRP is high at 27.0. Lactic acid is 1.3. ProBNP is very high at 11, 746. Temazepam pain is on the low end of normal at 4.5. D-dimer is high at 2.06. ABGs obtained the right radial showing a pH of 7.50, PCO2 39.4, PO2 of 71.0, bicarbonate of 30.1, O2 saturation 94.4. This is obtained while on 4 L. Due to the elevated d-dimer CT is performed showing "1. Minimal right-sided pleural effusion. Mild atelectasis is noted posteriorly within both lung bases. 2. No findings of pulmonary embolism. 3. Incidental cysts within the right lobe of the liver. 4. Other incidental findings. Nothing acute is appreciated." Chest x-ray is obtained showing minimal bright basilar atelectasis and nothing acute. She was given 40 mg IV push Lasix along with 40 mg and of IV potassium 4 doses. She carries a history of impaired vision, HLD, hypertension, gout, osteoarthritis, vertigo, trigeminal neuralgia, Danitza's syndrome, developmental delay, dyslexia, depression, obesity, osteopenia. She is a former smoker. Her PCP is Dr. Villareal. She subsequent admitted to the floor for suspected CHF workup. Diagnosis: Stroke: No - Discharge Data Discharge Date: 11/06/19 (Admit date: 10/31/19) Discharge Disposition: Home, Self-Care 01 Condition: Good - Referral to Home Health Primary Care Physician: Alicia Shaw MD - Discharge Diagnosis/Problem(s) (1) Acute exacerbation of congestive heart failure SNOMED Code(s): 899522719, 41625015050241 ICD Code: I50.9 - HEART FAILURE, UNSPECIFIED Status: Suspected Priority: High Current Visit: Yes Qualifiers: Heart failure type: unspecified Qualified Code(s): I50.9 - Heart failure, unspecified (2) Acute renal injury SNOMED Code(s): 66690289, 41610208 ICD Code: N17.9 - ACUTE KIDNEY FAILURE, UNSPECIFIED Status: Acute Priority: High Current Visit: Yes (3) Elevated d-dimer SNOMED Code(s): 868466536 ICD Code: R79.89 - OTHER SPECIFIED ABNORMAL FINDINGS OF BLOOD CHEMISTRY Status: Acute Priority: High Current Visit: Yes (4) Hypokalemia SNOMED Code(s): 32037160 ICD Code: E87.6 - HYPOKALEMIA Status: Acute Priority: High Current Visit: Yes (5) Hyponatremia SNOMED Code(s): 75535584 ICD Code: E87.1 - HYPO-OSMOLALITY AND HYPONATREMIA Status: Acute Priority : High Current Visit: Yes (6) Hypoxia SNOMED Code(s): 571284570 ICD Code: R09.02 - HYPOXEMIA Status: Acute Priority: High Current Visit : Yes (7) Transaminitis SNOMED Code(s): 454742234, 234247170 ICD Code: R74.0 - NONSPEC ELEV OF LEVELS OF TRANSAMNS & LACTIC ACID DEHYDRGNSE Status: Acute Priority: High Current Visit: Yes (8) Hyperbilirubinemia SNOMED Code(s): 32511910 ICD Code: E80.6 - OTHER DISORDERS OF BILIRUBIN METABOLISM Status: Chronic Priority: High Current Visit: Yes (9) HLD (hyperlipidemia) SNOMED Code(s): 90953922 ICD Code: E78.5 - HYPERLIPIDEMIA, UNSPECIFIED Status: Acute Priority: Low Current Visit: No Qualifiers: Hyperlipidemia type: unspecified Qualified Code(s): E78.5 - Hyperlipidemia , unspecified (10) HTN (hypertension) SNOMED Code(s): 07659863 ICD Code: I10 - ESSENTIAL (PRIMARY) HYPERTENSION Status: Acute Priority: Medium Current Visit: No Qualifiers: Hypertension type: unspecified Qualified Code(s): I10 - Essential (primary ) hypertension (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 SNOMED Code(s): 079120233 ICD Code: Z86.19 - PERSONAL HISTORY OF OTHER INFECTIOUS AND PARASITIC DISEASES Status: Acute Priority: Medium Current Visit: No (12) Danitza's syndrome SNOMED Code(s): 44095168 ICD Code: G90.2 - DANITZA'S SYNDROME Status: Acute Priority: Medium Current Visit: No (13) Morbid obesity with BMI of 40.0-44.9, adult SNOMED Code(s): 715086243, 62080227310368 ICD Code: E66.01 - MORBID (SEVERE) OBESITY DUE TO EXCESS CALORIES; Z68.41 - BODY MASS INDEX (BMI) 40.0-44.9, ADULT Status: Acute Priority: Medium Current Visit: No - Patient Summary/Data Consults: Consultations 10/31/19 15:59 Consult to [employer] [CONS] Routine Consult to Spiritual Care [CONS] Routine 10/31/19 17:24 Consult to Respiratory Therapy [Respiratory Care Assess and Treatment] [CONS] Routine 11/01/19 15:43 Consult to Physical Therapy [PT Evaluation and Treatment] [CONS] Routine 11/03/19 11:41 Consult to Physician [CONS] Routine Labs Pending at D/C: None Recommended Follow-up Testing/Procedures: Follow-up with PCP within 5-7 days of discharge. Recommend repeat CBC, CMP, Magnesium, and Chest X-ray at that time. Follow-up with general surgery regarding prior cholecystectomy as scheduled. Hospital Course: Odette Wiggins was admitted to the floor due to respiratory distress believed to be secondary to congestive heart failure. She had recently been discharged for cholecystectomy and due to concerns over infection with an elevated white count blood cultures were obtained. These remained negative 6 days. She was initially given IV push Lasix, with significant urine output. Unfortunately her creatinine did go up as well with this. It was also noted that there was minimal improvement on oxygen saturations. BiPAP was started with naps and at bedtime, although ultimately the patient was very noncompliant with this. Subsequent chest x-rays revealed a possible aspiration pneumonia versus atelectasis. She was started on every 8 hour metronidazole and daily Rocephin. She completed treatment prior to discharge. Respiratory therapy was involved in her care and she was to aggressively utilize her incentive spirometry. She remained somewhat sedentary and even with encouragement was not one to walk around much. Her white count did fluctuate and we believe this is secondary to her trigeminal neuralgia, which has been stable per her report. Echocardiogram was obtained and show "1. Left ventricular ejection fraction, by visual estimation, is 60-65%. 2. Normal left ventricular size and wall thickness, with normal systolic function. 3. Impaired relaxation (Grade 1) pattern of LV diastolic filling. 4. The pulmonic valve is not well visualized. 5. Inferior vena cava is normal." She was able to be weaned off oxygen. Her hyponatremia and hypokalemia resolved with treatment. She did have episodes of anxious periods with tachycardia. Dr. Maldonado, with psychiatry, was consulted via tele-medicine. Unfortunately the medication he recommended is not in our formulary so patient was started on 5 mg of 3 times a day BuSpar with good response. Dr. Maldonado also recommended 25 mg by mouth Seroquel at bedtime. Prescriptions for both of these were sent at discharge. Also prescribed an albuterol inhaler as needed up to 4 times a day. She was encouraged to ambulate frequently and continue to utilize her incentive spirometry. She was told to follow-up with her primary care provider within 5-7 days of discharge. She was instructed to follow-up with surgery as instructed prior. Due to her swelling she was placed on a 2 g sodium diet, although she reported that she rarely cooks with sodium anyway. At her follow-up appointment she should have a repeat CBC, CMP, magnesium, and chest x-ray performed. LFTs were noted to be elevated on admission but these did trend downward. PT/OT did see her and recommended outpatient occupational therapy at discharge. She was instructed to monitor her weights daily. She was discharged home today. we discussed her smoking status she reports she has not smoked for some time. Refused nicotine patches during her stay and at discharge. She was given resources in the community for cessation, if she feels she needs this in the future. - Patient Instructions Diet: Low Sodium Activity: As Tolerated Showering/Bathing: May Shower Notify Provider of: Fever, Increased Pain, Nausea and/or Vomiting Other/Special Instructions: Follow-up with primary care provider within 5-7 days of discharge, sooner if needed. Follow-up with surgery as prior. You completed antibiotic treatment while here. No home antibiotic will be prescribed. Continue to walk around and stay active. Continue to utilize your incentive spirometry (Clear/blue device you inhale through) until your symptoms resolve. Continue home medications as prescribed. Weigh yourself daily and record this in a journal. Bring this with to all medical appointments. Take all new medications as prescribed. Should symptoms return or worsen, contact primary care provider or retun to the Emergency Department. - Discharge Plan *PRESCRIPTION DRUG MONITORING PROGRAM REVIEWED*: Not Applicable *COPY OF PRESCRIPTION DRUG MONITORING REPORT IN PATIENT REJI: Not Applicable Prescriptions/Med Rec: Albuterol Sulfate [Albuterol Sulfate Hfa] 18 gm IH Q6H PRN #1 [id number] PRN Reason: Shortness of breath/wheezing busPIRone [Buspar] 5 mg PO TID #20 tab QUEtiapine [SEROquel] 25 mg PO BEDTIME #20 tablet Home Medications: Home Meds Aspirin 81 mg PO BEDTIME 02/09/18 [History] atorvaSTATin [Lipitor] 20 mg PO BEDTIME 02/09/18 [History] hydroCHLOROthiazide [Hydrochlorothiazide] 12.5 mg PO BEDTIME 02/09/18 [History] traMADol HCl [Tramadol HCl] 50 mg PO Q6H PRN 02/09/18 [History] Cetirizine [ZyrTEC] 10 mg PO BEDTIME 05/26/18 [History] Bisacodyl [Dulcolax] 5 mg PO DAILY PRN tablet 05/29/18 [Rx] Calcium Carbonate/Vitamin D3 [Calcium 600 + Vit D Tablet] 600 mg PO BID [History] Losartan/Hydrochlorothiazide [Losartan-HCTZ 50-12.5 MG] 1 tab PO DAILY 05/29/18 [History] Multivitamin [Multi-Day Vitamins] 1 each PO BEDTIME 05/29/18 [History] Sennosides [Senna] 8.6 mg PO BID PRN tablet 05/29/18 [Rx] Escitalopram [Lexapro] 10 mg PO BEDTIME 10/26/19 [History] Gabapentin [Neurontin] 300 mg PO DAILY 10/26/19 [History] carBAMazepine [Carbamazepine] 200 mg PO BEDTIME 10/26/19 [History] Ondansetron [Zofran ODT] 4 mg PO TID PRN #30 tab.dis 10/29/19 [Rx] Docusate Sodium [Colace] 100 mg PO BID PRN 10/31/19 [History] Rivaroxaban [Xarelto] 10 mg PO BEDTIME 10/31/19 [History] Albuterol Sulfate [Albuterol Sulfate Hfa] 18 gm IH Q6H PRN #1 hfa.aer.ad [Rx] QUEtiapine [SEROquel] 25 mg PO BEDTIME #20 tablet 11/06/19 [Rx] busPIRone [Buspar] 5 mg PO TID #20 tab 11/06/19 [Rx] Oxygen Therapy Mode: Room Air Patient Handouts: Sepsis, Adult, Heart Failure, Steps to Quit Smoking Forms: ED Department Discharge Referrals: Alicia Shaw MD [Primary Care Provider] - - Discharge Summary/Plan Comment DC Time >30 min.: Yes (45 mins ) - General Info Date of Service: 11/06/19 Functional Status: Reports: Pain Controlled, Tolerating Diet, Ambulating, Urinating, Incentive Spirometry. Denies: New Symptoms - Review of Systems General: Reports: Weakness (improved ). Denies: Fever, Fatigue, Malaise, Chills HEENT: Reports: No Symptoms. Denies: Headaches, Sore Throat Pulmonary: Reports: Shortness of Breath (improved to resolved ), Cough ( occasional ). Denies: Pleuritic Chest Pain, Sputum, Wheezing Cardiovascular: Reports: No Symptoms Gastrointestinal: Reports: No Symptoms. Denies: Abdominal Pain, Constipation, Diarrhea, Nausea, Vomiting Genitourinary: Reports: No Symptoms. Denies: Pain Musculoskeletal: Reports: No Symptoms Skin: Reports: No Symptoms. Denies: Cyanosis Neurological: Reports: No Symptoms. Denies: Confusion, Difficulty Walking, Gait Disturbance Psychiatric: Reports: No Symptoms - Patient Data Vitals - Most Recent: Last Vital Signs Temp 97.3 F 11/06/19 09:09 Pulse 106 H 11/06/19 09:09 Resp 19 11/06/19 09:09 BP 115/58 L 11/06/19 09:09 Pulse Ox 91 L 11/06/19 09:09 Weight - Most Recent: 296 lb 9.6 oz I&O - Last 24 hours: Intake & Output 11/05/19 11/06/19 11/06/19 22:59 06:59 14:59 Intake Total 780 700 Output Total 800 300 Balance -20 400 Lab Results - Last 24 hrs: Laboratory Results - last 24 hr 11/06/19 11/06/19 Range/Units 05:33 05:33 WBC 15.07 H (3.98-10.04) K/mm3 RBC 3.85 L (3.98-5.22) M/mm3 Hgb 11.3 (11.2-15.7) gm/dl Hct 34.6 (34.1-44.9) % MCV 89.9 (79.4-94.8) fl MCH 29.4 (25.6-32.2) pg MCHC 32.7 (32.2-35.5) g/dl RDW Std Deviation 42.8 (36.4-46.3) fL Plt Count 419 H (182-369) K/mm3 MPV 9.4 (9.4-12.3) fl Neut % (Auto) 80.5 H (34.0-71.1) % Lymph % (Auto) 6.2 L (19.3-51.7) % [place] % (Auto) 9.3 (4.7-12.5) % Eos % (Auto) 3.3 (0.7-5.8) Baso % (Auto) 0.2 (0.1-1.2) % Neut # (Auto) 12.14 H (1.56-6.13) K/mm3 Lymph # (Auto) 0.94 L (1.18-3.74) K/mm3 Powell # (Auto) 1.40 H (0.24-0.36) K/mm3 Eos # (Auto) 0.49 H (0.04-0.36) K/mm3 Baso # (Auto) 0.03 (0.01-0.08) K/mm3 Manual Slide Review Abnormal smear Sodium 136 (136-145) mEq/L Potassium 4.1 (3.5-5.1) mEq/L Chloride 100 (98-107) mEq/L Carbon Dioxide 25 (21-32) mEq/L Anion Gap 15.1 H (5-15) BUN 23 H (7-18) mg/dL Creatinine 1.7 H (0.55-1.02) mg/dL Est Cr Clr Drug Dosing 35.94 mL/min Estimated GFR (MDRD) 31 (>60) mL/min BUN/Creatinine Ratio 13.5 L (14-18) Glucose 142 H (74-106) mg/dL Calcium 9.0 (8.5-10.1) mg/dL Magnesium 1.9 (1.8-2.4) mg/dl Total Bilirubin 0.6 (0.2-1.0) mg/dL AST 34 (15-37) U/L ALT 64 H (14-59) U/L Alkaline Phosphatase 262 H (46-116) U/L Total Protein 6.1 L (6.4-8.2) g/dl Albumin 2.3 L (3.4-5.0) g/dl Globulin 3.8 gm/dL Albumin/Globulin Ratio 0.6 L (1-2) CAROLA Results - Last 24 hrs: Microbiology 10/31/19 10:15 Aerobic Blood Culture - Preliminary Blood - Venous - Lab Draw NO GROWTH AFTER 6 DAYS Anaerobic Blood Culture - Preliminary NO GROWTH AFTER 6 DAYS 10/31/19 10:10 Aerobic Blood Culture - Preliminary Blood - Venous NO GROWTH AFTER 6 DAYS Anaerobic Blood Culture - Preliminary NO GROWTH AFTER 6 DAYS Med Orders - Current: Current Medications Acetaminophen (Tylenol) 650 mg PO Q4H PRN PRN Reason: Pain (Mild 1-3)/fever Last Admin: 11/06/19 09:13 Dose: 650 mg Hydrocodone Bitart/Acetaminophen ([place] 325-5 Mg) 1 tab PO Q4H PRN PRN Reason: Pain Last Admin: 11/06/19 09:12 Dose: 1 tab Albuterol/Ipratropium (Duoneb 3.0-0.5 Mg/3 Ml) 3 ml NEB Q6HRRT [facility] Last Admin: 11/06/19 08:28 Dose: 3 ml Aspirin (Aspirin) 81 mg PO BEDTIME [facility] Last Admin: 11/05/19 21:13 Dose: 81 mg Bisacodyl (Dulcolax) 5 mg PO DAILY PRN PRN Reason: Constipation Last Admin: 11/03/19 03:43 Dose: 5 mg Buspirone HCl (Buspar) 5 mg PO TID [facility] Last Admin: 11/06/19 09:11 Dose: 5 mg Calcium Carbonate (Calcium Carbonate/Vitamin D 600 Mg-200 Unit) 1 tab PO BID [facility] Last Admin: 11/06/19 09:11 Dose: 1 tab Carbamazepine (Tegretol Tab) 200 mg PO BEDTIME [facility] Last Admin: 11/05/19 21:13 Dose: 200 mg Citalopram Hydrobromide (Celexa) 20 mg PO BEDTIME [facility] Last Admin: 11/05/19 21:13 Dose: 20 mg Docusate Sodium (Colace) 100 mg PO BID PRN PRN Reason: constipation Last Admin: 11/05/19 08:37 Dose: 100 mg Gabapentin (Neurontin) 300 mg PO DAILY [facility] Last Admin: 11/06/19 09:11 Dose: 300 mg Ceftriaxone Sodium 2 gm/ (Sodium Chloride) 100 mls @ 200 mls/hr IV Q24H [facility] Stop: 11/06/19 15:00 Last Admin: 11/05/19 12:24 Dose: 200 mls/hr Metronidazole 500 mg/ Premix 100 mls @ 100 mls/hr IV Q8H [facility] Stop: 11/06/19 22:00 Last Admin: 11/06/19 03:48 Dose: 100 mls/hr Loratadine (Claritin) 10 mg PO BEDTIME [facility] Last Admin: 11/05/19 21:13 Dose: 10 mg Meclizine HCl (Antivert) 25 mg PO BID PRN PRN Reason: vertigo Ondansetron HCl (Zofran) 4 mg IV Q6H PRN PRN Reason: Nausea/Vomiting Polyethylene Glycol (Miralax) 17 gm PO BEDTIME [facility] Last Admin: 11/06/19 03:49 Dose: Not Given Quetiapine Fumarate (Seroquel) 25 mg PO BEDTIME [facility] Last Admin: 11/05/19 21:13 Dose: 25 mg Rivaroxaban (Xarelto) 10 mg PO BEDTIME [facility] Last Admin: 11/05/19 21:12 Dose: 10 mg Senna (Senna) 8.6 mg PO BID PRN PRN Reason: Constipation Last Admin: 11/03/19 03:43 Dose: 8.6 mg Simvastatin (Zocor) 20 mg PO BEDTIME [facility] Last Admin: 11/05/19 21:12 Dose: 20 mg Sodium Chloride (Saline Flush) 10 ml FLUSH ASDIRECTED PRN PRN Reason: Keep Vein Open Last Admin: 10/31/19 09:58 Dose: 10 ml Sodium Chloride (Obion Nasal [place]) 0 ml WILMAN Q2H PRN PRN Reason: Other Last Admin: 11/03/19 18:03 Dose: 1 spray Tramadol HCl (Ultram) 50 mg PO Q6H PRN PRN Reason: Pain Last Admin: 11/04/19 14:11 Dose: 50 mg Discontinued Medications Albuterol/Ipratropium (Duoneb 3.0-0.5 Mg/3 Ml) 3 ml NEB Q6H PRN PRN Reason: SOB/wheezing Albuterol/Ipratropium (Duoneb 3.0-0.5 Mg/3 Ml) 3 ml NEB Q6H [facility] Last Admin: 11/02/19 14:46 Dose: Not Given Bisacodyl (Dulcolax) 10 mg RECTAL ONETIME ONE Stop: 11/04/19 10:03 Last Admin: 11/04/19 10:32 Dose: Not Given Buspirone HCl (Buspar) 5 mg PO ONETIME ONE Stop: 11/04/19 15:54 Last Admin: 11/04/19 16:52 Dose: 5 mg Furosemide (Lasix) 40 mg IVPUSH NOW ONE Stop: 10/31/19 09:50 Last Admin: 10/31/19 09:58 Dose: 40 mg Furosemide (Lasix) 40 mg IVPUSH NOW ONE Stop: 10/31/19 13:01 Last Admin: 10/31/19 13:56 Dose: 40 mg Furosemide (Lasix) 40 mg IVPUSH BIDDIURETIC [facility] Last Admin: 11/02/19 06:16 Dose: 40 mg Furosemide (Lasix) 40 mg IVPUSH DAILY [facility] Last Admin: 11/03/19 08:52 Dose: 40 mg Furosemide (Lasix) 20 mg IVPUSH ONETIME ONE Stop: 11/03/19 15:01 Last Admin: 11/03/19 15:23 Dose: 20 mg Potassium Chloride 10 meq/ (Premix) 100 mls @ 100 mls/hr IV Q1H [facility] Stop: 10/31/19 16:29 Last Admin: 10/31/19 21:22 Dose: 100 mls/hr Sodium Chloride (Normal Saline) 1,000 mls @ 50 mls/hr IV ASDIRECTED [facility] Last Admin: 10/31/19 14:07 Dose: 50 mls/hr Potassium Chloride 10 meq/ (Premix) 100 mls @ 100 mls/hr IV Q1H [facility] Stop: 11/01/19 11:44 Iopamidol (Isovue Multipack-370 (76%)) 100 ml IVPUSH ONETIME ONE Stop: 10/31/19 11:07 Last Admin: 10/31/19 16:10 Dose: Not Given Iopamidol (Isovue-370 (76%)) 100 ml IVPUSH ONETIME ONE Stop: 10/31/19 11:27 Last Admin: 10/31/19 11:27 Dose: 100 ml Magnesium Hydroxide (Milk Of Magnesia) 30 ml PO ONETIME ONE Stop: 11/03/19 11:36 Last Admin: 11/03/19 12:06 Dose: 30 ml Potassium Chloride (Klor-Con M20) 40 meq PO TID [facility] Last Admin: 11/02/19 08:24 Dose: 40 meq Potassium Chloride (Klor-Con M20) 40 meq PO BID [facility] Last Admin: 11/03/19 08:54 Dose: 40 meq Potassium Chloride (Klor-Con M20) 40 meq PO ONETIME ONE Stop: 11/03/19 11:36 Last Admin: 11/03/19 12:06 Dose: 40 meq Potassium Chloride (Klor-Con M20) 40 meq PO ONETIME ONE Stop: 11/03/19 21:01 Last Admin: 11/03/19 20:59 Dose: 40 meq Sodium Chloride (Saline Flush) 10 ml FLUSH ONETIME ONE Stop: 10/31/19 11:11 Last Admin: 10/31/19 16:10 Dose: Not Given - Exam Quality Assessment: Reports: DVT Prophylaxis. Denies: Supplemental Oxygen General: Reports: Alert, Oriented, Cooperative, No Acute Distress HEENT: Reports: Pupils Equal, Pupils Reactive, EOMI, Mucous Membr. Moist/[place] Neck: Reports: Supple, Trachea Midline Lungs: Reports: Normal Respiratory Effort, Decreased Breath Sounds. Denies: Rales, Rhonchi, Wheezing Cardiovascular: Reports: Regular Rate, Regular Rhythm GI/Abdominal Exam: Normal Bowel Sounds, Soft, Non-Tender, No Distention, No Abnormal Bruit (Female) Exam: Deferred Rectal (Female) Exam: Deferred Back Exam: Reports: Normal Inspection, Full Range of Motion Extremities: Normal Inspection, Normal Range of Motion, Non-Tender, Normal Capillary Refill, Pedal Edema (trace ) Skin: Reports: Warm, Dry, Intact Neurological: Reports: No New Focal Deficit Psy/Mental Status: Reports: Alert
[2019-11-06] MEDS: cefTRIAXone 2 GM in Sodium Chloride 0.9% 100 ML IV SCH (12:02)
[2019-11-06 14:18] VITALS: BP 98/65; PULSE 97
--- NOTE | 2019-11-06 14:54 | CONS ---
CONSULTING PHYSICIAN: Kamran Maldonado MD DATE OF CONSULTATION: 11/03/2019 Site where the services are provided is [facility]. Site where the services are provided is our offices in [facility]. Length of service for this 60-minute inpatient telemedicine event is 60 minutes. IDENTIFICATION: The patient is a 59-year-old female, who is admitted to the inpatient Med/Surg Unit [facility] in [place], [place]. She is seen for psychiatric consultation per the request of staff attending, Dr. Trevino, and his treatment team. CHIEF COMPLAINT: "You name it, I got it. Shortness of breath." HISTORY OF PRESENT ILLNESS: The patient is a 59-year-old female, who was admitted to the inpatient Med/Surg Unit at [facility] in [place], [place], for complaints of shortness of breath and vertigo. She is being treated for pneumonia and complications from a cholecystectomy that she had about 10 days ago. Evidently, the patient had the surgery, initially recovered normally, and was discharged back to the community. She began having issues with the shortness of breath, dizziness, vertigo, and "tremors in my arms" really bad, and so, she came back in to the hospital on 10/31/2019. Right now, the patient is denying that she is suicidal or homicidal, but she is complaining of auditory hallucinations that have been going on for years including visual and olfactory hallucinations as well as auditory hallucinations that are typically non-command type, and she has paranoia, and these symptoms have been worsening lately. She also has racing thoughts and ruminations of very poor sleeping and sleep maintenance. She has a lot of counting issues where she counts all the time and she has a strong need for order. Right now, she states that she has a lot of nerves and anxiety and she is noting "I need my depression pills. I am just jacked up right now, I seriously do, so I need these medications." The patient goes on to note "my brain is kind of fuzzy." The patient states that she is not so much depressed as much as she is struggling with the nerves and anxiety, and she feels that if she could get the nerves and anxiety under control, she would feel less depressed too. She also feels that the psychotic symptoms are not helpful. She denies any illicit substance use or excessive alcohol use complicating her clinical picture prior to admission. MEDICATIONS: At time of admission: 1. Carbamazepine. 2. Gabapentin. 3. Lexapro 20 mg daily. 4. Cetirizine. 5. Hydrochlorothiazide. 6. Atorvastatin. 7. Xarelto. 8. Zocor. 9. Acetylsalicylic acid. ALLERGIES: The patient is allergic to penicillin. PAST MEDICAL HISTORY: 1. Pneumonia. 2. Status post cholecystectomy about 10 days prior to previous admission. 3. Hypertension. 4. History of AFib. 5. Trigeminal neuralgia. 6. Status post knee surgery. REVIEW OF SYSTEMS: Besides pulmonary, GI, cardiac, neuro, and musculoskeletal, all other major organ systems are negative at this point in time for acute difficulties or complications. FAMILY PSYCHIATRIC AND CD HISTORY: The patient reports her son has a history of epilepsy, but she does not report any mental health issues or chemical dependency issues in the family. PAST PSYCHIATRIC AND CD HISTORY: The patient denies any previous psychiatric hospitalizations or chemical dependency treatments. Denies any previous suicide attempts in the past. The patient does report a psychiatric medication history in the past, but she cannot remember the names of the medications she was on prior to the Lexapro. Primary MD is Dr. Angelica martinez of [place]. SOCIAL HISTORY: The patient was born and raised in [place], [place]. She is living in [place], [place], right now. 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 MENTAL STATUS EXAMINATION: The patient is a 59-year-old white female in no apparent distress. Speech is of regular rate and rhythm. The patient is cognitively oriented x3. Psychomotor activity is within normal limits. There is no abnormal motor movements or tics observed. Gait is not observed. Station is not observed. This patient is lying in bed for the purposes of the inpatient consult. Mood is anxious and depressed, but mostly anxious. Affect is consistent with stated mood, but cooperative overall for the purposes of the inpatient consult. There is no behavioral or stated evidence of acute suicidal or homicidal ideation. Thought content is significant for [id number] auditory hallucinations, visual hallucinations, olfactory hallucinations, and paranoid themes. Thought processes are significant for racing thoughts and ruminations. There are no acute manic symptoms or loose associations evident. Judgment and insight appear unimpaired at this point in time. Motivation for help is good. VITAL SIGNS: Stable at the time of presentation. IMPRESSION: [place] I: 1. Major depressive disorder, recurrent, F33.2. 2. Obsessive-compulsive disorder, F42. 3. Psychosis, not otherwise specified, F29. 4. Rule out bipolar affective disease, mixed type. [place] II: None. [place] III: 1. Pneumonia. 2. Status post cholecystectomy with surgical procedure about 10 days prior to admission. 3. Hypertension. 4. Atrial fibrillation history. 5. Trigeminal neuralgia. 6. Status post knee surgery. [place] IV: Severe. [place] V: 55-60. PLAN: 1. Discontinue Lexapro. 2. Begin trial of Luvox 75 mg at bedtime to help with symptoms of OCD and depression. 3. Begin Seroquel 25 mg at bedtime to help with clarity of thought and elimination of psychotic symptoms and paranoia as well as to help with anxiety reduction, sleep initiation, maintenance, and any mood instability. 4. Other medications as prescribed and dosed by the patient's primary inpatient medical treatment team. 5. The patient is apprised of benefits and side effects of her newly initiated psychiatric medication regimen. She acknowledges her understanding of these facts and has no further questions by the end of the interview session. 6. Medication compliance. 7. Recommend the patient follow up with Outpatient Psychiatry when medically stabilized and discharged back to community to assess overall function efficacy of her newly initiated psychiatric medication regimen. 8. We will continue to follow up with the patient on an as-needed basis while she remains on the inpatient Med/Surg Unit at [facility] in [place], [place]. 9. We will follow up with the patient sooner if any complications in the interim. 10.Crisis plan is in place. MMODAL /[id number]
[2019-11-06] MEDS ORDERED: Calcium Carbonate 500 MG Tab.Chew PO PRN (15:18)
== END 2019-11-06 16:50 | disposition home or self-care (01) | DRG 194 ==
LOC: JD.ED 09:22 → JD.MS 13:43
PROVIDERS: ADMIT Internal Medicine; ATTEND Internal Medicine
PROC: 5A09457 Assistance with Respiratory Ventilation, 24-96 Consecutive Hours, Continuous Positive Airway Pressure (ICD-10-PCS; principal; 2019-10-31)
DX: I11.0 Hypertensive heart disease with heart failure (principal); N17.9 Acute kidney failure, unspecified; I50.9 Heart failure, unspecified; J69.0 Pneumonitis due to inhalation of food and vomit; H54.7 Unspecified visual loss; E78.5 Hyperlipidemia, unspecified; M19.90 Unspecified osteoarthritis, unspecified site; G50.0 Trigeminal neuralgia; G90.2 Horner's syndrome; R62.50 Unspecified lack of expected normal physiological development in childhood; R48.0 Dyslexia and alexia; J98.11 Atelectasis; M85.80 Other specified disorders of bone density and structure, unspecified site; R79.89 Other specified abnormal findings of blood chemistry; E87.6 Hypokalemia; E87.1 Hypo-osmolality and hyponatremia; M10.9 Gout, unspecified; R94.31 Abnormal electrocardiogram [ECG] [EKG]; K76.89 Other specified diseases of liver; R74.0 Nonspecific elevation of levels of transaminase and lactic acid dehydrogenase [LDH]; E80.6 Other disorders of bilirubin metabolism; E66.01 Morbid (severe) obesity due to excess calories; M25.561 Pain in right knee; M25.562 Pain in left knee; R06.01 Orthopnea; E78.00 Pure hypercholesterolemia, unspecified; F33.2 Major depressive disorder, recurrent severe without psychotic features; F42.9 Obsessive-compulsive disorder, unspecified; F29 Unspecified psychosis not due to a substance or known physiological condition; I48.91 Unspecified atrial fibrillation; Z87.891 Personal history of nicotine dependence; Z86.19 Personal history of other infectious and parasitic diseases; Z68.41 Body mass index [BMI] 40.0-44.9, adult; Z79.899 Other long term (current) drug therapy; Z79.82 Long term (current) use of aspirin; Z88.0 Allergy status to penicillin; Z91.018 Allergy to other foods; Z98.51 Tubal ligation status; Z87.01 Personal history of pneumonia (recurrent); Z90.49 Acquired absence of other specified parts of digestive tract; Z99.81 Dependence on supplemental oxygen
CPT/HCPCS: 36415; 36600; 71045; 71045-26; 71046; 71046-26; 71275; 71275-26; 80048; 80053; 80156; 81001; 82553; 82803; 83605; 83690; 83735; 83880; 84100; 84484; 85007; 85025; 85027; 85379; 85610; 85730; 86140; 87040; 93005; 93010; 93306; 94640; 94660; 94667; 94668; 94761; 96374; 97116-GP; 97140-GP; 97162-GP; 97530-GP; 99223; 99232; 99239; 99285; 99285-25; A9270-GY; J0696; J1940; J3480; J3490; J7030; J7050; J7620-GY; Q3014; Q9967

== ENCOUNTER 2019-11-11 13:49 | Emergency (ER) | payer BC ==
[2019-11-11 14:04] VITALS: BP 76/48; PULSE 92
[2019-11-11] MEDS ORDERED: Sodium Chloride 0.9% 10 ML Syringe FLUSH PRN (14:28)
[2019-11-11] MEDS ORDERED: Albuterol/Ipratropium 3.0-0.5 MG/3 ML Neb Soln NEB ONE (14:30)
--- NOTE | 2019-11-11 14:30 | EDM.PDOC ---
ED HPI GENERAL MEDICAL PROBLEM - General Chief Complaint: Respiratory Problem Stated Complaint: SOB Time Seen by Provider: 11/11/19 13:59 Source of Information: Reports: Patient History Limitations: Reports: No Limitations - History of Present Illness INITIAL COMMENTS - FREE TEXT/NARRATIVE: The patient presents with her sister for shortness of breath. She was just discharged from the hospital here 5 days ago. She was admitted for shortness of breath. She was found to have pneumonia and CHF. She has no history of CHF and her echo did not look that bad. She was originally admitted on the for cholecystitis and had a lap lucille done. She had some trouble with vomiting after that and stayed a few days. She came back a couple days later on the for the shortness of breath. She had a CT angio of her chest and it did not show a PE or pneumonia but she did have a small effusion on both sides. She had some lasix and antibiotics. She felt better and was discharged on the . She developed the shortness of breath today and a little chest pain in the left upper chest that went away in a few minutes. She has no swelling in her legs. She has no cough or fever. She does have some abdominal pain post operatively but nothing more then normal. She does not smoke. She has no history of asthma or COPD. Onset: Gradual Duration: Hour(s): Location: Reports: Chest Quality: Reports: Sharp Severity: Mild Improves with: Reports: None Worsens with: Reports: None Associated Symptoms: Reports: Chest Pain, Shortness of Breath. Denies: Cough, Fever/Chills, Headaches, Nausea/Vomiting - Related Data Allergies Allergy/AdvReac Type Severity Reaction Status Date / Time broccoli Allergy Cannot Verified 11/11/19 14:04 Remember Penicillins Allergy Cannot Verified 11/11/19 14:04 Remember Home Meds: Home Meds Aspirin 81 mg PO BEDTIME 02/09/18 [History] atorvaSTATin [Lipitor] 20 mg PO BEDTIME 02/09/18 [History] traMADol HCl [Tramadol HCl] 50 mg PO Q6H PRN 02/09/18 [History] Cetirizine [ZyrTEC] 10 mg PO BEDTIME 05/26/18 [History] Bisacodyl [Dulcolax] 5 mg PO DAILY PRN tablet 05/29/18 [Rx] Calcium Carbonate/Vitamin D3 [Calcium 600 + Vit D Tablet] 600 mg PO BID [History] Losartan/Hydrochlorothiazide [Losartan-HCTZ 50-12.5 MG] 0.5 tab PO DAILY [History] Multivitamin [Multi-Day Vitamins] 1 each PO BEDTIME 05/29/18 [History] Escitalopram [Lexapro] 10 mg PO BEDTIME 10/26/19 [History] Gabapentin [Neurontin] 300 mg PO BEDTIME 10/26/19 [History] carBAMazepine [Carbamazepine] 200 mg PO BEDTIME 10/26/19 [History] Ondansetron [Zofran ODT] 4 mg PO TID PRN #30 tab.dis 10/29/19 [Rx] Docusate Sodium [Colace] 100 mg PO BID PRN 10/31/19 [History] Rivaroxaban [Xarelto] 10 mg PO BEDTIME 10/31/19 [History] QUEtiapine [SEROquel] 25 mg PO BEDTIME #20 tablet 11/06/19 [Rx] busPIRone [Buspar] 5 mg PO TID #20 tab 11/06/19 [Rx] Albuterol Sulfate [Albuterol Sulfate Hfa] 2 puff IH Q6H PRN 11/11/19 [History] Hydrochlorothiazide [Microzide] 12.5 mg PO BEDTIME 11/11/19 [History] Past Medical History HEENT History: Reports: Impaired Vision, Other (See Below) Other HEENT History: wears glasses, has partial Cardiovascular History: Reports: High Cholesterol, Hypertension Respiratory History: Reports: None Gastrointestinal History: Reports: None Genitourinary History: Reports: None 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: Reports: 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 Musculoskeletal History: Reports: Gout, Osteoarthritis Neurological History: Reports: Vertigo, Other (See Below) Other Neuro History: trigeminal neuralgia, aquilino's syndrome Psychiatric History: Reports: Developmental Delay, Other (See Below) Other Psychiatric History: dyslexia, depression Endocrine/Metabolic History: Reports: Obesity/BMI 30+, Osteopenia Hematologic History: Reports: None Immunologic History: Reports: None Oncologic (Cancer) History: Reports: None Dermatologic History: Reports: None - Infectious Disease History Infectious Disease History: Reports: Chicken Pox - Past Surgical History Head Surgeries/Procedures: Reports: None Cardiovascular Surgical History: Reports: None Respiratory Surgical History: Reports: None GI Surgical History: Reports: Colonoscopy, EGD Female Surgical History: Reports: None, Tubal Ligation, Other (See Below) Other Female Surgeries/Procedures: breast lumpectomy Endocrine Surgical History: Reports: None Neurological Surgical History: Reports: None Musculoskeletal Surgical History: Reports: Arthroscopic Knee Oncologic Surgical History: Reports: None Dermatological Surgical History: Reports: None Social & Family History - Family History Family Medical History: Noncontributory - Tobacco Use Smoking Status *Q: Current Every Day Smoker Years of Tobacco use: 40 Packs/Tins Daily: 0.5 - Caffeine Use Caffeine Use: Reports: Coffee Other Caffeine Use: 2 cups/ day of coffee. 1 cups/day soda - Recreational Drug Use Recreational Drug Use: No - Living Situation & Occupation Living situation: Reports: Single Occupation: Unemployed ED ROS GENERAL - Review of Systems Review Of Systems: See Below Constitutional: Reports: No Symptoms HEENT: Reports: No Symptoms Respiratory: Reports: Shortness of Breath. Denies: Cough Cardiovascular: Reports: Chest Pain Endocrine: Reports: No Symptoms GI/Abdominal: Reports: No Symptoms : Reports: No Symptoms Musculoskeletal: Reports: No Symptoms ED EXAM, GENERAL - Physical Exam Exam: See Below Exam Limited By: No Limitations General Appearance: Alert, No Apparent Distress Ears: Normal External Exam Nose: Normal Inspection Throat/Mouth: Normal Inspection Head: Atraumatic, Normocephalic Neck: Normal Inspection Respiratory/Chest: No Respiratory Distress Cardiovascular: Regular Rate, Rhythm, No Edema, No Murmur GI/Abdominal: Soft, Non-Tender, No Organomegaly, No Mass Back Exam: Normal Inspection Extremities: Normal Inspection EKG INTERPRETATION EKG Date: 11/11/19 Time: 17:10 Rhythm: Other (sinus tachycardia) Rate (Beats/Min): 103 [place]: Normal P-Wave: Present QRS: Normal ST-T: Normal QT: Normal Course - Vital Signs Last Recorded V/S: Last Vital Signs Temp 97.2 F 11/11/19 13:59 Pulse 92 11/11/19 13:59 Resp 26 H 11/11/19 13:59 BP 76/48 L 11/11/19 13:59 Pulse Ox 92 L 11/11/19 13:59 - Orders/Labs/Meds Orders: Active Orders 24 hr Category Date Time Status Cardiac Monitoring [RC] . DIRECTED Care 11/11/19 14:28 Active EKG Documentation Completion [RC] ASDIRECTED Care 11/11/19 17:07 Active EKG Documentation Completion [RC] STAT Care 11/11/19 14:29 Active Oxygen Therapy [RC] PRN Care 11/11/19 14:28 Active Peripheral IV Care [RC] . DIRECTED Care 11/11/19 14:30 Active RT Aerosol Therapy [RC] ASDIRECTED Care 11/11/19 14:30 Active Chest 1V Frontal [CR] Stat Exams 11/11/19 14:30 Taken Sodium Chloride 0.9% [Saline Flush] Med 11/11/19 14:28 Active 10 ml FLUSH ASDIRECTED PRN Peripheral IV Insertion Adult [OM.PC] Stat Oth 11/11/19 14:28 Ordered EKG 12 Lead [EK] Stat Ther 11/11/19 17:07 Ordered Medication Orders Sodium Chloride (Saline Flush) 10 ml FLUSH ASDIRECTED PRN PRN Reason: Keep Vein Open Last Admin: 11/11/19 16:04 Dose: 10 ml Labs: Laboratory Tests 11/11/19 11/11/19 11/11/19 Range/Units 14:41 14:41 14:41 WBC 13.69 H (3.98-10.04) K/mm3 RBC 4.06 (3.98-5.22) M/mm3 Hgb 11.9 (11.2-15.7) gm/dl Hct 35.7 (34.1-44.9) % MCV 87.9 (79.4-94.8) fl MCH 29.3 (25.6-32.2) pg MCHC 33.3 (32.2-35.5) g/dl RDW Std Deviation 41.2 (36.4-46.3) fL Plt Count 522 H D (182-369) K/mm3 MPV 8.4 L (9.4-12.3) fl Neut % (Auto) 81.9 H (34.0-71.1) % Lymph % (Auto) 7.7 L (19.3-51.7) % [place] % (Auto) 8.7 (4.7-12.5) % Eos % (Auto) 1.2 (0.7-5.8) Baso % (Auto) 0.2 (0.1-1.2) % Neut # (Auto) 11.22 H (1.56-6.13) K/mm3 Lymph # (Auto) 1.05 L (1.18-3.74) K/mm3 [place] # (Auto) 1.19 H (0.24-0.36) K/mm3 Eos # (Auto) 0.16 (0.04-0.36) K/mm3 Baso # (Auto) 0.03 (0.01-0.08) K/mm3 Manual Slide Review Abnormal smear D-Dimer, Quantitative 0.98 H (0.19-0.50) mg/L Sodium 132 L (136-145) mEq/L Potassium 4.0 (3.5-5.1) mEq/L Chloride 96 L (98-107) mEq/L Carbon Dioxide 29 (21-32) mEq/L Anion Gap 11.0 (5-15) BUN 24 H (7-18) mg/dL Creatinine 2.0 H (0.55-1.02) mg/dL Est Cr Clr Drug Dosing 32.75 mL/min Estimated GFR (MDRD) 26 (>60) mL/min BUN/Creatinine Ratio 12.0 L (14-18) Glucose 128 H (74-106) mg/dL Calcium 10.0 (8.5-10.1) mg/dL Total Bilirubin 0.8 (0.2-1.0) mg/dL AST 27 (15-37) U/L ALT 45 (14-59) U/L Alkaline Phosphatase 195 H (46-116) U/L Troponin I 0.085 H* (0.00-0.056) ng/mL C-Reactive Protein 16.6 H* (<1.0) mg/dL NT-Pro-B Natriuret Pep (0-125) pg/mL Total Protein 7.0 (6.4-8.2) g/dl Albumin 2.7 L (3.4-5.0) g/dl Globulin 4.3 gm/dL Albumin/Globulin Ratio 0.6 L (1-2) 11/11/19 Range/Units 14:41 WBC (3.98-10.04) K/mm3 RBC (3.98-5.22) M/mm3 Hgb (11.2-15.7) gm/dl Hct (34.1-44.9) % MCV (79.4-94.8) fl MCH (25.6-32.2) pg MCHC (32.2-35.5) g/dl RDW Std Deviation (36.4-46.3) fL Plt Count (182-369) K/mm3 MPV (9.4-12.3) fl Neut % (Auto) (34.0-71.1) % Lymph % (Auto) (19.3-51.7) % [place] % (Auto) (4.7-12.5) % Eos % (Auto) (0.7-5.8) Baso % (Auto) (0.1-1.2) % Neut # (Auto) (1.56-6.13) K/mm3 Lymph # (Auto) (1.18-3.74) K/mm3 [place] # (Auto) (0.24-0.36) K/mm3 Eos # (Auto) (0.04-0.36) K/mm3 Baso # (Auto) (0.01-0.08) K/mm3 Manual Slide Review D-Dimer, Quantitative (0.19-0.50) mg/L Sodium (136-145) mEq/L Potassium (3.5-5.1) mEq/L Chloride (98-107) mEq/L Carbon Dioxide (21-32) mEq/L Anion Gap (5-15) BUN (7-18) mg/dL Creatinine (0.55-1.02) mg/dL Est Cr Clr Drug Dosing mL/min Estimated GFR (MDRD) (>60) mL/min BUN/Creatinine Ratio (14-18) Glucose (74-106) mg/dL Calcium (8.5-10.1) mg/dL Total Bilirubin (0.2-1.0) mg/dL AST (15-37) U/L ALT (14-59) U/L Alkaline Phosphatase (46-116) U/L Troponin I (0.00-0.056) ng/mL C-Reactive Protein (<1.0) mg/dL NT-Pro-B Natriuret Pep 4351 H (0-125) pg/mL Total Protein (6.4-8.2) g/dl Albumin (3.4-5.0) g/dl Globulin gm/dL Albumin/Globulin Ratio (1-2) Meds: Medications Generic Name Dose Route Start Last Admin Trade Name Freq PRN Reason Stop Dose Admin Sodium Chloride 10 ml 11/11/19 14:28 11/11/19 16:04 Saline Flush FLUSH 10 ml ASDIRECTED PRN Administration Keep Vein Open Discontinued Medications Generic Name Dose Route Start Last Admin Trade Name Freq PRN Reason Stop Dose Admin Albuterol/Ipratropium 3 ml 11/11/19 14:30 11/11/19 15:31 Duoneb 3.0-0.5 Mg/3 Ml NEB 11/11/19 14:31 3 ml ONETIME ONE Administration Aspirin 324 mg 11/11/19 16:24 11/11/19 16:48 Aspirin PO 11/11/19 16:25 324 mg ONETIME ONE Administration Hydromorphone HCl 0.5 mg 11/11/19 17:16 11/11/19 17:32 Dilaudid IVPUSH 11/11/19 17:17 0.5 mg ONETIME ONE Administration - Re-Assessments/Exams Free Text/Narrative Re-Assessment/Exam: 11/11/19 18:15 I ordered oxygen, IV saline lock, EKG, CXR, labs and duoneb. Her EKG shows a sinus tachycardia with no acute changes. Her CXR shows nothing acute. 11/11/19 18:17 Her WBC is elevated at 13.69. Her D-dimer is elevated at 0.98. That has improved from the other admission of 2. Her Na is low at 132. Her creatinine is elevated at 2. Her glucose is elevated at 128. Her alk phos is elevated at 195. Her troponin is elevated at 0.085. Her CRP is elevated at 16.6. Her BNP is elevated at 4351. I am concerned she may be having a nonSTEMI. When she was admitted last time her troponin was negative. I did give her some aspirin. I feel she needs to go down to [place] where they have cardiology. I called [facility] in [place] and I talked with Dr Ko the hospitalist telephone diaphragm assembler and he accepted the patient. She did have more upper abdominal pain so I ordered diluadid 0.5mg IV. I did find that she did have a history of A-fib and she is on xarelto for that. She had none now that I could see. Departure - Departure Time of Disposition: 18:30 Disposition: DC/Tfer to Acute Hospital 02 Condition: Poor Clinical Impression: Hypoxia, Shortness of breath, Elevated troponin Chest pain Qualifiers: Chest pain type: unspecified Qualified Code(s): R07.9 - Chest pain, unspecified - Discharge Information Referrals: Alicia Shaw MD [Primary Care Provider] - Forms: ED Department Discharge Sepsis Event Note - Evaluation Sepsis Screening Result: No Definite Risk - Focused Exam Vital Signs: Vital Signs Temp Pulse Resp BP Pulse Ox 11/11/19 13:59 97.2 F 92 26 H 76/48 L 92 L Date Exam was Performed: 11/11/19 Time Exam was Performed: 18:09 - My Orders Last 24 Hours: My Active Orders 11/11/19 14:28 Cardiac Monitoring [RC] . DIRECTED Oxygen Therapy [RC] PRN Sodium Chloride 0.9% [Saline Flush] 10 ml FLUSH ASDIRECTED PRN Peripheral IV Insertion Adult [OM.PC] Stat 11/11/19 14:29 EKG Documentation Completion [RC] STAT 11/11/19 14:30 Peripheral IV Care [RC] . DIRECTED RT Aerosol Therapy [RC] ASDIRECTED Chest 1V Frontal [CR] Stat 11/11/19 17:07 EKG Documentation Completion [RC] ASDIRECTED EKG 12 Lead [EK] Stat - Assessment/Plan Last 24 Hours: My Active Orders 11/11/19 14:28 Cardiac Monitoring [RC] . DIRECTED Oxygen Therapy [RC] PRN Sodium Chloride 0.9% [Saline Flush] 10 ml FLUSH ASDIRECTED PRN Peripheral IV Insertion Adult [OM.PC] Stat 11/11/19 14:29 EKG Documentation Completion [RC] STAT 11/11/19 14:30 Peripheral IV Care [RC] . DIRECTED RT Aerosol Therapy [RC] ASDIRECTED Chest 1V Frontal [CR] Stat 11/11/19 17:07 EKG Documentation Completion [RC] ASDIRECTED EKG 12 Lead [EK] Stat
[2019-11-11] MEDS ORDERED: Aspirin 81 MG Tab.Chew PO ONE (16:24)
[2019-11-11] MEDS ORDERED: HYDROmorphone 0.5 MG/0.5 ML Syringe IVPUSH ONE (17:16)
--- NOTE | 2019-11-12 10:43 | CR ---
Chest: Portable view of the chest was obtained. Comparison: Prior chest x-ray of 11/04/19. Heart size normal. Tortuous thoracic aorta is seen. Slight parenchymal scarring is seen within the right base. Minimal discoid atelectasis is noted within the left midlung. Lungs otherwise are clear. Bony structures are grossly intact. Impression: 1. Findings as noted above. 2. Nothing acute is definitely appreciated. Diagnostic code #2 This report was dictated in [place] Standard Time
== END 2019-11-11 19:04 ==
LOC: JD.ED 13:49
DX: R09.02 Hypoxemia (principal); R06.02 Shortness of breath; R79.89 Other specified abnormal findings of blood chemistry; R07.9 Chest pain, unspecified; I50.9 Heart failure, unspecified; I10 Essential (primary) hypertension; E66.9 Obesity, unspecified; F32.9 Major depressive disorder, single episode, unspecified; E78.00 Pure hypercholesterolemia, unspecified; F17.210 Nicotine dependence, cigarettes, uncomplicated; Z88.0 Allergy status to penicillin; Z91.018 Allergy to other foods; Z79.899 Other long term (current) drug therapy; Z68.1 Body mass index [BMI] 19.9 or less, adult
CPT/HCPCS: 36415; 71045; 80053; 83880; 84484; 85025; 85379; 86140; 93005; 94762; 96374; 99285; A9270; J1170; 93010; 99284; J7620-GY

== ENCOUNTER 2020-02-12 20:38 | Emergency (ER) | payer BC ==
[2020-02-12 20:49] VITALS: BP 102/75; PULSE 79
--- NOTE | 2020-02-12 22:26 | EDM.PDOC ---
ED HPI GENERAL MEDICAL PROBLEM - General Chief Complaint: Respiratory Problem Stated Complaint: SOB Time Seen by Provider: 02/12/20 21:25 Source of Information: Reports: Patient, RN Notes Reviewed - History of Present Illness INITIAL COMMENTS - FREE TEXT/NARRATIVE: 59-year-old female comes to ED having experienced an episode of shortness of breath at work about an hour ago. 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 she states she has had this happen off and on in the past with this episode more severe than typical. Used her rescue inhaler twice,the dyspnea continued so therefore she decided to come to the ED at that point. Now that she is here she is less short of breath. She has not been ill with cough sore throat fever chills or anything of that nature. Denies acute chest pain. there has been no abdominal pain, nausea or vomiting with this. Does have history of mild COPD. Does use home oxygen at night with strong history of sleep apnea. - Related Data Allergies Allergy/AdvReac Type Severity Reaction Status Date / Time broccoli Allergy Cannot Verified 02/12/20 20:49 Remember Penicillins Allergy Cannot Verified 02/12/20 20:49 Remember Home Meds: Home Meds Aspirin 81 mg PO BEDTIME 02/09/18 [History] atorvaSTATin [Lipitor] 20 mg PO BEDTIME 02/09/18 [History] traMADol HCl [Tramadol HCl] 50 mg PO Q6H PRN 02/09/18 [History] Cetirizine [ZyrTEC] 10 mg PO BEDTIME 05/26/18 [History] Calcium Carbonate/Vitamin D3 [Calcium 600 + Vit D Tablet] 600 mg PO BID [History] Losartan/Hydrochlorothiazide [Losartan-HCTZ 50-12.5 MG] 0.5 tab PO DAILY [History] Multivitamin [Multi-Day Vitamins] 1 each PO BEDTIME 05/29/18 [History] bisacodyL [Dulcolax] 5 mg PO DAILY PRN tablet 05/29/18 [Rx] Escitalopram [Lexapro] 10 mg PO BEDTIME 10/26/19 [History] Gabapentin [Neurontin] 300 mg PO BEDTIME 10/26/19 [History] carBAMazepine [Carbamazepine] 200 mg PO BEDTIME 10/26/19 [History] Ondansetron [Zofran ODT] 4 mg PO TID PRN #30 tab.dis 10/29/19 [Rx] Docusate Sodium [Colace] 100 mg PO BID PRN 10/31/19 [History] Rivaroxaban [Xarelto] 10 mg PO BEDTIME 10/31/19 [History] QUEtiapine [SEROquel] 25 mg PO BEDTIME #20 tablet 11/06/19 [Rx] busPIRone [Buspar] 5 mg PO TID #20 tab 11/06/19 [Rx] Albuterol Sulfate [Albuterol Sulfate Hfa] 2 puff IH Q6H PRN 11/11/19 [History] hydroCHLOROthiazide [Microzide] 12.5 mg PO BEDTIME 11/11/19 [History] Past Medical History HEENT History: Reports: Impaired Vision, Other (See Below) Other HEENT History: wears glasses, has partial upper denture Cardiovascular History: Reports: High Cholesterol, Hypertension Respiratory History: Reports: Asthma Gastrointestinal History: Reports: None Genitourinary History: Reports: None 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 Musculoskeletal History: Reports: Gout, Osteoarthritis Neurological History: Reports: Vertigo, Other (See Below) Other Neuro History: trigeminal neuralgia, aquilino's syndrome Psychiatric History: Reports: Depression, Developmental Delay, Other (See Below) Other Psychiatric History: dyslexia Endocrine/Metabolic History: Reports: Obesity/BMI 30+, Osteopenia Hematologic History: Reports: None Immunologic History: Reports: None Oncologic (Cancer) History: Reports: None Dermatologic History: Reports: None - Infectious Disease History Infectious Disease History: Reports: Chicken Pox - Past Surgical History Head Surgeries/Procedures: Reports: None HEENT Surgical History: Reports: Oral Surgery Cardiovascular Surgical History: Reports: None Respiratory Surgical History: Reports: None GI Surgical History: Reports: Cholecystectomy, Colonoscopy, EGD Female Surgical History: Reports: None, Tubal Ligation, Other (See Below) Other Female Surgeries/Procedures: breast lumpectomy Endocrine Surgical History: Reports: None Neurological Surgical History: Reports: None Musculoskeletal Surgical History: Reports: Arthroscopic Knee Oncologic Surgical History: Reports: None Dermatological Surgical History: Reports: None Social & Family History - Family History Family Medical History: Noncontributory - Tobacco Use Smoking Status *Q: Former Smoker Used Tobacco, but Quit: Yes Month/Year Tobacco Last Used: 10/2020 - Caffeine Use Caffeine Use: Reports: Coffee, Soda, Tea Other Caffeine Use: 2 cups/ day of coffee. 1 cups/day soda - Recreational Drug Use Recreational Drug Use: No - Living Situation & Occupation Living situation: Reports: Single Occupation: Unemployed ED ROS GENERAL - Review of Systems Review Of Systems: See Below Constitutional: Denies: Fever, Chills, Diaphoresis HEENT: Denies: Sinus Problem, Throat Pain Respiratory: Reports: Shortness of Breath, Wheezing (now better) Cardiovascular: Denies: Chest Pain GI/Abdominal: Denies: Abdominal Pain, Nausea, Vomiting Musculoskeletal: Denies: Neck Pain, Shoulder Pain, Arm Pain, Back Pain Skin: Reports: No Symptoms Neurological: Reports: No Symptoms ED EXAM, GENERAL - Physical Exam Exam: See Below General Appearance: Alert, No Apparent Distress Eye Exam: Bilateral Eye: PERRL Throat/Mouth: Normal Inspection, Normal Oropharynx Head: Atraumatic Neck: Supple Respiratory/Chest: No Respiratory Distress, Lungs Clear, Normal Breath Sounds. No: Rhonchi, Wheezing Cardiovascular: Regular Rate, Rhythm GI/Abdominal: Soft, Non-Tender Extremities: Normal Inspection, Normal Range of Motion Skin Exam: Warm, Dry, Normal Color EKG INTERPRETATION EKG Date: 02/12/20 Rhythm: NSR [place]: Normal P-Wave: Present QRS: Other (q waves inf. leads.) ST-T: Normal Course - Vital Signs Last Recorded V/S: Last Vital Signs Temp 96.4 F L 02/12/20 20:44 Pulse 79 02/12/20 20:44 Resp 25 H 02/12/20 20:44 BP 102/75 02/12/20 20:44 Pulse Ox 100 02/12/20 20:44 - Orders/Labs/Meds Orders: Active Orders 24 hr Category Date Time Status EKG 12 Lead [EKG Documentation Completion] [RC] STAT Care 02/12/20 21:35 Active Chest 1V Frontal [CR] Stat Exams 02/12/20 21:35 Taken Labs: Laboratory Tests 02/12/20 02/12/20 02/12/20 Range/Units 21:50 21:50 21:50 WBC 8.44 (3.98-10.04) K/mm3 RBC 4.21 (3.98-5.22) M/mm3 Hgb 12.6 (11.2-15.7) gm/dl Hct 37.1 (34.1-44.9) % MCV 88.1 (79.4-94.8) fl MCH 29.9 (25.6-32.2) pg MCHC 34.0 (32.2-35.5) g/dl RDW Std Deviation 40.2 (36.4-46.3) fL Plt Count 251 D (182-369) K/mm3 MPV 9.0 L (9.4-12.3) fl Neut % (Auto) 62.9 (34.0-71.1) % Lymph % (Auto) 24.1 (19.3-51.7) % [place] % (Auto) 10.2 (4.7-12.5) % Eos % (Auto) 2.3 (0.7-5.8) Baso % (Auto) 0.4 (0.1-1.2) % Neut # (Auto) 5.32 (1.56-6.13) K/mm3 Lymph # (Auto) 2.03 (1.18-3.74) K/mm3 [place] # (Auto) 0.86 H (0.24-0.36) K/mm3 Eos # (Auto) 0.19 (0.04-0.36) K/mm3 Baso # (Auto) 0.03 (0.01-0.08) K/mm3 Sodium 146 H D (136-145) mEq/L Potassium 3.1 L (3.5-5.1) mEq/L Chloride 109 H D (98-107) mEq/L Carbon Dioxide 28 (21-32) mEq/L Anion Gap 12.1 (5-15) BUN 29 H (7-18) mg/dL Creatinine 1.6 H (0.55-1.02) mg/dL Est Cr Clr Drug Dosing 39.56 mL/min Estimated GFR (MDRD) 33 (>60) mL/min BUN/Creatinine Ratio 18.1 H (14-18) Glucose 130 H (74-106) mg/dL Calcium 8.6 (8.5-10.1) mg/dL Total Bilirubin 0.3 (0.2-1.0) mg/dL AST 17 (15-37) U/L ALT 28 (14-59) U/L Alkaline Phosphatase 127 H (46-116) U/L Troponin I < 0.017 (0.00-0.056) ng/mL NT-Pro-B Natriuret Pep 331 H (0-125) pg/mL Total Protein 6.3 L (6.4-8.2) g/dl Albumin 3.5 (3.4-5.0) g/dl Globulin 2.8 gm/dL Albumin/Globulin Ratio 1.3 (1-2) - Re-Assessments/Exams Free Text/Narrative Re-Assessment/Exam: 02/13/20 03:54 CXR nl. CBC, trop, EKG also nl, patient doing well at time of recheck, sats 97 to 99 %, discharge instr. as documented. Departure - Departure Time of Disposition: 23:02 Disposition: Home, Self-Care 01 Condition: Fair Clinical Impression: Dyspnea, Atypical chest pain - Discharge Information Instructions: Shortness of Breath, Adult, [id number] Referrals: Alicia Shaw MD [Primary Care Provider] - Forms: ED Department Discharge Additional Instructions: Your CXR, heart and lungs are checking out well at this time. Continue current medications as prescribed. You to use rescue inhaler as needed. Try follow-up with Dr. Dominguez sometime in the next 5 to 7 days. Return to ED as needed if symptoms worsening in any way. Sepsis Event Note - Evaluation Sepsis Screening Result: Possible Sepsis Risk - Focused Exam Vital Signs: Vital Signs Temp Pulse Resp BP Pulse Ox 02/12/20 20:44 96.4 F L 79 25 H 102/75 100 Date Exam was Performed: 02/13/20 Time Exam was Performed: 03:54 - My Orders Last 24 Hours: My Active Orders 02/12/20 21:35 EKG 12 Lead [EKG Documentation Completion] [RC] STAT Chest 1V Frontal [CR] Stat - Assessment/Plan Last 24 Hours: My Active Orders 02/12/20 21:35 EKG 12 Lead [EKG Documentation Completion] [RC] STAT Chest 1V Frontal [CR] Stat
--- NOTE | 2020-02-13 06:40 | CR ---
Chest: Frontal view of the chest was obtained. Comparison: Prior chest x-ray of 11/11/19. Heart size and mediastinum are normal. Lungs show no acute parenchymal change. Bony structures are grossly intact. Impression: 1. Nothing acute is appreciated on frontal chest x-ray. Diagnostic code #1 This report was dictated in MDT
== END 2020-02-12 23:10 | disposition home or self-care (01) ==
LOC: JD.ED 20:38
DX: R06.02 Shortness of breath (principal); R07.89 Other chest pain; I10 Essential (primary) hypertension; E78.00 Pure hypercholesterolemia, unspecified; J45.909 Unspecified asthma, uncomplicated; E66.9 Obesity, unspecified; Z68.28 Body mass index [BMI] 28.0-28.9, adult; Z79.899 Other long term (current) drug therapy; Z79.82 Long term (current) use of aspirin; Z88.0 Allergy status to penicillin; Z87.891 Personal history of nicotine dependence; Z91.018 Allergy to other foods
CPT/HCPCS: 36415; 71045; 71045-26; 80053; 83880; 84484; 85025; 93005; 93010; 99283; 99285-25

== ENCOUNTER 2020-03-06 12:28 | Observation (INO) | payer BC ==
[2020-03-06] MEDS ORDERED: Sodium Chloride 0.9% 10 ML Syringe FLUSH PRN (12:58)
--- NOTE | 2020-03-06 13:21 | EDM.PDOC ---
ED HPI GENERAL MEDICAL PROBLEM - General Chief Complaint: Cardiovascular Problem Stated Complaint: right leg DVT Time Seen by Provider: 03/06/20 12:33 Source of Information: Reports: Patient History Limitations: Reports: No Limitations - History of Present Illness INITIAL COMMENTS - FREE TEXT/NARRATIVE: Patient is a 59-year-old female who was sent to the emergency department from the [facility] by her primary care provider, Dr. Villareal, for admission for a right lower extremity DVT. Patient states for the last few days she has had increased swelling and pain in the right extremity. Pain is worse behind the knee and up into the lower posterior thigh. She has had no chest pain or shortness of breath. Patient has a history of previous blood clots, A. fib, CHF , high cholesterol, hypertension, asthma, COPD, and sleep apnea. Patient's oxygen saturations have been normal on room air, however the patient's primary care provider is concerned that with her extensive medical history she could rapidly decompensate if she was sent home. Patient is not currently on a blood thinner. Right Leg Pain Score (Numeric/FACES): 4 - Related Data Allergies Allergy/AdvReac Type Severity Reaction Status Date / Time broccoli Allergy Cannot Verified 03/06/20 14:24 Remember Penicillins Allergy Cannot Verified 03/06/20 14:24 Remember Home Meds: Home Meds Aspirin 81 mg PO BEDTIME 02/09/18 [History] atorvaSTATin [Lipitor] 20 mg PO BEDTIME 02/09/18 [History] Cetirizine [ZyrTEC] 10 mg PO DAILY PRN 05/26/18 [History] Calcium Carbonate/Vitamin D3 [Calcium 600 + Vit D Tablet] 600 mg PO BID [History] bisacodyL [Dulcolax] 5 mg PO DAILY PRN tablet 05/29/18 [Rx] Gabapentin [Neurontin] 300 mg PO BEDTIME 10/26/19 [History] carBAMazepine [Carbamazepine] 100 mg PO BID 10/26/19 [History] Ondansetron [Zofran ODT] 4 mg PO TID PRN #30 tab.dis 10/29/19 [Rx] Acetaminophen 500 mg PO Q4HR PRN 03/06/20 [History] Albuterol Sulfate [Proair Hfa] 1 inh IH Q4H PRN 03/06/20 [History] Benzonatate 200 mg PO TID 03/06/20 [History] Budesonide/Formoterol Fumarate [Budesonide-Formoterol 80-4.5] 2 inh IH BID 03/06 [History] Budesonide/Formoterol [Symbicort 160-4.5 MCG] 2 puff IH BID 03/06/20 [History] Cyclobenzaprine [Flexeril] 10 mg PO Q8HR 03/06/20 [History] FLUoxetine [PROzac] 40 mg PO DAILY 03/06/20 [History] Furosemide [Lasix] 20 mg PO DAILY 03/06/20 [History] Inhaler, Assist Devices [Aerochamber MV] 1 each MC DAILY 03/06/20 [History] Losartan [Cozaar] 50 mg PO DAILY 03/06/20 [History] Potassium Chloride 20 meq PO DAILY 03/06/20 [History] Sennosides [Senna] 8.6 mg PO BID PRN 03/06/20 [History] Vitc/E/Zn/Copper/Lutein/Zeaxan [Icaps Areds2 Softgel] 1 each PO DAILY 03/06/20 [ History] Past Medical History HEENT History: Reports: Impaired Vision, Other (See Below) Other HEENT History: wears glasses, has partial upper denture Cardiovascular History: Reports: Afib, Blood Clots/VTE/DVT, Heart Failure, High Cholesterol, Hypertension Respiratory History: Reports: Asthma, COPD, Sleep Apnea Gastrointestinal History: Reports: None Genitourinary History: Reports: None BINDING NICKER History: Reports: None Musculoskeletal History: Reports: Gout, Osteoarthritis Neurological History: Reports: Vertigo, Other (See Below) Other Neuro History: trigeminal neuralgia, aquilino's syndrome Psychiatric History: Reports: Depression, Developmental Delay, Other (See Below) Other Psychiatric History: dyslexia Endocrine/Metabolic History: Reports: Obesity/BMI 30+, Osteopenia Hematologic History: Reports: None Immunologic History: Reports: None Oncologic (Cancer) History: Reports: None Dermatologic History: Reports: None - Infectious Disease History Infectious Disease History: Reports: Chicken Pox - Past Surgical History Head Surgeries/Procedures: Reports: None HEENT Surgical History: Reports: Oral Surgery Cardiovascular Surgical History: Reports: None Respiratory Surgical History: Reports: None GI Surgical History: Reports: Cholecystectomy, Colonoscopy, EGD Female Surgical History: Reports: None, Tubal Ligation, Other (See Below) Other Female Surgeries/Procedures: breast lumpectomy Endocrine Surgical History: Reports: None Neurological Surgical History: Reports: None Musculoskeletal Surgical History: Reports: Arthroscopic Knee, Knee Replacement Oncologic Surgical History: Reports: None Dermatological Surgical History: Reports: None Social & Family History - Family History Family Medical History: Noncontributory - Tobacco Use Smoking Status *Q: Never Smoker - Caffeine Use Caffeine Use: Reports: Soda, Tea Other Caffeine Use: 2 cups/ day of coffee. 1 cups/day soda - Recreational Drug Use Recreational Drug Use: No - Living Situation & Occupation Living situation: Reports: Single Occupation: Unemployed ED ROS GENERAL - Review of Systems Review Of Systems: See Below Constitutional: Reports: No Symptoms. Denies: Fever, Chills HEENT: Reports: No Symptoms Respiratory: Reports: No Symptoms. Denies: Shortness of Breath, Cough Cardiovascular: Reports: Edema (Right lower extremity) Endocrine: Reports: No Symptoms GI/Abdominal: Reports: No Symptoms : Reports: No Symptoms Musculoskeletal: Reports: No Symptoms Skin: Reports: No Symptoms Neurological: Reports: No Symptoms Psychiatric: Reports: No Symptoms Hematologic/Lymphatic: Reports: No Symptoms Immunologic: Reports: No Symptoms ED EXAM, GENERAL - Physical Exam Exam: See Below Exam Limited By: No Limitations General Appearance: Alert, WD/WN, No Apparent Distress Respiratory/Chest: No Respiratory Distress, Lungs Clear, Normal Breath Sounds, No Accessory Muscle Use, Chest Non-Tender Cardiovascular: Normal Peripheral Pulses, Regular Rate, Rhythm, No Gallop, No JVD, No Murmur, No Rub, Other (2+ nonpitting edema to the right leg. Tenderness to light palpation in the right popliteal fossa. Extremity is warm to the touch. 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 EKG interpreted by Dr. Viktor Contreras MD. Course - Vital Signs Last Recorded V/S: Last Vital Signs Temp 98.2 F 03/06/20 14:22 Pulse 87 03/06/20 14:22 Resp 20 03/06/20 14:22 BP 144/98 H 03/06/20 14:22 Pulse Ox 97 03/06/20 14:22 - Orders/Labs/Meds Orders: Active Orders 24 hr Category Date Time Status Sodium Chloride 0.9% [Saline Flush] Med 03/06/20 12:58 Active 10 ml FLUSH ASDIRECTED PRN Peripheral IV Insertion Adult [OM.PC] Stat Oth 03/06/20 12:58 Ordered Medication Orders Sodium Chloride (Saline Flush) 10 ml FLUSH ASDIRECTED PRN PRN Reason: Keep Vein Open Last Admin: 03/06/20 13:40 Dose: 10 ml Labs: Laboratory Tests 03/06/20 03/06/20 Range/Units 13:05 13:05 WBC 7.56 (3.98-10.04) K/mm3 RBC 4.44 (3.98-5.22) M/mm3 Hgb 13.3 (11.2-15.7) gm/dl Hct 39.3 (34.1-44.9) % MCV 88.5 (79.4-94.8) fl MCH 30.0 (25.6-32.2) pg MCHC 33.8 (32.2-35.5) g/dl RDW Std Deviation 41.9 (36.4-46.3) fL Plt Count 248 (182-369) K/mm3 MPV 8.8 L (9.4-12.3) fl Neut % (Auto) 67.6 (34.0-71.1) % Lymph % (Auto) 19.0 L (19.3-51.7) % [place] % (Auto) 10.6 (4.7-12.5) % Eos % (Auto) 2.2 (0.7-5.8) Baso % (Auto) 0.5 (0.1-1.2) % Neut # (Auto) 5.10 (1.56-6.13) K/mm3 Lymph # (Auto) 1.44 (1.18-3.74) K/mm3 [place] # (Auto) 0.80 H (0.24-0.36) K/mm3 Eos # (Auto) 0.17 (0.04-0.36) K/mm3 Baso # (Auto) 0.04 (0.01-0.08) K/mm3 Sodium 143 (136-145) mEq/L Potassium 4.0 (3.5-5.1) mEq/L Chloride 104 (98-107) mEq/L Carbon Dioxide 28 (21-32) mEq/L Anion Gap 15.0 (5-15) BUN 18 (7-18) mg/dL Creatinine 1.2 H (0.55-1.02) mg/dL Est Cr Clr Drug Dosing TNP Estimated GFR (MDRD) 46 (>60) mL/min BUN/Creatinine Ratio 15.0 (14-18) Glucose 121 H (74-106) mg/dL Calcium 9.3 (8.5-10.1) mg/dL Total Bilirubin 0.5 (0.2-1.0) mg/dL AST 20 (15-37) U/L ALT 35 (14-59) U/L Alkaline Phosphatase 179 H (46-116) U/L Troponin I < 0.017 (0.00-0.056) ng/mL Total Protein 7.1 (6.4-8.2) g/dl Albumin 3.9 (3.4-5.0) g/dl Globulin 3.2 gm/dL Albumin/Globulin Ratio 1.2 (1-2) Meds: Medications Generic Name Dose Route Start Last Admin Trade Name Freq PRN Reason Stop Dose Admin Sodium Chloride 10 ml 03/06/20 12:58 03/06/20 13:40 Saline Flush FLUSH 10 ml ASDIRECTED PRN Administration Keep Vein Open Discontinued Medications Generic Name Dose Route Start Last Admin Trade Name Freq PRN Reason Stop Dose Admin Apixaban 10 mg 03/06/20 13:24 03/06/20 13:39 Eliquis PO 03/06/20 13:25 10 mg ONETIME ONE Administration - Re-Assessments/Exams Free Text/Narrative Re-Assessment/Exam: On exam, patient is in no respiratory distress. Oxygen saturations are normal on room air. She is hemodynamically stable. I have ordered a CBC, CMP, troponin, ekg, and chest x-ray. Spoke with hospitalist, Dr. Trevino, to discuss what anticoagulant he prefers. He requested to start Eliquis. 03/06/[address] Trevino. He accepted the patient as an observation admission. Departure - Departure Time of Disposition: 13:50 Disposition: Refer to Observation Condition: Fair Clinical Impression: DVT (deep venous thrombosis) Qualifiers: DVT location: lower extremity Affected thrombotic vein of extremity: unspecified vein of extremity Chronicity: acute Laterality: right Qualified Code (s): I82.401 - Acute embolism and thrombosis of unspecified deep veins of right lower extremity Sepsis Event Note - Evaluation Sepsis Screening Result: No Definite Risk - Focused Exam Vital Signs: Vital Signs Temp Pulse Resp BP Pulse Ox 03/06/20 12:54 96.2 F L 92 16 139/92 H 96 Date Exam was Performed: 03/06/20 Time Exam was Performed: 15:26 - My Orders Last 24 Hours: My Active Orders 03/06/20 12:58 Sodium Chloride 0.9% [Saline Flush] 10 ml FLUSH ASDIRECTED PRN Peripheral IV Insertion Adult [OM.PC] Stat - Assessment/Plan Last 24 Hours: My Active Orders 03/06/20 12:58 Sodium Chloride 0.9% [Saline Flush] 10 ml FLUSH ASDIRECTED PRN Peripheral IV Insertion Adult [OM.PC] Stat
[2020-03-06] MEDS ORDERED: Apixaban 5 MG Tab PO ONE (13:24)
--- NOTE | 2020-03-06 15:59 | PCM.HP.2 ---
H&P History of Present Illness - General Date of Service: 03/06/20 Admit Problem/Dx: Admission Diagnosis/Problem Admission Diagnosis/Problem DVT, Deep venous thrombosis - History of Present Illness Initial Comments - Free Text/Narative: 39-year-old female with history of congestive heart failure presents to the emergency department from her primary care provider, Dr. Villareal, after finding a DVT in the right lower extremity veins throughout the upper deep femoral, femoral, popliteal, and partially visualized right calf veins. Patient states that over the last couple of weeks she has been more sedentary and sitting for long periods of time. 2 to 3 days ago she bumped the back of her knee when sitting down which she states was uncharacteristically painful. Later her right leg became more painful and a feeling of tightness. This was the same knee she had replaced 3 years ago. Last night patient elevate her knee but it continued to hurt so she went to her primary care provider. Patient denies any shortness of breath, fever, chills, dyspnea on exertion. Review of her past medical history states that she has had a previous VTE, but patient does not believe she has. She states that she was on blood clot medicine after her right TKA, but does not believe she had a clot. Right Leg Pain Score (Numeric/FACES): 4 - Related Data Allergies/Adverse Reactions: Allergies Allergy/AdvReac Type Severity Reaction Status Date / Time broccoli Allergy Cannot Verified 03/06/20 14:24 Remember Penicillins Allergy Cannot Verified 03/06/20 14:24 Remember Home Medications: Home Meds atorvaSTATin [Lipitor] 20 mg PO BEDTIME 02/09/18 [History] Cetirizine [ZyrTEC] 10 mg PO DAILY PRN 05/26/18 [History] Calcium Carbonate/Vitamin D3 [Calcium 600 + Vit D Tablet] 600 mg PO BID [History] bisacodyL [Dulcolax] 5 mg PO DAILY PRN tablet 05/29/18 [Rx] Gabapentin [Neurontin] 300 mg PO BEDTIME 10/26/19 [History] carBAMazepine [Carbamazepine] 100 mg PO BID 10/26/19 [History] Ondansetron [Zofran ODT] 4 mg PO TID PRN #30 tab.dis 10/29/19 [Rx] Acetaminophen 500 mg PO Q4HR PRN 03/06/20 [History] Albuterol Sulfate [Proair Hfa] 1 inh IH Q4H PRN 03/06/20 [History] Benzonatate 200 mg PO TID 03/06/20 [History] Budesonide/Formoterol Fumarate [Budesonide-Formoterol 80-4.5] 2 inh IH BID 03/06 [History] Budesonide/Formoterol [Symbicort 160-4.5 MCG] 2 puff IH BID 03/06/20 [History] Cyclobenzaprine [Flexeril] 10 mg PO Q8HR PRN 03/06/20 [History] FLUoxetine [PROzac] 40 mg PO DAILY 03/06/20 [History] Furosemide [Lasix] 20 mg PO DAILY 03/06/20 [History] Inhaler, Assist Devices [Aerochamber MV] 1 each MC DAILY 03/06/20 [History] Losartan [Cozaar] 50 mg PO DAILY 03/06/20 [History] Potassium Chloride 20 meq PO DAILY 03/06/20 [History] Sennosides [Senna] 8.6 mg PO BID PRN 03/06/20 [History] Vitc/E/Zn/Copper/Lutein/Zeaxan [Icaps Areds2 Softgel] 1 each PO DAILY 03/06/20 [ History] Enoxaparin [Lovenox] 140 mg SUBCUT Q12H #60 syringe 03/07/20 [Rx] Past Medical History HEENT History: Reports: Impaired Vision, Other (See Below) Other HEENT History: wears glasses, has partial upper denture Cardiovascular History: Reports: Afib, Blood Clots/VTE/DVT, Heart Failure, High Cholesterol, Hypertension Respiratory History: Reports: Asthma, COPD, Sleep Apnea Gastrointestinal History: Reports: None Genitourinary History: Reports: None PEAR PICKER History: Reports: None Musculoskeletal History: Reports: Gout, Osteoarthritis Neurological History: Reports: Vertigo, Other (See Below) Other Neuro History: trigeminal neuralgia, madeline's syndrome Psychiatric History: Reports: Depression, Developmental Delay, Other (See Below) Other Psychiatric History: dyslexia Endocrine/Metabolic History: Reports: Obesity/BMI 30+, Osteopenia Hematologic History: Reports: None Immunologic History: Reports: None Oncologic (Cancer) History: Reports: None Dermatologic History: Reports: None - Infectious Disease History Infectious Disease History: Reports: Chicken Pox - Past Surgical History Head Surgeries/Procedures: Reports: None HEENT Surgical History: Reports: Oral Surgery Cardiovascular Surgical History: Reports: None Respiratory Surgical History: Reports: None GI Surgical History: Reports: Cholecystectomy, Colonoscopy, EGD Female Surgical History: Reports: None, Tubal Ligation, Other (See Below) Other Female Surgeries/Procedures: breast lumpectomy Endocrine Surgical History: Reports: None Neurological Surgical History: Reports: None Musculoskeletal Surgical History: Reports: Arthroscopic Knee, Knee Replacement Oncologic Surgical History: Reports: None Dermatological Surgical History: Reports: None Social & Family History - Family History Family Medical History: Noncontributory - Tobacco Use Smoking Status *Q: Never Smoker Years of Tobacco use: 30 Packs/Tins Daily: 0.5 Used Tobacco, but Quit: Yes Month/Year Tobacco Last Used: Nov 2018 - Caffeine Use Caffeine Use: Reports: Soda, Tea Other Caffeine Use: 2 cups/ day of coffee. 1 cups/day soda Caffeine Use Comment: 2 bottles of tea. 20 bottle diet coke - Recreational Drug Use Recreational Drug Use: No - Living Situation & Occupation Living situation: Reports: Single Occupation: Unemployed H&P Review of Systems - Review of Systems: Review Of Systems: Comprehensive ROS is negative, except as noted in HPI. Exam - Exam Exam: See Below - Vital Signs Vital Signs: Last Vital Signs Temp 98.2 F 03/06/20 14:22 Pulse 87 03/06/20 14:22 Resp 20 03/06/20 14:22 BP 144/98 H 03/06/20 14:22 Pulse Ox 97 03/06/20 14:22 Weight: 304 lb 12.8 oz - Exam General: Alert, Oriented, 4 HEENT: Conjunctiva Clear, EACs Clear, Mucosa Moist & [place] Neck: Supple, Trachea Midline, 2 Lungs: Clear to Auscultation, Normal Respiratory Effort Cardiovascular: Regular Rate, Regular Rhythm GI/Abdominal Exam: Normal Bowel Sounds, Soft, Non-Tender, No Organomegaly, No Distention, No Abnormal Bruit, No Mass Extremities: Normal Inspection, Normal Range of Motion, No Pedal Edema, Normal Capillary Refill, Leg Pain (mild left calf and popliteal tenderness) Peripheral Pulses: 2+: Posterior Tibial (L), Posterior Tibial (R), Dorsalis Pedis (L), Dorsalis Pedis (R) Skin: Warm, Dry, Intact Neuro Extensive - Mental Status: Alert, Oriented x3, Normal Mood/Affect, Normal Cognition Psychiatric: Alert, Normal Affect, Normal Mood - Patient Data Lab Results Last 24 hrs: Laboratory Results - last 24 hr 03/06/20 03/06/20 Range/Units 13:05 13:05 WBC 7.56 (3.98-10.04) K/mm3 RBC 4.44 (3.98-5.22) M/mm3 Hgb 13.3 (11.2-15.7) gm/dl Hct 39.3 (34.1-44.9) % MCV 88.5 (79.4-94.8) fl MCH 30.0 (25.6-32.2) pg MCHC 33.8 (32.2-35.5) g/dl RDW Std Deviation 41.9 (36.4-46.3) fL Plt Count 248 (182-369) K/mm3 MPV 8.8 L (9.4-12.3) fl Neut % (Auto) 67.6 (34.0-71.1) % Lymph % (Auto) 19.0 L (19.3-51.7) % [place] % (Auto) 10.6 (4.7-12.5) % Eos % (Auto) 2.2 (0.7-5.8) Baso % (Auto) 0.5 (0.1-1.2) % Neut # (Auto) 5.10 (1.56-6.13) K/mm3 Lymph # (Auto) 1.44 (1.18-3.74) K/mm3 [place] # (Auto) 0.80 H (0.24-0.36) K/mm3 Eos # (Auto) 0.17 (0.04-0.36) K/mm3 Baso # (Auto) 0.04 (0.01-0.08) K/mm3 Sodium 143 (136-145) mEq/L Potassium 4.0 (3.5-5.1) mEq/L Chloride 104 (98-107) mEq/L Carbon Dioxide 28 (21-32) mEq/L Anion Gap 15.0 (5-15) BUN 18 (7-18) mg/dL Creatinine 1.2 H (0.55-1.02) mg/dL Est Cr Clr Drug Dosing TNP Estimated GFR (MDRD) 46 (>60) mL/min BUN/Creatinine Ratio 15.0 (14-18) Glucose 121 H (74-106) mg/dL Calcium 9.3 (8.5-10.1) mg/dL Total Bilirubin 0.5 (0.2-1.0) mg/dL AST 20 (15-37) U/L ALT 35 (14-59) U/L Alkaline Phosphatase 179 H (46-116) U/L Troponin I < 0.017 (0.00-0.056) ng/mL Total Protein 7.1 (6.4-8.2) g/dl Albumin 3.9 (3.4-5.0) g/dl Globulin 3.2 gm/dL Albumin/Globulin Ratio 1.2 (1-2) Result Diagrams: 03/07/20 08:05 03/07/20 05:31 Imaging Impressions Last 24 hrs: Bilateral lower extremity venous Doppler ultrasound: 1. Acute appearing occlusive deep venous thrombosis extending throughout much of the right lower extremity veins throughout the upper deep femoral, femoral, popliteal, and partially visualized right calf veins. 2. No definite left-sided deep venous thrombosis. EKG INTERPRETATION EKG Date: 03/06/20 Rhythm: NSR [place]: Normal P-Wave: Present QRS: Normal ST-T: Normal QT: Normal MA/PQ Interval: Q waves in lead III and aVF consistent with old inferior infarct Sepsis Event Note - Evaluation Sepsis Screening Result: No Definite Risk - Focused Exam Vital Signs: Vital Signs Temp Temp Pulse Pulse Resp BP BP 03/06/20 14:22 98.2 F 87 20 144/98 H 03/06/20 12:54 96.2 F L 92 16 139/92 H Pulse Ox 03/06/20 14:22 97 03/06/20 12:54 96 Date Exam was Performed: 03/07/20 Time Exam was Performed: 11:06 Problem List Initiated/Reviewed/Updated: Yes Orders Last 24hrs: Active Orders 24 hr Category Date Time Status Patient Status [ADT] Routine ADT 03/06/20 13:59 Active Cardiac [Heart Healthy Diet] [DIET] Diet 03/06/20 Dinner Active Sodium Chloride 0.9% [Saline Flush] Med 03/06/20 12:58 Active 10 ml FLUSH ASDIRECTED PRN Peripheral IV Insertion Adult [OM.PC] Stat Oth 03/06/20 12:58 Ordered Medication Orders Sodium Chloride (Saline Flush) 10 ml FLUSH ASDIRECTED PRN PRN Reason: Keep Vein Open Last Admin: 03/06/20 13:40 Dose: 10 ml Assessment/Plan Comment:: Assessment 59-year-old female with acute, provoked, right deep venous thrombosis covered by primary care physician in the clinic today * Right calf pain and swelling for last 2 to 3 days following 2 weeks where she was more sedentary. * Equivocal history if she had a previous DVT following right knee surgery. * Duplex Doppler lower extremity venous ultrasound: Acute appearing occlusive deep venous thrombosis extending throughout much of the right lower extremity veins throughout the upper deep femoral, femoral, popliteal, and partially visualized right calf veins. * Secondary to her chronic medical problems and her medications it was felt to have her sent to the hospital for initiation of treatment. Chronic medical problems include: Hyperlipidemia, hypertension, gout, trigeminal neuralgia, Madeline's syndrome, depression, obesity Plan * Refer for observation * Start Lovenox 140 mg subcu every 12 hours. Patient has trigeminal neuralgia and takes carbamazepine which has contraindications for all of the oral anticoagulants. * Education for injections. * Continue home meds. * Recheck CBC, CMP, and mag in the morning * CODE STATUS: DNR/DNI; patient does want one attempt at resuscitation and if this fails then she would like us to stop resuscitation. * Length of stay 1 day. - Mortality Measure Prognosis:: Good
[2020-03-06] MEDS ORDERED: Acetaminophen 325 MG Tab PO PRN (16:24)
[2020-03-06] MEDS ORDERED: Acetaminophen/HYDROcodone 325-5 MG Tab PO PRN (16:24)
[2020-03-06] MEDS ORDERED: Gabapentin 300 MG Cap PO SCH (21:00)
[2020-03-06] MEDS ORDERED: Simvastatin 20 MG Tab PO SCH (21:00)
[2020-03-06] MEDS: Cyclobenzaprine 10 MG Tab PO SCH (21:31)
[2020-03-06] MEDS: Enoxaparin 150 MG/1 ML Syringe SUBCUT SCH (21:32)
[2020-03-07] MEDS: Cyclobenzaprine 10 MG Tab PO SCH (06:00)
[2020-03-07 08:05] VITALS: BP 132/89
[2020-03-07] MEDS ORDERED: Furosemide 20 MG Tab PO SCH (09:00)
[2020-03-07] MEDS ORDERED: Losartan 25 MG Tab PO SCH (09:00)
[2020-03-07] MEDS ORDERED: FLUoxetine 20 MG Cap PO SCH (09:00)
[2020-03-07] MEDS ORDERED: carBAMazepine 200 MG Tab PO SCH (09:00)
[2020-03-07] MEDS ORDERED: Potassium Chloride 20 MEQ Tab.ER PO SCH (09:00)
[2020-03-07] MEDS: Enoxaparin 150 MG/1 ML Syringe SUBCUT SCH (09:15)
--- NOTE | 2020-03-07 11:18 | PCM.DCSUM1 ---
Discharge Summary - Hospital Course HPI Initial Comments: 39-year-old female with history of congestive heart failure presents to the emergency department from her primary care provider, Dr. Villareal, after finding a DVT in the right lower extremity veins throughout the upper deep femoral, femoral, popliteal, and partially visualized right calf veins. Patient states that over the last couple of weeks she has been more sedentary and sitting for long periods of time. 2 to 3 days ago she bumped the back of her knee when sitting down which she states was uncharacteristically painful. Later her right leg became more painful and a feeling of tightness. This was the same knee she had replaced 3 years ago. Last night patient elevate her knee but it continued to hurt so she went to her primary care provider. Patient denies any shortness of breath, fever, chills, dyspnea on exertion. Review of her past medical history states that she has had a previous VTE, but patient does not believe she has. She states that she was on blood clot medicine after her right TKA, but does not believe she had a clot. Brief History: 59-year-old female with acute, provoked, right deep venous thrombosis covered by primary care physician in the clinic today. Right calf pain and swelling for last 2 to 3 days following 2 weeks where she was more sedentary. Equivocal history if she had a previous DVT following right knee surgery. Duplex Doppler lower extremity venous ultrasound: Acute appearing occlusive deep venous thrombosis extending throughout much of the right lower extremity veins throughout the upper deep femoral, femoral, popliteal, and partially visualized right calf veins. Secondary to her chronic medical problems and her medications it was felt to have her sent to the hospital for initiation of treatment. Chronic medical problems include: Hyperlipidemia, hypertension, gout, trigeminal neuralgia, Madeline's syndrome, depression, obesity. Plan. Refer for observation. Start Lovenox 140 mg subcu every 12 hours. Patient has trigeminal neuralgia and takes carbamazepine which has contraindications for all of the oral anticoagulants. Education for injections. Continue home meds. Recheck CBC, CMP, and mag in the morning. CODE STATUS: DNR/DNI; patient does want one attempt at resuscitation and if this fails then she would like us to stop resuscitation. Length of stay 1 day. Diagnosis: Stroke: No - Discharge Data Discharge Date: 03/07/20 Discharge Disposition: Home, Self-Care 01 Condition: Good - Referral to Home Health Primary Care Physician: Alicia Shaw MD - Patient Summary/Data Hospital Course: Patient was educated on use of Lovenox injections. Discussed case with her primary care provider and they will discuss risk and benefits of weaning off of carbamazepine. - Patient Instructions Diet: Heart Healthy Diet Driving: Do Not Drive Notify Provider of: Fever, Increased Pain, Swelling and Redness - Discharge Plan *PRESCRIPTION DRUG MONITORING PROGRAM REVIEWED*: No *COPY OF PRESCRIPTION DRUG MONITORING REPORT IN PATIENT REJI: No Prescriptions/Med Rec: Enoxaparin [Lovenox] 140 mg SUBCUT Q12H #60 syringe Home Medications: Home Meds atorvaSTATin [Lipitor] 20 mg PO BEDTIME 02/09/18 [History] Cetirizine [ZyrTEC] 10 mg PO DAILY PRN 05/26/18 [History] Calcium Carbonate/Vitamin D3 [Calcium 600 + Vit D Tablet] 600 mg PO BID [History] bisacodyL [Dulcolax] 5 mg PO DAILY PRN tablet 05/29/18 [Rx] Gabapentin [Neurontin] 300 mg PO BEDTIME 10/26/19 [History] carBAMazepine [Carbamazepine] 100 mg PO BID 10/26/19 [History] Ondansetron [Zofran ODT] 4 mg PO TID PRN #30 tab.dis 10/29/19 [Rx] Acetaminophen 500 mg PO Q4HR PRN 03/06/20 [History] Albuterol Sulfate [Proair Hfa] 1 inh IH Q4H PRN 03/06/20 [History] Benzonatate 200 mg PO TID 03/06/20 [History] Budesonide/Formoterol Fumarate [Budesonide-Formoterol 80-4.5] 2 inh IH BID 03/06 [History] Budesonide/Formoterol [Symbicort 160-4.5 MCG] 2 puff IH BID 03/06/20 [History] Cyclobenzaprine [Flexeril] 10 mg PO Q8HR PRN 03/06/20 [History] FLUoxetine [PROzac] 40 mg PO DAILY 03/06/20 [History] Furosemide [Lasix] 20 mg PO DAILY 03/06/20 [History] Inhaler, Assist Devices [Aerochamber MV] 1 each MC DAILY 03/06/20 [History] Losartan [Cozaar] 50 mg PO DAILY 03/06/20 [History] Potassium Chloride 20 meq PO DAILY 03/06/20 [History] Sennosides [Senna] 8.6 mg PO BID PRN 03/06/20 [History] Vitc/E/Zn/Copper/Lutein/Zeaxan [Icaps Areds2 Softgel] 1 each PO DAILY 03/06/20 [ History] Enoxaparin [Lovenox] 140 mg SUBCUT Q12H #60 syringe 03/07/20 [Rx] Patient Handouts: Enoxaparin injection Forms: ED Department Discharge Referrals: Alicia Shaw MD [Primary Care Provider] - - Discharge Summary/Plan Comment DC Time >30 min.: Yes Discharge Summary/Plan Comment: Discharged home in good condition. Follow-up with primary care provider in the next 1 to 2 weeks. - General Info Date of Service: 03/07/20 Admission Dx/Problem (Free Text: Admission Diagnosis/Problem Admission Diagnosis/Problem DVT, Deep venous thrombosis Subjective Update: Improving pain control. - Review of Systems General: Reports: No Symptoms HEENT: Reports: No Symptoms Pulmonary: Reports: No Symptoms Cardiovascular: Reports: No Symptoms Musculoskeletal: Reports: No Symptoms Neurological: Reports: No Symptoms Psychiatric: Reports: No Symptoms - Patient Data Vitals - Most Recent: Last Vital Signs Temp 98.2 F 03/07/20 03:54 Pulse 75 03/07/20 03:57 Resp 16 03/07/20 03:54 BP 132/89 03/07/20 08:04 Pulse Ox 92 L 03/07/20 03:57 Weight - Most Recent: 304 lb 12.8 oz I&O - Last 24 hours: Intake & Output 03/06/20 03/07/20 03/07/20 22:59 06:59 14:59 Intake Total 320 300 800 Output Total 300 300 Balance 20 0 800 Lab Results - Last 24 hrs: Laboratory Results - last 24 hr 03/06/20 03/06/20 03/06/20 Range/Units 13:05 13:05 16:15 WBC 7.56 7.37 (3.98-10.04) K/mm3 RBC 4.44 4.31 (3.98-5.22) M/mm3 Hgb 13.3 12.8 (11.2-15.7) gm/dl Hct 39.3 38.4 (34.1-44.9) % MCV 88.5 89.1 (79.4-94.8) fl MCH 30.0 29.7 (25.6-32.2) pg MCHC 33.8 33.3 (32.2-35.5) g/dl RDW Std Deviation 41.9 42.1 (36.4-46.3) fL Plt Count 248 225 (182-369) K/mm3 MPV 8.8 L 8.6 L (9.4-12.3) fl Neut % (Auto) 67.6 64.2 (34.0-71.1) % Lymph % (Auto) 19.0 L 23.5 (19.3-51.7) % [place] % (Auto) 10.6 9.5 (4.7-12.5) % Eos % (Auto) 2.2 2.4 (0.7-5.8) Baso % (Auto) 0.5 0.3 (0.1-1.2) % Neut # (Auto) 5.10 4.73 (1.56-6.13) K/mm3 Lymph # (Auto) 1.44 1.73 (1.18-3.74) K/mm3 [place] # (Auto) 0.80 H 0.70 H (0.24-0.36) K/mm3 Eos # (Auto) 0.17 0.18 (0.04-0.36) K/mm3 Baso # (Auto) 0.04 0.02 (0.01-0.08) K/mm3 Sodium 143 (136-145) mEq/L Potassium 4.0 (3.5-5.1) mEq/L Chloride 104 (98-107) mEq/L Carbon Dioxide 28 (21-32) mEq/L Anion Gap 15.0 (5-15) BUN 18 (7-18) mg/dL Creatinine 1.2 H (0.55-1.02) mg/dL Est Cr Clr Drug Dosing TNP Estimated GFR (MDRD) 46 (>60) mL/min BUN/Creatinine Ratio 15.0 (14-18) Glucose 121 H (74-106) mg/dL Calcium 9.3 (8.5-10.1) mg/dL Magnesium (1.8-2.4) mg/dl Total Bilirubin 0.5 (0.2-1.0) mg/dL AST 20 (15-37) U/L ALT 35 (14-59) U/L Alkaline Phosphatase 179 H (46-116) U/L Troponin I < 0.017 (0.00-0.056) ng/mL Total Protein 7.1 (6.4-8.2) g/dl Albumin 3.9 (3.4-5.0) g/dl Globulin 3.2 gm/dL Albumin/Globulin Ratio 1.2 (1-2) 03/07/20 03/07/20 Range/Units 05:31 08:05 WBC 6.15 (3.98-10.04) K/mm3 RBC 4.37 (3.98-5.22) M/mm3 Hgb 12.8 (11.2-15.7) gm/dl Hct 38.9 (34.1-44.9) % MCV 89.0 (79.4-94.8) fl MCH 29.3 (25.6-32.2) pg MCHC 32.9 (32.2-35.5) g/dl RDW Std Deviation 41.8 (36.4-46.3) fL Plt Count 226 (182-369) K/mm3 MPV 8.8 L (9.4-12.3) fl Neut % (Auto) 53.7 (34.0-71.1) % Lymph % (Auto) 32.8 (19.3-51.7) % [place] % (Auto) 8.9 (4.7-12.5) % Eos % (Auto) 3.7 (0.7-5.8) Baso % (Auto) 0.7 (0.1-1.2) % Neut # (Auto) 3.30 (1.56-6.13) K/mm3 Lymph # (Auto) 2.02 (1.18-3.74) K/mm3 [place] # (Auto) 0.55 H (0.24-0.36) K/mm3 Eos # (Auto) 0.23 (0.04-0.36) K/mm3 Baso # (Auto) 0.04 (0.01-0.08) K/mm3 Sodium 140 (136-145) mEq/L Potassium 3.8 (3.5-5.1) mEq/L Chloride 103 (98-107) mEq/L Carbon Dioxide 26 (21-32) mEq/L Anion Gap 14.8 (5-15) BUN 18 (7-18) mg/dL Creatinine 1.0 (0.55-1.02) mg/dL Est Cr Clr Drug Dosing 65.50 Estimated GFR (MDRD) 57 (>60) mL/min BUN/Creatinine Ratio 18.0 (14-18) Glucose 109 H (74-106) mg/dL Calcium 9.1 (8.5-10.1) mg/dL Magnesium 2.0 (1.8-2.4) mg/dl Total Bilirubin 0.6 (0.2-1.0) mg/dL AST 19 (15-37) U/L ALT 29 (14-59) U/L Alkaline Phosphatase 155 H (46-116) U/L Troponin I (0.00-0.056) ng/mL Total Protein 6.4 (6.4-8.2) g/dl Albumin 3.4 (3.4-5.0) g/dl Globulin 3.0 gm/dL Albumin/Globulin Ratio 1.1 (1-2) Med Orders - Current: Current Medications Acetaminophen (Tylenol) 650 mg PO Q4H PRN PRN Reason: Pain (Mild 1-3)/fever Last Admin: 03/06/20 21:31 Dose: 650 mg Hydrocodone Bitart/Acetaminophen ([place] 325-5 Mg) 1 tab PO Q4H PRN PRN Reason: Pain (moderate 4-6) Carbamazepine (Tegretol Tab) 100 mg PO BID [facility] Last Admin: 03/07/20 09:14 Dose: 100 mg Cyclobenzaprine HCl (Flexeril) 10 mg PO Q8H PRN PRN Reason: Pain Enoxaparin Sodium (Lovenox) 140 mg SUBCUT Q12H [facility] Last Admin: 03/07/20 09:15 Dose: 140 mg Fluoxetine HCl (Prozac) 40 mg PO DAILY [facility] Last Admin: 03/07/20 08:04 Dose: 40 mg Furosemide (Lasix) 20 mg PO DAILY [facility] Last Admin: 03/07/20 08:04 Dose: 20 mg Gabapentin (Neurontin) 300 mg PO BEDTIME [facility] Last Admin: 03/06/20 21:31 Dose: 300 mg Losartan Potassium (Cozaar) 50 mg PO DAILY [facility] Last Admin: 03/07/20 08:04 Dose: 50 mg Potassium Chloride (Klor-Con M20) 20 meq PO DAILY [facility] Last Admin: 03/07/20 08:04 Dose: 20 meq Simvastatin (Zocor) 20 mg PO BEDTIME [facility] Last Admin: 03/06/20 21:31 Dose: 20 mg Sodium Chloride (Saline Flush) 10 ml FLUSH ASDIRECTED PRN PRN Reason: Keep Vein Open Last Admin: 03/06/20 13:40 Dose: 10 ml Discontinued Medications Apixaban (Eliquis) 10 mg PO ONETIME ONE Stop: 03/06/20 13:25 Last Admin: 03/06/20 13:39 Dose: 10 mg Cyclobenzaprine HCl (Flexeril) 10 mg PO Q8HR [facility] Last Admin: 03/07/20 06:00 Dose: 10 mg - Exam General: Reports: Alert, Oriented HEENT: Reports: Pupils Equal, Mucous Membr. Moist/[place] Lungs: Reports: Clear to Auscultation, Normal Respiratory Effort Cardiovascular: Reports: Regular Rate, Regular Rhythm GI/Abdominal Exam: Normal Bowel Sounds, Soft, Non-Tender, No Organomegaly, No Distention, No Abnormal Bruit, No Mass, Pelvis Stable Extremities: Other (Continue mild tenderness behind the left calf and popliteal area. Improved since yesterday.)
[2020-03-07] MEDS ORDERED: Cyclobenzaprine 10 MG Tab PO PRN (14:00)
[2020-03-07 16:18] VITALS: PULSE 82
== END 2020-03-07 14:08 | disposition home or self-care (01) ==
LOC: JD.ED 12:28 → JD.MS 13:59
PROVIDERS: ADMIT Family Medicine; ATTEND Family Medicine
DX: I82.411 Acute embolism and thrombosis of right femoral vein (principal); I82.431 Acute embolism and thrombosis of right popliteal vein; I82.4Z1 Acute embolism and thrombosis of unspecified deep veins of right distal lower extremity; J44.9 Chronic obstructive pulmonary disease, unspecified; E66.9 Obesity, unspecified; I11.0 Hypertensive heart disease with heart failure; I50.9 Heart failure, unspecified; E78.00 Pure hypercholesterolemia, unspecified; F32.9 Major depressive disorder, single episode, unspecified; E78.5 Hyperlipidemia, unspecified; M10.9 Gout, unspecified; G50.0 Trigeminal neuralgia; G90.2 Horner's syndrome; Z66 Do not resuscitate; Z91.018 Allergy to other foods; Z88.0 Allergy status to penicillin; Z79.01 Long term (current) use of anticoagulants; Z79.82 Long term (current) use of aspirin; Z79.899 Other long term (current) drug therapy; Z79.51 Long term (current) use of inhaled steroids; Z96.651 Presence of right artificial knee joint; Z86.718 Personal history of other venous thrombosis and embolism; Z68.41 Body mass index [BMI] 40.0-44.9, adult
CPT/HCPCS: 36415; 80053; 83735; 84484; 85025; 93005; 94660; 99284; A9270; J1650; 93010; 96372; G0378

== ENCOUNTER 2020-04-12 15:37 | Emergency (ER) | payer BC ==
[2020-04-12 15:51] VITALS: PULSE 64
[2020-04-12] MEDS ORDERED: LORazepam 2 MG/ML SDV IVPUSH ONE (16:00)
[2020-04-12] MEDS ORDERED: Sodium Chloride 0.9% 10 ML Syringe FLUSH PRN (16:00)
[2020-04-12] MEDS ORDERED: Albuterol/Ipratropium 3.0-0.5 MG/3 ML Neb Soln NEB ONE (16:03)
--- NOTE | 2020-04-12 16:04 | EDM.PDOC ---
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 She states is like 2 prongs of a pitchfork stabbed her in the chest. Initially the pain would alternate from side to side but then became more constant. Of note the patient is currently on Coumadin because of a right-sided DVT in her leg and has been on this medication for about 3 weeks. Recently it has been adjusted downwards as her last INR was elevated at 3.3. She was taking 10 mg every day and has been reduced to 7 mg for 2 days and then 10 mg on every third day. She denies any cough or sputum production. She has a history of asthma but really has been wheezing as of late and has not been using her inhaler. Denies any upper respiratory tract infection symptoms such as nasal congestion sore throat or sputum production. Does not radiate through to her back. She has no known cardiac history. Onset: Today Onset Date: 04/12/20 Onset Time: 15:15 Duration: Minutes: Location: Reports: Chest Quality: Reports: Ache (Both sides of her anterior upper chest), Sharp, Stabbing Severity: Moderate (6 out of 10) Improves with: Reports: Rest Worsens with: Reports: Other (Deep breathing makes it worse.) Context: Reports: Other (Was working as a administrative analyst at [employer] when it suddenly came on.). Denies: Activity, Exercise, Lifting, Sick Contact, Trauma Associated Symptoms: Reports: Chest Pain, Shortness of Breath, Syncope, Other ( Has a bilateral resting tremor of both upper extremities.). Denies: Confusion, Cough, cough w sputum, Diaphoresis, Fever/Chills, Headaches, Loss of Appetite, Malaise, Nausea/Vomiting, Rash, Seizure, Weakness Treatments DEPUTY TREASURER: Reports: Other (see below) (None.) - Related Data Allergies Allergy/AdvReac Type Severity Reaction Status Date / Time broccoli Allergy Cannot Verified 04/12/20 15:51 Remember Penicillins Allergy Cannot Verified 04/12/20 15:51 Remember Home Meds: Home Meds atorvaSTATin [Lipitor] 20 mg PO BEDTIME 02/09/18 [History] Cetirizine [ZyrTEC] 10 mg PO DAILY PRN 05/26/18 [History] Calcium Carbonate/Vitamin D3 [Calcium 600 + Vit D Tablet] 600 mg PO BID [History] bisacodyL [Dulcolax] 5 mg PO DAILY PRN tablet 05/29/18 [Rx] Gabapentin [Neurontin] 300 mg PO BEDTIME 10/26/19 [History] carBAMazepine [Carbamazepine] 100 mg PO BID 10/26/19 [History] Ondansetron [Zofran ODT] 4 mg PO TID PRN #30 tab.dis 10/29/19 [Rx] Acetaminophen 500 mg PO Q4HR PRN 03/06/20 [History] Albuterol Sulfate [Proair Hfa] 1 inh IH Q4H PRN 03/06/20 [History] Benzonatate 200 mg PO TID 03/06/20 [History] Budesonide/Formoterol Fumarate [Budesonide-Formoterol 80-4.5] 2 inh IH BID 03/06 [History] Budesonide/Formoterol [Symbicort 160-4.5 MCG] 2 puff IH BID 03/06/20 [History] Cyclobenzaprine [Flexeril] 10 mg PO Q8HR PRN 03/06/20 [History] FLUoxetine [PROzac] 40 mg PO DAILY 03/06/20 [History] Furosemide [Lasix] 20 mg PO DAILY 03/06/20 [History] Inhaler, Assist Devices [Aerochamber MV] 1 each MC DAILY 03/06/20 [History] Losartan [Cozaar] 50 mg PO DAILY 03/06/20 [History] Potassium Chloride 20 meq PO DAILY 03/06/20 [History] Sennosides [Senna] 8.6 mg PO BID PRN 03/06/20 [History] Vit C/E/Zinc Ox/Yong/Lut/Zeax [Icaps Areds2 Softgel] 1 each PO DAILY 03/06/20 [ History] Enoxaparin [Lovenox] 140 mg SUBCUT Q12H #60 syringe 03/07/20 [Rx] predniSONE [Prednisone] 20 mg PO ASDIRECTED #15 tablet 04/12/20 [Rx] Past Medical History HEENT History: Reports: Impaired Vision, Other (See Below) Other HEENT History: wears glasses, has partial upper denture Cardiovascular History: Reports: Afib, Blood Clots/VTE/DVT, Heart Failure, High Cholesterol, Hypertension Respiratory History: Reports: Asthma, COPD, Sleep Apnea Gastrointestinal History: Reports: None Genitourinary History: Reports: None 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 OR MOTEL MANAGER History: Reports: None Musculoskeletal History: Reports: Gout, Osteoarthritis, Other (See Below) ( Recently diagnosed with a DVT right lower extremity) Neurological History: Reports: Vertigo, Other (See Below) Other Neuro History: trigeminal neuralgia, aquilino's syndrome Psychiatric History: Reports: Depression, Developmental Delay, Other (See Below) Other Psychiatric History: dyslexia Endocrine/Metabolic History: Reports: Obesity/BMI 30+, Osteopenia Hematologic History: Reports: Other (See Below) (Currently being treated for DVT right lower extremity initially was on Lovenox and currently is on Coumadin. ) Immunologic History: Reports: None Oncologic (Cancer) History: Reports: None Dermatologic History: Reports: None - Infectious Disease History Infectious Disease History: Reports: Chicken Pox - Past Surgical History Head Surgeries/Procedures: Reports: None HEENT Surgical History: Reports: Oral Surgery Cardiovascular Surgical History: Reports: None Respiratory Surgical History: Reports: None GI Surgical History: Reports: Cholecystectomy, Colonoscopy, EGD Female Surgical History: Reports: None, Tubal Ligation, Other (See Below) Other Female Surgeries/Procedures: breast lumpectomy Endocrine Surgical History: Reports: None Neurological Surgical History: Reports: None Musculoskeletal Surgical History: Reports: Arthroscopic Knee, Knee Replacement Oncologic Surgical History: Reports: None Dermatological Surgical History: Reports: None Social & Family History - Family History Family Medical History: Noncontributory - Tobacco Use Smoking Status *Q: Former Smoker Used Tobacco, but Quit: Yes Month/Year Tobacco Last Used: 30 - Caffeine Use Caffeine Use: Reports: None Other Caffeine Use: 2 cups/ day of coffee. 1 cups/day soda Caffeine Use Comment: 2 bottles of tea. 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 Denies: Fever, Chills, Decreased Appetite, Weight Loss HEENT: Reports: Glasses Respiratory: Reports: Shortness of Breath, Wheezing (Has a history of asthma but lately has been well controlled and not needing her inhaler.). Denies: Pleuritic Chest Pain, Cough, Sputum, Hemoptysis, Other Cardiovascular: Reports: Chest Pain, Blood Pressure Problem (History of present illness), Dyspnea on Exertion (Sometimes). Denies: Claudication, Edema, Lightheadedness, Orthopnea, Palpitations, PND, Syncope, Other Endocrine: Reports: Fatigue GI/Abdominal: Reports: No Symptoms : Reports: Frequency, Incontinence (Stress-induced) Musculoskeletal: Reports: No Symptoms Skin: Reports: Bruising (Is easily as she is on Coumadin.) Neurological: Reports: No Symptoms Psychiatric: Reports: Anxiety Hematologic/Lymphatic: Reports: No Symptoms, Easy Bruising (On Coumadin) Immunologic: Reports: No Symptoms ED EXAM, GENERAL - Physical Exam Exam: See Below Exam Limited By: No Limitations General Appearance: Alert, WD/WN, Anxious, Mild Distress, Other (Temperature is 37.0 with a pulse of 64 and sinus respiratory of 20 with O2 sats of 99% on room air. BP is 140/95) Eye Exam: Bilateral Eye: Normal Inspection, PERRL Throat/Mouth: Normal Inspection, Normal Lips, Normal Teeth, Normal Oropharynx Head: Atraumatic, Normocephalic Neck: Normal Inspection, Supple, Non-Tender, Full Range of Motion. No: Lymphadenopathy (L), Lymphadenopathy (R) Respiratory/Chest: Lungs Clear (Mild tachypnea), Normal Breath Sounds, No Accessory Muscle Use, Respiratory Distress, Other (Does have mild chest wall pain particular in ribs 3 and 4 left midclavicular line. Slightly out of the fourth rib on the right side.). No: Decreased Breath Sounds, Rales, Rhonchi, Wheezing Cardiovascular: Normal Peripheral Pulses, Regular Rate, Rhythm, No Edema, No Gallop, No Murmur, No Rub Peripheral Pulses: 2+: Posterior Tibial (L), Posterior Tibial (R), Dorsalis Pedis (L), Dorsalis Pedis (R), 3+: Carotid (L), Carotid (R) GI/Abdominal: Normal Bowel Sounds, Soft, Non-Tender, No Organomegaly, No Distention, No Mass, Pelvis Stable, Other (Moderately obese. Scars present from previous laparoscopic cholecystectomy.) Back Exam: Normal Inspection, Full Range of Motion. No: CVA Tenderness (L), CVA Tenderness (R) Extremities: Normal Inspection, Normal Range of Motion, Non-Tender, Pedal Edema (Trace of edema right lower extremity.) Neurological: Alert, Oriented, CN II-XII Intact, Normal Cognition, Other (Has a resting tremor of both upper extremities. She states he is also aware of this in her lower extremities at times as well. Appears to be more of a familial tremor . There is no pill-rolling tremor to suggest Parkinson's.) Psychiatric: Anxious Skin Exam: Warm, Intact, Normal Color, No Rash, Diaphoretic EKG INTERPRETATION EKG Date: 04/12/20 Time: 16:04 Rhythm: NSR Rate (Beats/Min): 60 [place]: Normal P-Wave: Present QRS: Other (There are Q waves in V1 V2 and a near Q wave V3 suggesting an old anteroseptal myocardial infarction. There are also Q waves in leads III and aVF. Consider possible old inferior wall ND.) ST-T: Other (T wave inversion V1 V2 and flattened in V3. Also flat in leads aVL. Nonspecific findings) QT: Normal EKG Interpretation Comments: Abnormal ECG Course - Vital Signs Last Recorded V/S: Last Vital Signs Temp 37.0 C 04/12/20 15:48 Pulse 64 04/12/20 15:48 Resp 20 04/12/20 15:48 BP 140/95 H 04/12/20 15:48 Pulse Ox 97 04/12/20 16:15 - Orders/Labs/Meds Orders: Active Orders 24 hr Category Date Time Status EKG Documentation Completion [RC] STAT Care 04/12/20 15:59 Active Peripheral IV Care [RC] . DIRECTED Care 04/12/20 16:00 Active RT Aerosol Therapy [RC] ASDIRECTED Care 04/12/20 16:03 Active Chest 1V Frontal [CR] Stat Exams 04/12/20 15:59 Taken MAGNESIUM [CHEM] AM Lab 04/13/20 05:11 Ordered MAGNESIUM [CHEM] AM Lab 04/14/20 05:11 Ordered MAGNESIUM [CHEM] AM Lab 04/15/20 05:11 Ordered Sodium Chloride 0.9% [Saline Flush] Med 04/12/20 16:00 Active 10 ml FLUSH ASDIRECTED PRN Peripheral IV Insertion Adult [OM.PC] Stat Oth 04/12/20 16:00 Ordered Medication Orders Sodium Chloride (Saline Flush) 10 ml FLUSH ASDIRECTED PRN PRN Reason: Keep Vein Open Last Admin: 04/12/20 16:26 Dose: 10 ml Labs: Laboratory Tests 04/12/20 04/12/20 04/12/20 Range/Units 16:25 16:25 16:25 WBC 6.77 (3.98-10.04) K/mm3 RBC 4.17 (3.98-5.22) M/mm3 Hgb 12.4 (11.2-15.7) gm/dl Hct 36.5 (34.1-44.9) % MCV 87.5 (79.4-94.8) fl MCH 29.7 (25.6-32.2) pg MCHC 34.0 (32.2-35.5) g/dl RDW Std Deviation 40.4 (36.4-46.3) fL Plt Count 274 (182-369) K/mm3 MPV 9.2 L (9.4-12.3) fl Neut % (Auto) 58.0 (34.0-71.1) % Lymph % (Auto) 28.8 (19.3-51.7) % Maverick % (Auto) 8.7 (4.7-12.5) % Eos % (Auto) 4.1 (0.7-5.8) Baso % (Auto) 0.4 (0.1-1.2) % Neut # (Auto) 3.92 (1.56-6.13) K/mm3 Lymph # (Auto) 1.95 (1.18-3.74) K/mm3 Maverick # (Auto) 0.59 H (0.24-0.36) K/mm3 Eos # (Auto) 0.28 (0.04-0.36) K/mm3 Baso # (Auto) 0.03 (0.01-0.08) K/mm3 PT 32.2 H D (9.7-12.0) SECONDS INR 3.15 D-Dimer, Quantitative (0.19-0.50) mg/L Sodium 142 (136-145) mEq/L Potassium 3.6 (3.5-5.1) mEq/L Chloride 107 (98-107) mEq/L Carbon Dioxide 26 (21-32) mEq/L Anion Gap 12.6 (5-15) BUN 19 H (7-18) mg/dL Creatinine 1.1 H (0.55-1.02) mg/dL Est Cr Clr Drug Dosing 57.55 mL/min Estimated GFR (MDRD) 51 (>60) mL/min BUN/Creatinine Ratio 17.3 (14-18) Glucose 95 (74-106) mg/dL Calcium 8.8 (8.5-10.1) mg/dL Total Bilirubin 0.4 (0.2-1.0) mg/dL AST 16 (15-37) U/L ALT 25 (14-59) U/L Alkaline Phosphatase 147 H (46-116) U/L CK-MB (CK-2) 1.1 (0-3.6) ng/ml Troponin I < 0.017 (0.00-0.056) ng/mL C-Reactive Protein 0.3 (<1.0) mg/dL NT-Pro-B Natriuret Pep (0-125) pg/mL Total Protein 6.4 (6.4-8.2) g/dl Albumin 3.4 (3.4-5.0) g/dl Globulin 3.0 gm/dL Albumin/Globulin Ratio 1.1 (1-2) TSH 3rd Generation (0.358-3.74) uIU/mL 04/12/20 04/12/20 04/12/20 Range/Units 16:25 16:25 16:25 WBC (3.98-10.04) K/mm3 RBC (3.98-5.22) M/mm3 Hgb (11.2-15.7) gm/dl Hct (34.1-44.9) % MCV (79.4-94.8) fl MCH (25.6-32.2) pg MCHC (32.2-35.5) g/dl RDW Std Deviation (36.4-46.3) fL Plt Count (182-369) K/mm3 MPV (9.4-12.3) fl Neut % (Auto) (34.0-71.1) % Lymph % (Auto) (19.3-51.7) % Maverick % (Auto) (4.7-12.5) % Eos % (Auto) (0.7-5.8) Baso % (Auto) (0.1-1.2) % Neut # (Auto) (1.56-6.13) K/mm3 Lymph # (Auto) (1.18-3.74) K/mm3 Maverick # (Auto) (0.24-0.36) K/mm3 Eos # (Auto) (0.04-0.36) K/mm3 Baso # (Auto) (0.01-0.08) K/mm3 PT (9.7-12.0) SECONDS INR D-Dimer, Quantitative 0.24 (0.19-0.50) mg/L Sodium (136-145) mEq/L Potassium (3.5-5.1) mEq/L Chloride (98-107) mEq/L Carbon Dioxide (21-32) mEq/L Anion Gap (5-15) BUN (7-18) mg/dL Creatinine (0.55-1.02) mg/dL Est Cr Clr Drug Dosing mL/min Estimated GFR (MDRD) (>60) mL/min BUN/Creatinine Ratio (14-18) Glucose (74-106) mg/dL Calcium (8.5-10.1) mg/dL Total Bilirubin (0.2-1.0) mg/dL AST (15-37) U/L ALT (14-59) U/L Alkaline Phosphatase (46-116) U/L CK-MB (CK-2) (0-3.6) ng/ml Troponin I (0.00-0.056) ng/mL C-Reactive Protein (<1.0) mg/dL NT-Pro-B Natriuret Pep 257 H (0-125) pg/mL Total Protein (6.4-8.2) g/dl Albumin (3.4-5.0) g/dl Globulin gm/dL Albumin/Globulin Ratio (1-2) TSH 3rd Generation 1.966 (0.358-3.74) uIU/mL Meds: Medications Generic Name Dose Route Start Last Admin Trade Name Freq PRN Reason Stop Dose Admin Sodium Chloride 10 ml 04/12/20 16:00 04/12/20 16:26 Saline Flush FLUSH 10 ml ASDIRECTED PRN Administration Keep Vein Open Discontinued Medications Generic Name Dose Route Start Last Admin Trade Name Luis Enrique PRN Reason Stop Dose Admin Albuterol/Ipratropium 3 ml 04/12/20 16:03 04/12/20 16:15 Duoneb 3.0-0.5 Mg/3 Ml NEB 04/12/20 16:04 3 ml ONETIME ONE Administration Lorazepam 0.5 mg 04/12/20 16:00 04/12/20 16:22 Ativan IVPUSH 04/12/20 16:01 0.5 mg ONETIME ONE Administration - Radiology Interpretation Free Text/Narrative:: 59-year-old female presents to the ED after developing anterior chest pain both sides of the upper sternum while at the workplace. 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 She states it was like being stabbed with 2 tines of a pitchfork. Pain would alternate from side to side and then became more constant. Associated mild shortness of breath. Of note she diagnosed with a DVT in her right lower extremity about 3 weeks ago. Initially treated with Lovenox and is on Coumadin. Recent INR was elevated at 3.3 and dosage of medicine was reduced from 10 mg daily to 7 mg for 2 days and then 10 mg in an alternating fashion. Today she took 7 mg. Denies cough sputum production or any other signs of upper respiratory tract infection. Her ECG shows findings of possible old anteroseptal and old inferior wall ND although she has no history of myocardial disease. She has a history of hypercholesterolemia and mild hypertension. She is obese. She also has a history of asthma. Lungs are clear to auscultation percussion. Vital signs are normal. Plan we will give her a DuoNeb nebulizer to see if it relieves her chest discomfort. There is a component of anxiety here. Her pain is atypical for myocardial infarction. Due to the Coumadin I will not give her aspirin. She will have routine labs including cardiac markers performed. A d-dimer as well. Chest x-ray ECG. I will also give her Ativan 0.5 mg IV for anxiety relief. - Re-Assessments/Exams Free Text/Narrative Re-Assessment/Exam: 04/12/20 16:47 x-ray done portably is of poor quality. It is underpenetrated. There is slight hyper inflation of the lung scruggs. Cardiac silhouette is within normal limits. It gives the impression of mild diffuse vascular congestion per portable technique.White blood cell count is 6.77 with 58% neutrophils on the auto differential. Hemoglobin is 12.4 with hematocrit of 36.5. Platelet counts 274,000. Chemistry is pending. 04/12/20 17:19 PT is 32.2 with an INR of 3.15. Slightly supratherapeutic but she just change medications yesterday. D-dimer is down to normal at 0.24. Sodium is 142 with a potassium of 3.6. Chloride 107 with a bicarb of 26. Anion gap is 12.6. BUN was 19 with a creatinine of 1.1. Glucose is 95 with a calcium of 8.8. Bilirubin of 0.4 AST is 16 with an ALT of 25. Alk phosphatase slightly elevated at 147. CK-MB fraction is 1.1 with normal troponin at less than 0.017. C-reactive protein 0.3 BNP mildly elevated at 257. Known to be slightly elevated on last visit to the ED as well. Total protein is 6.4 albumin is 3.4 TSH was 1.966 normal. 04/12/20 17:35 reexamination she remains quite tender to touch on deep palpation over the fourth rib particular on the left side of the chest wall. I believe her pain is currently chest wall in origin. No recent change in bras. I am going to place her on low-dose prednisone 20 mg twice daily for 5 days and then once in the morning for 5 days to relieve inflammation in her chest wall and hopefully pain. She can use Tylenol as needed but no NSAIDs due to being on Coumadin. I would suggest that this lady needs an echocardiogram at some point time due to mild congestive heart failure symptoms. I would suggest that she needs genetic studies at the end of using Coumadin in May with 1 Leiden factor, protein S and protein C, Antithrombin III and cardiolipin antibody assessment as she the these were not done with the diagnosis of DVT right leg prior to starting Coumadin. Departure - Departure Time of Disposition: 17:36 Disposition: Home, Self-Care 01 Condition: Fair Clinical Impression: Non-cardiac chest pain, Acute chest wall pain, Supratherapeutic INR - Discharge Information *PRESCRIPTION DRUG MONITORING PROGRAM REVIEWED*: Not Applicable *COPY OF PRESCRIPTION DRUG MONITORING REPORT IN PATIENT REJI: Not Applicable Prescriptions: predniSONE [Prednisone] 20 mg PO ASDIRECTED #15 tablet Instructions: Nonspecific Chest Pain, Adult, [id number] Referrals: Alicia Shaw MD [Primary Care Provider] - Forms: ED Department Discharge Additional Instructions: Evaluation in the emergency room today in regards to development of bilateral chest pain on both sides of the upper sternum. This occurred while at work today. He described it was like being stabbed with 2 tines of a pitchfork. EEG was unchanged from ECG done in February of this year. X-ray was within normal limits as well. Your INR today which is measuring of your Coumadin time was 3.15 slightly less than 3.30 which was done yesterday. Therefore continue current dosage of warfarin as prescribed. It remains somewhat higher than normal and can cause some spontaneous bleeding into soft tissues. There is tenderness of your chest wall in the fourth rib on the left side. I suspect your pain is chest wall in origin. All the markers for heart attack and further problems with potential blood clots in her lungs were negative today. You may use Tylenol if necessary for pain relief. Suggest a short trial of prednisone 20 mg with breakfast and supper for 5 days and once in the morning for another 5 days to relieve pain and inflammation while you are on the Coumadin. You cannot take any of the anti-inflammatory such as Motrin or Aleve. First dose of prednisone with supper tonight. Expect gradual improvement in chest wall pain over the next 3 days. Follow-up with personal care physician as planned in regards to Coumadin dosing. Sepsis Event Note - Evaluation Sepsis Screening Result: No Definite Risk - Focused Exam Vital Signs: Vital Signs Temp Pulse Resp BP Pulse Ox Pulse Ox 04/12/20 16:15 97 04/12/20 15:48 37.0 C 64 20 140/95 H 99 Date Exam was Performed: 04/12/20 Time Exam was Performed: 17:19 - My Orders Last 24 Hours: My Active Orders 04/12/20 15:59 EKG Documentation Completion [RC] STAT Chest 1V Frontal [CR] Stat 04/12/20 16:00 Peripheral IV Care [RC] . DIRECTED Sodium Chloride 0.9% [Saline Flush] 10 ml FLUSH ASDIRECTED PRN Peripheral IV Insertion Adult [OM.PC] Stat 04/12/20 16:03 RT Aerosol Therapy [RC] ASDIRECTED 04/13/20 05:11 MAGNESIUM [CHEM] AM 04/14/20 05:11 MAGNESIUM [CHEM] AM 04/15/20 05:11 MAGNESIUM [CHEM] AM - Assessment/Plan Last 24 Hours: My Active Orders 04/12/20 15:59 EKG Documentation Completion [RC] STAT Chest 1V Frontal [CR] Stat 04/12/20 16:00 Peripheral IV Care [RC] . DIRECTED Sodium Chloride 0.9% [Saline Flush] 10 ml FLUSH ASDIRECTED PRN Peripheral IV Insertion Adult [OM.PC] Stat 04/12/20 16:03 RT Aerosol Therapy [RC] ASDIRECTED 04/13/20 05:11 MAGNESIUM [CHEM] AM 04/14/20 05:11 MAGNESIUM [CHEM] AM 04/15/20 05:11 MAGNESIUM [CHEM] AM
--- NOTE | 2020-04-12 17:51 | CR ---
Chest: Portable view of the chest was obtained. Comparison: Prior chest x-ray of 02/12/20. Film technique is slightly light. Linear areas of atelectasis are seen within the left mid to lower lung. Linear atelectasis is also noted within the right upper lung. Lungs otherwise are clear with no other acute parenchymal change. Heart size and mediastinum are normal. Bony structures are grossly intact. Impression: 1. Linear areas of atelectasis as noted above. 2. Nothing acute is otherwise seen on portable chest x-ray. Diagnostic code #2 This report was dictated in MDT
[2020-04-12 17:53] VITALS: BP 123/88
== END 2020-04-12 17:52 | disposition home or self-care (01) ==
LOC: JD.ED 15:37
DX: R07.89 Other chest pain (principal); R79.1 Abnormal coagulation profile; I48.91 Unspecified atrial fibrillation; E78.00 Pure hypercholesterolemia, unspecified; I11.0 Hypertensive heart disease with heart failure; I50.9 Heart failure, unspecified; J44.9 Chronic obstructive pulmonary disease, unspecified; M19.90 Unspecified osteoarthritis, unspecified site; F32.9 Major depressive disorder, single episode, unspecified; E66.9 Obesity, unspecified; Z90.89 Acquired absence of other organs; Z88.0 Allergy status to penicillin; Z88.8 Allergy status to other drugs, medicaments and biological substances; Z79.899 Other long term (current) drug therapy; Z87.891 Personal history of nicotine dependence; Z68.42 Body mass index [BMI] 45.0-49.9, adult
CPT/HCPCS: 36415; 71045; 80053; 82553; 83880; 84443; 84484; 85025; 85379; 85610; 86140; 93005; 94640; 96374; 99284; J2060; 93010; J7620-GY

== ENCOUNTER 2020-05-09 16:26 | Emergency (ER) | payer BC ==
--- NOTE | 2020-05-09 16:44 | EDM.PDOC ---
ED HPI GENERAL MEDICAL PROBLEM - General Chief Complaint: General Stated Complaint: HEADACHE,EYE PAIN,ABDOMINAL PAIN Time Seen by Provider: 05/09/20 16:39 - History of Present Illness INITIAL COMMENTS - FREE TEXT/NARRATIVE: 59-year-old female presents the emergency room with a severe headache. Now she has intermittent nausea and this is was causing her stomach issues. This headache started last evening progressively getting worse. The patient was started on Coumadin almost 2 months ago for a DVT. Patient has a history of migraines but has not had one in over 10 years. This headache does remind her of that. She describes the headache is been quite severe behind her right eye and extends back into the base of her neck. Patient denies any fevers or chills no significant neck discomfort or neck tightness with activity or movement. 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 Headache Pain Score (Numeric/FACES): 8 Abdomen Pain Score (Numeric/FACES): 5 - Related Data Allergies Allergy/AdvReac Type Severity Reaction Status Date / Time broccoli Allergy Cannot Verified 05/09/20 16:40 Remember Penicillins Allergy Cannot Verified 05/09/20 16:40 Remember Home Meds: Home Meds atorvaSTATin [Lipitor] 20 mg PO BEDTIME 02/09/18 [History] Cetirizine [ZyrTEC] 10 mg PO DAILY PRN 05/26/18 [History] Calcium Carbonate/Vitamin D3 [Calcium 600 + Vit D Tablet] 600 mg PO BID [History] bisacodyL [Dulcolax] 5 mg PO DAILY PRN tablet 05/29/18 [Rx] Gabapentin [Neurontin] 300 mg PO BEDTIME 10/26/19 [History] carBAMazepine [Carbamazepine] 100 mg PO BEDTIME 10/26/19 [History] Ondansetron [Zofran ODT] 4 mg PO TID PRN #30 tab.dis 10/29/19 [Rx] Acetaminophen 500 mg PO Q4HR PRN 03/06/20 [History] Albuterol Sulfate [Proair Hfa] 1 inh IH Q4H PRN 03/06/20 [History] Budesonide/Formoterol [Symbicort 160-4.5 MCG] 2 puff IH BID 03/06/20 [History] Cyclobenzaprine [Flexeril] 10 mg PO Q8HR PRN 03/06/20 [History] FLUoxetine [PROzac] 40 mg PO DAILY 03/06/20 [History] Furosemide [Lasix] 20 mg PO DAILY 03/06/20 [History] Inhaler, Assist Devices [Aerochamber MV] 1 each MC DAILY 03/06/20 [History] Losartan [Cozaar] 50 mg PO DAILY 03/06/20 [History] Potassium Chloride 20 meq PO DAILY 03/06/20 [History] Sennosides [Senna] 8.6 mg PO BID PRN 03/06/20 [History] Vit C/E/Zinc Ox/Yong/Lut/Zeax [Icaps Areds2 Softgel] 1 each PO DAILY 03/06/20 [ History] Warfarin [Coumadin] 7.5 mg PO MOTUWETHFR 05/09/20 [History] Warfarin [Coumadin] 10 mg PO SUSA 05/09/20 [History] Past Medical History HEENT History: Reports: Impaired Vision, Other (See Below) Other HEENT History: wears glasses, has partial upper denture Cardiovascular History: Reports: Afib, Blood Clots/VTE/DVT, Heart Failure, High Cholesterol, Hypertension Respiratory History: Reports: Asthma, COPD, Sleep Apnea Gastrointestinal History: Reports: None Genitourinary History: Reports: None BOOKIE History: Reports: None Musculoskeletal History: Reports: Gout, Osteoarthritis, Other (See Below) ( Recently diagnosed with a DVT right lower extremity) Neurological History: Reports: Vertigo, Other (See Below) Other Neuro History: trigeminal neuralgia, aquilino's syndrome Psychiatric History: Reports: Depression, Developmental Delay, Other (See Below) Other Psychiatric History: dyslexia Endocrine/Metabolic History: Reports: Obesity/BMI 30+, Osteopenia Hematologic History: Reports: Other (See Below) (Currently being treated for DVT right lower extremity initially was on Lovenox and currently is on Coumadin. ) Immunologic History: Reports: None Oncologic (Cancer) History: Reports: None Dermatologic History: Reports: None - Infectious Disease History Infectious Disease History: Reports: Chicken Pox - Past Surgical History Head Surgeries/Procedures: Reports: None HEENT Surgical History: Reports: Oral Surgery Cardiovascular Surgical History: Reports: None Respiratory Surgical History: Reports: None GI Surgical History: Reports: Cholecystectomy, Colonoscopy, EGD Female Surgical History: Reports: None, Tubal Ligation, Other (See Below) Other Female Surgeries/Procedures: breast lumpectomy Endocrine Surgical History: Reports: None Neurological Surgical History: Reports: None Musculoskeletal Surgical History: Reports: Arthroscopic Knee, Knee Replacement Oncologic Surgical History: Reports: None Dermatological Surgical History: Reports: None Social & Family History - Family History Family Medical History: Noncontributory - Caffeine Use Caffeine Use: Reports: None Other Caffeine Use: 2 cups/ day of coffee. 1 cups/day soda Caffeine Use Comment: 2 bottles of tea. 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 Denies: Fever, Chills HEENT: Reports: Eye Pain (On the right side) Respiratory: Reports: No Symptoms Cardiovascular: Reports: No Symptoms GI/Abdominal: Reports: Nausea (To the point of vomiting but has not reached that yet). Denies: Abdominal Pain, Constipation, Diarrhea, Vomiting : Reports: No Symptoms Musculoskeletal: Reports: No Symptoms Skin: Reports: No Symptoms Neurological: Reports: Dizziness (Some dizziness yesterday morning and this was typical to how some of her headaches she is to start this did resolve), Headache Psychiatric: Reports: No Symptoms Hematologic/Lymphatic: Reports: Other (She is on warfarin) Immunologic: Reports: No Symptoms ED EXAM, GENERAL - Physical Exam Exam: See Below Exam Limited By: No Limitations General Appearance: Alert, No Apparent Distress Eye Exam: Bilateral Eye: EOMI, Normal Inspection, PERRL Ears: Normal External Exam, Normal Canal, Hearing Grossly Normal, Normal TMs Nose: Normal Inspection, Normal Mucosa, No Blood Throat/Mouth: Normal Inspection, Normal Lips, Normal Teeth, Normal Gums, Normal Oropharynx, Normal Voice, No Airway Compromise Head: Atraumatic, Normocephalic Neck: Normal Inspection, Supple, Non-Tender, Full Range of Motion Respiratory/Chest: No Respiratory Distress, Lungs Clear, Normal Breath Sounds, No Accessory Muscle Use, Chest Non-Tender Cardiovascular: Normal Peripheral Pulses, Regular Rate, Rhythm, No Edema GI/Abdominal: Normal Bowel Sounds, Soft, Non-Tender, Other (Frequently obese) Extremities: Normal Inspection Neurological: Alert, Oriented, Normal Cognition, Other (No nerves II through XII grossly intact all muscle groups are equal and appropriate bilaterally cerebellar testing is within normal limits.) Psychiatric: Normal Affect, Normal Mood Skin Exam: Warm, Dry, Intact Course - Vital Signs Last Recorded V/S: Last Vital Signs Temp 35.9 C L 05/09/20 16:40 Pulse 80 05/09/20 16:40 Resp 20 05/09/20 16:40 BP 133/99 H 05/09/20 16:40 Pulse Ox 97 05/09/20 16:40 - Orders/Labs/Meds Meds: Medications Discontinued Medications Generic Name Dose Route Start Last Admin Trade Name Freq PRN Reason Stop Dose Admin Diphenhydramine HCl 50 mg 05/09/20 17:04 05/09/20 17:26 Benadryl IVPUSH 05/09/20 17:05 50 mg ONETIME ONE Administration Lactated Ringer's 1,000 mls @ 999 mls/hr 05/09/20 17:04 05/09/20 17:28 Ringers, Lactated IV 05/09/20 18:04 999 mls/hr .BOLUS ONE Administration Ondansetron HCl 4 mg 05/09/20 17:04 05/09/20 17:24 Zofran IVPUSH 05/09/20 17:05 4 mg ONETIME ONE Administration - Re-Assessments/Exams Free Text/Narrative Re-Assessment/Exam: 05/09/20 17:20 Patient will be treated for migraine however I will check a CT as she has been recently started on Coumadin. She had an INR checked on Tuesday it was 2.7 we will not check an INR today. 05/09/20 18:33 This is at least 50% better at this time CT per my interpretation shows no acute changes just got the radiology interpretation that shows mild generalized atrophy nothing acute is appreciated we will discharge. Departure - Departure Time of Disposition: 18:40 Disposition: Home, Self-Care 01 Clinical Impression: Migrainous headache without aura - Discharge Information Referrals: Alicia Shaw MD [Primary Care Provider] - Forms: ED Department Discharge Additional Instructions: Return to the emergency room with any questions problems or worsening symptoms. Go straight home and get some sleep. Hopefully you will sleep till the morning wake up and feel much better. Sepsis Event Note (ED) - Focused Exam Vital Signs: Vital Signs Temp Pulse Resp BP Pulse Ox 05/09/20 16:40 35.9 C L 80 20 133/99 H 97
[2020-05-09] MEDS ORDERED: diphenhydrAMINE 50 MG/ML SDV IVPUSH ONE (17:04)
[2020-05-09] MEDS ORDERED: Ondansetron 4 MG/2 ML SDV IVPUSH ONE (17:04)
[2020-05-09] MEDS ORDERED: Lactated Ringers 1,000 ML IV ONE (17:04)
--- NOTE | 2020-05-09 18:28 | CT ---
Head CT Technique: Multiple axial sections through the brain were obtained. Intravenous contrast was not utilized. Comparison: Prior MRI brain of 12/10/10. Findings: Ventricles along with basal cisterns and sulci the convexities are mildly prominent. No abnormal parenchymal densities are seen. No evidence of intracranial hemorrhage. No midline shift or mass-effect is seen. Bone window settings were reviewed. No acute calvarial finding is seen. Visualized paranasal sinuses and mastoid sinuses show nothing acute. Impression: 1. Mild generalized atrophy. 2. Nothing acute is appreciated on noncontrast head CT exam. Diagnostic code #2 This report was dictated in MDT
[2020-05-09 19:02] VITALS: BP 120/83; PULSE 60
== END 2020-05-09 18:55 | disposition home or self-care (01) ==
LOC: JD.ED 16:26
DX: G43.009 Migraine without aura, not intractable, without status migrainosus (principal); I11.0 Hypertensive heart disease with heart failure; I50.9 Heart failure, unspecified; I48.91 Unspecified atrial fibrillation; E78.00 Pure hypercholesterolemia, unspecified; J44.9 Chronic obstructive pulmonary disease, unspecified; M10.9 Gout, unspecified; F32.9 Major depressive disorder, single episode, unspecified; E66.9 Obesity, unspecified; Z68.41 Body mass index [BMI] 40.0-44.9, adult; Z91.018 Allergy to other foods; Z88.0 Allergy status to penicillin; Z79.899 Other long term (current) drug therapy
CPT/HCPCS: 70450; 96361; 96374; 96375; 99284; J1200; J2405; J7120; 99283

== ENCOUNTER 2020-08-31 17:47 | Emergency (ER) | payer OTHER, BC ==
[2020-08-31 18:17] VITALS: BP 151/106; PULSE 88
--- NOTE | 2020-08-31 18:27 | EDM.PDOC ---
ED HPI GENERAL MEDICAL PROBLEM - General Chief Complaint: Upper Extremity Injury/Pain Stated Complaint: RT WRIST PAIN Time Seen by Provider: 08/31/20 18:20 Source of Information: Reports: Patient History Limitations: Reports: No Limitations - History of Present Illness INITIAL COMMENTS - FREE TEXT/NARRATIVE: 60-year-old female presents to the ED after falling as she was clocking out from work today. She states she turned suddenly and her right prosthetic knee gave out on her causing her to fall to the floor on outstretched right hand. She suffered pain to the thenar eminence of the right hand both her and radial aspects of the right wrist which radiates up to her right elbow. She denies hitting her head hurting her neck ribs back or hips. Both knees are prosthetic. KRt knee pain is not present at this time Onset: Today, Sudden Onset Date: 08/31/20 Onset Time: 16:00 Duration: Hour(s):, Getting Worse Location: Reports: Upper Extremity, Right Quality: Reports: Ache (Right wrist pain rating up to her right elbow.), Throbbing Severity: Moderate Improves with: Reports: Rest Worsens with: Reports: Movement Context: Reports: Trauma (On outstretched right hand.). 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.) Right Wrist Pain Score (Numeric/FACES): 9 - Related Data Allergies Allergy/AdvReac Type Severity Reaction Status Date / Time broccoli Allergy Cannot Verified 08/31/20 18:17 Remember Penicillins Allergy Cannot Verified 08/31/20 18:17 Remember Home Meds: Home Meds atorvaSTATin [Lipitor] 20 mg PO BEDTIME 02/09/18 [History] Cetirizine [ZyrTEC] 10 mg PO DAILY PRN 05/26/18 [History] Calcium Carbonate/Vitamin D3 [Calcium 600 + Vit D Tablet] 600 mg PO BID 05/29/18 [History] bisacodyL [Dulcolax] 5 mg PO DAILY PRN tablet 05/29/18 [Rx] Gabapentin [Neurontin] 300 mg PO BEDTIME 10/26/19 [History] carBAMazepine [Carbamazepine] 100 mg PO BEDTIME 10/26/19 [History] Ondansetron [Zofran ODT] 4 mg PO TID PRN #30 tab.dis 10/29/19 [Rx] Acetaminophen 500 mg PO Q4HR PRN 03/06/20 [History] Albuterol Sulfate [Proair Hfa] 1 inh IH Q4H PRN 03/06/20 [History] Budesonide/Formoterol [Symbicort 160-4.5 MCG] 2 puff IH BID 03/06/20 [History] Cyclobenzaprine [Flexeril] 10 mg PO Q8HR PRN 03/06/20 [History] FLUoxetine [PROzac] 40 mg PO DAILY 03/06/20 [History] Furosemide [Lasix] 20 mg PO DAILY 03/06/20 [History] Inhaler, Assist Devices [Aerochamber MV] 1 each MC DAILY 03/06/20 [History] Losartan [Cozaar] 50 mg PO DAILY 03/06/20 [History] Potassium Chloride 20 meq PO DAILY 03/06/20 [History] Sennosides [Senna] 8.6 mg PO BID PRN 03/06/20 [History] Vit C/E/Zinc Ox/Yong/Lut/Zeax [Icaps Areds2 Softgel] 1 each PO DAILY 03/06/20 [History] Warfarin [Coumadin] 7.5 mg PO MOTUWETHFR 05/09/20 [History] Warfarin [Coumadin] 10 mg PO SUSA 05/09/20 [History] Past Medical History HEENT History: Reports: Impaired Vision, Other (See Below) Other HEENT History: wears glasses, has partial upper denture Cardiovascular History: Reports: Afib, Blood Clots/VTE/DVT, Heart Failure, High Cholesterol, Hypertension Respiratory History: Reports: Asthma, COPD, Sleep Apnea Gastrointestinal History: Reports: None Genitourinary History: Reports: None 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 Neurological History: Reports: Vertigo, Other (See Below) Other Neuro History: trigeminal neuralgia, aquilino's syndrome Psychiatric History: Reports: Depression, Developmental Delay, Other (See Below) Other Psychiatric History: dyslexia Endocrine/Metabolic History: Reports: Obesity/BMI 30+, Osteopenia Hematologic History: Reports: Other (See Below) Immunologic History: Reports: None Oncologic (Cancer) History: Reports: None Dermatologic History: Reports: None - Infectious Disease History Infectious Disease History: Reports: Chicken Pox - Past Surgical History Head Surgeries/Procedures: Reports: None HEENT Surgical History: Reports: Oral Surgery Cardiovascular Surgical History: Reports: None Respiratory Surgical History: Reports: None GI Surgical History: Reports: Cholecystectomy, Colonoscopy, EGD Female Surgical History: Reports: None, Tubal Ligation, Other (See Below) Other Female Surgeries/Procedures: breast lumpectomy Endocrine Surgical History: Reports: None Neurological Surgical History: Reports: None Musculoskeletal Surgical History: Reports: Arthroscopic Knee, Knee Replacement (Rt) Oncologic Surgical History: Reports: None Dermatological Surgical History: Reports: None Social & Family History - Family History Family Medical History: Noncontributory - Tobacco Use Smoking Status *Q: Former Smoker Used Tobacco, but Quit: Yes Month/Year Tobacco Last Used: 10/2019 - Caffeine Use Caffeine Use: Reports: Coffee, Soda Other Caffeine Use: 2 cups/ day of coffee. 1 cups/day soda Caffeine Use Comment: 2 bottles of tea. 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 Denies: Cough, Sputum Cardiovascular: Reports: Palpitations. Denies: Chest Pain, Edema, Irregular Heart Rate, Syncope, Other GI/Abdominal: Reports: No Symptoms Genitourinary: Reports: Other (Urinary frequency.) Musculoskeletal: Reports: Joint Pain (Patient has generalized arthritic change. Right knee that has been replaced. Mild pain hips low back and neck at times.) Skin: Reports: Bruising (This is fairly easy as she is on Coumadin.) Neurological: Reports: No Symptoms, Difficulty Walking. Denies: Confusion, Dizziness, Headache, Numbness, Seizure, Syncope, Tingling, Tremors (Is a walker at all times.), Trouble Speaking, Weakness Psychiatric: Reports: No Symptoms ED EXAM, GENERAL - Physical Exam Exam: See Below Exam Limited By: No Limitations General Appearance: Alert, WD/WN, No Apparent Distress, Other (Temperature is 36.6 with a heart rate of 88 sinus respiratory is 18 BP 151 106. Pulse ox 96% room air) Eye Exam: Bilateral Eye: Normal Inspection, PERRL Throat/Mouth: Normal Inspection, Normal Lips, Normal Teeth, Normal Oropharynx Head: Atraumatic, Normocephalic Neck: Normal Inspection, Supple, Non-Tender, Full Range of Motion. No: Lymphadenopathy (L), Lymphadenopathy (R) Respiratory/Chest: No Respiratory Distress, Lungs Clear, Normal Breath Sounds, No Accessory Muscle Use Cardiovascular: Normal Peripheral Pulses, Regular Rate, Rhythm, No Edema, No Gallop, No Murmur, No Rub Peripheral Pulses: 2+: Carotid (L), Carotid (R), Posterior Tibial (L), Posterior Tibial (R), Dorsalis Pedis (L), Dorsalis Pedis (R) GI/Abdominal: Normal Bowel Sounds, Soft, Non-Tender, No Organomegaly, No Mass, Pelvis Stable, Other (Moderately obese.) Extremities: Other (Examination of the right hand shows diffuse swelling of the dorsal aspect of the right wrist. Very limited ability to make a fist. She has pain in the scaphoid area. Somewhat painful to fully rotate or supinate at the elbow. No injuries to the right shoulder or humerus appreciated. Left upper extremity is uninjured. Her right knee has been replaced and clinically has no signs of injury.) Neurological: Alert, Oriented, CN II-XII Intact, Normal Cognition Psychiatric: Normal Affect, Normal Mood Skin Exam: Warm, Dry, Intact, Normal Color, No Rash ED TRAUMA EXTREMITY PROCEDURES - Splinting Right Upper Extremity Splint Site: below elbow Rt ulnar gutter orthogalss splint. Pre-Procedure NV Status: Normal Post-Procedure NV Status: Normal Splint Material: Fiberglass Splint Design: Extensor, Other (radial gutter splint.) Applied & Form Fitted By: Provider Provider Post-Splint Application NV Check: NV Status Normal Complications: No Course - Vital Signs Last Recorded V/S: Last Vital Signs Temp 36.6 C 08/31/20 18:13 Pulse 88 10/04/20 18:13 Resp 18 08/31/20 18:13 BP 151/106 H 08/31/20 18:13 Pulse Ox 96 08/31/20 18:13 - Orders/Labs/Meds Orders: Active Orders 24 hr Category Date Time Status Forearm 2V Rt [CR] Stat Exams 08/31/20 18:26 Taken Wrist Comp Min 3V Rt [CR] Stat Exams 08/31/20 18:25 Taken - Radiology Interpretation Free Text/Narrative:: 60-year-old female presents to the ED after suffering a fall as she was clocking out from work at 1600 hrs. today. She landed on outstretched right hand with injuries to the thenar eminence of her hand and distal wrist. Pain radiates up to her right elbow. She denies any other injuries. Exam suggests diffuse swelling distal right wrist. Unable to make a full fist. Good pulses to the hand. Plan x-rays of the right wrist and forearm to be obtained. - Re-Assessments/Exams Free Text/Narrative Re-Assessment/Exam: 08/31/20 21:03 x-rays of the right wrist reveal a vertical fracture in the distal right radius without any significant displacement of the articular cortex of the distal radius. The fracture line does answer the joint at the distal aspect of the radius. Ulna is intact. No carpal bone fractures identified. The remainder of x-rays of her right arm do not reveal any fractures. Plan she will need to be placed in a Ortho-Glass radial gutter splint. This will be done shortly. 09/01/20 21:[address] DUSING ORTHOGLASS FROM METACRAPLS TO PROXIMAL FOREARM. sHE WILL BE ADVISED TO ARRANGE FOLLOW UP WITH dR Dawson --ORTHOPEDIC SURGEON LATER TIS WEEK FOR CAST APPLICATION. eLEVATE THE ARM TO HEART LEVEL. iCE PACK FOR 1/2 HOURROUT OFEVERY 4HRS FOR 2 DAYS. mOTRIN AND eXCEDRIN FOR PAIN NEEDED. Departure - Departure Time of Disposition: 21:46 Disposition: Home, Self-Care 01 Condition: Fair Clinical Impression: Fall Qualifiers: Encounter type: initial encounter Qualified Code(s): W19.XXXA - Unspecified fall, initial encounter Fracture of radius, right, closed Qualifiers: Encounter type: initial encounter Radius location: distal Fracture morphology: other intra-articular Qualified Code(s): S52.571A - Other intraarticular fracture of lower end of right radius, initial encounter for closed fracture - Discharge Information *PRESCRIPTION DRUG MONITORING PROGRAM REVIEWED*: Not Applicable *COPY OF PRESCRIPTION DRUG MONITORING REPORT IN PATIENT REJI: Not Applicable Instructions: Wrist Fracture Treated With Immobilization, [id number] Referrals: Alicia Shaw MD [Primary Care Provider] - Forms: ED Department Discharge, ED Return to Work/School Form Additional Instructions: Evaluation in the emergency room today in regards to a fall as you were clocking out of work earlier today. Your right knee gave out causing her to fall to the floor on outstretched right hand. Exam reveals swelling distal right wrist. X- rays confirm a vertical fracture in the distal aspect of the radius bone which is on the thumb side and is considered your lower forearm bone. You would consider your wrist bone. No bone fractures were identified in the true wrist bones or carpal bones. Similarly x-rays of the whole forearm were done up to the elbow and no other fractures were identified. We therefore placed in a radial gutter Ortho-Glass splint to immobilize the fracture. You will need to make an appointment to see Dr. Dawson- orthopedic surgeon this week for a cast application. Please phone his office tomorrow morning at [phone] to arrange an appointment. His office is on the second floor of the side of the hospital. Try and elevate your arm as much as possible or keep it at heart level so that it does not swell in your hand. Continue pain medicine as needed either Motrin 600 mg every 6 hours or alternative medicines which you have at home. You could put ice pack on through the splint for 1/2-hour out of every 4 hours to help reduce swelling and pain. Sepsis Event Note (ED) - Evaluation Sepsis Screening Result: No Definite Risk - My Orders Last 24 Hours: My Active Orders 08/31/20 18:25 Wrist Comp Min 3V Rt [CR] Stat 08/31/20 18:26 Forearm 2V Rt [CR] Stat - Assessment/Plan Last 24 Hours: My Active Orders 08/31/20 18:25 Wrist Comp Min 3V Rt [CR] Stat 08/31/20 18:26 Forearm 2V Rt [CR] Stat
--- NOTE | 2020-10-01 10:22 | CR ---
PROCEDURE INFORMATION: Exam: XR Right Forearm Exam date and time: 08/31/2020 8:00 PM Age: 60 years old Clinical indication: Injury or trauma; Fall; Fracture, traumatic injury; Closed fracture; Right; Lower end of humerus TECHNIQUE: Imaging protocol: XR Right forearm. Views: 2 views. COMPARISON: No relevant prior studies available. FINDINGS: Bones/joints: Linear lucencies within the right distal radius extending into the radiocarpal articular surface, compatible with nondisplaced acute fracture. No dislocation. No evidence of elbow effusion. Soft tissues: Soft tissue swelling about the right wrist. IMPRESSION: Acute distal radial fracture extending to the radiocarpal joint. Remainder of findings described as above. Thank you for allowing us to participate in the care of your patient. Dictated and Authenticated by: Chin York MD 09/30/2020 11:19 PM Central Time ([place] & [place]) RICHIE
--- NOTE | 2020-10-01 10:23 | CR ---
PROCEDURE INFORMATION: Exam: XR Right Wrist Exam date and time: 08/31/2020 8:01 PM Age: 60 years old Clinical indication: Injury or trauma; Fall; Fracture, traumatic injury; Closed fracture; Right; Lower end of humerus TECHNIQUE: Imaging protocol: XR Right wrist. Views: 3 or more views. COMPARISON: No relevant prior studies available. FINDINGS: Bones/joints: Linear longitudinal lucency of the right distal radius extending into the radiocarpal articular surface, compatible with acute nondisplaced fracture. No dislocation. No additional acute fractures identified. Soft tissues: Soft tissue swelling about the right wrist. IMPRESSION: Nondisplaced acute fracture of the right distal radius extending into the radiocarpal articular surface. Thank you for allowing us to participate in the care of your patient. Dictated and Authenticated by: Chin York MD 09/30/2020 11:22 PM Central Time ([place] & [place]) RICHIE
== END 2020-08-31 22:10 | disposition home or self-care (01) ==
LOC: JD.ED 17:47
DX: S52.571A Other intraarticular fracture of lower end of right radius, initial encounter for closed fracture (principal); I11.0 Hypertensive heart disease with heart failure; I50.9 Heart failure, unspecified; I48.91 Unspecified atrial fibrillation; E78.00 Pure hypercholesterolemia, unspecified; J44.9 Chronic obstructive pulmonary disease, unspecified; F32.9 Major depressive disorder, single episode, unspecified; E66.9 Obesity, unspecified; Z68.41 Body mass index [BMI] 40.0-44.9, adult; Z90.49 Acquired absence of other specified parts of digestive tract; Z98.51 Tubal ligation status; Z87.891 Personal history of nicotine dependence; Z88.0 Allergy status to penicillin; Z91.018 Allergy to other foods; Z79.899 Other long term (current) drug therapy; W17.89XA Other fall from one level to another, initial encounter; Y99.0 Civilian activity done for income or pay
CPT/HCPCS: 29125; 73090-26-RT; 73090-RT; 73110-26-RT; 73110-RT; 99282; 99283-25

== ENCOUNTER 2020-11-07 10:40 | Emergency (ER) | payer BC, OTHER ==
--- NOTE | 2020-11-07 11:43 | EDM.PDOC ---
ED HPI GENERAL MEDICAL PROBLEM - General Chief Complaint: Abdominal Pain Stated Complaint: ABDOMINAL BURNING AND NAUSEA Time Seen by Provider: 11/07/20 11:05 Source of Information: Reports: Patient History Limitations: Reports: No Limitations - History of Present Illness INITIAL COMMENTS - FREE TEXT/NARRATIVE: 60-year-old female who presents to emergency department with complaints of dizziness, shortness of breath and upper abdominal pain that started at about 10 AM this morning after she had pushed some carts at [facility] [facility]. 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 and after she sat down she felt lightheaded and dizzy after having severe abdominal pain that made her feel nauseated. She states the pain was burning in her upper abdomen. I am able to reproduce the pain all along lower rib cage with palpation. Pain is worsened when sitting. Of note patient does have a history of blood clots in her legs that was diagnosed in either March or April she is unsure of the exact date, but she did finish anticoagulation treatment in May. She is not currently on any treatment for this. She also carries a history of intermittent atrial fibrillation. She carries a history of COPD and smoking she quit October 2019. He regular doctor is Dr. Dominguez. Onset: Today, Sudden Quality: Reports: Burning Improves with: Reports: Immobilization Worsens with: Reports: Movement Bilateral Abdomen Pain Score (Numeric/FACES): 7 - Related Data Allergies Allergy/AdvReac Type Severity Reaction Status Date / Time broccoli Allergy Cannot Verified 11/07/20 11:12 Remember Penicillins Allergy Cannot Verified 11/07/20 11:12 Remember Home Meds: Home Meds atorvaSTATin [Lipitor] 20 mg PO BEDTIME 02/09/18 [History] Cetirizine [ZyrTEC] 10 mg PO DAILY PRN 05/26/18 [History] Calcium Carbonate/Vitamin D3 [Calcium 600 + Vit D Tablet] 600 mg PO BID 05/29/18 [History] bisacodyL [Dulcolax] 5 mg PO DAILY PRN tablet 05/29/18 [Rx] Gabapentin [Neurontin] 300 mg PO BEDTIME 10/26/19 [History] carBAMazepine [Carbamazepine] 100 mg PO BEDTIME 10/26/19 [History] Ondansetron [Zofran ODT] 4 mg PO TID PRN #30 tab.dis 10/29/19 [Rx] Acetaminophen 500 mg PO Q4HR PRN 04/09/20 [History] Albuterol Sulfate [Proair Hfa] 1 inh IH Q4H PRN 03/06/20 [History] Budesonide/Formoterol [Symbicort 160-4.5 MCG] 2 puff IH BID 03/06/20 [History] Cyclobenzaprine [Flexeril] 10 mg PO Q8HR PRN 03/06/20 [History] FLUoxetine [PROzac] 40 mg PO DAILY 03/06/20 [History] Furosemide [Lasix] 20 mg PO DAILY 03/06/20 [History] Inhaler, Assist Devices [Aerochamber MV] 1 each MC DAILY 03/06/20 [History] Losartan [Cozaar] 100 mg PO DAILY 03/06/20 [History] Potassium Chloride 20 meq PO DAILY 03/06/20 [History] Sennosides [Senna] 8.6 mg PO BID PRN 03/06/20 [History] Vit C/E/Zinc Ox/Yong/Lut/Zeax [Icaps Areds2 Softgel] 1 each PO DAILY 03/06/20 [History] Aspirin [Halfprin] 81 mg PO DAILY 11/07/20 [History] Past Medical History HEENT History: Reports: Impaired Vision, Other (See Below) Other HEENT History: wears glasses, has partial upper denture Cardiovascular History: Reports: Afib, Blood Clots/VTE/DVT, Heart Failure, High Cholesterol, Hypertension Respiratory History: Reports: Asthma, COPD, Sleep Apnea Gastrointestinal History: Reports: None Genitourinary History: Reports: None [employer]AF[employer] 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 Neurological History: Reports: Vertigo, Other (See Below) Other Neuro History: trigeminal neuralgia, aquilino's syndrome Psychiatric History: Reports: Depression, Developmental Delay, Other (See Below) Other Psychiatric History: dyslexia Endocrine/Metabolic History: Reports: Obesity/BMI 30+, Osteopenia Hematologic History: Reports: Anemia, Iron Deficiency Immunologic History: Reports: None Oncologic (Cancer) History: Reports: None Dermatologic History: Reports: None - Infectious Disease History Infectious Disease History: Reports: Chicken Pox, Novel Coronavirus - Past Surgical History HEENT Surgical History: Reports: Oral Surgery GI Surgical History: Reports: Cholecystectomy, Colonoscopy, EGD Female Surgical History: Reports: Tubal Ligation, Other (See Below) Other Female Surgeries/Procedures: breast lumpectomy Musculoskeletal Surgical History: Reports: Arthroscopic Knee, Knee Replacement Oncologic Surgical History: Reports: None Dermatological Surgical History: Reports: None Social & Family History - Family History Family Medical History: No Pertinent Family History - Tobacco Use Tobacco Use Status *Q: Former Tobacco User Years of Tobacco use: 45 Packs/Tins Daily: 0.5 Used Tobacco, but Quit: Yes Month/Year Tobacco Last Used: Oct 2019 - Caffeine Use Caffeine Use: Reports: Coffee Other Caffeine Use: 2 cups/ day of coffee. 1 cups/day soda Caffeine Use Comment: 2 bottles of tea. 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 [facility] [employer]) ED ROS GENERAL - Review of Systems Review Of Systems: See Below Constitutional: Reports: No Symptoms HEENT: Reports: No Symptoms Respiratory: Reports: No Symptoms Cardiovascular: Reports: Lightheadedness. Denies: Chest Pain, Blood Pressure Problem, Palpitations Endocrine: Reports: No Symptoms GI/Abdominal: Reports: Abdominal Pain, Nausea. Denies: Constipation, Diarrhea, Vomiting : Reports: No Symptoms Skin: Reports: No Symptoms Neurological: Reports: Dizziness Psychiatric: Reports: No Symptoms Hematologic/Lymphatic: Reports: No Symptoms Immunologic: Reports: No Symptoms ED EXAM, DIZZINESS - Physical Exam Exam: See Below Exam Limited By: No Limitations General Appearance: Alert, WD/WN, No Apparent Distress Eye Exam: Bilateral Eye: PERRL Ears: Normal External Exam, Hearing Grossly Normal Nose: Normal Inspection Throat/Mouth: Normal Inspection, Normal Lips, Normal Voice, No Airway Compromise Head Exam: Atraumatic, Normocephalic Neck: Normal Inspection, Supple, Full Range of Motion Respiratory/Chest: No Respiratory Distress, Lungs Clear, Normal Breath Sounds, No Accessory Muscle Use, Chest Non-Tender Cardiovascular: Normal Peripheral Pulses, Regular Rate, Rhythm, No Edema, No Murmur GI/Abdominal: Normal Bowel Sounds, Soft, Tender (with palpation below bilateral ribs) (Female) Exam: Deferred Rectal (Female) Exam: Deferred Neurological: Alert, Normal Mood/Affect, Normal Gait, Oriented x 3 Back Exam: Normal Inspection, Full Range of Motion Extremities: Normal Inspection, Normal Range of Motion, Non-Tender, No Pedal Edema, Normal Capillary Refill Psychiatric: Normal Affect, Normal Mood Skin Exam: Warm, Dry, Intact, Normal Color #1 Interpretation EKG Date: 11/07/20 Time: 10:56 Rhythm: NSR Rate (Beats/Min): 92 [facility]: Normal P-Wave: Present QRS: Normal ST-T: Normal QT: Normal Comparison: NA - No Prior EKG EKG Interpretation Comments: As read by Dr. Lopez, NSR, no AVB, no LAD/RAD, no LVH/RVH Course - Vital Signs Last Recorded V/S: Last Vital Signs Temp 96.4 F L 11/07/20 10:45 Pulse 102 H 11/07/20 10:45 Resp 20 11/07/20 10:45 BP 114/94 H 11/07/20 10:45 Pulse Ox 96 11/07/20 10:45 - Orders/Labs/Meds Orders: Active Orders 24 hr Category Date Time Status EKG 12 Lead [EKG Documentation Completion] [RC] STAT Care 11/07/20 10:50 Active Chest 1V Frontal [CR] Stat Exams 11/07/20 11:24 Taken Labs: Laboratory Tests 11/07/20 11/07/20 11/07/20 Range/Units 11:00 11:00 11:00 WBC 7.03 (3.98-10.04) K/mm3 RBC 4.85 (3.98-5.22) M/mm3 Hgb 13.7 (11.2-15.7) gm/dl Hct 42.8 (34.1-44.9) % MCV 88.2 (79.4-94.8) fl MCH 28.2 (25.6-32.2) pg MCHC 32.0 L (32.2-35.5) g/dl RDW Std Deviation 45.1 (36.4-46.3) fL Plt Count 343 (182-369) K/mm3 MPV 9.1 L (9.4-12.3) fl Neut % (Auto) 55.3 (34.0-71.1) % Lymph % (Auto) 29.7 (19.3-51.7) % Walton % (Auto) 10.2 (4.7-12.5) % Eos % (Auto) 3.8 (0.7-5.8) Baso % (Auto) 0.7 (0.1-1.2) % Neut # (Auto) 3.88 (1.56-6.13) K/mm3 Lymph # (Auto) 2.09 (1.18-3.74) K/mm3 Walton # (Auto) 0.72 H (0.24-0.36) K/mm3 Eos # (Auto) 0.27 (0.04-0.36) K/mm3 Baso # (Auto) 0.05 (0.01-0.08) K/mm3 D-Dimer, Quantitative 0.31 (0.19-0.50) mg/L Sodium 139 (136-145) mEq/L Potassium 3.9 (3.5-5.1) mEq/L Chloride 104 (98-107) mEq/L Carbon Dioxide 27 (21-32) mEq/L Anion Gap 11.9 (5-15) BUN 20 H (7-18) mg/dL Creatinine 1.4 H (0.55-1.02) mg/dL Est Cr Clr Drug Dosing 46.21 mL/min Estimated GFR (MDRD) 38 (>60) mL/min BUN/Creatinine Ratio 14.3 (14-18) Glucose 126 H (74-106) mg/dL Calcium 9.1 (8.5-10.1) mg/dL Total Bilirubin 0.6 (0.2-1.0) mg/dL AST 24 (15-37) U/L ALT 41 (14-59) U/L Alkaline Phosphatase 149 H (46-116) U/L Troponin I < 0.017 (0.00-0.056) ng/mL Total Protein 6.9 (6.4-8.2) g/dl Albumin 3.8 (3.4-5.0) g/dl Globulin 3.1 gm/dL Albumin/Globulin Ratio 1.2 (1-2) - Re-Assessments/Exams Free Text/Narrative Re-Assessment/Exam: 11/07/20 11:49 I have ordered a chest xray, ekg, cbc, and d dimer on this patient. 11/07/20 13:08 CBC is unremarkable. D-dimer is 0.31, potassium 3.9, BUN 20, creatinine 1.4, troponin less than 0.017. Patient still has increased abdominal pain with palpation likely musculoskeletal in origin due to pushing carts. With discharge her to home. It is recommended she takes either ibuprofen or Aleve [id number] for the next 48 hours with food. She can alternate ice and heat as well for comfort. Follow-up with regular provider Dr. Dominguez within 1 to 2 weeks. Departure - Departure Time of Disposition: 13:09 Disposition: Home, Self-Care 01 Clinical Impression: Abdominal pain Qualifiers: Abdominal location: upper abdomen, unspecified Qualified Code(s): R10.10 - Upper abdominal pain, unspecified - Discharge Information Instructions: Abdominal Pain, Adult, [id number], Pain Without a Known Cause Referrals: Alicia Shaw MD [Primary Care Provider] - Forms: ED Department Discharge Additional Instructions: You are seen in the emergency department today with complaints of abdominal pain and shortness of breath and dizziness. We did an EKG and a chest x-ray, and lab work which were all unremarkable. We did a D-dimer which was negative. You do not have a blood clot. It is likely that when you are pushing carts you pulled muscles in your upper abdomen. I strongly recommend that you take Aleve or ibuprofen [id number] for the next 48 hours. Make sure you take this with food. Can also alternate ice and heat to your abdomen for comfort. Follow-up with Dr. Villareal in the next 7 to 14 days or sooner as needed. Return to the ER should your condition worsen or change. Sepsis Event Note (ED) - Evaluation Sepsis Screening Result: No Definite Risk - Focused Exam Vital Signs: Vital Signs Temp Pulse Resp BP Pulse Ox 11/07/20 10:45 96.4 F L 102 H 20 114/94 H 96 - My Orders Last 24 Hours: My Active Orders 11/07/20 10:50 EKG 12 Lead [EKG Documentation Completion] [RC] STAT 11/07/20 11:24 Chest 1V Frontal [CR] Stat - Assessment/Plan Last 24 Hours: My Active Orders 11/07/20 10:50 EKG 12 Lead [EKG Documentation Completion] [RC] STAT 11/07/20 11:24 Chest 1V Frontal [CR] Stat
[2020-11-07 13:31] VITALS: BP 105/64; PULSE 82
--- NOTE | 2020-11-07 13:31 | CR ---
Chest: Portable view of the chest was obtained. Comparison: Prior chest x-ray of 04/12/20. Heart size is normal. Slight increasing density is noted within the right paratracheal region from prior study. Lungs otherwise are clear. Bony structures are grossly intact. Impression: 1. Slightly prominent right paratracheal soft tissues. Since this is an interval change from prior study, noncontrast chest CT is recommended to hopefully rule out abnormality. 2. Nothing acute is otherwise seen. Diagnostic code #9
== END 2020-11-07 13:35 | disposition home or self-care (01) ==
LOC: JD.ED 10:40
DX: R10.11 Right upper quadrant pain (principal); R10.12 Left upper quadrant pain; R42 Dizziness and giddiness; R06.02 Shortness of breath; R11.0 Nausea; I48.91 Unspecified atrial fibrillation; I11.0 Hypertensive heart disease with heart failure; I50.9 Heart failure, unspecified; E78.00 Pure hypercholesterolemia, unspecified; J44.9 Chronic obstructive pulmonary disease, unspecified; M10.9 Gout, unspecified; F32.9 Major depressive disorder, single episode, unspecified; D64.9 Anemia, unspecified; E66.9 Obesity, unspecified; Z68.43 Body mass index [BMI] 50.0-59.9, adult; Z87.891 Personal history of nicotine dependence; Z91.018 Allergy to other foods; Z88.0 Allergy status to penicillin; Z79.899 Other long term (current) drug therapy; Z79.82 Long term (current) use of aspirin
CPT/HCPCS: 36415; 71045; 71045-26; 80053; 84484; 85025; 85379; 93005; 93010; 99283; 99285-25

== ENCOUNTER 2020-11-12 05:58 | Day surgery (SDC) | payer OTHER, BC ==
[~2020-11-12 05:58] MED LIST changes: -Acetaminophen 325 MG Tab PO SCH; +Albuterol 0.083% 2.5 MG/3 ML Neb Soln NEB PRN; -Pregabalin 25 MG Cap PO SCH; +Scopolamine 1.5 MG Transdermal Patch TRDERM PRN; -oxyCODONE ER 10 MG TAB.ER PO SCH
[2020-11-12] MEDS ORDERED: ceFAZolin 1 GM Vial ONE (06:37)
[2020-11-12] MEDS ORDERED: Triamcinolone Acetonide 40 MG/ML 1 ML SDV ONE (06:49)
[2020-11-12] MEDS ORDERED: Lidocaine 1% 30 ML SDV ONE (06:49)
[2020-11-12] MEDS: Bupivacaine 0.25% 10 ML SDV ONE ×2 (07:03→07:25)
[2020-11-12 08:44] VITALS: BP 136/67; PULSE 76
--- NOTE | 2020-11-19 11:44 | PCM.OPNOTE ---
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
--- NOTE | 2020-12-01 08:36 | OR ---
DATE OF OPERATION: 11/12/2020 SURGEON: Sandro Dawson MD OPERATION PERFORMED: Right carpal tunnel release with right 1st carpometacarpal joint injection. 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 ANESTHESIA: Local only. ROCK WORKER: Samaria Damian PA-C ESTIMATED BLOOD LOSS: Less than 5 mL. COMPLICATIONS: None. CONDITION: Stable. DESCRIPTION OF PROCEDURE: The patient was identified in the preop holding area. Proper site was marked and identified by the surgeon. The patient was taken back to the operating theater where after adequate anesthesia, the patient's right upper extremity was sterilely prepped and draped in the usual sterile fashion. OR time-out was performed. The patient did not receive antibiotics and it is not indicated for soft tissue hand procedure. At this time, the right upper extremity was exsanguinated and an Esmarch was used as a tourniquet on the forearm. At this time, using 1% lidocaine without epinephrine and 0.25% Marcaine without epinephrine, the palmar cutaneous branch of the median nerve was anesthetized and then the incisional site was anesthetized using Briseno cardinal line and ulnar border of the fourth digit as reference. Once this had set up, an incision was made. Blunt dissection was taken down to the palmar cutaneous fascia. Palmar cutaneous fascia was incised with a Zuni blade. At this time, the transverse carpal ligament was identified. A small rent was made in the transverse carpal ligament with a Zuni blade under direct visualization. Resection of the transverse carpal ligament was done distally using tenotomy scissors making sure to stop short of the palmar arch. At this time, attention was turned proximally after it was found to be adequately released. Using the tenotomy scissors keeping the tips ulnar to protect the palmar cutaneous branch of the median nerve, the superficial forearm fascia as well as the transverse carpal ligament were resected proximally. It was found to be adequate release both proximally and distally. At this time, adequate saline was irrigated through the wound. 4-0 nylon sutures were used closure of the skin. The patient was placed in a sterile soft dressing and sent to PACU in stable condition. After this was completed under sterile technique, 1 mL of 40 mg Kenalog and 2 mL of 0.25% Marcaine were injected to the right 1st CMC joint. The patient tolerated all procedures well. PEDRO /[id number]
== END 2020-11-12 08:52 | disposition home or self-care (01) ==
LOC: JD.SDS 05:58
PROVIDERS: ATTEND Orthopaedic Surgery
DX: G56.11 Other lesions of median nerve, right upper limb (principal); M18.11 Unilateral primary osteoarthritis of first carpometacarpal joint, right hand; G89.29 Other chronic pain; I10 Essential (primary) hypertension; F41.9 Anxiety disorder, unspecified; M54.5 Low back pain; F32.9 Major depressive disorder, single episode, unspecified; E78.5 Hyperlipidemia, unspecified; E66.01 Morbid (severe) obesity due to excess calories; E78.00 Pure hypercholesterolemia, unspecified; I48.0 Paroxysmal atrial fibrillation; Z90.49 Acquired absence of other specified parts of digestive tract; Z98.890 Other specified postprocedural states; Z87.891 Personal history of nicotine dependence; Z79.899 Other long term (current) drug therapy; Z88.0 Allergy status to penicillin; Z88.8 Allergy status to other drugs, medicaments and biological substances; Z68.43 Body mass index [BMI] 50.0-59.9, adult
CPT/HCPCS: 20605; 64721; 87641; A9270; J0690; J2001; J3301; J3490

== ENCOUNTER 2024-06-10 19:57 | Inpatient (IN) | payer MEDICARE, MEDICAID ==
[2024-06-10 21:12] LABS: BASOPHILS PERCENT AUTO 0.3 % (0.0-1.0); EOSINOPHILS ABSOLUTE AUTO 0.2 K/mm3 (0.0-0.4); EOSINOPHILS PERCENT AUTO 1.1 % (0.0-6.0); HEMATOCRIT 50.1 % (37.0-47.0); HEMOGLOBIN 16.8 gm/dl (12.0-16.0); IMMATURE GRAN ABSOLUTE AUTO 0.05 K/mm3 (0.00-0.05); IMMATURE GRAN PERCENT AUTO 0.4 % (0.0-0.4); LYMPHOCYTES ABSOLUTE AUTO 1.7 K/mm3 (1.0-4.8); MEAN CORPUSCULAR HEMOGLOBIN 30.2 pg (28.0-32.0); MEAN CORPUSCULAR HGB CONC 33.5 g/dl (32.0-36.0); MEAN CORPUSCULAR VOLUME 90.1 fl (83.0-99.0); MONOCYTES PERCENT AUTO 7.2 % (0.0-8.0); NEUTROPHILS ABSOLUTE AUTO 11.3 K/mm3 (1.8-7.7); PLATELET COUNT,PLT 403 K/mm3 (150-400); RED BLOOD CELL COUNT 5.56 M/mm3 (4.10-5.30); WHITE BLOOD CELL COUNT,WBC 14.25 K/mm3 (3.9-11.3)
[2024-06-10 21:29] LABS: LACTIC ACID 3.4 mmol/L (0.4-2.0)
[2024-06-10 21:31] LABS: A/G RATIO 1.3 (1-2); ALANINE AMINOTRANSFERASE,ALT 46 U/L (14-59); ALKALINE PHOSPHATASE 124 U/L (46-116); ANION GAP 16.8 (5-15); ASPARTATE AMNIOTRANSFERASE,AST 27 U/L (15-37); BILIRUBIN TOTAL 0.9 mg/dL (0.2-1.0); BLOOD UREA NITROGEN,BUN 24 mg/dL (7-18); CALCIUM 9.5 mg/dL (8.5-10.1); CARBON DIOXIDE,CO2 25 mEq/L (21-32); CHLORIDE,CL 102 mEq/L (98-107); ESTIMATED GFR 27 mL/min (>60); GLUCOSE RANDOM 178 mg/dL (70-99); POTASSIUM,K 4.8 mEq/L (3.5-5.1); PROTEIN TOTAL,TP 7.2 g/dl (6.4-8.2); SODIUM,NA 139 mEq/L (136-145)
[2024-06-10 21:32] LABS: C-REACTIVE PROTEIN < 0.05 mg/dL (<0.30)
[2024-06-10] MEDS: Sodium Chloride 0.9% 1,000 ML IV SCH (22:05)
[2024-06-10] MEDS: fentaNYL 100 MCG/2 ML SDV IVPUSH ONE (22:06)
[2024-06-10] MEDS: Ondansetron 4 MG/2 ML SDV IVPUSH ONE (22:06)
[2024-06-10] MEDS: Ondansetron 4 MG/2 ML SDV ONE (22:07)
[2024-06-10] MEDS: fentaNYL 100 MCG/2 ML SDV ONE (22:07)
[2024-06-10 22:17] LABS: LIPASE 6372 U/L (16-77)
[2024-06-10] MEDS ORDERED: Naloxone 0.4 MG/ML SDV IVPUSH PRN (22:40)
[2024-06-10] MEDS: Albuterol 0.083% 2.5 MG/3 ML Neb Soln NEB ONE (22:43)
[2024-06-10] MEDS: Metoclopramide 10 MG/2 ML SDV IVPUSH PRN (22:58)
[2024-06-10] MEDS: HYDROmorphone 0.5 MG/0.5 ML Syringe IVPUSH PRN (22:58)
[2024-06-11] MEDS: HYDROmorphone 1 MG/ML Syringe IVPUSH PRN (01:20)
[2024-06-11] MEDS: LORazepam 2 MG/ML SDV IVPUSH ONE (01:20)
[2024-06-11 01:33] LABS: APPEARANCE,URINE SLT CLOUDY (Clear); BILIRUBIN,URINE NEGATIVE (Negative); COLOR,URINE AMBER (Yellow); GLUCOSE,URINE NEGATIVE (Negative); KETONES,URINE TRACE (Negative); LEUKOCYTE ESTERASE,URINE NEGATIVE (Negative); NITRITE,URINE NEGATIVE (Negative); OCCULT BLOOD,URINE NEGATIVE (Negative); PH,URINE 5.5 (5.0-8.0); PROTEIN,URINE 2+ (Negative)
[2024-06-11 01:43] LABS: BACTERIA,URINE MODERATE /hpf (FEW); MUCUS,URINE MANY /hpf (FEW); RBC,URINE 0-5 /hpf (0-5); WBC,URINE 0-5 /hpf (0-5)
[2024-06-11] MEDS: Sodium Chloride 0.9% 1,000 ML IV SCH ×2 (02:57→15:51)
[2024-06-11 06:04] LABS: BASOPHILS PERCENT AUTO 0.3 % (0.0-1.0); EOSINOPHILS PERCENT AUTO 0.2 % (0.0-6.0); HEMATOCRIT 53.3 % (37.0-47.0); HEMOGLOBIN 17.4 gm/dl (12.0-16.0); IMMATURE GRAN ABSOLUTE AUTO 0.05 K/mm3 (0.00-0.05); IMMATURE GRAN PERCENT AUTO 0.3 % (0.0-0.4); LYMPHOCYTES ABSOLUTE AUTO 1.2 K/mm3 (1.0-4.8); LYMPHOCYTES PERCENT AUTO 7.6 % (24.0-44.0); MEAN CORPUSCULAR HGB CONC 32.6 g/dl (32.0-36.0); MEAN CORPUSCULAR VOLUME 91.9 fl (83.0-99.0); MEAN PLATELET VOLUME 9.4 fl (9.4-12.3); MONOCYTES ABSOLUTE AUTO 0.9 K/mm3 (0.0-0.8); MONOCYTES PERCENT AUTO 6.1 % (0.0-8.0); NEUTROPHILS ABSOLUTE AUTO 13.2 K/mm3 (1.8-7.7); NEUTROPHILS PERCENT AUTO 85.5 % (41.0-71.0); PLATELET COUNT,PLT 366 K/mm3 (150-400); WHITE BLOOD CELL COUNT,WBC 15.37 K/mm3 (3.9-11.3)
[2024-06-11 06:25] LABS: A/G RATIO 1.2 (1-2); ALANINE AMINOTRANSFERASE,ALT 42 U/L (14-59); ALBUMIN 3.7 g/dl (3.4-5.0); ALKALINE PHOSPHATASE 110 U/L (46-116); ANION GAP 11.7 (5-15); ASPARTATE AMNIOTRANSFERASE,AST 25 U/L (15-37); BLOOD UREA NITROGEN,BUN 27 mg/dL (7-18); CALCIUM 8.7 mg/dL (8.5-10.1); CARBON DIOXIDE,CO2 28 mEq/L (21-32); CHLORIDE,CL 105 mEq/L (98-107); CREATININE 1.8 mg/dL (0.55-1.02); ESTIMATED GFR 31 mL/min (>60); GLUCOSE RANDOM 163 mg/dL (70-99); POTASSIUM,K 5.7 mEq/L (3.5-5.1); PROTEIN TOTAL,TP 6.8 g/dl (6.4-8.2); SODIUM,NA 139 mEq/L (136-145)
[2024-06-11] MEDS ORDERED: Cyclobenzaprine 10 MG Tab PO PRN (08:23)
[2024-06-11] MEDS ORDERED: Acetaminophen/HYDROcodone 325-5 MG Tab PO PRN (08:28)
[2024-06-11] MEDS ORDERED: carBAMazepine 100 MG Tab.Chew PO SCH (09:00)
[2024-06-11] MEDS: Cyanocobalamin (Vitamin B12) 1,000 MCG Tab PO SCH (09:24)
[2024-06-11] MEDS: DULoxetine 30 MG Cap PO SCH (09:24)
[2024-06-11] MEDS ORDERED: Lactated Ringers 1,000 ML IV SCH (09:45)
[2024-06-11] MEDS: Formoterol/Mometasone 200-5 MCG 8.8 GM Inhaler IH SCH (09:49)
[2024-06-11] MEDS: Morphine 2 MG/ML SYRINGE IVPUSH PRN (10:27)
[2024-06-11] MEDS: Heparin Sodium 5,000 Units/ML Vial SUBCUT SCH (10:28)
[2024-06-11] MEDS: Furosemide 20 MG/2 ML VIAL IVPUSH ONE ×2 (11:26→15:50)
[2024-06-11] MEDS ORDERED: Insulin Lispro 100 Unit/ML 3 ML KwikPen SUBCUT SCH (11:30)
[2024-06-11] MEDS: DULoxetine 30 MG Cap PO ONE (11:35)
[2024-06-11] MEDS: Insulin Lispro 100 Unit/ML 3 ML KwikPen SUBCUT SCH ×2 (11:42→12:56)
[2024-06-11] MEDS: Diltiazem 120 MG Cap.CD PO SCH (12:42)
[2024-06-11] MEDS: oxyCODONE 5 MG Tab PO PRN (13:02)
[2024-06-11] MEDS: Albuterol 0.083% 2.5 MG/3 ML Neb Soln NEB ONE (13:27)
[2024-06-11] MEDS: Sodium Zirconium Cyclosilicate 10 GM Packet PO SCH (15:49)
[2024-06-11 18:46] LABS: CREATININE,URINE RAND 360.2 mg/dL (30.0-125.0)
[2024-06-11] MEDS: Albuterol/Ipratropium 3.0-0.5 MG/3 ML Neb Soln NEB PRN (20:11)
[2024-06-11] MEDS: atorvaSTATin 20 MG Tab PO SCH (20:45)
[2024-06-11] MEDS: Gabapentin 300 MG Cap PO SCH (20:45)
[2024-06-11 21:08] LABS: ANION GAP 16.2 (5-15); BUN/CREATININE RATIO 16.5 (14-18); CALCIUM 8.1 mg/dL (8.5-10.1); EST CRCL DRUG DOSING (CG) 29.7 mL/min; POTASSIUM,K 5.2 mEq/L (3.5-5.1)
[2024-06-11] MEDS: Ondansetron 4 MG/2 ML SDV IV PRN (21:10)
[2024-06-12 04:54] LABS: BASOPHILS ABSOLUTE AUTO 0.1 K/mm3 (0.0-0.2); BASOPHILS PERCENT AUTO 0.3 % (0.0-1.0); HEMATOCRIT 53.9 % (37.0-47.0); HEMOGLOBIN 17.7 gm/dl (12.0-16.0); IMMATURE GRAN ABSOLUTE AUTO 0.08 K/mm3 (0.00-0.05); IMMATURE GRAN PERCENT AUTO 0.4 % (0.0-0.4); LYMPHOCYTES ABSOLUTE AUTO 1.5 K/mm3 (1.0-4.8); LYMPHOCYTES PERCENT AUTO 7.1 % (24.0-44.0); MEAN CORPUSCULAR HEMOGLOBIN 29.8 pg (28.0-32.0); MEAN CORPUSCULAR HGB CONC 32.8 g/dl (32.0-36.0); MEAN CORPUSCULAR VOLUME 90.7 fl (83.0-99.0); MONOCYTES ABSOLUTE AUTO 1.6 K/mm3 (0.0-0.8); MONOCYTES PERCENT AUTO 7.4 % (0.0-8.0); NEUTROPHILS ABSOLUTE AUTO 18.2 K/mm3 (1.8-7.7); NEUTROPHILS PERCENT AUTO 84.8 % (41.0-71.0); PLATELET COUNT,PLT 292 K/mm3 (150-400); RED BLOOD CELL COUNT 5.94 M/mm3 (4.10-5.30); WHITE BLOOD CELL COUNT,WBC 21.48 K/mm3 (3.9-11.3)
[2024-06-12 05:03] LABS: ANION GAP 16.2 (5-15); BUN/CREATININE RATIO 15.9 (14-18); CREATININE 2.2 mg/dL (0.55-1.02); POTASSIUM,K 5.2 mEq/L (3.5-5.1)
[2024-06-12 05:04] LABS: BILIRUBIN TOTAL 1.3 mg/dL (0.2-1.0); CALCIUM 8.1 mg/dL (8.5-10.1); MAGNESIUM 2.1 mg/dL (1.8-2.4); PROTEIN TOTAL,TP 6.1 g/dl (6.4-8.2)
[2024-06-12 05:16] LABS: SLIDE REVIEW ABNORMAL SMEAR
[2024-06-12] MEDS: Sodium Chloride 0.9% 1,000 ML IV ONE (06:32)
[2024-06-12] MEDS: DULoxetine 30 MG Cap PO SCH (08:13)
[2024-06-12] MEDS: Furosemide 20 MG Tab PO SCH (08:14)
[2024-06-12] MEDS: Insulin Lispro 100 Unit/ML 3 ML KwikPen SUBCUT SCH (11:48)
[2024-06-12] MEDS: Sodium Chloride 0.9% 1,000 ML IV SCH (12:22)
[2024-06-12 14:19] LABS: ANION GAP 14.4 (5-15); BUN/CREATININE RATIO 15.7 (14-18); CALCIUM 7.4 mg/dL (8.5-10.1); CREATININE 2.1 mg/dL (0.55-1.02); EST CRCL DRUG DOSING (CG) 28.28 mL/min; POTASSIUM,K 4.4 mEq/L (3.5-5.1)
[2024-06-12] MEDS: HYDROmorphone 0.5 MG/0.5 ML Syringe IVPUSH PRN (18:28)
[2024-06-13] MEDS: Acetaminophen 325 MG Tab PO PRN (03:44)
[2024-06-13] MEDS: Albuterol 6.7 GM Inhaler INH PRN (03:49)
[2024-06-13] MEDS: Sodium Chloride 0.9% 1,000 ML IV SCH (05:14)
[2024-06-13 06:35] LABS: BASOPHILS ABSOLUTE AUTO 0.1 K/mm3 (0.0-0.2); BASOPHILS PERCENT AUTO 0.4 % (0.0-1.0); EOSINOPHILS ABSOLUTE AUTO 0.1 K/mm3 (0.0-0.4); EOSINOPHILS PERCENT AUTO 0.4 % (0.0-6.0); HEMATOCRIT 43.5 % (37.0-47.0); IMMATURE GRAN ABSOLUTE AUTO 0.08 K/mm3 (0.00-0.05); IMMATURE GRAN PERCENT AUTO 0.5 % (0.0-0.4); LYMPHOCYTES ABSOLUTE AUTO 1.4 K/mm3 (1.0-4.8); LYMPHOCYTES PERCENT AUTO 8.4 % (24.0-44.0); MEAN CORPUSCULAR HEMOGLOBIN 30.2 pg (28.0-32.0); MEAN CORPUSCULAR HGB CONC 33.6 g/dl (32.0-36.0); MEAN CORPUSCULAR VOLUME 89.9 fl (83.0-99.0); MEAN PLATELET VOLUME 10.1 fl (9.4-12.3); MONOCYTES ABSOLUTE AUTO 1.7 K/mm3 (0.0-0.8); MONOCYTES PERCENT AUTO 9.6 % (0.0-8.0); NEUTROPHILS ABSOLUTE AUTO 13.8 K/mm3 (1.8-7.7); NEUTROPHILS PERCENT AUTO 80.7 % (41.0-71.0); PLATELET COUNT,PLT 252 K/mm3 (150-400); RED BLOOD CELL COUNT 4.84 M/mm3 (4.10-5.30); WHITE BLOOD CELL COUNT,WBC 17.11 K/mm3 (3.9-11.3)
[2024-06-13 06:38] LABS: HEMOGLOBIN 14.6 gm/dl (12.0-16.0)
[2024-06-13 06:52] LABS: SLIDE REVIEW ABNORMAL SMEAR
[2024-06-13 06:59] LABS: A/G RATIO 0.8 (1-2); ALBUMIN 2.6 g/dl (3.4-5.0); ANION GAP 14.2 (5-15); BILIRUBIN TOTAL 1.1 mg/dL (0.2-1.0); BUN/CREATININE RATIO 15.5 (14-18); CALCIUM 8.2 mg/dL (8.5-10.1); EST CRCL DRUG DOSING (CG) 29.7 mL/min; MAGNESIUM 1.8 mg/dL (1.8-2.4); POTASSIUM,K 4.2 mEq/L (3.5-5.1); PROTEIN TOTAL,TP 5.8 g/dl (6.4-8.2)
[2024-06-13] MEDS: PROPRANOLOL 80 MG PO SCH (08:43)
[2024-06-13] MEDS: Insulin Lispro 100 Unit/ML 3 ML KwikPen SUBCUT SCH (13:19)
[2024-06-13] MEDS: D5 1/2 NS w/ 20 mEq/L KCl 1,000 ML IV SCH (19:31)
[2024-06-14 05:07] LABS: BASOPHILS PERCENT AUTO 0.3 % (0.0-1.0); EOSINOPHILS ABSOLUTE AUTO 0.2 K/mm3 (0.0-0.4); EOSINOPHILS PERCENT AUTO 1.4 % (0.0-6.0); HEMATOCRIT 37.1 % (37.0-47.0); IMMATURE GRAN ABSOLUTE AUTO 0.04 K/mm3 (0.00-0.05); IMMATURE GRAN PERCENT AUTO 0.4 % (0.0-0.4); LYMPHOCYTES ABSOLUTE AUTO 0.9 K/mm3 (1.0-4.8); LYMPHOCYTES PERCENT AUTO 8.8 % (24.0-44.0); MEAN CORPUSCULAR HGB CONC 33.2 g/dl (32.0-36.0); MEAN CORPUSCULAR VOLUME 90.5 fl (83.0-99.0); MEAN PLATELET VOLUME 10.4 fl (9.4-12.3); MONOCYTES ABSOLUTE AUTO 1.2 K/mm3 (0.0-0.8); MONOCYTES PERCENT AUTO 11.6 % (0.0-8.0); NEUTROPHILS ABSOLUTE AUTO 8.2 K/mm3 (1.8-7.7); NEUTROPHILS PERCENT AUTO 77.5 % (41.0-71.0); PLATELET COUNT,PLT 173 K/mm3 (150-400); WHITE BLOOD CELL COUNT,WBC 10.58 K/mm3 (3.9-11.3)
[2024-06-14 05:08] LABS: HEMOGLOBIN 12.3 gm/dl (12.0-16.0)
[2024-06-14 05:27] LABS: A/G RATIO 0.7 (1-2); ALBUMIN 2.1 g/dl (3.4-5.0); ANION GAP 11.6 (5-15); BILIRUBIN TOTAL 0.8 mg/dL (0.2-1.0); CALCIUM 8.3 mg/dL (8.5-10.1); CREATININE 1.5 mg/dL (0.55-1.02); EST CRCL DRUG DOSING (CG) 39.6 mL/min; MAGNESIUM 1.8 mg/dL (1.8-2.4); POTASSIUM,K 4.6 mEq/L (3.5-5.1); PROTEIN TOTAL,TP 5.1 g/dl (6.4-8.2)
[2024-06-14] MEDS: Insulin Lispro 100 Unit/ML 3 ML KwikPen SUBCUT SCH ×2 (06:56→11:41)
[2024-06-15] MEDS: Piperacillin/Tazobactam 4.5 GM in Sodium Chloride 0.9% 100 ML IV ONE (09:40)
[2024-06-15 10:25] LABS: BASOPHILS ABSOLUTE AUTO 0.1 K/mm3 (0.0-0.2); BASOPHILS PERCENT AUTO 0.4 % (0.0-1.0); EOSINOPHILS ABSOLUTE AUTO 0.3 K/mm3 (0.0-0.4); EOSINOPHILS PERCENT AUTO 2.6 % (0.0-6.0); HEMATOCRIT 37.5 % (37.0-47.0); HEMOGLOBIN 12.4 gm/dl (12.0-16.0); IMMATURE GRAN ABSOLUTE AUTO 0.06 K/mm3 (0.00-0.05); IMMATURE GRAN PERCENT AUTO 0.5 % (0.0-0.4); LYMPHOCYTES ABSOLUTE AUTO 1.2 K/mm3 (1.0-4.8); LYMPHOCYTES PERCENT AUTO 10.5 % (24.0-44.0); MEAN CORPUSCULAR HEMOGLOBIN 29.9 pg (28.0-32.0); MEAN CORPUSCULAR HGB CONC 33.1 g/dl (32.0-36.0); MEAN CORPUSCULAR VOLUME 90.4 fl (83.0-99.0); MEAN PLATELET VOLUME 10.5 fl (9.4-12.3); MONOCYTES ABSOLUTE AUTO 1.3 K/mm3 (0.0-0.8); MONOCYTES PERCENT AUTO 11.8 % (0.0-8.0); NEUTROPHILS ABSOLUTE AUTO 8.4 K/mm3 (1.8-7.7); NEUTROPHILS PERCENT AUTO 74.2 % (41.0-71.0); PLATELET COUNT,PLT 227 K/mm3 (150-400); RED BLOOD CELL COUNT 4.15 M/mm3 (4.10-5.30); WHITE BLOOD CELL COUNT,WBC 11.28 K/mm3 (3.9-11.3)
[2024-06-15 11:04] LABS: A/G RATIO 0.6 (1-2); ALBUMIN 2.3 g/dl (3.4-5.0); ANION GAP 12.9 (5-15); BUN/CREATININE RATIO 13.3 (14-18); CALCIUM 8.9 mg/dL (8.5-10.1); CREATININE 1.5 mg/dL (0.55-1.02); EST CRCL DRUG DOSING (CG) 39.6 mL/min; POTASSIUM,K 3.9 mEq/L (3.5-5.1); PROTEIN TOTAL,TP 5.9 g/dl (6.4-8.2)
[2024-06-15 11:05] LABS: BILIRUBIN TOTAL 0.8 mg/dL (0.2-1.0)
[2024-06-15 11:14] LABS: MAGNESIUM 1.8 mg/dL (1.8-2.4)
[2024-06-15 12:21] LABS: APPEARANCE,URINE SLT CLOUDY (Clear); BILIRUBIN,URINE 1+ (Negative); COLOR,URINE YELLOW (Yellow); GLUCOSE,URINE NEGATIVE (Negative); KETONES,URINE 1+ (Negative); LEUKOCYTE ESTERASE,URINE NEGATIVE (Negative); NITRITE,URINE NEGATIVE (Negative); OCCULT BLOOD,URINE NEGATIVE (Negative); PROTEIN,URINE 2+ (Negative); UROBILINOGEN,URINE 0.2 (0.2-1.0)
[2024-06-15 12:25] LABS: BACTERIA,URINE FEW /hpf (FEW); HYALINE CASTS,URINE 0-5 /lpf (0-5); MUCUS,URINE FEW /hpf (FEW); RBC,URINE 0-5 /hpf (0-5); WBC,URINE 0-5 /hpf (0-5)
[2024-06-15] MEDS: Albuterol/Ipratropium 3.0-0.5 MG/3 ML Neb Soln INH SCH (14:43)
[2024-06-15] MEDS: hydrOXYzine HCl 25 MG Tab PO ONE (17:07)
[2024-06-15] MEDS: Piperacillin/Tazobactam 4.5 GM in Sodium Chloride 0.9% 100 ML IV SCH (17:15)
[2024-06-15] MEDS: hydrOXYzine HCl 25 MG Tab PO PRN (20:03)
[2024-06-15] MEDS: Sodium Chloride 0.9% 100 ML ONE ×2 (20:37)
[2024-06-15] MEDS: hydrOXYzine HCl 25 MG Tab ONE (20:37)
[2024-06-15] MEDS: Piperacillin/Tazobactam 4.5 GM Vial ONE ×2 (20:37)
[2024-06-15] MEDS: Iopamidol 612 MG/ML 100 ML Bottle IVPUSH ONE (21:41)
[2024-06-15] MEDS: Iopamidol 612 MG/ML 30 ML SDV IVPUSH ONE (21:41)
[2024-06-16] MEDS: Sennosides 8.6 MG Tab PO PRN (03:43)
[2024-06-16] MEDS: Bisacodyl 5 MG Tab PO PRN (03:44)
[2024-06-16 06:03] LABS: HEMATOCRIT 36.1 % (37.0-47.0); HEMOGLOBIN 12.3 gm/dl (12.0-16.0); MEAN CORPUSCULAR HEMOGLOBIN 30.1 pg (28.0-32.0); MEAN CORPUSCULAR HGB CONC 34.1 g/dl (32.0-36.0); MEAN CORPUSCULAR VOLUME 88.3 fl (83.0-99.0); MEAN PLATELET VOLUME 9.6 fl (9.4-12.3); PLATELET COUNT,PLT 246 K/mm3 (150-400); RED BLOOD CELL COUNT 4.09 M/mm3 (4.10-5.30); WHITE BLOOD CELL COUNT,WBC 10.68 K/mm3 (3.9-11.3)
[2024-06-16 06:29] LABS: A/G RATIO 0.6 (1-2); ALBUMIN 2.3 g/dl (3.4-5.0); ANION GAP 14.9 (5-15); BILIRUBIN TOTAL 0.7 mg/dL (0.2-1.0); BUN/CREATININE RATIO 10.7 (14-18); CREATININE 1.4 mg/dL (0.55-1.02); EST CRCL DRUG DOSING (CG) 42.43 mL/min; POTASSIUM,K 3.9 mEq/L (3.5-5.1); PROTEIN TOTAL,TP 6.1 g/dl (6.4-8.2)
[2024-06-16] MEDS ORDERED: ACETAMINOPHEN PO PRN (17:35)
[2024-06-16] MEDS ORDERED: hydrOXYzine HCl 25 MG Tab PO PRN (17:35)
[2024-06-16] MEDS ORDERED: ASPIRIN PO PRN (17:35)
[2024-06-16] MEDS ORDERED: CAFFEINE PO PRN (17:35)
[2024-06-16] MEDS ORDERED: Benzonatate 100 MG Cap PO PRN (17:58)
[2024-06-16] MEDS: Acetaminophen/HYDROcodone 325-5 MG Tab PO PRN (19:41)
[2024-06-16] MEDS: Enoxaparin 150 MG/1 ML Syringe SUBCUT SCH (19:44)
[2024-06-16] MEDS: Calcium Carbonate/Vitamin D3 600 MG-200 Units Tab PO SCH (20:56)
[2024-06-17 04:32] VITALS: PULSE 78
[2024-06-17 06:08] LABS: ANION GAP 15.7 (5-15); BUN/CREATININE RATIO 9.3 (14-18); CALCIUM 9.3 mg/dL (8.5-10.1); CREATININE 1.4 mg/dL (0.55-1.02); EST CRCL DRUG DOSING (CG) 42.43 mL/min; MAGNESIUM 1.4 mg/dL (1.8-2.4); POTASSIUM,K 3.7 mEq/L (3.5-5.1)
[2024-06-17] MEDS: Spironolactone 25 MG Tab PO SCH (09:27)
[2024-06-17 09:28] VITALS: BP 104/68
[2024-06-17] MEDS: Potassium Chloride 20 MEQ Tab.ER PO ONE (11:15)
[2024-06-17] MEDS: Magnesium Sulfate/Water 4 GM in Premix Bag 1 BAG IV ONE (11:16)
== END 2024-06-17 15:30 | disposition home health service (06) | DRG 438 ==
LOC: JD.ED 19:57 → JD.MS 06-11 08:20
PROVIDERS: ADMIT Internal Medicine; ATTEND Student in an Organized Health Care Education/Training Program
DX: K85.30 Drug induced acute pancreatitis without necrosis or infection (principal); J18.9 Pneumonia, unspecified organism; I11.0 Hypertensive heart disease with heart failure; E87.20 Acidosis, unspecified; N17.9 Acute kidney failure, unspecified; Z68.43 Body mass index [BMI] 50.0-59.9, adult; I13.0 Hypertensive heart and chronic kidney disease with heart failure and stage 1 through stage 4 chronic kidney disease, or unspecified chronic kidney disease; E87.5 Hyperkalemia; Z88.8 Allergy status to other drugs, medicaments and biological substances; Z66 Do not resuscitate; R91.1 Solitary pulmonary nodule; E66.01 Morbid (severe) obesity due to excess calories; I48.91 Unspecified atrial fibrillation; I50.9 Heart failure, unspecified; E78.00 Pure hypercholesterolemia, unspecified; J44.9 Chronic obstructive pulmonary disease, unspecified; M10.9 Gout, unspecified; M19.90 Unspecified osteoarthritis, unspecified site; T38.3X5A Adverse effect of insulin and oral hypoglycemic [antidiabetic] drugs, initial encounter; F32.A Depression, unspecified; M06.9 Rheumatoid arthritis, unspecified; R62.50 Unspecified lack of expected normal physiological development in childhood; D72.829 Elevated white blood cell count, unspecified; R09.02 Hypoxemia; G47.33 Obstructive sleep apnea (adult) (pediatric); E11.22 Type 2 diabetes mellitus with diabetic chronic kidney disease; N18.9 Chronic kidney disease, unspecified; Z88.0 Allergy status to penicillin; Z91.018 Allergy to other foods; Z79.51 Long term (current) use of inhaled steroids; Z79.899 Other long term (current) drug therapy; Z79.82 Long term (current) use of aspirin; Z86.16 Personal history of COVID-19; Z98.890 Other specified postprocedural states; Z90.49 Acquired absence of other specified parts of digestive tract; Z86.718 Personal history of other venous thrombosis and embolism
CPT/HCPCS: 36415 ×2; 71250; 74176; 80053 ×2; 81001; 82570; 83605 ×3; 83690 ×2; 83880; 84300; 85025 ×2; 86140; 87040 ×2; 94640; J1170 ×5; J2060; J2405; J2765 ×2; J3010; J7030 ×2; 71045; 71045-26; 71046; 71046-26; 74177; 74177-26; 80048; 82947; 83615; 83735; 84100; 84132; 85027; 93005; 93010; 94660; 94760; 94761; 97110-GP; 97161-GP; 99284; A9270-GY; J1644; J1650; J1815; J1940; J2270; J2543; J3475; J3480; J3490; J7620-GY